=== PATIENT | male | born 1970 | race Caucasian/White ===

== ENCOUNTER 2020-02-24 12:18 | Outpatient (REF) | payer OTHER, SELFPAY ==
[2020-02-24 13:12] LABS: MANUAL DIFF FLAG NO
[2020-02-24 13:20] LABS: Basophils Absolute Auto 0.1 X10*3/uL (0.0-0.2); Basophils Percent Auto 0.5 % (0-2); Eosinophils Absolute Auto 0.2 X10*3/uL (0.0-0.4); Hematocrit 42.6 % (42-52); Hemoglobin 14.4 g/dl (14.0-18.0); Imm Gran Abs Auto 0.07 X10*3/uL (0.00-0.03); Imm Gran Pct Auto 0.7 % (0.0-0.4); Lymphocytes Absolute Auto 2.6 X10*3/uL (1.2-4.9); Lymphocytes Percent Auto 26.5 % (20-40); Mean Corpuscular HGB Conc 33.8 g/dl (31.0-36.0); Mean Corpuscular Hemoglobin 29.1 pg (27.0-33.0); Mean Corpuscular Volume 86.1 fL (80-98); Mean Platelet Volume 10.8 fL (9.4-12.4); Monocytes Absolute Auto 0.7 X10*3/uL (0.1-1.2); Monocytes Percent Auto 7.6 % (2-11); Neutrophils Absolute Auto 6.1 X10*3/uL (2.0-8.3); Neutrophils Percent Auto 62.7 % (45-73); Platelet Count 167 X10*3/uL (160-400); Red Blood Count 4.95 X10*6/uL (4.60-5.80); Red Cell Distribution Width 13.1 % (11.0-16.0); White Blood Count 9.7 X10*3/uL (4.8-10.8)
[2020-02-24 13:34] LABS: Estimated Average Glucose 154 mg/dL
[2020-02-24 13:56] LABS: Alanine Aminotransferase 23 U/L (0-40); Alkaline Phosphatase 83 U/L (39-117); Anion Gap 12 (12-20); Aspartate Amino Transferase 21 U/L (5-37); Bilirubin Total 0.5 mg/dL (0.0-1.0); Blood Urea Nitrogen 15 mg/dL (9-16); Calcium 9.2 mg/dL (8.4-10.2); Carbon Dioxide 28 mmol/L (22-29); Chloride 106 mmol/L (96-108); Cholesterol 106 mg/dL; Estimated Glomerular Filt Rate > 60; Glucose Fasting 104 mg/dL (60-99); HDL Cholesterol 26 mg/dL; LDL Cholesterol Calculated 58 mg/dl; Sodium 141 mmol/L (135-145); Triglycerides 112 mg/dL
[2020-02-24 15:41] LABS: Creatinine Urine 161.83 mg/dL; Microalbum/Creatinine Ratio Ur 533.2 ug/mg cr
== END 2020-02-24 12:19 | disposition home or self-care (01) ==
LOC: HO.LAB 12:18
PROVIDERS: PCP Internal Medicine; Visit Provider Internal Medicine
DX: E11.9 Type 2 diabetes mellitus without complications (principal)
CPT/HCPCS: 36415; 80053; 80061; 82043; 83036; 85025

== ENCOUNTER → 2020-04-05 13:04 | Outpatient (BNVA) | payer OTHER, SELFPAY | PROVIDERS: PCP Internal Medicine; Visit Provider Internal Medicine | DX: E11.9 Type 2 diabetes mellitus without complications (principal); I10 Essential (primary) hypertension; E78.5 Hyperlipidemia, unspecified; E55.9 Vitamin D deficiency, unspecified | CPT/HCPCS: 82947; 99202 ==

== ENCOUNTER → 2020-07-14 13:19 | Outpatient (BNVA) | payer OTHER, SELFPAY | PROVIDERS: PCP Internal Medicine; Visit Provider Physician Assistant ==

== ENCOUNTER → 2020-07-21 08:17 | Outpatient (BNVA) | payer OTHER, SELFPAY | PROVIDERS: PCP Internal Medicine; Visit Provider Surgery | DX: E66.01 Morbid (severe) obesity due to excess calories (principal); Z68.43 Body mass index [BMI] 50.0-59.9, adult | CPT/HCPCS: Q3014 ==

== ENCOUNTER 2020-07-27 | Outpatient (REF) | payer OTHER, SELFPAY ==
[2020-07-29 13:46] LABS: H Pylori Breath Test NOT DETECTED (NOT DETECTED)
== END 2020-07-27 00:01 | disposition home or self-care (01) ==
LOC: HO.US
PROVIDERS: Visit Provider Surgery
DX: Z01.818 Encounter for other preprocedural examination (principal); E66.01 Morbid (severe) obesity due to excess calories; K21.9 Gastro-esophageal reflux disease without esophagitis; E11.9 Type 2 diabetes mellitus without complications; E78.5 Hyperlipidemia, unspecified; I10 Essential (primary) hypertension
CPT/HCPCS: 83013

== ENCOUNTER 2020-07-27 12:59 | Outpatient (REF) | payer OTHER, SELFPAY ==
--- NOTE | ~2020-07-27 | XR_ITS ---
EXAMINATION: XR CHEST CLINICAL INFORMATION: Type 2 diabetes. COMPARISON: None TECHNIQUE: 2 views of the chest were obtained. FINDINGS: No significant abnormality is noted involving the heart, lungs, mediastinum, bony thorax or soft tissues. XR/XR chest 2V IMPRESSION: Unremarkable chest examination.
--- NOTE | 2020-07-27 13:15 | ECG_ITS ---
Test Reason : E11.2 Blood Pressure : / mmHG Vent. Rate : 071 BPM Atrial Rate : 071 BPM P-R Int : 174 ms QRS Dur : 090 ms QT Int : 386 ms P-R-T Axes : 015 -16 022 degrees QTc Int : 419 ms Sinus rhythm with Premature atrial complexes Minimal voltage criteria for LVH, may be normal variant Borderline ECG No previous ECGs available Referred By: Douglas Burden Electronically Signed By:Tommy Pina
[2020-07-27 14:22] LABS: MANUAL DIFF FLAG NO
[2020-07-27 14:27] LABS: Basophils Absolute Auto 0.1 X10*3/uL (0.0-0.2); Basophils Percent Auto 0.7 % (0-2); Eosinophils Absolute Auto 0.3 X10*3/uL (0.0-0.4); Eosinophils Percent Auto 3.1 % (0-4); Hematocrit 45.4 % (42-52); Hemoglobin 15.4 g/dl (14.0-18.0); Imm Gran Abs Auto 0.06 X10*3/uL (0.00-0.03); Imm Gran Pct Auto 0.7 % (0.0-0.4); Lymphocytes Absolute Auto 2.4 X10*3/uL (1.2-4.9); Lymphocytes Percent Auto 26.7 % (20-40); Mean Corpuscular HGB Conc 33.9 g/dl (31.0-36.0); Mean Corpuscular Hemoglobin 29.1 pg (27.0-33.0); Mean Corpuscular Volume 85.7 fL (80-98); Mean Platelet Volume 10.8 fL (9.4-12.4); Monocytes Absolute Auto 0.8 X10*3/uL (0.1-1.2); Monocytes Percent Auto 8.8 % (2-11); Neutrophils Absolute Auto 5.4 X10*3/uL (2.0-8.3); Platelet Count 160 X10*3/uL (160-400); Red Cell Distribution Width 13.6 % (11.0-16.0)
[2020-07-27 14:43] LABS: Estimated Average Glucose 157 mg/dL; Hemoglobin A1c % 7.1 %
[2020-07-27 14:52] LABS: Alanine Aminotransferase 47 U/L (0-40); Albumin Level 4.2 g/dL (3.5-5.0); Alkaline Phosphatase 95 U/L (39-117); Anion Gap 13 (12-20); Aspartate Amino Transferase 42 U/L (5-37); Bilirubin Total 0.6 mg/dL (0.0-1.0); Blood Urea Nitrogen 23 mg/dL (9-16); C Reactive Protein 0.41 mg/dL (< or = 0.50); Calcium 9.3 mg/dL (8.4-10.2); Carbon Dioxide 25 mmol/L (22-29); Chloride 104 mmol/L (96-108); Cholesterol 126 mg/dL; Estimated Glomerular Filt Rate 53; Glucose Random 149 mg/dL (60-115); HDL Cholesterol 33 mg/dL; Iron 64 mcg/dL (45-160); LDL Cholesterol Calculated 56 mg/dl; Percent Iron Saturation 19 % (15-50); Sodium 137 mmol/L (135-145); Total Iron Binding Capacity 330 mcg/dL (228-428); Total Protein 6.9 g/dL (6.5-8.0); Triglycerides 189 mg/dL; Unsaturated Iron Binding 266 ug/dL
[2020-07-27 15:07] LABS: Vitamin D 25-OH Total 22.2 ng/mL (>30)
[2020-07-27 15:25] LABS: Folate 15.4 ng/mL (> or = 4.0); Vitamin B12 346 pg/mL (200-900)
[2020-07-27 15:43] LABS: Ferritin 47 ng/mL (20-250)
[2020-07-28 09:37] LABS: Insulin Level Total 49.3 uIU/mL
[2020-07-29 09:21] LABS: Calcium (PTHI) 9.2 mg/dL (8.6-10.3); PTHI 29 pg/mL (14-64)
[2020-07-30 01:33] LABS: Zinc 84 mcg/dL (60-130)
[2020-07-31 21:06] LABS: Vitamin A 70 mcg/dL (38-98)
[2020-08-01 11:51] LABS: Vitamin B1 <6 nmol/L (8-30)
== END 2020-07-27 13:00 | disposition home or self-care (01) ==
LOC: HO.XRAY 12:59
PROVIDERS: PCP Internal Medicine; Visit Provider Surgery
DX: E11.9 Type 2 diabetes mellitus without complications (principal); E66.01 Morbid (severe) obesity due to excess calories; E78.5 Hyperlipidemia, unspecified; I10 Essential (primary) hypertension
CPT/HCPCS: 36415; 71046; 80053; 80061; 82306; 82607; 82728; 82746; 83036; 83525; 83540; 83970; 84425; 84443; 84590; 84630; 85025; 86140; 93005; 99211

== ENCOUNTER → 2020-08-02 14:55 | Outpatient (BNVA) | payer OTHER, SELFPAY | PROVIDERS: PCP Internal Medicine; Visit Provider Internal Medicine | DX: E55.9 Vitamin D deficiency, unspecified (principal); E78.5 Hyperlipidemia, unspecified; E11.9 Type 2 diabetes mellitus without complications; I10 Essential (primary) hypertension | CPT/HCPCS: 82947; 99212 ==

== ENCOUNTER → 2020-08-06 08:16 | Outpatient (BNVA) | payer OTHER, SELFPAY | PROVIDERS: PCP Internal Medicine; Visit Provider Surgery | DX: E66.01 Morbid (severe) obesity due to excess calories (principal); Z68.43 Body mass index [BMI] 50.0-59.9, adult; Z71.3 Dietary counseling and surveillance | CPT/HCPCS: Q3014 ==

== ENCOUNTER → 2020-08-13 08:11 | Outpatient (BNVA) | payer OTHER, SELFPAY | PROVIDERS: PCP Internal Medicine; Visit Provider Dietitian, Registered | DX: E66.01 Morbid (severe) obesity due to excess calories (principal); Z68.43 Body mass index [BMI] 50.0-59.9, adult | CPT/HCPCS: 97802 ==

== ENCOUNTER 2020-09-02 09:04 | Outpatient (REF) | payer OTHER, SELFPAY ==
--- NOTE | ~2020-09-02 | US_ITS ---
EXAMINATION: US COMPLETE ABDOMEN WITH LIVER ELASTOGRAPHY CLINICAL INFORMATION: Obesity COMPARISON: None. TECHNIQUE: Real-time imaging of the abdominal viscera. Noninvasive ultrasound liver fibrosis assessment is performed using Senia ElastPQ point quantification shear wave elastography (pSWE) with a C5-2 MHz transducer. Multiple elastography samples are obtained. FINDINGS: PANCREAS: Not well visualized due to bowel gas ABDOMINAL AORTA: The proximal abdominal aorta is not well visualized due to bowel gas. The middle, and distal aortic segments are normal in caliber. INFERIOR VENA CAVA: Not well visualized due to bowel. LIVER: Liver echotexture is increased. The liver is normal in size and contour.. No focal lesion or intrahepatic biliary duct dilatation. The right lobe measures 16 cm in length. The left lobe measures 10 cm in length. Portal flow is normal/hepatopedal Shear wave liver elastography median stiffness is 1.5 m/s (reference: normal median stiffness is 1.3 m/s or less). IQR/median stiffness to assess sampling precision is 0.12 (reference: good quality data set is IQR/median stiffness of 0.15 or less). GALLBLADDER: Normal. The gallbladder is physiologically distended without evidence of stones, sludge, polyps, wall thickening or pericholecystic fluid. COMMON BILE DUCT: Normal in caliber measuring 0.5 cm in diameter. RIGHT KIDNEY: Normal. No hydronephrosis. No renal calculi or focal parenchymal lesions. The kidney measures 12 cm in maximum dimension. LEFT KIDNEY: Normal. No hydronephrosis. No renal calculi or focal parenchymal lesions. The kidney measures 12 cm in maximum dimension. SPLEEN: Slightly enlarged The spleen measures 14 cm in maximum dimension. FREE FLUID: None. US/US abdomen comp w elastography IMPRESSION: 1. Impression: Echogenic liver probably representing fatty infiltration. Limited visualization of the pancreas, proximal abdominal aorta and IVC. 2. Liver elastography: Adequate liver sampling. In the absence of other known clinical signs, rules out compensated advanced chronic liver disease. REFERENCE: Society of Radiologists in Ultrasound Liver Stiffness Thresholds (2020): LIVER STIFFNESS THRESHOLDS: *Liver Stiffness equal or less than 1.3 m/s: High probability of being normal. *Liver Stiffness less than 1.7 m/s: In the absence of other known clinical signs, rules out compensated advanced chronic liver disease. *Liver Stiffness 1.7-2.1 m/s: Suggestive of compensated advanced chronic liver disease but need further test for confirmation. *Liver Stiffness over 2.1 m/s: Rules in compensated advanced chronic liver disease. *Liver Stiffness over 2.4 m/s: Suggestive of clinically significant portal hypertension. QUALITY OF DATA SET: *IQR/Median value equal or less than 0.15 implies a quality data set. *IQR/Median value over 0.15 implies a poor quality data set. SIGNIFICANT CHANGE FROM PRIOR EXAM: Significant change if liver stiffness measurement is 10% or greater from prior exam. OTHER CONSIDERATIONS: The stage of liver fibrosis may be overestimated in the setting of acute hepatitis, liver inflammation, elevated liver function tests, hepatic vascular congestion, obstructive cholestasis, non-fasting state, and infiltrative diseases such as amyloidosis and lymphoma. In some patients with NAFLD, the liver stiffness thresholds for compensated advanced chronic liver disease may be lower. In causes other than viral hepatitis and NAFLD, liver stiffness thresholds are not well established.
--- NOTE | ~2020-09-02 | FL_ITS ---
EXAMINATION: XR GI SERIES CLINICAL INFORMATION: Obesity COMPARISON: None TECHNIQUE: Upper GI was performed using thin and thick barium and effervescent granules. FINDINGS: Esophageal motility is normal. No hiatal hernia or reflux is seen. The stomach and duodenum are normal-appearing. No fold thickening, mass, ulcer or stricture is seen. FLUOROSCOPY TIME: 0.7 minutes DOSE AREA PRODUCT: 11.5 michael per centimeter squared. 26 saved fluoroscopic images. FL/FL upper GI series IMPRESSION: Unremarkable examination.
== END 2020-09-02 09:05 | disposition home or self-care (01) ==
LOC: HO.US 09:04
PROVIDERS: Visit Provider Surgery
DX: Z01.818 Encounter for other preprocedural examination (principal); E66.01 Morbid (severe) obesity due to excess calories; I10 Essential (primary) hypertension; E11.9 Type 2 diabetes mellitus without complications; E78.5 Hyperlipidemia, unspecified; K21.9 Gastro-esophageal reflux disease without esophagitis
CPT/HCPCS: 74240; 76705; 76981

== ENCOUNTER → 2020-09-07 07:25 | Outpatient (REF) | payer OTHER, SELFPAY ==
--- NOTE | ~2020-09-07 | NM_ITS ---
Lexiscan Myocardial perfusion study Indication: Preoperative cardiovascular evaluation, assess for coronary disease and ischemia Technique: The patient was brought in for a Lexiscan perfusion study on 09/07/2020 and was injected 0.4 mg of Lexiscan intravenously. Within a minute of this injection 45 mCi of sestamibi was given intravenously. Images were obtained using the SPECT gamma camera interlaced with the gating device. Images were obtained in supine position. Resting perfusion study was performed on 09/08/2020. Patient was administered 45 mCi of sestamibi intravenously at rest. Images were then obtained in supine position. Total DLP 199mGy-cm. Images were processed with the software and compared side to side in short axis, horizontal long axis and vertical long axis views. Findings: Raw acquisition was reviewed. The stress perfusion study showed mildly diminished tracer uptake along the mid anterior wall. This still persists with CT attenuation correction. The gated study shows normal LV systolic function with calculated LVEF of 64%. LV cavity is normal in size. The gated study shows normal wall thickening and contraction of segments. Resting study shows no significant perfusion abnormality. With CT attenuation correction, there is worse uptake somewhat diffusely, possibly artifactual. Gating at rest reveals normal wall motion with ejection fraction at 47%. The findings are consistent with mild reversible mid anterior defect. NM/NM daina perf SPECT rest & str Impression: 1. Myocardial perfusion imaging study shows mild reversible mid anterior defect possibly from soft tissue attenuation based on normal regional wall thickening. However, cannot exclude ischemia completely. 2. Gated LVEF is 64% during stress and 47% during rest. Correlate with echocardiogram. 3. Transient ischemic dilatation not present. EKG component of the test reported separately.
--- NOTE | 2020-09-07 07:28 | CA_ITS ---
Acquisition Time: 2020-09-07 08:31:40 Total Exercise Time: 00:02:00 Test Indications: Abnormal ECG Medications: Protocol: LEXISCAN Max HR: 084 BPM 49% of Pred: 170 BPM Max BP: 122/074 mmHG Max Work Load: 1.0 METS Pharmacological stress test using Lexiscan while sitting and moving his L arm. Pt tolerated well, denies any anginal sx. EKG without arrhythmias, non-diagnostic for ischemia. Nuclear images to follow. Normotensive response to test. Test reviewed with Dr. Bañuelos. Referred By: Douglas Burden Overread By: Iveth Quiñones NP
--- NOTE | 2020-09-07 07:28 | CA_ITS ---
Transthoracic Echocardiogram Patient (Last, First, Middle): Luther Knox, Gender: Male Date of : 1970 Age: 49 Procedure Date: 09/07/2020 Procedure Type: Transthoracic Echocardiogram Location: OP Height: 182.88 cm Weight: 124.28 kg BSA: 2.44 m2 Heart Rate: bpm BP: 120 / 80 mmHg Asset Analyst: Referring MD: Douglas Burden MD Symptoms: R94.31 - Abnormal electrocardiogram [ECG] [EKG] Study Quality: Fair ECG Rhythm: Sinus Conclusions: - The left ventricular systolic function is normal. The visually estimated ejection fraction is between 55-60%. - No obvious valvular pathology seen on this study. - Small plaque is seen in the ascending aorta. Findings Procedure Information Contrast agent, definity, is being given per protocol without apparent complications. Left Ventricle Normal left ventricular cavity size. There is normal left ventricular wall thickness. The left ventricular systolic function is normal. The visually estimated ejection fraction is between 55-60%. There is no evidence of regional wall motion abnormalities. Diastolic function is normal for age. Right Ventricle Normal right ventricular cavity size and systolic function. Atria Both atria are normal in size. Aortic Valve There is a normal trileaflet aortic valve. There is no aortic valve stenosis. There is no aortic valve regurgitation. Mitral Valve The mitral valve appears normal. There is no mitral valve regurgitation. There is no mitral valve stenosis. Pulmonic Valve The pulmonic valve was not well visualized. Tricuspid Valve There is trace tricuspid valve regurgitation. The pulmonary artery systolic pressure is normal. Great Vessels The aortic annulus, sinuses of valsalva, and asc aorta are normal in size. Small plaque is seen in the ascending aorta. Venous The inferior vena cava is normal in size and collapses greater than 50% with inspiration. Pericardium/Pleural There is no evidence of pericardial effusion. Prior Study Comparison No prior study available for comparison. Recommendations, Care & Conclusions No obvious valvular pathology seen on this study. Measurements 2D Linear Measurements RVIDd: 3.47 RVIDd Index: 1.43 IVSd: 0.99 0.6-0.9/0.6-1.0 cm LVIDd: 5.11 3.9-5.3/4.2-5.9 cm LVIDd Index: 2.11 2.4-3.2/2.2-3.1 cm/m2 LVIDs: 3.34 2.0-3.6 cm LVPWd: 1.27 0.7-1.1 cm Ao Root: 3.20 2.1-3.5 cm LA Diam: 4.50 2.7-3.8/3.0-4.0 cm LAIDs Index: 1.86 1.5-2.3 cm/m2 LV Mass: 277.22 67-162/88-224 g LV Mass Index: 114.55 43-95/49-115 g/m2 LVOT Diam: 2.30 3.0+(-)1.3 cm 2D Systolic Function EF 4C: 48.20 >55% EF 2C: 69.20 >55% EF BiP: 60.00 >55% Mitral Valve MV Pk E: 0.65 MV PK A: 0.54 MV Decel Time: 280.00 E/A: 1.20 E'Lateral: 12.60 E'Medial: 7.62 E/E' Med: 8.50 E/E' Lat: 5.10 Aortic Valve AoV Pk Emmanuel: 1.03 AoV Mn Emmanuel: 0.82 AoV VTI: 0.22 AoV Pk Grad: 4.00 Aov Mn Grad: 3.00 ANDRÉS Cont.VTI: 4.35 LVOT LVOT Pk Emmanuel: 0.99 LVOT Mn Emmanuel: 0.76 LVOT VTI: 0.23 LVOT Pk Grad: 4.00 LVOT Mn Grad: 2.00 LVOT Diam: 2.30 LVOT Area: 4.15 Diastolic Function MV Pk E: 0.65 MV Pk A: 0.54 E/A: 1.20 E'Medial: 7.62 E/E' Med: 8.50 E' Laterial: 12.60 E/E' Lat: 5.10 Tricuspid Valve TR Pk Emmanuel: 2.27 TR Pk Grad: 21.00 RA Press: 3.00 RVSP: 24.00 Great Vessels Aorta Ao Root-2D: 3.20 2.0-3.7 cm Ao Asc: 3.40 2.1-3.4 cm Ao Arch: 2.50 Updated in Other Vendor System with Status of Final Mathew Nye MD electronically signed on 09/07/2020 1:06:04 PM with status of Final
== END ==
LOC: HO.CARD 07:25
PROVIDERS: Visit Provider Surgery
DX: Z01.818 Encounter for other preprocedural examination (principal); R06.02 Shortness of breath; R94.31 Abnormal electrocardiogram [ECG] [EKG]; I11.9 Hypertensive heart disease without heart failure
CPT/HCPCS: 78452; 93017; 93306; A9500; J0280; J2785; Q9957

== ENCOUNTER → 2020-09-13 12:22 | Outpatient (BNVA) | payer OTHER, SELFPAY | PROVIDERS: PCP Internal Medicine; Referring Provider Internal Medicine; Visit Provider Surgery | DX: E66.01 Morbid (severe) obesity due to excess calories (principal); Z68.43 Body mass index [BMI] 50.0-59.9, adult | CPT/HCPCS: Q3014 ==

== ENCOUNTER → 2020-09-21 08:13 | Outpatient (BNVA) | payer OTHER, SELFPAY | PROVIDERS: PCP Internal Medicine; Visit Provider Dietitian, Registered | DX: E66.01 Morbid (severe) obesity due to excess calories (principal); Z68.43 Body mass index [BMI] 50.0-59.9, adult | CPT/HCPCS: 97803 ==

== ENCOUNTER 2020-09-30 12:20 | Outpatient (REF) | payer OTHER, SELFPAY ==
[2020-09-30 13:33] LABS: Estimated Average Glucose 120 mg/dL; Hemoglobin A1c % 5.8 %
== END 2020-09-30 12:21 | disposition home or self-care (01) ==
LOC: HO.LAB 12:20
PROVIDERS: PCP Internal Medicine; Visit Provider Surgery
DX: E11.9 Type 2 diabetes mellitus without complications (principal)
CPT/HCPCS: 36415; 83036

== ENCOUNTER → 2020-10-20 08:00 | Outpatient (BNVA) | payer OTHER, SELFPAY | PROVIDERS: PCP Internal Medicine; Visit Provider Surgery ==

== ENCOUNTER 2020-10-21 13:50 | Outpatient (REF) | payer OTHER, SELFPAY ==
[2020-10-21 16:01] LABS: Hematocrit 45.5 % (42-52); Hemoglobin 15.3 g/dl (14.0-18.0); Mean Corpuscular HGB Conc 33.6 g/dl (31.0-36.0); Mean Corpuscular Volume 86.2 fL (80-98); Mean Platelet Volume 11.2 fL (9.4-12.4); Platelet Count 141 X10*3/uL (160-400); Red Blood Count 5.28 X10*6/uL (4.60-5.80); Red Cell Distribution Width 13.2 % (11.0-16.0); White Blood Count 10.8 X10*3/uL (4.8-10.8)
[2020-10-21 16:08] LABS: INTERNATIONAL NORM RATIO 1.1 (0.9-1.1); Prothrombin Time 12.5 SEC (9.9-13.0)
[2020-10-21 16:11] LABS: COVID-19 Test Negative (Negative)
[2020-10-21 16:21] LABS: Anion Gap 13 (12-20); Blood Urea Nitrogen 32 mg/dL (9-16); Calcium 9.3 mg/dL (8.4-10.2); Carbon Dioxide 27 mmol/L (22-29); Chloride 103 mmol/L (96-108); Estimated Glomerular Filt Rate 50; Glucose Random 140 mg/dL (60-115); Sodium 138 mmol/L (135-145)
== END 2020-10-21 13:51 | disposition home or self-care (01) ==
LOC: HO.LAB 13:50
PROVIDERS: PCP Internal Medicine; Referring Provider Internal Medicine; Visit Provider Internal Medicine
DX: Z01.810 Encounter for preprocedural cardiovascular examination (principal); R94.39 Abnormal result of other cardiovascular function study; Z20.822 Contact with and (suspected) exposure to COVID-19; E66.01 Morbid (severe) obesity due to excess calories; Z68.43 Body mass index [BMI] 50.0-59.9, adult; E78.5 Hyperlipidemia, unspecified; E11.8 Type 2 diabetes mellitus with unspecified complications
CPT/HCPCS: 36415; 80048; 85027; 85610; 87635; 99202

== ENCOUNTER → 2020-10-22 13:50 | Outpatient (BNVA) | payer OTHER, SELFPAY | PROVIDERS: PCP Internal Medicine; Visit Provider Surgery | DX: E66.01 Morbid (severe) obesity due to excess calories (principal); E78.5 Hyperlipidemia, unspecified; I10 Essential (primary) hypertension; E11.9 Type 2 diabetes mellitus without complications | CPT/HCPCS: Q3014 ==

== ENCOUNTER 2020-10-28 06:10 | Inpatient (IN) | payer OTHER, SELFPAY ==
[2020-10-19 10:53] VITALS: BMI 50.8
[2020-10-25 09:08] LABS: MANUAL DIFF FLAG NO
[2020-10-25 09:18] LABS: Basophils Percent Auto 0.4 % (0-2); Eosinophils Absolute Auto 0.2 X10*3/uL (0.0-0.4); Eosinophils Percent Auto 2.1 % (0-4); Hematocrit 43.2 % (42-52); Hemoglobin 14.6 g/dl (14.0-18.0); Imm Gran Abs Auto 0.03 X10*3/uL (0.00-0.03); Imm Gran Pct Auto 0.4 % (0.0-0.4); Lymphocytes Absolute Auto 1.7 X10*3/uL (1.2-4.9); Lymphocytes Percent Auto 23.1 % (20-40); Mean Corpuscular HGB Conc 33.8 g/dl (31.0-36.0); Mean Corpuscular Hemoglobin 28.9 pg (27.0-33.0); Mean Corpuscular Volume 85.5 fL (80-98); Mean Platelet Volume 11.1 fL (9.4-12.4); Monocytes Absolute Auto 0.7 X10*3/uL (0.1-1.2); Monocytes Percent Auto 9.3 % (2-11); Neutrophils Absolute Auto 4.7 X10*3/uL (2.0-8.3); Neutrophils Percent Auto 64.7 % (45-73); Platelet Count 142 X10*3/uL (160-400); Red Blood Count 5.05 X10*6/uL (4.60-5.80); Red Cell Distribution Width 13.2 % (11.0-16.0); White Blood Count 7.2 X10*3/uL (4.8-10.8)
[2020-10-25 09:23] LABS: INTERNATIONAL NORM RATIO 1.1 (0.9-1.1); Prothrombin Time 12.7 SEC (9.9-13.0)
[2020-10-25 09:26] LABS: Partial Thromboplastin Time 38.7 SEC (24.1-38.0)
[2020-10-25 09:38] LABS: Estimated Average Glucose 114 mg/dL; Hemoglobin A1c % 5.6 %
[2020-10-25 09:47] LABS: Alanine Aminotransferase 30 U/L (0-40); Alkaline Phosphatase 76 U/L (39-117); Anion Gap 14 (12-20); Aspartate Amino Transferase 25 U/L (5-37); Bilirubin Total 0.4 mg/dL (0.0-1.0); Blood Urea Nitrogen 26 mg/dL (9-16); C Reactive Protein 0.93 mg/dL (< or = 0.50); Calcium 9.8 mg/dL (8.4-10.2); Carbon Dioxide 27 mmol/L (22-29); Chloride 103 mmol/L (96-108); Cholesterol 96 mg/dL; Creatinine Clr Calc Pharmacy 71.7; Estimated Glomerular Filt Rate 57; Glucose Random 168 mg/dL (60-115); HDL Cholesterol 28 mg/dL; LDL Cholesterol Calculated 30 mg/dl; Potassium 4.8 mmol/L (3.3-5.1); Sodium 139 mmol/L (135-145); Total Protein 6.9 g/dL (6.5-8.0); Triglycerides 192 mg/dL
[2020-10-25 10:05] LABS: TSH reflex Free T4 1.55 uIU/mL (0.32-4.0)
[2020-10-26 10:40] LABS: Insulin Level Total 36.7 uIU/mL
--- NOTE | 2020-10-27 08:49 | P.CONAN_ITS ---
Documented by User: Antonella Leong NP 10/27/20 08:53 HPI - Anesthesia Eval Consult details Narrative: 50yo M for Gastrectomy Sleeve, EGD, Poss Diaphragmatic Hernia, Poss Ventral Hernia, Poss open s/p bilat BKA Abnormal MIBI, sent for cath. Per cardiology: Prelim cath results- no significant CAD. May proceed as planned. Low cardiac risk. *Multiple med allergies - Anaphylaxis to NSAIDs and oxycontin* PMFSH Active Problems Active Problems: All Active Problems (Updated 10/21/20 @ 15:22 by Mathew Nye MD) Abnormal myocardial perfusion study (Acute) Other and unspecified hyperlipidemia (Acute) Type 2 diabetes mellitus with unspecified complications (Acute) Preoperative cardiovascular examination (Acute) Infection of amputation stump of left lower extremity (Acute) T2DM (type 2 diabetes mellitus) (Acute) Bipolar disorder with moderate depression (Acute) Anxiety (Acute) Abnormal EKG (Acute) LVH (left ventricular hypertrophy) (Acute) Vitamin B1 deficiency (Acute) Vitamin B12 deficiency (Acute) Abnormal stress test (Acute) Morbid obesity (Acute) Vitamin D deficiency (Acute) HLD (hyperlipidemia) (Acute) HTN (hypertension) (Acute) S/P BKA (below knee amputation) bilateral (Acute) Diabetes mellitus (Acute) Past Medical History Medical History (Updated 10/21/20 @ 15:22 by Mathew Nye MD) Anxiety Bilateral cataracts Cognitive and neurobehavioral dysfunction COVID-19 vaccine series completed Depression Diabetes mellitus History of traumatic brain injury HLD (hyperlipidemia) HTN (hypertension) Hx of leg amputation Hx of staphylococcal infection Morbid obesity PTSD (post-traumatic stress disorder) Sleep apnea Vitamin D deficiency Family History Family History (Updated 10/21/20 @ 14:27 by Marilu Vidal RN) Mother No problems noted. Father Alcohol abuse Surgical History Surgical History History of surgery on arm Hx of carpal tunnel repair Hx of cataract extraction Hx of hernia repair S/P BKA (below knee amputation) bilateral Social History Social History (Updated 10/21/20 @ 14:27 by Marilu Vidal, LISA) Are you a primary manager managed care to a significant other at home: No Do you presently have visiting nurse or other home services: No Alcohol intake: former Patient Tobacco Use Status: Former Tobacco user Tobacco use type: Smokeless Tobacco Years Smoked: 20-30 years Use of substances other than those prescribed or required for medical reasons: No Have you been hit, kicked, punched, or otherwise hurt by someone within the past year? If so, by whom?: No Are you DNR?: No Advance Directives: No ( is -no official HCP form-form mailed to p atient w/pre-op info.) Advance Directives Information Provided: Yes ( is his ) Advance Directives on File: No Recently lost weight without trying: No Eating poorly because of decreased appetite: No Nutrition Risks: No Nutritional Risk Poor oral hygiene: No (upper & lower full denture) Meds Allergies Allergy/AdvReac Type Severity Reaction Status Date / Time NSAIDS (Non-Steroidal Allergy Severe Anaphylaxis Verified 10/28/20 06:18 Anti-Inflamma oxycodone [From OxyContin] Allergy Severe Anaphylaxis Verified 10/28/20 06:18 Penicillins Allergy Severe Hives Verified 10/28/20 06:18 Sulfa (Sulfonamide Allergy Severe Anaphylaxis Verified 10/28/20 06:18 Antibiotics) levofloxacin [From Levaquin] Allergy Intermediate Rash Verified 10/28/20 06:18 metronidazole [From Flagyl] Allergy Intermediate Rash Verified 10/28/20 06:18 Home Medications Medication Instructions Recorded Confirmed Last Taken Type atorvastatin 80 mg tablet 80 mg PO DAILY 02/10/20 10/22/20 Unknown History prazosin 2 mg capsule 2 mg PO BEDTIME 02/10/20 10/22/20 Unknown History risperidone 0.5 mg tablet 0.5 mg PO BID 02/10/20 10/22/20 Unknown History zolpidem 12.5 mg tablet,extended 12.5 mg PO BEDTIME PRN 02/10/20 10/22/20 Unknown History release,multiphase buspirone 15 mg tablet 15 mg PO TID tab 04/05/20 10/22/20 Unknown History fluoxetine 40 mg capsule 40 mg PO DAILY cap 08/02/20 10/22/20 Unknown History insulin glargine 100 unit/mL (3 70 unit SUBCUT QPM ml 08/02/20 10/28/20 10/27/20 20:00 History mL) subcutaneous pen 35 units Exam Exam Date and Time: October 27, 2020 0849 Height,Weight and Vital Signs: Height 5 ft Weight 117.934 kg Pertinent Lab Results Pertinent Lab Results: Laboratory Tests 10/25/20 10/25/20 10/25/20 08:49 08:49 08:49 WBC 7.2 RBC 5.05 Hgb 14.6 Hct 43.2 MCV 85.5 MCH 28.9 MCHC 33.8 RDW 13.2 Plt Count 142 L MPV 11.1 Immature Gran % (Auto) 0.4 Neut % (Auto) 64.7 Lymph % (Auto) 23.1 Emmet % (Auto) 9.3 Eos % (Auto) 2.1 Baso % (Auto) 0.4 Lymph # (Auto) 1.7 Emmet # (Auto) 0.7 Eos # (Auto) 0.2 Baso # (Auto) 0.0 Abs Immat Gran (auto) 0.03 Absolute Neuts (auto) 4.7 Absolute Nucleated RBC 0.000 Nucleated RBC % (auto) 0.0 PT 12.7 INR 1.1 APTT 38.7 H Sodium 139 Potassium 4.8 Chloride 103 Carbon Dioxide 27 Anion Gap 14 BUN 26 H Creatinine 1.33 Estim Creat Clear Calc 71.7 Estimated GFR 57 Random Glucose 168 H Estimat Average Glucose Hemoglobin A1c % Total Insulin Calcium 9.8 Total Bilirubin 0.4 AST 25 D ALT 30 Alkaline Phosphatase 76 C-Reactive Protein 0.93 H Total Protein 6.9 Albumin 4.0 Triglycerides 192 Cholesterol 96 D LDL Cholesterol, Calc 30 HDL Cholesterol 28 TSH 1.55 Blood Type Antibody Screen 10/25/20 10/25/20 10/25/20 08:49 08:49 08:49 WBC RBC Hgb Hct MCV MCH MCHC RDW Plt Count MPV Immature Gran % (Auto) Neut % (Auto) Lymph % (Auto) Emmet % (Auto) Eos % (Auto) Baso % (Auto) Lymph # (Auto) Emmet # (Auto) Eos # (Auto) Baso # (Auto) Abs Immat Gran (auto) Absolute Neuts (auto) Absolute Nucleated RBC Nucleated RBC % (auto) PT INR APTT Sodium Potassium Chloride Carbon Dioxide Anion Gap BUN Creatinine Estim Creat Clear Calc Estimated GFR Random Glucose Estimat Average Glucose 114 Hemoglobin A1c % 5.6 Total Insulin 36.7 H Calcium Total Bilirubin AST ALT Alkaline Phosphatase C-Reactive Protein Total Protein Albumin Triglycerides Cholesterol LDL Cholesterol, Calc HDL Cholesterol TSH Blood Type A Positive Antibody Screen NEGATIVE Narrative Narrative: EKG 07/2020 Vent. Rate : 071 BPM ? ? Atrial Rate : 071 BPM ?? P-R Int : 174 ms? QRS Dur : 090 ms ? ? QT Int : 386 ms ? ? ? P-R-T Axes : 015 -16 022 degrees ?? QTc Int : 419 ms ? Sinus rhythm with Premature atrial complexes Minimal voltage criteria for LVH, may be normal variant Borderline ECG No previous ECGs available ECHO 08/2020 Conclusions: - The left ventricular systolic function is normal.? The visually estimated ejection fraction is between 55-60%. ? - No obvious valvular pathology seen on this study.? - Small plaque is seen in the ascending aorta. ? ?NM daina perf SPECT rest & str 08/2020 Impression: ? 1.? Myocardial perfusion imaging study shows mild reversible mid anterior defect possibly from soft tissue attenuation based on normal regional wall thickening. However, cannot exclude ischemia completely. 2.? Gated LVEF is 64% during stress and 47% during rest. Correlate with echocardiogram. 3. Transient ischemic dilatation not present. ? EKG component of the test ?without arrhythmias, ?non-diagnostic for ischemia. Assessment and Plan Assessment Anesthesia Assessment: Chart Reviewed Documented by User: Grayson Browning MD 10/28/20 07:04 [facility] Past Medical History Medical History (Updated 10/21/20 @ 15:22 by Mathew Nye MD) Anxiety Bilateral cataracts Cognitive and neurobehavioral dysfunction COVID-19 vaccine series completed Depression Diabetes mellitus History of traumatic brain injury HLD (hyperlipidemia) HTN (hypertension) Hx of leg amputation Hx of staphylococcal infection Morbid obesity PTSD (post-traumatic stress disorder) Sleep apnea Vitamin D deficiency Family History Family History (Updated 10/21/20 @ 14:27 by Marilu Vidal RN) Mother No problems noted. Father Alcohol abuse Surgical History Surgical History History of surgery on arm Hx of carpal tunnel repair Hx of cataract extraction Hx of hernia repair S/P BKA (below knee amputation) bilateral Social History Social History (Updated 10/21/20 @ 14:27 by Marilu Vidal RN) Are you a primary manager managed care to a significant other at home: No Do you presently have visiting nurse or other home services: No Alcohol intake: former Patient Tobacco Use Status: Former Tobacco user Tobacco use type: Smokeless Tobacco Years Smoked: 20-30 years Use of substances other than those prescribed or required for medical reasons: No Have you been hit, kicked, punched, or otherwise hurt by someone within the past year? If so, by whom?: No Are you DNR?: No Advance Directives: No (states is -no official HCP form-form mailed to patient w/pre-op info.) Advance Directives Information Provided: Yes (states is his ) Advance Directives on File: No Recently lost weight without trying: No Eating poorly because of decreased appetite: No Nutrition Risks: No Nutritional Risk Poor oral hygiene: No (upper & lower full denture) Meds Allergies Allergy/AdvReac Type Severity Reaction Status Date / Time NSAIDS (Non-Steroidal Allergy Severe Anaphylaxis Verified 10/28/20 06:18 Anti-Inflamma oxycodone [From OxyContin] Allergy Severe Anaphylaxis Verified 10/28/20 06:18 Penicillins Allergy Severe Hives Verified 10/28/20 06:18 Sulfa (Sulfonamide Allergy Severe Anaphylaxis Verified 10/28/20 06:18 Antibiotics) levofloxacin [From Levaquin] Allergy Intermediate Rash Verified 10/28/20 06:18 metronidazole [From Flagyl] Allergy Intermediate Rash Verified 10/28/20 06:18 Home Medications Medication Instructions Recorded Confirmed Last Taken Type atorvastatin 80 mg tablet 80 mg PO DAILY 02/10/20 10/22/20 Unknown History prazosin 2 mg capsule 2 mg PO BEDTIME 02/10/20 10/22/20 Unknown History risperidone 0.5 mg tablet 0.5 mg PO BID 02/10/20 10/22/20 Unknown History zolpidem 12.5 mg tablet,extended 12.5 mg PO BEDTIME PRN 02/10/20 10/22/20 Unknown History release,multiphase buspirone 15 mg tablet 15 mg PO TID tab 04/05/20 10/22/20 Unknown History fluoxetine 40 mg capsule 40 mg PO DAILY cap 08/02/20 10/22/20 Unknown History insulin glargine 100 unit/mL (3 70 unit SUBCUT QPM ml 08/02/20 10/28/20 10/27/20 20:00 History mL) subcutaneous pen 35 units Exam Airway Mallampati Class: II TM Dist: >3cm Neck ROM: Full Denture: Upper and Lower
--- NOTE | 2020-10-27 19:58 | MHC.SHP ---
Pre-Procedural Eval Section A Date of Service: 10/27/20 The patient is an INPATIENT: Yes The History & Physical has been completed within 30 days and I have reviewed it.: Yes Section B Chief Complaint: Morbid Severe Obesity Relevant Family History (Specify if Yes): No Relevant Social History: None Present Medications: see Short Stay Collaborative assessment Medical History: No relevant PMH History of Previous Operations: No relevant previous surgery Allergies: Allergies Allergy/AdvReac Type Severity Reaction Status Date / Time NSAIDS (Non-Steroidal Allergy Severe Anaphylaxis Verified 10/22/20 14:07 Anti-Inflamma oxycodone [From OxyContin] Allergy Severe Anaphylaxis Verified 10/22/20 14:07 Penicillins Allergy Severe Hives Verified 10/22/20 14:07 Sulfa (Sulfonamide Allergy Severe Anaphylaxis Verified 10/22/20 14:07 Antibiotics) levofloxacin [From Levaquin] Allergy Intermediate Rash Verified 10/22/20 14:07 metronidazole [From Flagyl] Allergy Intermediate Rash Verified 10/22/20 14:07 Review of Systems Sugical H&P ROS: Negative: Constitution, Cardiovascular, Respiratory, Neurological, Psychiatric, Hem-Onc, Allergic/Immunologic, Gastrointestinal, Genitourinary, Musculoskeletal, Integumentary, Endocrine and Eyes/Ears/Nose/Throat Exam Surgical H&P Exam: Normal: HEENT, Normal: Heart, Normal: Lungs, Normal: Extremities, Normal: Abdomen, Normal: Skin and Normal: Neurological Plan Diagnosis/Plan: Unchanged I have reviewed the history and physical and performed a pertinent physical examination on my patient. No changes have occurred unless specified.
[2020-10-28] VITALS (15 sets, daily range): BP systolic 101–176; BP diastolic 59–89; PULSE 74–95; RESP 11–19; TEMP 36.3–37.3; O2SAT 92–99
[2020-10-28 06:35] LABS: Glucose, Whole Blood 133 mg/dL (60-115)
[2020-10-28 06:47] LABS: COVID-19 Test Negative (Negative); IDNOW Serial# 55D5AD1C
[2020-10-28] MEDS: Lactated Ringers 1,000 ML 100 ML IVCONT (07:21)
[2020-10-28] MEDS: Lactated Ringers 1,000 ML 999 ML IV (07:21)
--- NOTE | 2020-10-28 08:00 | PC.NURSE ---
Verified with over phone that device in patients abdomen is a blood glucose monitor and not an insulin pump.
--- NOTE | 2020-10-28 10:27 | P.BOP_ITS ---
Brief Operative Note Date of Service: 10/28/20 Pre-op diagnosis: Morbid obesity and comorbidities (see below) Post-op diagnosis: same (& abdominal adhesions) Procedure: INITIAL PATIENT BMI ON PRESENTATION AT OUR OFFICE: 58.1 kg/m2 LAST BMI BEFORE SURGERY: 50.1 kg/m2 COMORBIDITIES:sleep apnea, insulin dependent diabetes, hypertension, depression, insomnia, neuropathy The patient participated in an intensive weekly lifestyle ?intervention and exercise program during which the patient ?has lost between the initial office visit and the last preoperative visit 41.2 lbs, or 13.86% of initial actual body weight. The patient met the BMI-criteria for bariatric surgery based on the BMI on initial presentation. The patient should not be penalized for achieving such weight loss because ?it is not sustainable long-term without surgical inter vention and it was achieved in preparation for bariatric surgery ?under my direction and based on my published research ([email or web address] and? [email or web address] ) ?that a 10% preoperative weight loss improves long-term weight loss after surgery and reduces perioperative complications.? Insurance carriers such as [facility] have endorsed my recommendations ?and have included in their policies criteria to include a 10% preoperative weight loss requirement. PROCEDURE: Esophago-gastroscopy, extensive laparoscopic lysis of adhesions, laparoscopic sleeve gastrectomy and laparoscopic gastropexy INDICATIONS: This is a 50 year-old female who was electively scheduled for laparoscopic, possibly open sleeve gastrectomy. The risks and complications of the procedure were discussed with the patient in advance, particularly the possibility of ; pulmonary embolism; staple line leak; bleeding; GERD; cardiac, pulmonary, or renal complications; as well as long-term problems such as insufficient weight loss, vitamin deficiency, strictures, or ulcers. The patient understood all the risks, and was in agreement to proceed with surgery. DESCRIPTION OF PROCEDURE: After informed consent was obtained from the patient, the patient was given preoperative antibiotics, and was transferred to the operating room. After successful induction of general anesthesia, pneumatic compressive devices were placed on both lower extremities. An upper endoscopy was performed next. The oropharynx and esophagus appeared to be within normal limits. There was a diaphragmatic hernia present of moderate size consistent with the findings of the preoperative upper GI. The stomach was entered. Then after all fluid and air were suctioned and the stomach was fully decompressed, the scope was withdrawn and secured in the mid esophagus. The patient was then prepped and draped in the usual sterile manner, and abdominal access was established at the right upper quadrant with the Bea technique. A 12 mm blunt port was inserted, and the abdomen was insufflated with CO2 to a pressure of 15 mmHg. Under direct visualization, additional ports were placed, specifically two 5 mm Versi-step ports to the left upper quadrant, and a 5 mm Versi-Step port to the right upper quadrant. 1% lidocaine plain was used to infiltrate all port sites as well as all fascia defects. There were adhesions in the abdomen from previous ventral hernia repair involving the omentum and the anterior abdominal wall. Those were lysed comple tely with the ultrasonic device. Following that, the patient was placed in a steep reverse Trendelenburg position. An additional 5 mm port was placed to the right flank for the Mediflex retractor that was used to retract the left lobe of the liver. The gastro-esophageal fat pad was opened with the ultrasonic device (Thunderbeat, Olympus) and the anterior esophagus and hiatus were exposed. The angle of His was opened with the ultrasonic device the fundus of the stomach from any diaphragmatic and splenic attachments. I then opened the gastrocolic ligament between the transverse colon and the greater curvature of the stomach with the ultrasonic device to enter the lesser sac and facilitate the ligation of the short gastric vessels. I started at a mid-point along the greater curvature and using the Thunderbeat, all short gastric vessels were divided all the way to the angle of His until the left estrellita was completely dissected at its entirety. I then divided the gastro-colic li gament distally to a distance of about 3-4 cm proximal to the esophagus. There were extensive congenital adhesions between the pancreas and posterior gastric wall. Those were lysed completely with the ultrasonic device. Adhesiolysis took approximately 45 min to complete. The stomach was then divided transversely with one Endo SABI-45 purple, one SABI- 45 orange, and five SABI-60 articulating orange loads using the AEON stapler and loads. Every effort was made that the gastric sleeve had a tubular shape and an even caliber throughout. Once the sleeve resection was completed, the staple line of the gastric sleeve was reinforced with Hemoclips. The resected stomach was retrieved without difficulty from the Bea port. A gastropexy was then performed in order to prevent postoperative GERD and partial gastric volvulus. Several interrupted 2.0 Surgidac sutures were placed between the sleeve's staple line and the previously divided greater omentum and gastro-colic ligament using the Endo-Stitch device. ?An upper endoscopy was performed. There was no narrowing at the GE junction. The scope was easily advanced all the way to the pylorus which was clearly visualized. There was no narrowing anywhere and the sleeve's caliber was even throughout. The sleeve's staple line was inspected and there was no evidence of ischemia, bleeding or dehiscence. At that point the gastroscope was withdrawn from the patient?s mouth while we were decompressing the bowel and the stomach from any remaining air. I looked into the lesser sac to see how the sleeve was situating and it was situating well. There was no bleeding from the staple line, spleen, or short gastric vessels. The Mediflex retractor was removed, and the undersurface of the liver was inspected and there was no bleeding. The patient was placed in supine position. I closed the fascial defect of the 12 mm port site with a figure of eight #1 Polysorb suture. Then 100 cc 0.25 % Marcaine plain with 10 mg of Dexamethasone were used to infiltrate the fascial closure as well as all skin incisions. At this point, the abdomen was deflated, all ports were removed under direct vision, and no bleeding was noted from any of the port sites. The skin incisions were irrigated with saline and were closed with 4-0 absorbable monofilament sutures. Steri-Strips and OpSites were used to cover all incisions. The patient was extubated and was transferred in stable condition to the recovery room for further care. I was present and performed all denis parts of the procedure. Ms. Bowmanson was the medication assistant. There were no residents to assist with this case. Isidro Burden MD, PhD, FACS Surgeon: Douglas Burden MD Anesthesia: GETA, local and other (TAP block) Was an School Fundraising Director used for this Procedure?: Yes School Fundraising Director: Sarahy Ervin Estimated blood loss (mL): 10 IV fluids (mL): 3,000 Urine output (mL): 0 (No Powers to record) Pathology: other (Stomach) Condition: stable Disposition: PACU
[2020-10-28 10:29] LABS: Glucose, Whole Blood 162 mg/dL (60-115)
--- NOTE | 2020-10-28 10:32 | P.PNGS_ITS ---
Subjective Subjective Date of Service: 10/29/20 Interval history: Patient has mild incisional pain, but was able to ambulate and use the incentive spirometer. He is tolerating phase 1 bariatric diet Physical Exam Vital Signs: Vital Signs: Last Vital Signs Temp 97.5 F 10/28/20 06:35 Pulse 74 10/28/20 06:35 Resp 16 10/28/20 06:35 BP 101/59 L 10/28/20 06:35 Pulse Ox 99 10/28/20 06:35 Body Mass Index 50.8 GI: Inspection: Yes normal to inspection and Yes incision (clean, dry and intact) Extrem: Right lower extremity: normal to inspection (no calf tenderness) Left lower extremity: normal to inspection (no calf tenderness) Procedures Date of Service Date of Service: 10/29/20 Progress Note: A&P Assessment and plan (1) Morbid obesity: Status: Acute Assessment and Plan: s/p laparoscopic sleeve gastrectomy, lysis of adhesions and gastropexy Doing well Check am labs. If OK, will discharge home (2) S/P laparoscopic sleeve gastrectomy: Status: Acute (3) Intra-abdominal adhesions: Status: Acute (4) Congenital intra-abdominal adhesions: Status: Acute (5) HTN (hypertension): Status: Acute (6) S/P BKA (below knee amputation) bilateral: (7) HLD (hyperlipidemia): Status: Acute (8) Sleep apnea: Status: Acute (9) Insulin dependent diabetes mellitus: Status: Acute (10) Neuropathy: Status: Acute Fall Risk Details Current Medications: Current Medications Generic Name Dose Route Start Last Admin Trade Name Freq PRN Reason Stop Dose Admin Hydromorphone HCl 0.5 mg 10/28/20 07:04 Hydromorphone Hcl 0.5 Mg/0.5 Ml Syringe IVPUSH Q5M PRN Pain, Severe (Pain Scale 7-10) Protocol Lactated Ringer's 1,000 mls @ 100 mls/hr 10/28/20 06:15 10/28/20 07:21 Lr IVCONT 100 mls/hr .Q10H WHITNEY Administration Ondansetron HCl 4 mg 10/28/20 07:04 Ondansetron Hcl 4 Mg/2 Ml Vial IVPUSH ONCE PRN Nausea and Vomiting Time Spent With Patient Time: Total time spent is greater than 50% in coordination of care (as doc umented) at patient's floor/unit and/or counseling patient: Time with patient: less than 15 minutes Quality Stroke Does the patient have a stroke diagnosis?: No VTE Prior VTE?: No VTE Risk Level:: Surgical - moderate VTE Device Contraindication: N/A - Device Ordered VTE Drug Contraindication: Treatment Not Indicated
--- NOTE | 2020-10-28 10:50 | P.DS_ITS ---
DS: Providers Provider Date of Service: 10/29/20 Date of admission: 10/28/20 06:10 Primary care physician: Chapincito Sprague MD DS: Diagnosis Discharge Diagnosis (1) Morbid obesity: Status: Acute (2) S/P laparoscopic sleeve gastrectomy: Status: Acute (3) Intra-abdominal adhesions: Status: Acute (4) Congenital intra-abdominal adhesions: Status: Acute (5) HTN (hypertension): Status: Acute (6) S/P BKA (below knee amputation) bilateral: (7) HLD (hyperlipidemia): Status: Acute (8) Sleep apnea: Status: Acute (9) Insulin dependent diabetes mellitus: Status: Acute (10) Neuropathy: Status: Acute DS: Summary Hospital Course Hospital Course: ADMITTING DIAGNOSIS: morbid obesity, DM, hyperlipidemia, TIA, PTSD, TBI, hx ETOH abuse DISCHARGE DIAGNOSIS: same, s/p laparoscopic sleeve gastrectomy PAST SURGICAL HISTORY: s/p B BKA, ventral hernia, carpal tunne PROCEDURE: upper endoscopy, laparoscopic sleeve gastrectomy DISCHARGE SUMMARY: History of Present Illness: The patient is a 50 year-old man with a BMI of 58 kg/m2 and associated co- morbidities as described above. The patient had extensive work-up,lost 41.2 lbs preoperatively and was electively scheduled for laparoscopic, possible open sleeve gastrectomy and gastropexy. Risks and complications of the surgery were discussed with the patient in advance, particularly the possibility of , pulmonary embolism, anastomotic leak, bleeding, bowel injury, GERD, cardiac, renal or pulmonary complications. The patient understood all the risks and was in agreement with the surgical plan. Hospital Course: The patient underwent an uneventful laparoscopic sleeve gastrectomy with gastropexy on the day of admission. Postoperatively, the patient was transferred to the surgical floor. The patient received IV Acetaminophen and IV dilaudid for pain control. Patient was started on bariatric phase 1 diet POD #0. On postoperative day one, the patient was feeling well without nausea, vomiting, fevers, or tachycardia. The patient had some mild incisional pain and the abdomen was soft. On the morning of postoperative day one, the patient was continued on 1 ounce of water or ice every half hour. During the day, the patient did fairly well, having some incisional pain, but able to ambulate adequately and to tolerate liquids well. Since the patient is doing well, we decided that the patient was ready to be discharged. The patient was given instructions to follow-up with me next week and to call my office for any fever over 101, persistent abdominal pain, nausea, vomiting, GERD, symptoms of DVT such as calf tenderness, or leg swelling, or pulmonary embolism such as chest pain or shortness of breath. The patient was also instructed to drink 40-60 ounces of liquids per day using the 1-ounce cups. The patient had been given prescriptions for Tylenol for pain, Zofran prn for nausea, and pantoprazole and carafate previously. The patient was encouraged to ambulate and use the incentive spirometer. The patient was allowed to shower, but no baths, and encouraged to stay active at home. All of these instructions were given to the patient personally. All questions were answered and the patient understood all instructions, the instructions were also given to the patient in print. Time Spent with Patient Time attestation: Total time spent providing and/or coordinating discharge services: Discharge coordination time: Greater than 30 minutes Quality: Stroke Does the patient have a stroke diagnosis?: No Physical Exam Vital Signs: Vital Signs: Last Vital Signs Temp 98.4 F 10/28/20 10:23 Pulse 85 10/28/20 10:28 Resp 14 10/28/20 10:28 BP 121/69 10/28/20 10:28 Pulse Ox 99 10/28/20 10:28 Body Mass Index 50.8 DS: Data Data Completed and Pending Pending studies at discharge: Pending at discharge 10/28/20 09:23 Surgical [PTH] Routine Labs on day of discharge: Laboratory Results - last 24 hr 10/28/20 10/28/20 10/28/20 06:20 06:31 10:25 POC Glucose 133 H 162 H COVID-19 (RICH) Negative COVID-19 Clin Com See Note Discharge Plan Discharge Anticipated Discharge Date/Time: 10/29/20 10:00 Patient Disposition: Home, Self-Care Discharge Diagnosis: s/p laparoscopic sleeve gastrectomy Referrals: Chapincito Sprague MD [Primary Care Provider] - 1 Week Discharge Medications: Continued pregabalin 150 mg capsule 200 mg PO TID Qty: 90 RF: 0 miscellaneous medical supply Misc 2 ea miscellaneous DAILY Qty: 2 RF: 0 lisinopril 10 mg tablet 10 mg PO DAILY Qty: 90 RF: 8 acamprosate 333 mg tablet,delayed release (DR/EC) 666 mg PO TID Qty: 540 RF: 1 prazosin 2 mg capsule 2 mg PO BEDTIME RF: 0 atorvastatin 80 mg tablet 80 mg PO DAILY RF: 0 risperidone 0.5 mg tablet 0.5 mg PO BID RF: 0 buspirone 15 mg tablet 15 mg PO TID RF: 0 fluoxetine 40 mg capsule 40 mg PO DAILY RF: 0 pantoprazole 40 mg tablet,delayed release (DR/EC) 40 mg PO DAILY Qty: 30 RF: 2 sucralfate 100 mg/mL suspension 10 ml PO BID Qty: 400 RF: 2 ondansetron HCl [Zofran] 4 mg tablet 4 mg PO Q12H Qty: 20 RF: 0 Changed insulin glargine 100 unit/mL (3 mL) insulin pen 65 unit subcut QPM Qty: 0 RF: 0 Discontinued zolpidem 12.5 mg tablet,ext release multiphase 12.5 mg PO BEDTIME PRN (Reason: Insomnia) RF: 0 cholecalciferol (vitamin D3) 50 mcg (2,000 unit) capsule 50 mcg PO DAILY 30 Days Qty: 30 RF: 11 polyethylene glycol 3350 [Miralax] 17 gram powder in packet 17 g PO DAILY Qty: 14 RF: 0 thiamine HCl (vitamin B1) 100 mg tablet 100 mg PO DAILY Qty: 30 RF: 2 mecobalamin (vitamin B12) 1,000 mcg tablet,disintegrating 1,000 mcg sublingual DAILY Qty: 30 RF: 2 Discharge Orders: Discharge Order (Routine); Ordered 10/29/20 Ordered By: Douglas Burden Diet: other Activity on Discharge: No heavy lifting Stand Alone Forms: Patient Portal Discharge page Care Plan Goals: weight loss Health Concerns: obesity Plan of Treatment: No tub baths, sex or returning to work until discussed at first post op appointment. No exercise, alcohol, tobacco or illegal drug use. Continue to use incentive spirometer hourly while awake. Walk in home for 5- 10 minutes every 2 hours during the first week. Continue phase 3 diet until first post op appointment. Follow all instructions in the bariatric handbook and call with any questions.Discharge Instructions 1. Please call your doctor or come back to the emergency room should any new symptoms arise. 2. You will receive a courtesy call from [facility] 24-48 hours after discharge. 3. Activity: abstain from alcohol, practice limited stair climbing, no bending, no driving, no exercise, no illicit substances, no lifting, no sex, no tub bath, no work. 4. Diet: continue as discussed with Dr. Burden. 5. Dressing Change/Wound Care: Your incision is covered by surgical glue. If the area is tender, you may apply an ice pack for short intervals (no more than 20 minutes on, followed by at least 20 minutes off). Do not apply heat. Do not use creams, lotions, or topical antibiotics unless instructed to do so by your surgeon. These can cause infection or allergic reaction. 6. Call your doctor if: - Your temperature exceeds 101.5 F - You experience excessive pain or swelling - You have an unexpected reaction to medication - You have excessive bleeding - You experience continued vomiting/nausea - Your incision begins to separate - Your incision shows signs of infection such as increased redness, swelling, excessive pain, heat, or drainage (light blood or clear fluid is normal) 7. General instructions: No lifting greater than 5 lbs for the next 4 weeks[address] driving within 24 hours of taking narcotic pain medications. If you do not move your bowels in the next 2 days, please take milk of magnesia over the counter. Please follow the post op diet and do not advance your diet until you are seen in the office in about 2 weeks. Please walk around your home every hour or two to prevent blood clots from forming in your legs. You do not need to wake from sleeping to walk. Please sleep in a bed or couch to prevent kinking at the hips and knees. Please take your incentive spirometer (your lung director security risk management) home with you and use it for the next few days to prevent pneumonias. You may shower, no hot tubs, baths or swimming pools. Please call the office with any questions or concerns such as increasing abdominal pain, fever, chills, shortness of breath, chest pain, leg pain or swelling, or redness or drainage from your incisions. Please stay on stage 3 diet which includes sugar free clear liquids such as ice pops and jello and broth and crystal light. Avoid all carbonation. Please drink 3 protein shakes with at least 25-30 grams of protein daily or 3 of the Celebrate 4:1 shakes which can be purchased in our office. The Celebrate shakes have all of the bariatric vitamins you need if you consume these shakes. If you are drinking other protein shakes, you will need to purchase the Celebrate multivitamins and calcium that we provide in the office (they will provide all the vitamins you need). Please make sure you are consuming at least 40-60 ounces of water in addition to your 3 protein shakes daily. Do not hesitate to contact the office with any questions at . The patient's medical history has been reviewed and they are considered low risk for post op DVT and therefore DVT prophylaxis is not considered necessary. Travel after surgery was reviewed. The patient has not disclosed any travel plans during the first 30 days after surgery and they have been advised that within the first 30 days after surgery any bus, plane, train or car travel over 2 hours in duration is contraindicated due to the possibility of developing blood clots from immobility. Any travel, needs to include periods of ambulation of 10 minutes in duration every 2 hours.? The patient was instructed to discuss any plans for travel during this period with their bariatric surgeon. Assessment: Stable post op laparoscopic sleeve gastreectomy
[2020-10-28] MEDS: Famotidine/PF 20 MG/2 ML VIAL IVPUSH ×2 (10:57→20:50)
[2020-10-28 10:58] LABS: Hematocrit 40.1 % (42-52); Hemoglobin 13.5 g/dl (14.0-18.0)
[2020-10-28] MEDS: HYDROmorphone HCl 0.5 MG/0.5 ML SYRINGE IVPUSH (11:06)
[2020-10-28 11:23] LABS: Anion Gap 12 (12-20); Blood Urea Nitrogen 25 mg/dL (9-16); Calcium 8.9 mg/dL (8.4-10.2); Carbon Dioxide 26 mmol/L (22-29); Chloride 101 mmol/L (96-108); Creatinine Clr Calc Pharmacy 78.8; Estimated Glomerular Filt Rate > 60; Glucose Random 180 mg/dL (60-115); Potassium 4.4 mmol/L (3.3-5.1); Sodium 135 mmol/L (135-145)
[2020-10-28] MEDS: Lactated Ringers 1,000 ML 125 ML IVCONT ×2 (12:09→19:42)
[2020-10-28 12:16] LABS: Glucose, Whole Blood 179 mg/dL (60-115)
[2020-10-28] MEDS: ondansetron HCL 4 MG/2 ML VIAL IVPUSH ×2 (12:26→19:41)
[2020-10-28] MEDS: lisinopriL 10 MG TABLET PO (12:27)
[2020-10-28] MEDS: Insulin Lispro 100 UNIT/ML 3 ML VIAL SUBCUT ×4 (12:27→23:45)
--- NOTE | 2020-10-28 14:02 | P.DS_ITS ---
DS: Providers Provider Date of Service: 10/29/20 Date of admission: 10/28/20 06:10 Primary care physician: Chapincito Sprague MD DS: Diagnosis Discharge Diagnosis (1) Morbid obesity: Status: Acute (2) S/P laparoscopic sleeve gastrectomy: Status: Acute (3) Intra-abdominal adhesions: Status: Acute (4) Congenital intra-abdominal adhesions: Status: Acute (5) HTN (hypertension): Status: Acute (6) S/P BKA (below knee amputation) bilateral: (7) HLD (hyperlipidemia): Status: Acute (8) Sleep apnea: Status: Acute (9) Insulin dependent diabetes mellitus: Status: Acute (10) Neuropathy: Status: Acute DS: Summary Hospital Course Hospital Course: ADMITTING DIAGNOSIS: morbid obesity, DM, hyperlipidemia, TIA, PTSD, TBI, hx ETOH abuse DISCHARGE DIAGNOSIS: same, s/p laparoscopic sleeve gastrectomy PAST SURGICAL HISTORY: s/p B BKA, ventral hernia, carpal tunne PROCEDURE: upper endoscopy, laparoscopic sleeve gastrectomy DISCHARGE SUMMARY: History of Present Illness: The patient is a 50 year-old man with a BMI of 58 kg/m2 and associated co- morbidities as described above. The patient had extensive work-up,lost 41.2 lbs preoperatively and was electively scheduled for laparoscopic, possible open sleeve gastrectomy and gastropexy. Risks and complications of the surgery were discussed with the patient in advance, particularly the possibility of , pulmonary embolism, anastomotic leak, bleeding, bowel injury, GERD, cardiac, renal or pulmonary complications. The patient understood all the risks and was in agreement with the surgical plan. Hospital Course: The patient underwent an uneventful laparoscopic sleeve gastrectomy with gastropexy on the day of admission. Postoperatively, the patient was transferred to the surgical floor. The patient received IV Acetaminophen and IV dilaudid for pain control. Patient was started on bariatric phase 1 diet POD #0. On postoperative day one, the patient was feeling well without nausea, vomiting, fevers, or tachycardia. The patient had some mild incisional pain and the abdomen was soft. On the morning of postoperative day one, the patient was continued on 1 ounce of water or ice every half hour. During the day, the patient did fairly well, having some incisional pain, but able to ambulate adequately and to tolerate liquids well. Since the patient is doing well, we decided that the patient was ready to be discharged. The patient was given instructions to follow-up with me next week and to call my office for any fever over 101, persistent abdominal pain, nausea, vomiting, GERD, symptoms of DVT such as calf tenderness, or leg swelling, or pulmonary embolism such as chest pain or shortness of breath. The patient was also instructed to drink 40-60 ounces of liquids per day using the 1-ounce cups. The patient had been given prescriptions for Tylenol for pain, Zofran prn for nausea, and pantoprazole and carafate previously. The patient was encouraged to ambulate and use the incentive spirometer. The patient was allowed to shower, but no baths, and encouraged to stay active at home. All of these instructions were given to the patient personally. All questions were answered and the patient understood all instructions, the instructions were also given to the patient in print. Time Spent with Patient Time attestation: Total time spent providing and/or coordinating discharge services: Discharge coordination time: Less than 30 minutes Quality: Stroke Does the patient have a stroke diagnosis?: No Physical Exam Vital Signs: Vital Signs: Last Vital Signs Temp 97.7 F 10/28/20 12:06 Pulse 83 10/28/20 12:06 Resp 19 10/28/20 12:06 BP 155/74 H 10/28/20 12:06 Pulse Ox 95 10/28/20 12:06 Body Mass Index 50.8 DS: Data Data Completed and Pending Pending studies at discharge: Pending at discharge 10/28/20 09:22 Surgical [PTH] Routine Labs on day of discharge: Laboratory Results - last 24 hr 10/28/20 10/28/20 10/28/20 06:20 06:31 10:25 Hgb Hct Sodium Potassium Chloride Carbon Dioxide Anion Gap BUN Creatinine Estim Creat Clear Calc Estimated GFR POC Glucose 133 H 162 H Random Glucose Calcium COVID-19 ([facility]) Negative COVID-19 Clin Com See Note 10/28/20 10/28/20 10/28/20 10:44 10:45 12:12 Hgb 13.5 L Hct 40.1 L Sodium 135 Potassium 4.4 Chloride 101 Carbon Dioxide 26 Anion Gap 12 BUN 25 H Creatinine 1.21 Estim Creat Clear Calc 78.8 Estimated GFR > 60 POC Glucose 179 H Random Glucose 180 H Calcium 8.9 D COVID-19 ([facility]) COVID-19 [facility] Discharge Plan Discharge Anticipated Discharge Date/Time: 10/29/20 10:00 Patient Disposition: Home, Self-Care Discharge Diagnosis: s/p laparoscopic sleeve gastrectomy Referrals: Chapincito Sprague MD [Primary Care Provider] - 1 Week Discharge Medications: Continued pregabalin 150 mg capsule 200 mg PO TID Qty: 90 RF: 0 miscellaneous medical supply Misc 2 ea miscellaneous DAILY Qty: 2 RF: 0 lisinopril 10 mg tablet 10 mg PO DAILY Qty: 90 RF: 8 acamprosate 333 mg tablet,delayed release (DR/EC) 666 mg PO TID Qty: 540 RF: 1 prazosin 2 mg capsule 2 mg PO BEDTIME RF: 0 atorvastatin 80 mg tablet 80 mg PO DAILY RF: 0 risperidone 0.5 mg tablet 0.5 mg PO BID RF: 0 buspirone 15 mg tablet 15 mg PO TID RF: 0 fluoxetine 40 mg capsule 40 mg PO DAILY RF: 0 pantoprazole 40 mg tablet,delayed release (DR/EC) 40 mg PO DAILY Qty: 30 RF: 2 sucralfate 100 mg/mL suspension 10 ml PO BID Qty: 400 RF: 2 ondansetron HCl [Zofran] 4 mg tablet 4 mg PO Q12H Qty: 20 RF: 0 Changed insulin glargine 100 unit/mL (3 mL) insulin pen 65 unit subcut QPM Qty: 0 RF: 0 Discontinued zolpidem 12.5 mg tablet,ext release multiphase 12.5 mg PO BEDTIME PRN (Reason: Insomnia) RF: 0 cholecalciferol (vitamin D3) 50 mcg (2,000 unit) capsule 50 mcg PO DAILY 30 Days Qty: 30 RF: 11 polyethylene glycol 3350 [Miralax] 17 gram powder in packet 17 g PO DAILY Qty: 14 RF: 0 thiamine HCl (vitamin B1) 100 mg tablet 100 mg PO DAILY Qty: 30 RF: 2 mecobalamin (vitamin B12) 1,000 mcg tablet,disintegrating 1,000 mcg sublingual DAILY Qty: 30 RF: 2 Discharge Orders: Discharge Order (Routine); Ordered 10/29/20 Ordered By: Douglas Burden Diet: other Activity on Discharge: No heavy lifting Stand Alone Forms: Patient Portal Discharge page Care Plan Goals: weight loss Health Concerns: obesity Plan of Treatment: No tub baths, sex or returning to work until discussed at first post op appointment. No exercise, alcohol, tobacco or illegal drug use. Continue to use incentive spirometer hourly while awake. Walk in home for 5- 10 minutes every 2 hours during the first week. Continue phase 3 diet until first post op appointment. Follow all instructions in the bariatric handbook and call with any questions.Discharge Instructions 1. Please call your doctor or come back to the emergency room should any new symptoms arise. 2. You will receive a courtesy call from [facility] 24-48 hours after discharge. 3. Activity: abstain from alcohol, practice limited stair climbing, no bending, no driving, no exercise, no illicit substances, no lifting, no sex, no tub bath, no work. 4. Diet: continue as discussed with Dr. Burden. 5. Dressing Change/Wound Care: Your incision is covered by surgical glue. If the area is tender, you may apply an ice pack for short intervals (no more than 20 minutes on, followed by at least 20 minutes off). Do not apply heat. Do not use creams, lotions, or topical antibiotics unless instructed to do so by your surgeon. These can cause infection or allergic reaction. 6. Call your doctor if: - Your temperature exceeds 101.5 F - You experience excessive pain or swelling - You have an unexpected reaction to medication - You have excessive bleeding - You experience continued vomiting/nausea - Your incision begins to separate - Your incision shows signs of infection such as increased redness, swelling, excessive pain, heat, or drainage (light blood or clear fluid is normal) 7. General instructions: No lifting greater than 5 lbs for the next 4 weeks[address] within 24 hours of taking narcotic pain medications. If you do not move your bowels in the next 2 days, please take milk of magnesia over the counter. Please follow the post op diet and do not advance your diet until you are seen in the office in about 2 weeks. Please walk around your home every hour or two to prevent blood clots from forming in your legs. You do not need to wake from sleeping to walk. Please sleep in a bed or couch to prevent kinking at the hips and knees. Please take your incentive spirometer (your lung dinkey skinner) home with you and use it for the next few days to prevent pneumonias. You may shower, no hot tubs, baths or swimming pools. Please call the office with any questions or concerns such as increasing abdominal pain, fever, chills, shortness of breath, chest pain, leg pain or swelling, or redness or drainage from your incisions. Please stay on stage 3 diet which includes sugar free clear liquids such as ice pops and jello and broth and crystal light. Avoid all carbonation. Please drink 3 protein shakes with at least 25-30 grams of protein daily or 3 of the Celebrate 4:1 shakes which can be purchased in our office. The Celebrate shakes have all of the bariatric vitamins you need if you consume these shakes. If you are drinking other protein shakes, you will need to purchase the Celebrate multivitamins and calcium that we provide in the office (they will provide all the vitamins you need). Please make sure you are consuming at least 40-60 ounces of water in addition to your 3 protein shakes daily. Do not hesitate to contact the office with any questions at . The patient's medical history has been reviewed and they are considered low risk for post op DVT and therefore DVT prophylaxis is not considered necessary. Travel after surgery was reviewed. The patient has not disclosed any travel plans during the first 30 days after surgery and they have been advised that within the first 30 days after surgery any bus, plane, train or car travel over 2 hours in duration is contraindicated due to the possibility of developing blood clots from immobility. Any travel, needs to include periods of ambulation of 10 minutes in duration every 2 hours.? The patient was instructed to discuss any plans for travel during this period with their bariatric surgeon. Assessment: Stable post op laparoscopic sleeve gastreectomy Discharge Date/Time: 10/29/20 11:50
[2020-10-28] MEDS: Pregabalin 200 MG CAPSULE PO ×2 (14:46→20:51)
[2020-10-28] MEDS: busPIRone HCl 5 MG TABLET 15 MG PO ×2 (14:46→20:51)
[2020-10-28] MEDS: Clindamycin Phosphate/D5W 900 MG/50 ML PIGGYBACK 50 MG IV (16:01)
[2020-10-28 16:30] LABS: Glucose, Whole Blood 215 mg/dL (60-115)
[2020-10-28 20:12] LABS: Glucose, Whole Blood 201 mg/dL (60-115)
[2020-10-28] MEDS: Prazosin HCL 1 MG CAPSULE 2 MG PO (20:50)
[2020-10-28] MEDS: FLUoxetine HCl 20 MG CAPSULE 40 MG PO (20:51)
[2020-10-28] MEDS: risperiDONE 0.5 MG TABLET PO (20:51)
[2020-10-28] MEDS: 0.9 % Sodium Chloride Flush 3 ML SYRINGE IVFLUSH (20:52)
[2020-10-28 23:41] LABS: Glucose, Whole Blood 154 mg/dL (60-115)
[2020-10-28] MEDS: Zolpidem Tartrate 5 MG TABLET 12.5 MG PO (23:45)
[2020-10-29] MEDS: Lactated Ringers 1,000 ML 125 ML IVCONT (03:38)
[2020-10-29] MEDS: ondansetron HCL 4 MG/2 ML VIAL IVPUSH (03:38)
[2020-10-29 04:00] VITALS: BP 165/89; PULSE 70; RESP 16; TEMP 36.4; O2SAT 92
[2020-10-29 04:28] LABS: Glucose, Whole Blood 125 mg/dL (60-115)
[2020-10-29 07:04] VITALS: O2SAT 93
[2020-10-29 07:09] LABS: Basophils Percent Auto 0.2 % (0-2); Eosinophils Percent Auto 0.1 % (0-4); Hemoglobin 13.4 g/dl (14.0-18.0); MANUAL DIFF FLAG SCAN; Mean Platelet Volume 11.1 fL (9.4-12.4); PLT CLUMP 1; SCAN SMEAR FLAG 1
[2020-10-29 07:10] VITALS: BP 159/85; PULSE 73; RESP 17; TEMP 36.4; O2SAT 92
[2020-10-29 07:11] LABS: Hematocrit 39.8 % (42-52); Imm Gran Abs Auto 0.05 X10*3/uL (0.00-0.03); Imm Gran Pct Auto 0.5 % (0.0-0.4); Lymphocytes Absolute Auto 1.3 X10*3/uL (1.2-4.9); Lymphocytes Percent Auto 13.4 % (20-40); Mean Corpuscular HGB Conc 33.7 g/dl (31.0-36.0); Mean Corpuscular Hemoglobin 29.1 pg (27.0-33.0); Mean Corpuscular Volume 86.3 fL (80-98); Monocytes Absolute Auto 0.9 X10*3/uL (0.1-1.2); Monocytes Percent Auto 9.3 % (2-11); Neutrophils Absolute Auto 7.3 X10*3/uL (2.0-8.3); Neutrophils Percent Auto 76.5 % (45-73); Platelet Count 115 X10*3/uL (160-400); Red Blood Count 4.61 X10*6/uL (4.60-5.80); Red Cell Distribution Width 13.4 % (11.0-16.0); White Blood Count 9.5 X10*3/uL (4.8-10.8)
[2020-10-29 07:22] LABS: Glucose, Whole Blood 119 mg/dL (60-115)
[2020-10-29 08:09] LABS: SLIDE REVIEW VERIFIED
[2020-10-29 08:17] LABS: Anion Gap 14 (12-20); Blood Urea Nitrogen 15 mg/dL (9-16); Calcium 9.2 mg/dL (8.4-10.2); Carbon Dioxide 25 mmol/L (22-29); Chloride 104 mmol/L (96-108); Creatinine Clr Calc Pharmacy 85.1; Estimated Glomerular Filt Rate > 60; Glucose Random 128 mg/dL (60-115); Potassium 4.4 mmol/L (3.3-5.1); Sodium 139 mmol/L (135-145)
[2020-10-29] MEDS: Famotidine/PF 20 MG/2 ML VIAL IVPUSH (09:28)
[2020-10-29] MEDS: busPIRone HCl 5 MG TABLET 15 MG PO (09:29)
[2020-10-29] MEDS: Pregabalin 200 MG CAPSULE PO (09:29)
[2020-10-29] MEDS: FLUoxetine HCl 20 MG CAPSULE 40 MG PO (09:29)
[2020-10-29] MEDS: lisinopriL 10 MG TABLET PO (09:30)
--- NOTE | 2020-10-29 09:58 | MHC.CM.PN ---
met gilliland pt who is being dcd today pt is idepedendent cm interventio is notindicated pt dcd no skilled servceis ordered by
--- NOTE | 2020-10-29 13:17 | HO.POSTANES ---
Post Anesthesia Evaluation Post Anesthesia Evaluation Vital Signs: Vital Signs Temp Pulse Resp BP Pulse Ox 10/29/20 07:10 97.5 F 73 17 159/85 H 92 10/29/20 07:04 93 10/29/20 04:00 97.6 F 70 16 165/89 H 92 Anesthesia: General Endotracheal-GETA Mental Status: Awake Pain Control: Satisfactory Nausea/Vomiting: None Hydration: Adequate Anesthesia-Related Issues: No Anes. Related Issues
== END 2020-10-29 11:50 | disposition home or self-care (01) | DRG 621 ==
LOC: HO.SSSA 10:50 → HO.S3 11:24
PROVIDERS: Physician Assistant Surgical; Admitting Provider Surgery; PCP Internal Medicine; Visit Provider Surgery
PROC: 0DB64Z3 Excision of Stomach, Percutaneous Endoscopic Approach, Vertical (ICD-10-PCS; CPT 43845; principal; 2020-10-28 07:30)
DX: E66.01 Morbid (severe) obesity due to excess calories (principal); Z20.822 Contact with and (suspected) exposure to COVID-19; I10 Essential (primary) hypertension; F32.9 Major depressive disorder, single episode, unspecified; K66.0 Peritoneal adhesions (postprocedural) (postinfection); E11.42 Type 2 diabetes mellitus with diabetic polyneuropathy; Z88.0 Allergy status to penicillin; Z88.2 Allergy status to sulfonamides; Z88.6 Allergy status to analgesic agent; Z68.43 Body mass index [BMI] 50.0-59.9, adult; Z79.4 Long term (current) use of insulin; Z79.899 Other long term (current) drug therapy
CPT/HCPCS: 36415; 80048; 80053; 80061; 82947; 83036; 83525; 84443; 85014; 85018; 85025; 85610; 85730; 86140; 86850; 86900; 86901; 87635; 88307; 88342; 99024; A4649; J0131; J1100; J1170; J2250; J2405; J3010

== ENCOUNTER → 2020-11-03 07:44 | Outpatient (BNVA) | payer OTHER, SELFPAY | PROVIDERS: PCP Internal Medicine; Visit Provider Surgery | DX: E66.01 Morbid (severe) obesity due to excess calories (principal); Z68.36 Body mass index [BMI] 36.0-36.9, adult | CPT/HCPCS: 99212 ==

== ENCOUNTER 2020-11-16 12:31 | Outpatient (REF) | payer OTHER, SELFPAY ==
[2020-11-16 13:23] LABS: Appearance Urine CLEAR; Color Urine STRAW; Glucose Urine UA NEG (NEG); Leukocyte Esterase Urine TRACE (NEG); Nitrite Urine NEG (NEG); Specific Gravity - Urine <= 1.005 (1.005-1.025); UACC Culture Trigger YES; Urine Blood NEG (NEG); Urine Ketones NEG (NEG); Urine Protein NEG (NEG-TRACE)
[2020-11-16 13:35] LABS: RBC Urine 0 /HPF (0); Squamous Epithelial Cell Urine TRACE /LPF; WBC Urine 0-2 /HPF (0-4)
== END 2020-11-16 12:32 | disposition home or self-care (01) ==
LOC: HO.LAB 12:31
PROVIDERS: Visit Provider Internal Medicine
DX: R30.0 Dysuria (principal)
CPT/HCPCS: 81001; 87086

== ENCOUNTER → 2020-12-01 08:07 | Outpatient (BNVA) | payer OTHER, SELFPAY | PROVIDERS: PCP Internal Medicine; Visit Provider Surgery | DX: E66.9 Obesity, unspecified (principal); Z68.31 Body mass index [BMI] 31.0-31.9, adult | CPT/HCPCS: 99212 ==

== ENCOUNTER → 2020-12-21 14:08 | Outpatient (BNVA) | payer OTHER, SELFPAY | PROVIDERS: PCP Internal Medicine; Referring Provider Internal Medicine; Visit Provider Internal Medicine | DX: E66.01 Morbid (severe) obesity due to excess calories (principal); R94.39 Abnormal result of other cardiovascular function study; Z98.890 Other specified postprocedural states | CPT/HCPCS: 99212 ==

== ENCOUNTER 2021-01-06 14:15 | Outpatient (REF) | payer OTHER, SELFPAY ==
[2021-01-06 15:17] LABS: MANUAL DIFF FLAG NO
[2021-01-06 15:28] LABS: Basophils Percent Auto 0.5 % (0-2); Eosinophils Absolute Auto 0.2 X10*3/uL (0.0-0.4); Eosinophils Percent Auto 2.4 % (0-4); Hematocrit 42.7 % (42.0-52.0); Hemoglobin 14.8 g/dl (14.0-18.0); Imm Gran Abs Auto 0.01 X10*3/uL (0.00-0.03); Imm Gran Pct Auto 0.2 % (0.0-0.4); Lymphocytes Absolute Auto 2.6 X10*3/uL (1.2-4.9); Lymphocytes Percent Auto 38.6 % (20-40); Mean Corpuscular HGB Conc 34.7 g/dl (31.0-36.0); Mean Corpuscular Volume 83.7 fL (80.0-98.0); Mean Platelet Volume 10.8 fL (9.4-12.4); Monocytes Absolute Auto 0.6 X10*3/uL (0.1-1.2); Monocytes Percent Auto 8.3 % (2-11); Neutrophils Absolute Auto 3.3 x10*3/uL (2.0-8.3); Platelet Count 141 X10*3/uL (160-400); Red Cell Distribution Width 13.9 % (11.0-16.0); White Blood Count 6.6 X10*3/uL (4.8-10.8)
[2021-01-06 15:37] LABS: Estimated Average Glucose 134 mg/dL; Hemoglobin A1c % 6.3 %
[2021-01-06 15:49] LABS: Anion Gap 17 (12-20); Blood Urea Nitrogen 28 mg/dL (9-16); C Reactive Protein 0.89 mg/dL (< or = 0.50); Calcium 9.6 mg/dL (8.4-10.2); Carbon Dioxide 26 mmol/L (22-29); Chloride 98 mmol/L (96-108); Estimated Glomerular Filt Rate 49; Glucose Random 192 mg/dL (60-115); Iron 102 mcg/dL (45-160); Percent Iron Saturation 31 % (15-50); Potassium 4.7 mmol/L (3.3-5.1); Sodium 136 mmol/L (135-145); Total Iron Binding Capacity 331 mcg/dL (228-428); Unsaturated Iron Binding 229 ug/dL
[2021-01-06 16:12] LABS: Ferritin 40 ng/mL (20-250); TSH reflex Free T4 0.98 uIU/mL (0.32-4.0); Vitamin D 25-OH Total 26.7 ng/mL (>30)
[2021-01-06 16:22] LABS: Folate 13.7 ng/mL (> or = 4.0); Vitamin B12 487 pg/mL (200-900)
[2021-01-08 03:46] LABS: Calcium (PTHI) 9.7 mg/dL (8.6-10.3); PTHI 33 pg/mL (14-64)
[2021-01-10 18:32] LABS: Vitamin A 66 mcg/dL (38-98)
[2021-01-11 01:56] LABS: Zinc 65 mcg/dL (60-130)
[2021-01-11 11:37] LABS: Vitamin B1 20 nmol/L (8-30)
== END 2021-01-06 14:16 | disposition home or self-care (01) ==
LOC: HO.LAB 14:15
PROVIDERS: PCP Internal Medicine; Referring Provider Internal Medicine; Visit Provider Physician Assistant Surgical
DX: E66.9 Obesity, unspecified (principal); Z71.3 Dietary counseling and surveillance; Z87.891 Personal history of nicotine dependence; Z68.31 Body mass index [BMI] 31.0-31.9, adult; Z79.899 Other long term (current) drug therapy
CPT/HCPCS: 36415; 80048; 82306; 82607; 82728; 82746; 83036; 83540; 83970; 84425; 84443; 84590; 84630; 85025; 86140; 99212

== ENCOUNTER 2021-01-10 10:43 | Outpatient (REF) | payer OTHER, SELFPAY ==
[2021-01-10 12:05] LABS: Alanine Aminotransferase 29 U/L (0-40); Albumin Level 4.1 g/dL (3.5-5.0); Alkaline Phosphatase 82 U/L (39-117); Anion Gap 12 (12-20); Aspartate Amino Transferase 31 U/L (5-37); Bilirubin Total 0.5 mg/dL (0.0-1.0); Blood Urea Nitrogen 34 mg/dL (9-16); Calcium 9.4 mg/dL (8.4-10.2); Carbon Dioxide 28 mmol/L (22-29); Chloride 102 mmol/L (96-108); Cholesterol 193 mg/dL; Estimated Glomerular Filt Rate 51; Glucose Random 159 mg/dL (60-115); HDL Cholesterol 30 mg/dL; LDL Cholesterol Calculated 112 mg/dl; Potassium 4.9 mmol/L (3.3-5.1); Sodium 137 mmol/L (135-145); Total Protein 6.9 g/dL (6.5-8.0); Triglycerides 255 mg/dL
[2021-01-10 12:28] LABS: Vitamin D 25-OH Total 26.5 ng/mL (>30)
== END 2021-01-10 10:44 | disposition home or self-care (01) ==
LOC: HO.LAB 10:43
PROVIDERS: Absent Provider Internal Medicine; PCP Internal Medicine; Visit Provider Physician Assistant Surgical
DX: E66.9 Obesity, unspecified (principal); E55.9 Vitamin D deficiency, unspecified; E11.9 Type 2 diabetes mellitus without complications
CPT/HCPCS: 36415; 80053; 80061; 82306

== ENCOUNTER 2021-02-02 11:19 | Outpatient (REF) | payer OTHER, SELFPAY ==
[2021-02-02 13:10] LABS: Anion Gap 12 (12-20); Blood Urea Nitrogen 19 mg/dL (9-16); Calcium 9.7 mg/dL (8.4-10.2); Carbon Dioxide 26 mmol/L (22-29); Chloride 106 mmol/L (96-108); Estimated Glomerular Filt Rate > 60; Glucose Random 149 mg/dL (60-115); Potassium 4.3 mmol/L (3.3-5.1); Sodium 140 mmol/L (135-145)
== END 2021-02-02 11:20 | disposition home or self-care (01) ==
LOC: HO.LAB 11:19
PROVIDERS: PCP Internal Medicine; Visit Provider Physician Assistant Surgical
DX: E66.9 Obesity, unspecified (principal); I10 Essential (primary) hypertension; N17.9 Acute kidney failure, unspecified; R30.0 Dysuria; Z98.84 Bariatric surgery status; Z71.3 Dietary counseling and surveillance
CPT/HCPCS: 36415; 80048; 99212

== ENCOUNTER → 2021-02-10 11:03 | Outpatient (BNVA) | payer OTHER, SELFPAY | PROVIDERS: PCP Internal Medicine; Referring Provider Internal Medicine; Visit Provider Dietitian, Registered | DX: E66.9 Obesity, unspecified (principal); Z68.29 Body mass index [BMI] 29.0-29.9, adult | CPT/HCPCS: 97803 ==

== ENCOUNTER → 2021-04-04 11:04 | Outpatient (BNVA) | payer OTHER, SELFPAY | PROVIDERS: PCP Internal Medicine; Referring Provider Internal Medicine; Visit Provider Physician Assistant Surgical | DX: E66.9 Obesity, unspecified (principal); Z68.30 Body mass index [BMI] 30.0-30.9, adult | CPT/HCPCS: 99212 ==

== ENCOUNTER → 2021-04-11 14:51 | Outpatient (BNVA) | payer OTHER, SELFPAY | PROVIDERS: PCP Internal Medicine; Visit Provider Nurse Practitioner Family | DX: G62.9 Polyneuropathy, unspecified (principal); G47.30 Sleep apnea, unspecified; R25.1 Tremor, unspecified | CPT/HCPCS: 99212 ==

== ENCOUNTER 2021-05-09 10:00 | Outpatient (REF) | payer OTHER, SELFPAY ==
[2021-05-09 12:34] LABS: Ferritin 41 ng/mL (20-250); Vitamin D 25-OH Total 45.3 ng/mL (>30)
[2021-05-09 12:39] LABS: Anion Gap 15 (12-20); Blood Urea Nitrogen 22 mg/dL (9-16); Calcium 9.2 mg/dL (8.4-10.2); Carbon Dioxide 22 mmol/L (22-29); Chloride 105 mmol/L (96-108); Estimated Glomerular Filt Rate 58; Glucose Random 195 mg/dL (60-115); Iron 105 mcg/dL (45-160); Percent Iron Saturation 34 % (15-50); Potassium 4.9 mmol/L (3.3-5.1); Sodium 137 mmol/L (135-145); Total Iron Binding Capacity 310 mcg/dL (228-428); Unsaturated Iron Binding 205 ug/dL
[2021-05-09 13:03] LABS: Folate 12.4 ng/mL (> or = 4.0); Vitamin B12 553 pg/mL (200-900)
[2021-05-12 01:42] LABS: Zinc 72 mcg/dL (60-130)
[2021-05-13 06:56] LABS: Vitamin B1 20 nmol/L (8-30)
[2021-05-15 16:22] LABS: Vitamin A 72 mcg/dL (38-98)
== END 2021-05-09 10:01 | disposition home or self-care (01) ==
LOC: HO.LAB 10:00
PROVIDERS: PCP Internal Medicine; Visit Provider Physician Assistant Surgical
DX: E66.9 Obesity, unspecified (principal); E55.9 Vitamin D deficiency, unspecified; Z79.899 Other long term (current) drug therapy; Z79.4 Long term (current) use of insulin; Z71.3 Dietary counseling and surveillance; Z87.891 Personal history of nicotine dependence; Z68.29 Body mass index [BMI] 29.0-29.9, adult
CPT/HCPCS: 36415; 80048; 82306; 82607; 82728; 82746; 83540; 84425; 84590; 84630; 99212

== ENCOUNTER → 2021-08-15 11:18 | Outpatient (BNVA) | payer OTHER, SELFPAY | PROVIDERS: PCP Internal Medicine; Visit Provider Physician Assistant Surgical | DX: E66.9 Obesity, unspecified (principal); Z98.84 Bariatric surgery status | CPT/HCPCS: 99212 ==

== ENCOUNTER → 2021-10-03 15:00 | Outpatient (BNVA) | payer OTHER, SELFPAY | PROVIDERS: Visit Provider Nurse Practitioner Family | DX: Z13.9 Encounter for screening, unspecified (principal) | CPT/HCPCS: 99211 ==

== ENCOUNTER → 2021-12-14 10:52 | Outpatient (BNVA) | payer OTHER, SELFPAY | PROVIDERS: PCP Internal Medicine; Visit Provider Physician Assistant Surgical | DX: E66.9 Obesity, unspecified (principal); L98.7 Excessive and redundant skin and subcutaneous tissue; Z98.84 Bariatric surgery status | CPT/HCPCS: 99212 ==

== ENCOUNTER 2022-01-12 10:56 | Outpatient (REF) | payer OTHER, SELFPAY ==
[2022-01-12 11:21] LABS: MANUAL DIFF FLAG NO
[2022-01-12 11:57] LABS: Basophils Absolute Auto 0.1 X10*3/uL (0.0-0.2); Basophils Percent Auto 0.9 % (0-2); Eosinophils Absolute Auto 0.2 X10*3/uL (0.0-0.4); Eosinophils Percent Auto 2.6 % (0-4); Hematocrit 45.4 % (42.0-52.0); Hemoglobin 15.8 g/dl (14.0-18.0); Imm Gran Abs Auto 0.04 X10*3/uL (0.00-0.03); Imm Gran Pct Auto 0.6 % (0.0-0.4); Lymphocytes Absolute Auto 1.9 X10*3/uL (1.2-4.9); Lymphocytes Percent Auto 27.6 % (20-40); Mean Corpuscular HGB Conc 34.8 g/dl (31.0-36.0); Mean Corpuscular Hemoglobin 31.3 pg (27.0-33.0); Mean Corpuscular Volume 89.9 fL (80.0-98.0); Mean Platelet Volume 9.8 fL (9.4-12.4); Monocytes Absolute Auto 0.6 X10*3/uL (0.1-1.2); Monocytes Percent Auto 8.5 % (2-11); Neutrophils Absolute Auto 4.2 x10*3/uL (2.0-8.3); Neutrophils Percent Auto 59.8 % (45-73); Platelet Count 191 X10*3/uL (160-400); Red Blood Count 5.05 X10*6/uL (4.60-5.80); Red Cell Distribution Width 12.5 % (11.0-16.0); White Blood Count 6.9 X10*3/uL (4.8-10.8)
[2022-01-12 12:38] LABS: Thyroid Stimulating Hormone 0.83 uIU/mL (0.32-4.0)
[2022-01-12 12:55] LABS: Estimated Average Glucose 140 mg/dL; Hemoglobin A1c % 6.5 %
[2022-01-12 14:15] LABS: Alanine Aminotransferase 60 U/L (0-40); Albumin Level 4.4 g/dL (3.5-5.0); Alkaline Phosphatase 73 U/L (39-117); Anion Gap 15 (12-20); Aspartate Amino Transferase 54 U/L (5-37); Bilirubin Total 0.5 mg/dL (0.0-1.0); Blood Urea Nitrogen 12 mg/dL (9-16); C Reactive Protein 0.61 mg/dL (< or = 0.50); Calcium 9.8 mg/dL (8.4-10.2); Carbon Dioxide 26 mmol/L (22-29); Chloride 102 mmol/L (96-108); Cholesterol 259 mg/dL; Estimated Glomerular Filt Rate 60; Ferritin 116 ng/mL (20-250); Glucose Random 160 mg/dL (60-115); HDL Cholesterol 39 mg/dL; Insulin 34 uU/mL (2-29); Iron 122 mcg/dL (45-160); Percent Iron Saturation 37 % (15-50); Potassium 4.9 mmol/L (3.3-5.1); Sodium 138 mmol/L (135-145); TSH reflex Free T4 0.81 uIU/mL (0.32-4.0); Total Iron Binding Capacity 334 mcg/dL (228-428); Total Protein 7.6 g/dL (6.5-8.0); Triglycerides 665 mg/dL; Unsaturated Iron Binding 212 ug/dL; Vitamin D 25-OH Total 35.5 ng/mL (>30)
[2022-01-12 16:38] LABS: Folate 11.8 ng/mL (> or = 4.0); Vitamin B12 580 pg/mL (200-900)
[2022-01-13 12:22] LABS: Calcium (PTHI) 9.4 mg/dL (8.6-10.3); PTHI 37 pg/mL (16-77)
[2022-01-17 12:03] LABS: Vitamin B1 14 nmol/L (8-30)
[2022-01-18 19:47] LABS: Zinc 78 mcg/dL (60-130)
[2022-01-20 19:41] LABS: Vitamin A 140 mcg/dL (38-98)
== END 2022-01-12 10:57 | disposition home or self-care (01) ==
LOC: HO.LAB 10:56
PROVIDERS: PCP Internal Medicine; Visit Provider Physician Assistant Surgical
DX: E03.9 Hypothyroidism, unspecified (principal); K91.2 Postsurgical malabsorption, not elsewhere classified; Z98.84 Bariatric surgery status
CPT/HCPCS: 36415; 80053; 80061; 82306; 82607; 82728; 82746; 83036; 83525; 83540; 83970; 84425; 84443; 84590; 84630; 85025; 86140

== ENCOUNTER → 2022-01-24 14:35 | Outpatient (BNVA) | payer OTHER, SELFPAY | PROVIDERS: PCP Internal Medicine; Referring Provider Internal Medicine; Visit Provider Physician Assistant Surgical | DX: E66.9 Obesity, unspecified (principal); L98.7 Excessive and redundant skin and subcutaneous tissue; Z68.31 Body mass index [BMI] 31.0-31.9, adult; Z98.84 Bariatric surgery status | CPT/HCPCS: 99212 ==

== ENCOUNTER → 2022-03-06 11:01 | Outpatient (BNVA) | payer OTHER, SELFPAY | PROVIDERS: PCP Internal Medicine; Visit Provider Physician Assistant Surgical | DX: E66.9 Obesity, unspecified (principal); L98.7 Excessive and redundant skin and subcutaneous tissue; Z68.31 Body mass index [BMI] 31.0-31.9, adult; Z98.84 Bariatric surgery status | CPT/HCPCS: 99212 ==

== ENCOUNTER 2022-05-08 10:25 | Emergency (ER) | payer OTHER, SELFPAY ==
--- NOTE | ~2022-05-08 | XR_ITS ---
EXAMINATION: XR WRIST, RIGHT CLINICAL INFORMATION: Fall with pain and swelling COMPARISON: None TECHNIQUE: Four views of the right wrist. FINDINGS: There is a possible fracture of the distal aspect of the scaphoid peripherally. Carpal rows remain aligned. Diffuse vascular calcifications. XR/XR wrist RT 2V IMPRESSION: Possible fracture of the distal aspect of the scaphoid peripherally. Correlate with location of pain.
[2022-05-08 11:00] VITALS: BP 156/93; PULSE 75; RESP 18; TEMP 36.7; O2SAT 94; BMI 30.7
--- NOTE | 2022-05-08 11:16 | ED.EXTPRO ---
HPI - Extremity Problem General Chief complaint: Extremity Injury, Upper Stated complaint: swollen R wrist Time Seen by Provider: 05/08/22 11:09 Source: patient Mode of arrival: ambulatory Limitations: no limitations History of Present Illness HPI Narrative: Patient is a 51 year old assigned male at with a history of DM presenting to the emergency department today with continued right wrist pain. Patient states that 2 weeks ago he fell and hurt his right wrist. Patient states that he was seen at a different ER and diagnosed with a fx and told to follow up with [facility]. Patient states that he went to [facility] but wasn't impressed with their care and was placed in a splint with no pain management. Patient states that it is still hurting and he would like something for the pain. Patient denies any dizziness, lightheadedness, abdominal pain, nausea, vomiting, fever, chills, blurry vision, double vision, loss of vision, chest pain, difficulty breathing, shortness of breath, back pain, night sweats, pain with urination, increased urinary frequency, increased urinary urgency, blood in his urine or stool, syncope or a near syncopal episode, bowel incontinence, bladder incontinence, bowel retention, bladder retention, or any other complaints at this time. MD Complaint: extremity pain Onset (ago): week(s) (2) Location: right and upper extremity Severity scale (1-10): 4 Quality: aching Radiation: none Relieving factors: nothing Exacerbating factors: nothing Associated symptoms: denies other symptoms Related Data Home Medications Medication Instructions Recorded Confirmed zolpidem 12.5 mg tablet,extended 12.5 mg PO BEDTIME PRN 12/21/20 04/14/22 release,multiphase prazosin 2 mg capsule 5 mg PO BEDTIME 04/04/21 04/14/22 propanolol 10 mg PO BID 04/04/21 04/14/22 fluoxetine 40 mg capsule 80 mg PO DAILY 04/11/21 04/14/22 omega 5-qsg-cmx-fish oil 1,200 mg cap PO 05/09/21 04/14/22 (144 mg-216 mg) capsule (Fish Oil) Previous Rx's Medication Instructions Recorded miscellaneous medical supply 1 ea miscellaneous DAILY #2 ea 03/02/21 miscellaneous medical supply 2 ea miscellaneous DAILY DX: 03/02/21 Z89.511, Z89.512 #2 ea blood-glucose sensor (Dexcom G6 #3 ea 08/02/21 Sensor device) blood-glucose transmitter (Dexcom #1 ea 11/09/21 G6 Transmitter device) insulin aspart U-100 100 unit/mL 1 sliding scale dose subcut 11/16/21 (3 mL) subcutaneous pen (Novolog .COMPLEX #15 mL FlexPen U-100 Insulin aspart) pregabalin 200 mg capsule 200 mg PO TID 30 days #90 caps 02/21/22 Bilateral below the knee socket #1 ea 02/24/22 replacement clotrimazole 1 % topical cream See Rx Instructions .Route 04/13/22 .COMPLEX #45 grams amitriptyline 50 mg tablet 50 mg PO BEDTIME #90 tabs 04/14/22 varenicline 1 mg tablet (Chantix) 1 mg PO BID #56 tabs 04/18/22 oxycodone 5 mg tablet 5 mg PO Q6H PRN pain #10 tabs 05/08/22 Allergies Allergy/AdvReac Type Severity Reaction Status Date / Time Penicillins Allergy Severe Hives Verified 04/14/22 10:00 Sulfa (Sulfonamide Allergy Severe Anaphylaxis Verified 04/14/22 10:00 Antibiotics) levofloxacin [From Levaquin] Allergy Intermediate Rash Verified 04/14/22 10:00 metronidazole [From Flagyl] Allergy Intermediate Rash Verified 04/14/22 10:00 NSAIDS (Non-Steroidal AdvReac Severe Unknown Verified 04/14/22 10:00 Anti-Inflamma Review of Systems Constitutional: Constitutional: Reports no additional constitutional complaints, Denies chills, Denies fever(s) and Denies night sweats Eyes: Eyes: Reports no additional eye complaints, Denies blurry vision, Denies change in vision, Denies diplopia, Denies eye discharge, Denies loss of vision and Denies eye pain ENT: Denies dizziness Cardiovascular: Cardiovascular: Reports no additional cardiovascular complaints, Denies chest pain, Denies lightheadedness, Denies Loss of Consciousness and Denies dyspnea Respiratory: Respiratory: Reports no additional respiratory complaints and Denies dyspnea Gastrointestinal: Gastrointestinal: Reports no additional gastrointestinal complaints, Denies abdominal pain, Denies melena, Denies hematochezia, Denies change in bowel habits and Denies change in stool character Genitourinary: Genitourinary: Reports no additional male genitourinary complaints, Denies hematuria, Denies oliguria, Denies difficulty urinating, Denies dysuria, Denies urinary frequency, Denies urinary hesitancy, Denies urinary incontinence and Denies urinary urgency Musculoskeletal: Musculoskeletal: Reports no additional musculoskeletal complaints, Denies numbness and Denies tingling Comments: right wrist pain, bilateral BTK amputee Neurologic: Denies dizziness, Denies loss of vision, Denies numbness and Denies tingling Psychiatric: Psychiatric: Reports no additional psychiatric complaints Endocrine: Endocrine: Reports no additional endocrine complaints Hematologic/Lymphatic: Hematologic/Lymphatic: Reports no additional hematologic/lymphatic complaints Allergic/Immunologic: Allergic/Immunologic: Reports no additional allergic/immunologic complaints [facility] Past Medical History Attestation statement: The following information was validated with the patient. Source: old records reviewed and nursing notes reviewed Medical History Anxiety Bilateral cataracts Cognitive and neurobehavioral dysfunction COVID-19 vaccine series completed Depression Diabetes mellitus History of traumatic brain injury History of trigger finger HLD (hyperlipidemia) HTN (hypertension) Hx of leg amputation Hx of staphylococcal infection Insulin dependent diabetes mellitus Morbid obesity Neuropathy Obesity PTSD (post-traumatic stress disorder) Sleep apnea Vitamin D deficiency Surgical History History of gastrectomy History of surgery on arm Hx of carpal tunnel repair Hx of cataract extraction Hx of hernia repair S/P BKA (below knee amputation) bilateral Family History Family History Mother No problems noted. Father Alcohol abuse Social History Social History Housing: Apartment Are you a primary customer care coordinator to a significant other at home: No Do you presently have visiting nurse or other home services: No Alcohol intake: former Patient Tobacco Use Status: Former Tobacco user Quit Date: September 2020 Tobacco use type: Cigarette Years Smoked: 20-30 years e-Cigarette/Vaping Use: Never Used Second Hand Smoke Exposure: No Advance Directives: Yes Advance Directives Information Provided: No Advance Directives on File: No service: No Current occupational status: disabled Cognitive needs: No Hearing needs: No Vision needs: Yes Physical Exam Vital Signs: Vital Signs: Last Vital Signs Temp 97.8 F 05/08/22 12:00 Pulse 68 05/08/22 12:00 Resp 14 05/08/22 12:00 BP 125/96 H 05/08/22 12:00 Pulse Ox 95 05/08/22 12:00 O2 Del Method 05/08/22 12:00 BMI result Body Mass Index 30.7 Const: General: cooperative, no acute distress, alert and awake Nutritional Appearance: well nourished Orientation/consciousness: patient oriented x3 Limitations: no limitations HEENT: Head: Yes normal to inspection and Yes atraumatic Ears: hearing grossly normal bilaterally and external ears normal General nose exam: Normal external nose present, no nasal discharge noted and no epistaxis Face and sinus: Yes normal facial exam, No abrasion and No laceration Mouth: Normal oral and palatal mucosa present, no drooling and no muffled voice Eyes: General: appearance normal, both eyes and all related structures Periorbital: periorbital findings normal Eyelids: Yes eyelids normal Conjunctivae: conjunctivae normal Pupils: Equal, round and reactive pupils present EOM: EOMs intact bilaterally Neck: Neck: Yes normal visual inspection, Yes full ROM and Yes no lymphadenopathy Chest: Chest palpation & inspection: normal inspection of the chest Resp: Effort & Inspection: normal respiratory effort and able to speak in complete sentences Auscultation: clear to auscultation bilaterally Cardio: Rate: regular rate Rhythm: regular rhythm GI: Inspection: Yes normal to inspection Palpation (GI): Soft to palpation, not firm, nontender, no guarding and not rigid Neuro: General: patient oriented x3 and moves all extremities Cranial nerves: Yes Equal, round and reactive pupils present Cognition (Neuro): normal cognition Motor exam (neuro): 5/5 motor strength present throughout Sensory Exam: Normal double simultaneous stimulation for sensation Coordination: [id number]-yo-[id number] test normal Extrem: Other: swelling to the right wrist, chronic bilateral BTK amputee General: Yes capillary refill normal Psych: Appearance: grossly normal Mental Status: mental status grossly normal Affect: normal affect Attitude: cooperative Thought process: Normal thought process present Thought content: Normal thought content present Insight: Good insight present (Psych) Medications Administered Discontinued Medications Generic Name Dose Route Start Last Admin Trade Name Freq PRN Reason Stop Dose Admin Oxycodone HCl 10 mg 05/08/22 11:45 05/08/22 12:21 Oxycodone Hcl Immed Release 5 Mg Tablet PO 05/08/22 11:46 10 mg ONCE ONE Administration Medical Decision Making Medical Decision Making MDM Narrative: Patient is a 51 year old assigned male at with a history of DM presenting to the emergency department today with a right wrist injury. Patient's physical exam showed mild swelling to the right wrist and bilateral below the knee amputations. Patient's right wrist x-ray showed a scaphoid fracture. I explained my physical exam findings as well as all test results to the patient. I answered all questions asked by the patient. Patient received PO Oxycodone which he stated helped his pain significantly. Patient already had his right wrist in a thumb spica splint which is the appropriate splint for this injury. Patient's right upper extremity PMS was intact. I stressed the importance of the patient taking his medication as prescribed. I stressed the importance of the patient following up with his primary care provider and an orthopedic provider. I stressed the importance of the patient returning to the emergency department immediately if [his/her/their] symptoms were to worsen or if he were to develop any dizziness, shortness of breath, difficulty breathing, chest pain, blurry vision, loss of vision, nausea, vomiting, abdominal pain, fever, chills, back pain, or any other complaints. Patient verbalized agreement and understanding with this treatment plan and discharge. Differential Diagnosis Differential Diagnoses: The differential diagnosis associated with the presentation includes scaphoid fracture, right wrist fracture, right wrist injury Independent Interpretation I performed an independent interpretation of an: Plain X-Ray Interpretation: My interpretation is in agreement with the radiologist's impression of this imaging study. EXAMINATION: XR WRIST, RIGHT CLINICAL INFORMATION: Fall with pain and swelling? COMPARISON: None? TECHNIQUE: Four views of the right wrist. FINDINGS: There is a possible fracture of the distal aspect of the scaphoid peripherally. Carpal rows remain aligned. Diffuse vascular calcifications.? XR/XR wrist RT 2V IMPRESSION: Possible fracture of the distal aspect of the scaphoid peripherally. Correlate with location of pain. Dictated By: Alonso Caldera MD Signed By: Electronically signed by Alonso Caldera MD 05/08/22 2284 Discharge Plan Discharge Clinical Impression: Injury of wrist Patient Disposition: Home, Self-Care Instructions: Wrist Injury (ED), Narcotic Safety (ED), Safe Disposal of Narcotics (ED) Additional Instructions: Follow up with your primary care provider and your orthopedic provider. Return to the emergency department immediately if your symptoms worsen or if you develop any dizziness, shortness of breath, difficulty breathing, chest pain, blurry vision, loss of vision, nausea, vomiting, abdominal pain, fever, chills, back pain, or any other complaints. Prescriptions: New oxycodone 5 mg tablet 5 mg PO Q6H PRN (Reason: pain) Qty: 10 0RF Rx Instructions: Partial Fill upon patient request. No Action miscellaneous medical supply Misc 2 ea miscellaneous DAILY Qty: 2 0RF Rx Instructions: BILATERAL BK PROSTHETIC LINERS miscellaneous medical supply Misc 1 ea miscellaneous DAILY Qty: 2 0RF Rx Instructions: New sockets for his two prosthetic legs (DME) Dexcom G6 Sensor Device See Rx Instructions topical Q10D Qty: 3 8RF Rx Instructions: As directed (DME) Dexcom G6 Transmitter Device See Rx Instructions .Route Qty: 1 0RF Rx Instructions: As directed insulin aspart U-100 [Novolog FlexPen U-100 Insulin] 100 unit/mL (3 mL) insulin pen 1 sliding scale dose subcut .COMPLEX Qty: 15 8RF Rx Instructions: 1 sliding scale dose subcutaneously 3-4 times daily before meals pregabalin 200 mg capsule 200 mg PO TID 30 Days Qty: 90 2RF (DME) Bilateral below the knee socket replacement See Rx Instructions .Route .MEDSUPPLY Qty: 1 6RF Rx Instructions: As directed clotrimazole 1 % cream See Rx Instructions .ROUTE .COMPLEX Qty: 45 3RF Dose Instruction: APPLY TO AFFECTED AREA TWICE A DAY Rx Instructions: APPLY TO AFFECTED AREA TWICE A DAY varenicline [Chantix] 1 mg tablet 1 mg PO BID Qty: 56 3RF prazosin 2 mg capsule 5 mg PO BEDTIME amitriptyline 50 mg tablet 50 mg PO BEDTIME Qty: 90 3RF zolpidem 12.5 mg tablet,ext release multiphase 12.5 mg PO BEDTIME PRN fluoxetine 40 mg capsule 80 mg PO DAILY propanolol 10 mg PO BID omega 3-kxt-slp-fish oil [Fish Oil] 1,200 (144-216) mg capsule PO Referrals: [facility] [Provider Group] (Call to establish and follow up with an orthopedic provider. ) Chapincito Sprague MD [Primary Care Provider] - Stand Alone Forms: Work/School Release Interventions: ED Discharge Assessment Last Done: 05/08/22 13:12 Discharge Date/Time: 05/08/22 13:16 Print Language: [place]
[2022-05-08 12:00] VITALS: BP 125/96; PULSE 68; RESP 14; TEMP 36.6; O2SAT 95
[2022-05-08] MEDS: oxyCODONE HCl Immed Release 5 MG TABLET 10 MG PO (12:21)
== END 2022-05-08 13:16 | disposition home or self-care (01) ==
PROVIDERS: Emergency Provider Student in an Organized Health Care Education/Training Program; PCP Internal Medicine
DX: S69.91XA Unspecified injury of right wrist, hand and finger(s), initial encounter (principal); M25.431 Effusion, right wrist; X58.XXXA Exposure to other specified factors, initial encounter; Y93.9 Activity, unspecified; Y92.9 Unspecified place or not applicable; Y99.9 Unspecified external cause status; Z79.899 Other long term (current) drug therapy; Z87.891 Personal history of nicotine dependence
CPT/HCPCS: 73100; 99283; 99284

== ENCOUNTER → 2022-05-10 10:57 | Outpatient (BNVA) | payer OTHER, SELFPAY | PROVIDERS: PCP Internal Medicine; Visit Provider Physician Assistant | DX: S62.001A Unspecified fracture of navicular [scaphoid] bone of right wrist, initial encounter for closed fracture (principal); W18.30XA Fall on same level, unspecified, initial encounter; Y93.9 Activity, unspecified; Y92.9 Unspecified place or not applicable; Y99.8 Other external cause status; E11.65 Type 2 diabetes mellitus with hyperglycemia; E11.42 Type 2 diabetes mellitus with diabetic polyneuropathy; Z90.3 Acquired absence of stomach [part of]; Z89.512 Acquired absence of left leg below knee; Z89.511 Acquired absence of right leg below knee; Z79.4 Long term (current) use of insulin | CPT/HCPCS: 25622; 29085; 99202 ==

== ENCOUNTER 2022-05-15 18:41 | Inpatient (IN) | payer OTHER, SELFPAY ==
--- NOTE | ~2022-05-15 | CT_ITS ---
EXAMINATION: CT FEMUR WITH CONTRAST, RIGHT CLINICAL INFORMATION: Osteomyelitis of the right BKA stump. COMPARISON: None available. TECHNIQUE: Multidetector volumetric imaging of the right lower extremity performed after administration of 85 mL of Omnipaque 350 IV contrast. Coronal and sagittal reformatted images are obtained and reviewed. This CT examination was performed using dose optimization techniques as appropriate, variously including the following: *Automated exposure control *Adjustment of mA and/or kV according to patient size (this includes techniques or standardized protocols for targeted exams where dose is matched to indication/reason for exam; i.e. extremities or head) *Use of iterative reconstruction technique DLP: 460 mGy-cm FINDINGS: There is a [id number] amputation. Some periosteal reaction is seen along the distal femur amputation site. No fracture. Mild irregularity of the bone at the amputation site could be subtle erosion. There is edema in the soft tissues in this area with no fluid collection. Edema throughout the stump. Normal alignment at the knee. No joint effusion. Normal alignment at the hip. The visualized pelvis is intact. Diffuse vascular calcifications. Normal appearance of the musculature. The visualized intrapelvic structures show no acute abnormality.. CT/CT femur RT w IV con IMPRESSION: There is periosteal reaction at the distal femur amputation site with mild irregularity of the bone at the amputation site. This could be associated with osteomyelitis. There is edema in the soft tissues in this area with no fluid collection.
--- NOTE | 2022-05-15 20:02 | ED.GENADULT ---
HPI - General Adult General Chief complaint: Skin/Abscess/Foreign Body <JENY Bourgeois - Last Filed: 05/15/22 20:06> Stated complaint: High blood sugar/Red inflamed skin/Fever <JENY Bourgeois - Last Filed: 05/15/22 20:06> Time Seen by Provider: 05/15/22 21:25 <JENY Bourgeois - Last Filed: 05/15/22 20:06> Source: patient <Michael Dunbar MD - Last Filed: 05/16/22 01:05> Mode of arrival: wheelchair <Michael Dunbar MD - Last Filed: 05/16/22 01:05> Limitations: no limitations <Michael Dunbar MD - Last Filed: 05/16/22 01:05> History of Present Illness HPI narrative: Patient diabetic hypertension status post bilateral BKA comes here for redness and pain in the right stump for last 4 5 days with increased erythema and fever on arrival was 101 redness spread pretty fast within 3 days started a 3rd distal end of the stump now all the way to mid thigh patient does not feel good feels weak sleepy with chills. History of similar infection in the past <Michael Dunbar MD - Last Filed: 05/16/22 01:05> Related Data Home medications: Home Medications Medication Instructions Recorded Confirmed zolpidem 12.5 mg tablet,extended 12.5 mg PO BEDTIME PRN Insomnia 12/21/20 05/15/22 release,multiphase prazosin 2 mg capsule 5 mg PO BEDTIME 04/04/21 05/15/22 fluoxetine 40 mg capsule 80 mg PO DAILY 04/11/21 05/15/22 omega 8-irq-pgt-fish oil 1,200 mg 1 cap PO DAILY 05/09/21 05/15/22 (144 mg-216 mg) capsule (Fish Oil) latanoprost 0.005 % eye drops 1 drp ophthalmic (eye) BEDTIME 05/15/22 05/15/22 propranolol 40 mg tablet 1 tab PO BID 05/15/22 05/15/22 Previous Rx's Medication Instructions Recorded blood-glucose sensor (Dexcom G6 #3 ea 08/02/21 Sensor device) blood-glucose transmitter (Dexcom #1 ea 11/09/21 G6 Transmitter device) insulin aspart U-100 100 unit/mL 1 sliding scale dose subcut 11/16/21 (3 mL) subcutaneous pen (Novolog .COMPLEX #15 mL FlexPen U-100 Insulin aspart) pregabalin 200 mg capsule 200 mg PO TID 30 days #90 caps 02/21/22 Bilateral below the knee socket #1 ea 02/24/22 replacement clotrimazole 1 % topical cream See Rx Instructions .Route 04/13/22 .COMPLEX #45 grams amitriptyline 50 mg tablet 50 mg PO BEDTIME #90 tabs 04/14/22 varenicline 1 mg tablet (Chantix) 1 mg PO BID #56 tabs 04/18/22 <JENY Bourgeois - Last Filed: 05/15/22 20:06> Allergies/adverse reactions: Allergies Allergy/AdvReac Type Severity Reaction Status Date / Time Penicillins Allergy Severe Hives Verified 04/14/22 10:00 Sulfa (Sulfonamide Allergy Severe Anaphylaxis Verified 04/14/22 10:00 Antibiotics) levofloxacin [From Levaquin] Allergy Intermediate Rash Verified 04/14/22 10:00 metronidazole [From Flagyl] Allergy Intermediate Rash Verified 04/14/22 10:00 NSAIDS (Non-Steroidal AdvReac Severe Unknown Verified 04/14/22 10:00 Anti-Inflamma <JENY Bourgeois - Last Filed: 05/15/22 20:06> Review of Systems Review of Systems: Yes all other systems are reviewed and are negative <Michael Dunbar MD - Last Filed: 05/16/22 01:05> [facility]LY [facility] Past Medical History Medical History: Medical History Anxiety Bilateral cataracts Cognitive and neurobehavioral dysfunction COVID-19 vaccine series completed Depression Diabetes mellitus History of traumatic brain injury History of trigger finger HLD (hyperlipidemia) HTN (hypertension) Hx of leg amputation Hx of staphylococcal infection Insulin dependent diabetes mellitus Morbid obesity Neuropathy Obesity PTSD (post-traumatic stress disorder) Sleep apnea Vitamin D deficiency <JENY Bourgeois - Last Filed: 05/15/22 20:06> Surgical History: Surgical History History of gastrectomy History of surgery on arm Hx of carpal tunnel repair Hx of cataract extraction Hx of hernia repair S/P BKA (below knee amputation) bilateral <JENY Bourgeois - Last Filed: 05/15/22 20:06> Family History Family History: Family History Mother No problems noted. Father Alcohol abuse <JENY Bourgeois - Last Filed: 05/15/22 20:06> Social History Social History: Social History Housing: Apartment Are you a primary cardiac care nurse to a significant other at home: No Do you presently have visiting nurse or other home services: No Alcohol intake: never Patient Tobacco Use Status: Former Tobacco user Quit Date: September 2020 Tobacco use type: Cigarette Years Smoked: 20-30 years Smoked in Last 30 Days: No e-Cigarette/Vaping Use: Never Used Second Hand Smoke Exposure: No Use of substances other than those prescribed or required for medical reasons: No Advance Directives: No Advance Directives Information Provided: No service: No Current occupational status: disabled Cognitive needs: No Hearing needs: No Vision needs: Yes <JENY Bourgeois - Last Filed: 05/15/22 20:06> Physical Exam ED Vital Signs: Vital Signs - 24 hr 05/15/22 20:03 05/15/22 20:52 05/15/22 23:23 Temperature 98.8 F 99.8 F Pulse Rate 82 84 77 Respiratory Rate 16 20 18 Blood Pressure 148/91 H 186/95 H Pulse Oximetry 93 98 97 Oxygen Delivery Method Room Air Room Air Room Air BMI result Body Mass Index 36.6 <JENY Bourgeois - Last Filed: 05/15/22 20:06> Vital Signs - 24 hr 05/15/22 20:03 05/15/22 20:52 05/15/22 23:23 Temperature 98.8 F 99.8 F Pulse Rate 82 84 77 Respiratory Rate 16 20 18 Blood Pressure 148/91 H 186/95 H Pulse Oximetry 93 98 97 Oxygen Delivery Method Room Air Room Air Room Air BMI result Body Mass Index 36.6 <Michael Dunbar MD - Last Filed: 05/16/22 01:05> Appearance: Alert. Oriented X3. No acute distress. Eyes: PERRLA, No Nystagmus ENT: Pharynx normal. Oral Mucosa moist Neck: Normal inspection. Neck supple. CVS: Normal heart rate and rhythm. Pulses normal. Respiratory: No respiratory distress. Equal air entry bilateral, no wheezing/rales/rhonchi Abdomen: Soft and nontender. Bowel sounds are present, no mass palpable, no CVA tenderness Skin: Skin warm and dry. Erythema of the right stump Extremities: Bilateral BKA swelling and redness of the right stump Neuro: Oriented X 3. No motor deficit. No sensory deficit.No cerebellar signs , cranial nerves II-XII intact <Michael Dunbar MD - Last Filed: 05/16/22 01:05> Course Course Course Narrative: 2000 51-year-old male history of bilateral BKA, diabetes, tremor, skin apnea, LVH presenting to the emergency with complaints fevers, chills, cellulitis to right lower extremity stump/amputation site. Patient reports red, swelling, warmth at the site with streaking up his right mid thigh. Patient tells me he has not been feeling well over the past few days. Patient 1st noticed this 2 days ago. Denies numbness, tingling chest pain, shortness of breath, nausea, vomiting, abdominal pain. Physical exam significant for cellulitis to right lower extremity stump with erythema, warmth and streaking up R mid thigh Plan blood cultures, lactic acid , basic labs, ceftriaxone ordered Concerns for cellulitis and likely necrotizing infection. <JENY Bourgeois - Last Filed: 05/15/22 20:06> Medications Administered Generic Name Dose Route Start Last Admin Trade Name Freq PRN Reason Stop Dose Admin Sodium Chloride 3 ml 05/16/22 00:00 05/16/22 00:42 0.9 % Sodium Chloride Flush 3 Ml Syringe IVFLUSH Not Given QSHIFT WHITNEY Discontinued Medications Generic Name Dose Route Start Last Admin Trade Name Freq PRN Reason Stop Dose Admin Acetaminophen 650 mg 05/15/22 23:27 05/15/22 23:45 Acetaminophen 325 Mg Tablet PO 05/15/22 23:28 650 mg ONCE ONE Administration Ceftriaxone Sodium 1 gm/ 50 mls @ 100 mls/hr 05/15/22 20:05 05/15/22 22:31 Sodium Chloride IV 05/15/22 20:34 Infused ONCE ONE Infusion Sodium Chloride 1,000 mls @ 999 mls/hr 05/15/22 21:39 05/16/22 00:42 Ns IV 05/15/22 22:39 Infused .Q1H1M ONE Infusion Vancomycin HCl 2,000 mg in 520 mls @ 260 mls/hr 05/15/22 22:00 05/15/22 22:32 Vancomycin/Ns IV 05/15/22 23:59 260 mls/hr ONCE ONE Administration Iohexol 100 ml 05/15/22 22:21 05/15/22 22:21 Iohexol 350 Mg/Ml 100 Ml Infus..Btl IV 05/15/22 22:22 85 ml ONCE ONE Administration <JENY Bourgeois - Last Filed: 05/15/22 20:06> Medications Administered Generic Name Dose Route Start Last Admin Trade Name Freq PRN Reason Stop Dose Admin Sodium Chloride 3 ml 05/16/22 00:00 05/16/22 00:42 0.9 % Sodium Chloride Flush 3 Ml Syringe IVFLUSH Not Given QSHIFT WHITNEY Discontinued Medications Generic Name Dose Route Start Last Admin Trade Name Freq PRN Reason Stop Dose Admin Acetaminophen 650 mg 05/15/22 23:27 05/15/22 23:45 Acetaminophen 325 Mg Tablet PO 05/15/22 23:28 650 mg ONCE ONE Administration Ceftriaxone Sodium 1 gm/ 50 mls @ 100 mls/hr 05/15/22 20:05 05/15/22 22:31 Sodium Chloride IV 05/15/22 20:34 Infused ONCE ONE Infusion Sodium Chloride 1,000 mls @ 999 mls/hr 05/15/22 21:39 05/16/22 00:42 Ns IV 05/15/22 22:39 Infused .Q1H1M ONE Infusion Vancomycin HCl 2,000 mg in 520 mls @ 260 mls/hr 05/15/22 22:00 05/15/22 22:32 Vancomycin/Ns IV 05/15/22 23:59 260 mls/hr ONCE ONE Administration Iohexol 100 ml 05/15/22 22:21 05/15/22 22:21 Iohexol 350 Mg/Ml 100 Ml Infus..Btl IV 05/15/22 22:22 85 ml ONCE ONE Administration <Michael Dunbar MD - Last Filed: 05/16/22 01:05> Medical Decision Making Medical Decision Making [facility] Narrative: Patient has cellulitis of the right stump CT scan showed bone erosion possible osteomyelitis no fluid collection was seen patient started on vancomycin and ceftriaxone will admit patient plan for MRI to rule out osteomyelitis <Michael Dunbar MD - Last Filed: 05/16/22 01:05> Consult Healthcare Provider Management of the patient was discussed with: Hospitalist <Michael Dunbar MD - Last Filed: 05/16/22 01:05> Lab Data [facility] Lab Attestation statement: I reviewed the patient's lab results. <Michael Dunbar MD - Last Filed: 05/16/22 01:05> Result Diagrams: 05/15/22 20:23 05/15/22 20:23 <JENY Bourgeois - Last Filed: 05/15/22 20:06> Labs: Lab Results 05/15/22 05/15/22 05/15/22 Range/Units 20:23 20:23 20:23 WBC 9.6 (4.8-10.8) X10*3/uL RBC 4.97 (4.60-5.80) X10*6/uL Hgb 15.0 (14.0-18.0) g/dl Hct 42.9 (42.0-52.0) % MCV 86.3 (80.0-98.0) fL MCH 30.2 (27.0-33.0) pg MCHC 35.0 (31.0-36.0) g/dl RDW 13.1 (11.0-16.0) % Plt Count 129 L D (160-400) X10*3/uL MPV 10.1 (9.4-12.4) fL Immature Gran % (Auto) 0.5 H (0.0-0.4) % Neut % (Auto) 63.2 (45-73) % Lymph % (Auto) 23.1 (20-40) % [place] % (Auto) 12.1 H (2-11) % Eos % (Auto) 0.7 (0-4) % Baso % (Auto) 0.4 (0-2) % Lymph # (Auto) 2.2 (1.2-4.9) X10*3/uL [place] # (Auto) 1.2 (0.1-1.2) X10*3/uL Eos # (Auto) 0.1 (0.0-0.4) X10*3/uL Baso # (Auto) 0.0 (0.0-0.2) X10*3/uL Abs Immat Gran (auto) 0.05 H (0.00-0.03) X10*3/uL Absolute Neuts (auto) 6.1 (2.0-8.3) x10*3/uL Absolute Nucleated RBC 0.000 (0.0-0.012) X10*3/uL Nucleated RBC % (auto) 0.0 (0.0-0.2) /100WBC Sodium 134 L (135-145) mmol/L Potassium 4.1 (3.3-5.1) mmol/L Chloride 97 (96-108) mmol/L Carbon Dioxide 24 (22-29) mmol/L Anion Gap 17 (12-20) BUN 16 (9-16) mg/dL Creatinine 1.27 (0.5-1.4) mg/dL Estim Creat Clear Calc 73.9 Estimated GFR 60 Random Glucose 244 H (60-115) mg/dL Lactic Acid 1.2 (0.5-2.0) mmol/L Calcium 8.8 D (8.4-10.2) mg/dL Total Bilirubin 0.5 (0.0-1.0) mg/dL AST 31 (5-37) U/L ALT 34 (0-40) U/L Alkaline Phosphatase 83 (39-117) U/L C-Reactive Protein 24.16 H (< or = 0.50) mg/dL Total Protein 7.4 (6.5-8.0) g/dL Albumin 3.8 (3.5-5.0) g/dL <JENY Bourgeois - Last Filed: 05/15/22 20:06> Lab Results 05/15/22 05/15/22 05/15/22 Range/Units 20:23 20:23 20:23 WBC 9.6 (4.8-10.8) X10*3/uL RBC 4.97 (4.60-5.80) X10*6/uL Hgb 15.0 (14.0-18.0) g/dl Hct 42.9 (42.0-52.0) % MCV 86.3 (80.0-98.0) fL MCH 30.2 (27.0-33.0) pg MCHC 35.0 (31.0-36.0) g/dl RDW 13.1 (11.0-16.0) % Plt Count 129 L D (160-400) X10*3/uL MPV 10.1 (9.4-12.4) fL Immature Gran % (Auto) 0.5 H (0.0-0.4) % Neut % (Auto) 63.2 (45-73) % Lymph % (Auto) 23.1 (20-40) % [place] % (Auto) 12.1 H (2-11) % Eos % (Auto) 0.7 (0-4) % Baso % (Auto) 0.4 (0-2) % Lymph # (Auto) 2.2 (1.2-4.9) X10*3/uL [place] # (Auto) 1.2 (0.1-1.2) X10*3/uL Eos # (Auto) 0.1 (0.0-0.4) X10*3/uL Baso # (Auto) 0.0 (0.0-0.2) X10*3/uL Abs Immat Gran (auto) 0.05 H (0.00-0.03) X10*3/uL Absolute Neuts (auto) 6.1 (2.0-8.3) x10*3/uL Absolute Nucleated RBC 0.000 (0.0-0.012) X10*3/uL Nucleated RBC % (auto) 0.0 (0.0-0.2) /100WBC Sodium 134 L (135-145) mmol/L Potassium 4.1 (3.3-5.1) mmol/L Chloride 97 (96-108) mmol/L Carbon Dioxide 24 (22-29) mmol/L Anion Gap 17 (12-20) BUN 16 (9-16) mg/dL Creatinine 1.27 (0.5-1.4) mg/dL Estim Creat Clear Calc 73.9 Estimated GFR 60 Random Glucose 244 H (60-115) mg/dL Lactic Acid 1.2 (0.5-2.0) mmol/L Calcium 8.8 D (8.4-10.2) mg/dL Total Bilirubin 0.5 (0.0-1.0) mg/dL AST 31 (5-37) U/L ALT 34 (0-40) U/L Alkaline Phosphatase 83 (39-117) U/L C-Reactive Protein 24.16 H (< or = 0.50) mg/dL Total Protein 7.4 (6.5-8.0) g/dL Albumin 3.8 (3.5-5.0) g/dL <Michael Dunbar MD - Last Filed: 05/16/22 01:05> Radiology Impression Discussion of test interpretation with radiology: I have reviewed the radiologist's reading. <Michael Dunbar MD - Last Filed: 05/16/22 01:05> Radiologist Impression: CT/CT femur RT w IV con IMPRESSION: There is periosteal reaction at the distal femur amputation site with mild irregularity of the bone at the amputation site. This could be associated with osteomyelitis. There is edema in the soft tissues in this area with no fluid collection. <Michael Dunbar MD - Last Filed: 05/16/22 01:05> Discharge Plan Discharge Clinical Impression: Cellulitis of leg, right <JENY Bourgeois - Last Filed: 05/15/22 20:06> Patient Disposition: Admitted As Inpatient <JENY Bourgeois - Last Filed: 05/15/22 20:06>
[2022-05-15 20:03] VITALS: PULSE 82; RESP 16; TEMP 37.1; O2SAT 93; BMI 36.6
[2022-05-15 20:31] LABS: MANUAL DIFF FLAG NO
[2022-05-15 20:34] LABS: Basophils Percent Auto 0.4 % (0-2); Imm Gran Abs Auto 0.05 X10*3/uL (0.00-0.03); Imm Gran Pct Auto 0.5 % (0.0-0.4); PLT CLUMP 1; SCAN SMEAR FLAG 1
[2022-05-15 20:36] LABS: Eosinophils Absolute Auto 0.1 X10*3/uL (0.0-0.4); Eosinophils Percent Auto 0.7 % (0-4); Hematocrit 42.9 % (42.0-52.0); Lymphocytes Absolute Auto 2.2 X10*3/uL (1.2-4.9); Lymphocytes Percent Auto 23.1 % (20-40); Mean Corpuscular Hemoglobin 30.2 pg (27.0-33.0); Mean Corpuscular Volume 86.3 fL (80.0-98.0); Mean Platelet Volume 10.1 fL (9.4-12.4); Monocytes Absolute Auto 1.2 X10*3/uL (0.1-1.2); Monocytes Percent Auto 12.1 % (2-11); Neutrophils Absolute Auto 6.1 x10*3/uL (2.0-8.3); Neutrophils Percent Auto 63.2 % (45-73); Red Blood Count 4.97 X10*6/uL (4.60-5.80); Red Cell Distribution Width 13.1 % (11.0-16.0)
[2022-05-15 20:39] LABS: Platelet Count 129 X10*3/uL (160-400); White Blood Count 9.6 X10*3/uL (4.8-10.8)
[2022-05-15 20:43] LABS: Lactic Acid 1.2 mmol/L (0.5-2.0)
[2022-05-15 20:48] LABS: Alanine Aminotransferase 34 U/L (0-40); Albumin Level 3.8 g/dL (3.5-5.0); Alkaline Phosphatase 83 U/L (39-117); Anion Gap 17 (12-20); Aspartate Amino Transferase 31 U/L (5-37); Bilirubin Total 0.5 mg/dL (0.0-1.0); Blood Urea Nitrogen 16 mg/dL (9-16); Calcium 8.8 mg/dL (8.4-10.2); Carbon Dioxide 24 mmol/L (22-29); Chloride 97 mmol/L (96-108); Creatinine Clr Calc Pharmacy 73.9; Estimated Glomerular Filt Rate 60; Glucose Random 244 mg/dL (60-115); Potassium 4.1 mmol/L (3.3-5.1); Sodium 134 mmol/L (135-145); Total Protein 7.4 g/dL (6.5-8.0)
[2022-05-15 20:52] VITALS: BP 148/91; PULSE 84; RESP 20; TEMP 37.7; O2SAT 98
[2022-05-15] MEDS: cefTRIAXone sodium 1 GM in 0.9 % Sodium Chloride 50 ML IV (21:41)
[2022-05-15] MEDS: 0.9 % Sodium Chloride 1,000 ML 999 ML IV (21:53)
[2022-05-15] MEDS: iohexoL 350 MG/ML 100 ML INFUS..BTL IV (22:21)
--- NOTE | 2022-05-15 22:47 | PHA.MEDREC ---
Pharmacy Consult ? Medication Reconciliation Pharmacy has completed the medication reconciliation.
[2022-05-15 23:23] VITALS: BP 186/95; PULSE 77; RESP 18; O2SAT 97
[2022-05-15] MEDS: Acetaminophen 325 MG TABLET 650 MG PO (23:45)
[2022-05-16] VITALS (7 sets, daily range): BP systolic 128–180; BP diastolic 76–87; PULSE 67–71; RESP 14–20; TEMP 36–37.1; O2SAT 93–98; BMI 40.8
--- NOTE | 2022-05-16 00:01 | P.HPHOSP_ITS ---
History of Present Illness Date of Service: 05/15/22 Chief Complaint: right stump swelling, pain, redness this is a 51-year-old male with past medical history of type 2 diabetes, bilateral below-knee amputation, hypertension, HLD, history of morbid obesity status post sleeve gastrectomy,, bipolar disorder, anxiety, who presents to the hospital with complaints of right stump swelling, redness, and pain. Patient describes the pain as 9/10, nonradiating, constant, started 3 days prior. He reports that the stump is also 2 times its normal size, he has also noticed increased redness and warmth. Patient reports fevers up to 101 at home, chills, no nausea or vomiting, no chest pain, shortness of breath, no abdominal pain diarrhea constipation, no urinary symptoms. On arrival to the ED patient hemodynamically stable with no significant abnormal vitals labs are significant for WBC count of 9.6, ESR 50 and CRP of 24.1, Femur CT shows periosteal reaction at the distal femur amputation site with mild irregularity of the bone concerning for osteomyelitis. Review of Systems Review of Systems: Yes all other systems are reviewed and are negative [facility] Medical History Anxiety Bilateral cataracts Cognitive and neurobehavioral dysfunction COVID-19 vaccine series completed Depression Diabetes mellitus History of traumatic brain injury History of trigger finger HLD (hyperlipidemia) HTN (hypertension) Hx of leg amputation Hx of staphylococcal infection Insulin dependent diabetes mellitus Morbid obesity Neuropathy Obesity PTSD (post-traumatic stress disorder) Sleep apnea Vitamin D deficiency Family History Mother No problems noted. Father Alcohol abuse Surgical History History of gastrectomy History of surgery on arm Hx of carpal tunnel repair Hx of cataract extraction Hx of hernia repair S/P BKA (below knee amputation) bilateral Social History Household Members: Spouse Housing: House Are you a primary nanny caregiver to a significant other at home: No Do you presently have visiting nurse or other home services: No Alcohol intake: never Patient Tobacco Use Status: Former Tobacco user Quit Date: September 2020 Tobacco use type: Cigarette Years Smoked: 20-30 years Smoked in Last 30 Days: No e-Cigarette/Vaping Use: Never Used Second Hand Smoke Exposure: No Use of substances other than those prescribed or required for medical reasons: No Currently Displaying Signs/Symptoms of Drug Intoxication Withdrawal: No Any prior treatment program specific to substance use: No Have you been hit, kicked, punched, or otherwise hurt by someone within the past year? If so, by whom?: No Do you feel safe in your current relationship?: Yes Is there a partner from a previous relationship who is making you feel unsafe now?: No Are you made to feel afraid or neglected: No Advance Directives: No Advance Directives Information Provided: No Do you have thoughts of harming others: None Do you have a plan to hurt others: No Plan Recently lost weight without trying: No Eating poorly because of decreased appetite: No Nutrition Risks: No Nutritional Risk Poor oral hygiene: No service: No Current occupational status: disabled Cognitive needs: No Hearing needs: No Vision needs: Yes Meds Allergies Allergy/AdvReac Type Severity Reaction Status Date / Time Penicillins Allergy Severe Hives Verified 04/14/22 10:00 Sulfa (Sulfonamide Allergy Severe Anaphylaxis Verified 04/14/22 10:00 Antibiotics) levofloxacin [From Levaquin] Allergy Intermediate Rash Verified 04/14/22 10:00 metronidazole [From Flagyl] Allergy Intermediate Rash Verified 04/14/22 10:00 NSAIDS (Non-Steroidal AdvReac Severe Unknown Verified 04/14/22 10:00 Anti-Inflamma Home Medications Medication Instructions Recorded Confirmed Last Taken Type zolpidem 12.5 mg tablet,extended 12.5 mg PO BEDTIME PRN Insomnia 12/21/20 05/15/22 Unknown History release,multiphase prazosin 2 mg capsule 5 mg PO BEDTIME 04/04/21 05/15/22 Unknown History fluoxetine 40 mg capsule 80 mg PO DAILY 04/11/21 05/15/22 Unknown History omega 1-llk-usr-fish oil 1,200 mg 1 cap PO DAILY 05/09/21 05/15/22 Unknown History (144 mg-216 mg) capsule (Fish Oil) latanoprost 0.005 % eye drops 1 drp ophthalmic (eye) BEDTIME 05/15/22 05/15/22 Unknown History propranolol 40 mg tablet 1 tab PO BID 05/15/22 05/15/22 Unknown History Physical Exam Vital Signs and Narrative: Vital Signs: Last Vital Signs Temp 99.8 F 05/15/22 20:52 Pulse 77 05/15/22 23:23 Resp 18 05/15/22 23:23 BP 186/95 H 05/15/22 23:23 Pulse Ox 97 05/15/22 23:23 O2 Del Method 05/15/22 23:23 BMI result Body Mass Index 36.6 Const: General: cooperative and no acute distress Orientation/consciousness: patient oriented x3 Eyes: General: appearance normal, both eyes and all related structures Pupils: Equal, round and reactive pupils present Resp: Effort & Inspection: normal respiratory effort Auscultation: clear to auscultation bilaterally Cardio: Rate: regular rate Rhythm: regular rhythm GI: Palpation (GI): Soft to palpation Auscultation: normal bowel sounds Skin: General skin exam: no rashes or lesions noted Neuro: General: patient oriented x3 Cranial nerves: Yes Equal, round and reactive pupils present Cognition (Neuro): normal cognition Extrem: Other: Bilateral below-knee amputation, right stump with warmth, erythema, tenderness, as well as edema erythema extending above the knee Results Labs 05/15/22 20:23 05/15/22 20:23 Labs: Laboratory Results - last 24 hr 05/15/22 05/15/22 05/15/22 20:23 20:23 20:23 MCV 86.3 MCH 30.2 MCHC 35.0 RDW 13.1 Plt Count 129 L D MPV 10.1 Immature Gran % (Auto) 0.5 H Neut % (Auto) 63.2 Lymph % (Auto) 23.1 [place] % (Auto) 12.1 H Eos % (Auto) 0.7 Baso % (Auto) 0.4 Lymph # (Auto) 2.2 [place] # (Auto) 1.2 Eos # (Auto) 0.1 Baso # (Auto) 0.0 Abs Immat Gran (auto) 0.05 H Absolute Neuts (auto) 6.1 Absolute Nucleated RBC 0.000 Nucleated RBC % (auto) 0.0 Anion Gap 17 Estim Creat Clear Calc 73.9 Estimated GFR 60 Random Glucose 244 H Lactic Acid 1.2 Calcium 8.8 D Total Bilirubin 0.5 AST 31 ALT 34 Alkaline Phosphatase 83 Total Protein 7.4 Albumin 3.8 Imaging Radiologist's Impressions: Impressions Femur CT 05/15/22 22:34 IMPRESSION: There is periosteal reaction at the distal femur amputation site with mild irregularity of the bone at the amputation site. This could be associated with osteomyelitis. There is edema in the soft tissues in this area with no fluid collection. Assessment and Plan (1) Cellulitis of leg, right: Status: Acute (2) Osteomyelitis: Status: Acute Plan male with past medical history of diabetes, among others, status post bilateral below-knee amputation presents the hospital with complaints of redness, tenderness, of the right stump found to have likely osteomyelitis # ACUTE right lower extremity cellulitis/osteomyelitis - warmth, tenderness, edema, erythema - elevated ESR and CRP - imaging suggestive of osteomyelitis - will treat with broad-spectrum IV antibiotics - cultures obtained - general surgery as well as Infectious Disease consulted # diabetes - insulin dependent - continue home insulin - will add low-dose sliding scale insulin - diabetic diet DVT prophylaxis: Eliquis given patient's need for IV antibiotics in the setting of osteomyelitis patient will require minimal to night patient hospitals defer further management and monitoring Time Spent With Patient Time: Total time managing care of this patient today ____ minutes. Quality Stroke Does the patient have a stroke diagnosis?: No VTE Prior VTE?: No VTE Risk Level:: Medical - moderate - high VTE Device Contraindication: Treatment Not Indicated VTE Drug Contraindication: N/A - Med Ordered
[2022-05-16 00:36] LABS: C Reactive Protein 24.16 mg/dL (< or = 0.50)
[2022-05-16 01:41] LABS: COVID-19 Test Negative (Negative); IDNOW Serial# BCCEAD1C
[2022-05-16] MEDS: Enoxaparin Sodium 40 MG/0.4 ML SYRINGE SUBCUT ×2 (01:52→23:52)
[2022-05-16] MEDS: Morphine Sulfate 4 MG/ML CARTRIDGE IVPUSH ×4 (01:56→21:47)
[2022-05-16 02:57] LABS: Erythrocyte Sedimentation Rate 50 MM/HR (0-15)
--- NOTE | 2022-05-16 04:06 | PC.NURSE ---
Pt. lying in bed with no apparent distress. Pt. was medicated at 156 for pain which brought pain down from 9 to 4/10. Pt's BP trending up a bit which pt. states is normal for him with the infection and pain. After medicated for pain, BP down to normal range. Pt. has a room on [facility]. Report given to Aline and pt. transported upstairs.
--- NOTE | 2022-05-16 06:39 | PC.NURSE ---
Addendum entered by Perla Spicer RN 05/17/22 02:20: ADD TO PATIENTS ADMISSION ASSESSMENT THAT ARRIVED TO [facility] ED WITH CAST PRESENT TO RIGHT WRIST, PT STATED ITS BEEN ON A WEEK FOR A FRACTURE, VAGUE TO INCIDENT AND PT TIRED UPON ADMISSION QUESTIONS HE WAS MEDICATED IN ED AND ARRIVED AT 0400. ABLE TO WIGGLE FINGERS FREELY, TEMP WNL TO SKIN, NO NOTED FINGER EDEMA. INFORMATION REPORTED DURING AM REPORT 05/16. Original Note: 51 YEAR OLD MALE ADMITTED FROM ED VIA STRETCHER TO [place] [id number] WITH DX:? OSTEO INFECTION AT RIGHT STUMP. PT WITH HX BILAT BKA'S AND RT STUMP IS REDDENED UP AND OVER KNEE AREA. PT A/O X3, NO COMPLAINTS OF PAIN, SETTLED INTO BED, VSS, LUNG THOMPSON CLEAR, CALL GIRARD AND BED CONTROLS EXPLAINED, ADMISSION COMPLETED, AND PT ABLE TO SETTLE AND NAP AFTER 0400 ADMISSION TIME.
[2022-05-16 07:12] LABS: MANUAL DIFF FLAG NO
[2022-05-16 07:18] LABS: Basophils Percent Auto 0.5 % (0-2); Eosinophils Absolute Auto 0.1 X10*3/uL (0.0-0.4); Eosinophils Percent Auto 1.1 % (0-4); Hematocrit 40.7 % (42.0-52.0); Hemoglobin 14.1 g/dl (14.0-18.0); Imm Gran Abs Auto 0.04 X10*3/uL (0.00-0.03); Imm Gran Pct Auto 0.5 % (0.0-0.4); Lymphocytes Absolute Auto 1.5 X10*3/uL (1.2-4.9); Lymphocytes Percent Auto 18.9 % (20-40); Mean Corpuscular HGB Conc 34.6 g/dl (31.0-36.0); Mean Corpuscular Hemoglobin 30.3 pg (27.0-33.0); Mean Corpuscular Volume 87.3 fL (80.0-98.0); Mean Platelet Volume 10.3 fL (9.4-12.4); Monocytes Absolute Auto 1.4 X10*3/uL (0.1-1.2); Monocytes Percent Auto 17.2 % (2-11); Neutrophils Percent Auto 61.8 % (45-73); Platelet Count 118 X10*3/uL (160-400); Red Blood Count 4.66 X10*6/uL (4.60-5.80); Red Cell Distribution Width 13.2 % (11.0-16.0); White Blood Count 8.1 X10*3/uL (4.8-10.8)
[2022-05-16 07:30] LABS: Anion Gap 15 (12-20); Blood Urea Nitrogen 15 mg/dL (9-16); Calcium 8.6 mg/dL (8.4-10.2); Carbon Dioxide 25 mmol/L (22-29); Chloride 101 mmol/L (96-108); Creatinine Clr Calc Pharmacy 82.9; Estimated Glomerular Filt Rate > 60; Glucose Random 230 mg/dL (60-115); Potassium 4.2 mmol/L (3.3-5.1); Sodium 137 mmol/L (135-145)
--- NOTE | 2022-05-16 07:54 | PHA.PROG ---
Addendum entered by Yas Plascencia RPh 05/16/22 08:04: CHANGED TO 1500 Q24H, SUSPECTED AUC 480, TROUGH 11.1. CONSERVATIVE SINCE BSA IS LOWER (PATIENT IS S/P BKA) CARMEL Original Note: Admission Date/Time: May 15, 2022 23:59 Indication: BONE AND JOINT Weight in k.4 kg Adjusted body weight in K.46 [place] body weight in Kg: Obesity Dosing Indication % IBW: Serum Creatinine - Last 168 Hours 05/15/22 05/16/22 20: 06:43 Creatinine 1.27 1.20 Estimated CrCl and GFR - Last 168 Hours 05/15/22 05/16/22 20: 06:43 Estim Creat Clear Calc 73.9 82.9 Estimated GFR 60 > 60 Vancomycin Loading Dose: 2000MG Current Vancomycin Dosing Regimen: 750MG Q12H Vancomycin Monitoring using AUC goal of 400 - 600 range with trough as surrogate marker: AUC 478, TROUGH 14.9 Date and Time for next Vancomycin Level to be drawn: DRAW 05/17 @ 0800 Pharmacist Comments on Vancomycin Plan: OBESE MODEL USED Vancomycin dosing will take advantage of [employer] as a clinical decision support tool that uses Bayesian modeling to calculate individual patient's pharmacokinetic parameters and forecast the patient's drug concentration time course with the target goal AUC 24 range of 400 - 600 mg/L/hr.
[2022-05-16 07:57] LABS: Glucose, Whole Blood 249 mg/dL (60-115)
[2022-05-16] MEDS: FLUoxetine HCl 20 MG CAPSULE 80 MG PO (09:01)
--- NOTE | 2022-05-16 09:01 | PM.CNGS ---
History of Present Illness Consult details Consult date: 05/16/22 <ASIYA Montemayor Last Filed: 05/16/22 09:20> Reason for consult: other (cellulitis ) <ASIYA Montemayor Last Filed: 05/16/22 09:20> Requesting physician: Keshawn Barragan <ASIYA Montemayor Last Filed: 05/16/22 09:20> Narrative: 51-year-old male with PMH including type 2 diabetes, hypertension, HLD, history of morbid obesity s/p sleeve gastrectomy, bipolar disorder and anxiety who presents to the hospital with complaints of right stump swelling, redness, and pain. He reports that the stump redness and warmth began Sunday. His pain gradually increased in severity. His reports his stump was two times its normal size. This was associated with fevers up to 101 at home, and chills. He denies nausea or vomiting. His R BKA was performed at [facility] 5 years ago. He subsequently fell out of his wheelchair two weeks later and required a graft at the stump site. He also reports occasional admissions for IV abx for a few days for cellulitis of the stump. He denies revisions of the stump site, trauma. He wears a prothesis daily. Femur CT was performed which demonstrated periosteal reaction at the distal femur amputation site with mild irregularity of the bone concerning for osteomyelitis. He was admitted to the hospitlist service for further treatment of the R BKA site cellulitis and started on IV cefepime and vanco. This morning, he thinks the swelling has overall improved as well as the pain. <ASIYA Montemayor Last Filed: 05/16/22 09:20> Review of Systems Constitutional: Constitutional: Reports chills and Reports fever(s) <ASIYA Montemayor Last Filed: 05/16/22 09:20> ENT: Denies dizziness <ASIYA Montemayor Last Filed: 05/16/22 09:20> Cardiovascular: Cardiovascular: Denies dyspnea <ASIYA Montemayor Last Filed: 05/16/22 09:20> Respiratory: Respiratory: Denies cough and Denies dyspnea <Deena Santana PA-C - Last Filed: 05/16/22 09:20> Gastrointestinal: Gastrointestinal: Denies nausea and Denies vomiting <Deena Santana PA-C - Last Filed: 05/16/22 09:20> Integumentary/Breasts: Skin/Breast: Reports as per HPI, Reports swelling, Reports erythema and Denies wounds <Deena Santana PA-C - Last Filed: 05/16/22 09:20> Neurologic: Denies dizziness <Deena Santana PA-C - Last Filed: 05/16/22 09:20> PMFSH Past Medical History Medical History: Medical History (Updated 05/16/22 @ 05:53 by Keshawn Barragan MD) Anxiety Bilateral cataracts Cognitive and neurobehavioral dysfunction COVID-19 vaccine series completed Depression Diabetes mellitus History of traumatic brain injury History of trigger finger HLD (hyperlipidemia) HTN (hypertension) Hx of leg amputation Hx of staphylococcal infection Insulin dependent diabetes mellitus Morbid obesity Neuropathy Obesity PTSD (post-traumatic stress disorder) Sleep apnea Vitamin D deficiency <Deena Santana PA-C - Last Filed: 05/16/22 09:20> Family History Family History: Family History Mother No problems noted. Father Alcohol abuse <Deena Santana PA-C - Last Filed: 05/16/22 09:20> Surgical History Surgical History: Surgical History (Updated 05/16/22 @ 09:15 by Deena Santana PA-C) History of gastrectomy History of surgery on arm Hx of carpal tunnel repair Hx of cataract extraction Hx of hernia repair S/P BKA (below knee amputation) bilateral Status post below knee amputation of right lower extremity Status post below-knee amputation of left lower extremity <Deena Santana PA-C - Last Filed: 05/16/22 09:20> Social History Social History: Social History Household Members: Spouse Housing: House Are you a primary career technical counselor to a significant other at home: No Do you presently have visiting nurse or other home services: No Alcohol intake: never Patient Tobacco Use Status: Former Tobacco user Quit Date: September 2020 Tobacco use type: Cigarette Years Smoked: 20-30 years Smoked in Last 30 Days: No e-Cigarette/Vaping Use: Never Used Second Hand Smoke Exposure: No Use of substances other than those prescribed or required for medical reasons: No Currently Displaying Signs/Symptoms of Drug Intoxication Withdrawal: No Any prior treatment program specific to substance use: No Have you been hit, kicked, punched, or otherwise hurt by someone within the past year? If so, by whom?: No Do you feel safe in your current relationship?: Yes Is there a partner from a previous relationship who is making you feel unsafe now?: No Are you made to feel afraid or neglected: No Advance Directives: No Advance Directives Information Provided: No Do you have thoughts of harming others: None Do you have a plan to hurt others: No Plan Recently lost weight without trying: No Eating poorly because of decreased appetite: No Nutrition Risks: No Nutritional Risk Poor oral hygiene: No service: No Current occupational status: disabled Cognitive needs: No Hearing needs: No Vision needs: Yes <Deena Santana PA-C - Last Filed: 05/16/22 09:20> Meds Allergies/Adverse reactions: Allergies Allergy/AdvReac Type Severity Reaction Status Date / Time Penicillins Allergy Severe Hives Verified 04/14/22 10:00 Sulfa (Sulfonamide Allergy Severe Anaphylaxis Verified 04/14/22 10:00 Antibiotics) levofloxacin [From Levaquin] Allergy Intermediate Rash Verified 04/14/22 10:00 metronidazole [From Flagyl] Allergy Intermediate Rash Verified 04/14/22 10:00 NSAIDS (Non-Steroidal AdvReac Severe Unknown Verified 04/14/22 10:00 Anti-Inflamma <Deena Santana PA-C - Last Filed: 05/16/22 09:20> Active Medications: Current Medications Acetaminophen (Acetaminophen 325 Mg Tablet) 650 mg PO Q6H PRN PRN Reason: Pain, Mild (Pain Scale 1-3) Amitriptyline HCl (Amitriptyline Hcl 50 Mg Tablet) 50 mg PO BEDTIME [facility] Enoxaparin Sodium (Enoxaparin Sodium 40 Mg/0.4 Ml Syringe) 40 mg SUBCUT Q24H [facility] Last Admin: 05/16/22 01:52 Dose: 40 mg Fluoxetine HCl (Fluoxetine Hcl 20 Mg Capsule) 80 mg PO DAILY [facility] Glucose (Glucose Gel 15 Gm Gel..Gram.) 15 gm PO Q15M PRN; Protocol PRN Reason: per Hypoglycemia Standing Ord. Dextrose (D10) 250 mls @ 750 mls/hr IV Q15M PRN; Protocol PRN Reason: per Hypoglycemia Standing Ord. Cefepime HCl 1 gm/ Sodium (Chloride) 50 mls @ 100 mls/hr IV Q8H [facility] Vancomycin HCl 1,500 mg/ (Sodium Chloride) 500 mls @ 333.333 mls/hr IV Q24H [facility] Insulin Human Lispro (Insulin Lispro 100 Unit/Ml 3 Ml Vial) 0 unit SUBCUT QIDACHS [facility]; Protocol Latanoprost (Latanoprost 0.005 % Ophth Ingrid 2.5 Ml Drops) 1 drop EYE-BOTH BEDTIME [facility] Morphine Sulfate (Morphine Sulfate 4 Mg/Ml Cartridge) 4 mg IVPUSH Q4H PRN; Protocol PRN Reason: Pain, Severe (Pain Scale 7-10) Last Admin: 05/16/22 01:56 Dose: 4 mg Non-Formulary Medication (Varenicline [Chantix]) 1 mg PO BID [facility] Ondansetron HCl (Ondansetron Hcl 4 Mg/2 Ml Vial) 4 mg IVPUSH Q8H PRN PRN Reason: Nausea and Vomiting Pharmacy Consult (Consult Rx Vancomycin Dosing) 1 each MISCELLANE DAILY PRN PRN Reason: Consult order Prazosin HCl (Prazosin Hcl 5 Mg Capsule) 5 mg PO BEDTIME [facility]; Protocol Pregabalin (Pregabalin 200 Mg Capsule) 200 mg PO TID [facility] Propranolol HCl (Propranolol Hcl 40 Mg Tablet) 40 mg PO BID [facility]; Protocol Sodium Chloride (0.9 % Sodium Chloride Flush 3 Ml Syringe) 3 ml IVFLUSH QSHIFT [facility] Last Admin: 05/16/22 07:18 Dose: Not Given Zolpidem Tartrate (Zolpidem Tartrate 5 Mg Tablet) 5 mg PO BEDTIME PRN PRN Reason: Insomnia <Deena Santana PA-C - Last Filed: 05/16/22 09:20> Home medications: Home Medications Medication Instructions Recorded Confirmed Last Taken Type zolpidem 12.5 mg tablet,extended 12.5 mg PO BEDTIME PRN Insomnia 12/21/20 05/15/22 Unknown History release,multiphase prazosin 2 mg capsule 5 mg PO BEDTIME 04/04/21 05/15/22 Unknown History fluoxetine 40 mg capsule 80 mg PO DAILY 04/11/21 05/15/22 Unknown History omega 7-baa-hik-fish oil 1,200 mg 1 cap PO DAILY 05/09/21 05/15/22 Unknown History (144 mg-216 mg) capsule (Fish Oil) latanoprost 0.005 % eye drops 1 drp ophthalmic (eye) BEDTIME 05/15/22 05/15/22 Unknown History propranolol 40 mg tablet 1 tab PO BID 05/15/22 05/15/22 Unknown History <Deena Santana PA-C - Last Filed: 05/16/22 09:20> Physical Exam Vital Signs: Vital Signs: Last Vital Signs Temp 97.7 F 05/16/22 07:59 Pulse 69 05/16/22 07:59 Resp 20 05/16/22 07:59 BP 149/85 H 05/16/22 07:59 Pulse Ox 94 05/16/22 07:59 O2 Del Method 05/16/22 07:59 BMI result Body Mass Index 40.8 <Deena Santana PA-C - Last Filed: 05/16/22 09:20> Const: General: comfortable, no acute distress, well developed and alert <Deena Santana PA-C - Last Filed: 05/16/22 09:20> Orientation/consciousness: patient oriented x3 <ASIYA Montemayor Last Filed: 05/16/22 09:20> Resp: Effort & Inspection: normal respiratory effort <ASIYA Montemayor Last Filed: 05/16/22 09:20> Cardio: Rate: regular rate <ASIYA Montemayor Last Filed: 05/16/22 09:20> Skin: Other: warm and dry <ASIYA Montemayor Last Filed: 05/16/22 09:20> General skin exam: no rashes or lesions noted <ASIYA Montemayor Last Filed: 05/16/22 09:20> Neuro: General: patient oriented x3 and moves all extremities <ASIYA Montemayor Last Filed: 05/16/22 09:20> Extrem: Other: R BKA stump with significant edema of posterior aspect, pale erythema, small 1cm circular abrasion to central portion of anterior flap, no fluctuance appreciate or drainage noted, no open wounds <ASIYA Montemayor Last Filed: 05/16/22 09:20> Results Labs Result diagrams: 05/16/22 06:43 05/16/22 06:43 <ASIYA Montemayor Last Filed: 05/16/22 09:20> Labs: Abnormal lab results 05/15/22 05/15/22 05/15/22 Range/Units 20:23 20:23 20:23 Hct (42.0-52.0) % Plt Count 129 L D (160-400) X10*3/uL Immature Gran % (Auto) 0.5 H (0.0-0.4) % Lymph % (Auto) (20-40) % [place] % (Auto) 12.1 H (2-11) % [place] # (Auto) (0.1-1.2) X10*3/uL Abs Immat Gran (auto) 0.05 H (0.00-0.03) X10*3/uL ESR 50 H (0-15) MM/HR Sodium 134 L (135-145) mmol/L POC Glucose (60-115) mg/dL Random Glucose 244 H (60-115) mg/dL C-Reactive Protein 24.16 H (< or = 0.50) mg/dL 05/16/22 05/16/22 05/16/22 Range/Units 06:43 06:43 07:54 Hct 40.7 L (42.0-52.0) % Plt Count 118 L (160-400) X10*3/uL Immature Gran % (Auto) 0.5 H (0.0-0.4) % Lymph % (Auto) 18.9 L (20-40) % [place] % (Auto) 17.2 H (2-11) % [place] # (Auto) 1.4 H (0.1-1.2) X10*3/uL Abs Immat Gran (auto) 0.04 H (0.00-0.03) X10*3/uL ESR (0-15) MM/HR Sodium (135-145) mmol/L POC Glucose 249 H (60-115) mg/dL Random Glucose 230 H (60-115) mg/dL C-Reactive Protein (< or = 0.50) mg/dL Short CBC 05/15/22 05/16/22 Range/Units 20:23 06:43 WBC 9.6 8.1 (4.8-10.8) X10*3/uL Hgb 15.0 14.1 (14.0-18.0) g/dl Hct 42.9 40.7 L (42.0-52.0) % Plt Count 129 L D 118 L (160-400) X10*3/uL BMP 05/15/22 05/16/22 20:23 06:43 Sodium 134 L 137 Potassium 4.1 4.2 Chloride 97 101 Carbon Dioxide 24 25 BUN 16 15 Creatinine 1.27 1.20 Calcium 8.8 D 8.6 Liver Function 05/15/22 Range/Units 20:23 Total Bilirubin 0.5 (0.0-1.0) mg/dL AST 31 (5-37) U/L ALT 34 (0-40) U/L Alkaline Phosphatase 83 (39-117) U/L Albumin 3.8 (3.5-5.0) g/dL All other labs normal. <Deena Santana PA-C - Last Filed: 05/16/22 09:20> Assessment and Plan (1) Cellulitis of leg, right: Status: Acute <Deena Santana PA-C - Last Filed: 05/16/22 09:20> (2) Insulin dependent diabetes mellitus: Status: Acute <Deena Santana PA-C - Last Filed: 05/16/22 09:20> redness on BKA stump on right x 4 days no discharge pt says he has been using BKA prosthesis without problems ?osteomyelitis of stump would defer to ID currently does not seem to require any surgical intervention seen and examined independently - agree w/ JENY Santana <Josemanuel Conklin MD - Last Filed: 05/16/22 10:01> 51 year old male admitted with cellulitis of right BKA site. The stump is edematous with pale erythema but there is no appreciable fluctuance, open wound. Would continue current management of IV abx for cellulitis. No current need for surgical intervention, debridement. Rec ID consult for input regarding possible MRI to eval for osteomyelitis. Recommended elevation of R BKA stump. <Deena Santana PA-C - Last Filed: 05/16/22 09:20> Time Spent With Patient Time: Total time managing care of this patient today ____ minutes. <Deena Santana PA-C - Last Filed: 05/16/22 09:20> Procedures Date of Service Date of Service: 05/16/22 <Deena Santana PA-C - Last Filed: 05/16/22 09:20>
[2022-05-16] MEDS: Pregabalin 200 MG CAPSULE PO ×3 (09:02→21:49)
[2022-05-16] MEDS: Propranolol HCL 40 MG TABLET PO ×2 (09:02→21:49)
[2022-05-16] MEDS: Insulin Lispro 100 UNIT/ML 3 ML VIAL SUBCUT ×4 (09:13→21:48)
[2022-05-16] MEDS: cefEPime HCl 1 GM in 0.9 % Sodium Chloride 50 ML IV ×3 (09:51→23:53)
--- NOTE | 2022-05-16 10:54 | HO.PM.IMPN ---
Subjective Subjective Date of Service: 05/16/22 Interval History: right stump erythema Physical Exam Vital Signs: Vital Signs: Last Vital Signs Temp 97.7 F 05/16/22 07:59 Pulse 69 05/16/22 07:59 Resp 20 05/16/22 07:59 BP 149/85 H 05/16/22 07:59 Pulse Ox 94 05/16/22 07:59 O2 Del Method 05/16/22 07:59 BMI result Body Mass Index 40.8 right stump erythema, swelling, tenderness Objective Data Active Medications Acetaminophen (Acetaminophen 325 Mg Tablet) 650 mg PO Q6H PRN PRN Reason: Pain, Mild (Pain Scale 1-3) Amitriptyline HCl (Amitriptyline Hcl 50 Mg Tablet) 50 mg PO BEDTIME [facility] Enoxaparin Sodium (Enoxaparin Sodium 40 Mg/0.4 Ml Syringe) 40 mg SUBCUT Q24H [facility] Last Admin: 05/16/22 01:52 Dose: 40 mg Documented By: SARIKA Fluoxetine HCl (Fluoxetine Hcl 20 Mg Capsule) 80 mg PO DAILY [facility] Last Admin: 05/16/22 09:01 Dose: 80 mg Documented By: RUCHI Glucose (Glucose Gel 15 Gm Gel..Gram.) 15 gm PO Q15M PRN; Protocol PRN Reason: per Hypoglycemia Standing Ord. Dextrose (D10) 250 mls @ 750 mls/hr IV Q15M PRN; Protocol PRN Reason: per Hypoglycemia Standing Ord. Cefepime HCl 1 gm/ Sodium (Chloride) 50 mls @ 100 mls/hr IV Q8H [facility] Last Infusion: 05/16/22 10:41 Dose: 0 mls/hr Documented By: RUCHI Vancomycin HCl 1,500 mg/ (Sodium Chloride) 500 mls @ 333.333 mls/hr IV Q24H [facility] Insulin Human Lispro (Insulin Lispro 100 Unit/Ml 3 Ml Vial) 0 unit SUBCUT QIDACHS [facility]; Protocol Last Admin: 05/16/22 09:13 Dose: 4 unit Documented By: RUCHI Latanoprost (Latanoprost 0.005 % Ophth Ingrid 2.5 Ml Drops) 1 drop EYE-BOTH BEDTIME [facility] Morphine Sulfate (Morphine Sulfate 4 Mg/Ml Cartridge) 4 mg IVPUSH Q4H PRN; Protocol PRN Reason: Pain, Severe (Pain Scale 7-10) Last Admin: 05/16/22 09:13 Dose: 4 mg Documented By: RUCHI Non-Formulary Medication (Varenicline [Chantix]) 1 mg PO BID [facility] Ondansetron HCl (Ondansetron Hcl 4 Mg/2 Ml Vial) 4 mg IVPUSH Q8H PRN PRN Reason: Nausea and Vomiting Pharmacy Consult (Consult Rx Vancomycin Dosing) 1 each MISCELLANE DAILY PRN PRN Reason: Consult order Prazosin HCl (Prazosin Hcl 5 Mg Capsule) 5 mg PO BEDTIME [facility]; Protocol Pregabalin (Pregabalin 200 Mg Capsule) 200 mg PO TID [facility] Last Admin: 05/16/22 09:02 Dose: 200 mg Documented By: RUCHI Propranolol HCl (Propranolol Hcl 40 Mg Tablet) 40 mg PO BID [facility]; Protocol Last Admin: 05/16/22 09:02 Dose: 40 mg Documented By: RUCHI Sodium Chloride (0.9 % Sodium Chloride Flush 3 Ml Syringe) 3 ml IVFLUSH QSHIFT [facility] Last Admin: 05/16/22 07:18 Dose: Not Given Documented By: RAJAN Non-Admin Reason: See Note Zolpidem Tartrate (Zolpidem Tartrate 5 Mg Tablet) 5 mg PO BEDTIME PRN PRN Reason: Insomnia Labs 05/16/22 06:43 05/16/22 06:43 Labs: Laboratory Results - last 24 hr 05/15/22 05/15/22 05/15/22 20:23 20:23 20:23 MCV 86.3 MCH 30.2 MCHC 35.0 RDW 13.1 Plt Count 129 L D MPV 10.1 Immature Gran % (Auto) 0.5 H Neut % (Auto) 63.2 Lymph % (Auto) 23.1 [place] % (Auto) 12.1 H Eos % (Auto) 0.7 Baso % (Auto) 0.4 Lymph # (Auto) 2.2 [place] # (Auto) 1.2 Eos # (Auto) 0.1 Baso # (Auto) 0.0 Abs Immat Gran (auto) 0.05 H Absolute Neuts (auto) 6.1 Absolute Nucleated RBC 0.000 Nucleated RBC % (auto) 0.0 ESR Anion Gap 17 Estim Creat Clear Calc 73.9 Estimated GFR 60 POC Glucose Random Glucose 244 H Lactic Acid 1.2 Calcium 8.8 D Total Bilirubin 0.5 AST 31 ALT 34 Alkaline Phosphatase 83 C-Reactive Protein 24.16 H Total Protein 7.4 Albumin 3.8 COVID-19 (RICH) COVID-19 Clin Com 05/15/22 05/16/22 05/16/22 20:23 01:17 06:43 MCV 87.3 MCH 30.3 MCHC 34.6 RDW 13.2 Plt Count 118 L MPV 10.3 Immature Gran % (Auto) 0.5 H Neut % (Auto) 61.8 Lymph % (Auto) 18.9 L [place] % (Auto) 17.2 H Eos % (Auto) 1.1 Baso % (Auto) 0.5 Lymph # (Auto) 1.5 [place] # (Auto) 1.4 H Eos # (Auto) 0.1 Baso # (Auto) 0.0 Abs Immat Gran (auto) 0.04 H Absolute Neuts (auto) 5.0 Absolute Nucleated RBC 0.000 Nucleated RBC % (auto) 0.0 ESR 50 H Anion Gap Estim Creat Clear Calc Estimated GFR POC Glucose Random Glucose Lactic Acid Calcium Total Bilirubin AST ALT Alkaline Phosphatase C-Reactive Protein Total Protein Albumin COVID-19 (RICH) Negative COVID-19 Clin Com See Note 05/16/22 05/16/22 06:43 07:54 MCV MCH MCHC RDW Plt Count MPV Immature Gran % (Auto) Neut % (Auto) Lymph % (Auto) [place] % (Auto) Eos % (Auto) Baso % (Auto) Lymph # (Auto) [place] # (Auto) Eos # (Auto) Baso # (Auto) Abs Immat Gran (auto) Absolute Neuts (auto) Absolute Nucleated RBC Nucleated RBC % (auto) ESR Anion Gap 15 Estim Creat Clear Calc 82.9 Estimated GFR > 60 POC Glucose 249 H Random Glucose 230 H Lactic Acid Calcium 8.6 Total Bilirubin AST ALT Alkaline Phosphatase C-Reactive Protein Total Protein Albumin COVID-19 (RICH) COVID-19 Clin Com Assessment and Plan (1) Osteomyelitis: Status: Acute Plan 51M PMH of diabetes, morbid obesity s/p gastric sleeve, bipolar, bilateral BKA presented with redness, tenderness, of the right stump ACUTE right? lower extremity cellulitis/osteomyelitis [facility]/p gastric sleeve weight loss ?DVT prophylaxis:? lovenox full code reason for continued hospitalization: iv abx Time Spent With Patient Time: Total time managing care of this patient today ____ minutes. Quality Stroke Does the patient have a stroke diagnosis?: No VTE Prior VTE?: No VTE Risk Level:: Medical - moderate - high VTE Device Contraindication: Treatment Not Indicated VTE Drug Contraindication: N/A - Med Ordered
[2022-05-16 11:20] LABS: Glucose, Whole Blood 237 mg/dL (60-115)
--- NOTE | 2022-05-16 11:38 | MHC.CM.PN ---
[facility] DELIVERED LIVES WITH SPOUSE IN A FIRST FLOOR APT. USES W/C (MANUAL AND POWER) FOR MAJOR MOBILITY. HAS PROSTHETIC LEGS AT HOME. ABLE TO SELF TRANSFER. +HCP BUT WOULD LIKE TO DO A NEW ONE. +COVID [id number] PCP . DP: HOME WITH POSSIBLE [facility] IF IV ABT ORDERED AT DC. REFERRAL TO BOTH [facility] AND [facility]. BOTH PT AND SPOUSE PROFICIENT WITH HOME IV'S. SP[facility]SE WILL TRANSPORT HOME
[2022-05-16] MEDS: Acetaminophen 325 MG TABLET 650 MG PO ×2 (12:26→18:29)
[2022-05-16] MEDS: 0.9 % Sodium Chloride Flush 3 ML SYRINGE IVFLUSH (15:20)
--- NOTE | 2022-05-16 15:36 | W.PM.IDCN ---
History of Present Illness Data of Consult Service Date: 05/16/22 Requesting physician: Keshawn Leonardo Primary Care Provider: Chapincito Sprague MD HPI Reason for consult: OM leg He presents with right leg redness and swelling at stump area. He reports nonhealing scab at site. He has fever and ascending rednes MRI shows some possible OM Review of Systems Review of Systems: Yes all other systems are reviewed and are negative PMFSH Past Medical History Medical History Anxiety Bilateral cataracts Cognitive and neurobehavioral dysfunction COVID-19 vaccine series completed Depression Diabetes mellitus History of traumatic brain injury History of trigger finger HLD (hyperlipidemia) HTN (hypertension) Hx of leg amputation Hx of staphylococcal infection Insulin dependent diabetes mellitus Morbid obesity Neuropathy Obesity PTSD (post-traumatic stress disorder) Sleep apnea Vitamin D deficiency Family History Family History Mother No problems noted. Father Alcohol abuse Surgical History Surgical History History of gastrectomy History of surgery on arm Hx of carpal tunnel repair Hx of cataract extraction Hx of hernia repair S/P BKA (below knee amputation) bilateral Status post below knee amputation of right lower extremity Status post below-knee amputation of left lower extremity Social History Social History Household Members: Spouse Housing: House Are you a primary child care supervisor to a significant other at home: No Do you presently have visiting nurse or other home services: No Alcohol intake: never Patient Tobacco Use Status: Former Tobacco user Quit Date: September 2020 Tobacco use type: Cigarette Years Smoked: 20-30 years Smoked in Last 30 Days: No e-Cigarette/Vaping Use: Never Used Second Hand Smoke Exposure: No Use of substances other than those prescribed or required for medical reasons: No Currently Displaying Signs/Symptoms of Drug Intoxication Withdrawal: No Any prior treatment program specific to substance use: No Have you been hit, kicked, punched, or otherwise hurt by someone within the past year? If so, by whom?: No Do you feel safe in your current relationship?: Yes Is there a partner from a previous relationship who is making you feel unsafe now?: No Are you made to feel afraid or neglected: No Advance Directives: No Advance Directives Information Provided: No Do you have thoughts of harming others: None Do you have a plan to hurt others: No Plan Recently lost weight without trying: No Eating poorly because of decreased appetite: No Nutrition Risks: No Nutritional Risk Poor oral hygiene: No service: No Current occupational status: disabled Cognitive needs: No Hearing needs: No Vision needs: Yes Meds Allergies Allergy/AdvReac Type Severity Reaction Status Date / Time Penicillins Allergy Severe Hives Verified 04/14/22 10:00 Sulfa (Sulfonamide Allergy Severe Anaphylaxis Verified 04/14/22 10:00 Antibiotics) levofloxacin [From Levaquin] Allergy Intermediate Rash Verified 04/14/22 10:00 metronidazole [From Flagyl] Allergy Intermediate Rash Verified 04/14/22 10:00 NSAIDS (Non-Steroidal AdvReac Severe Unknown Verified 04/14/22 10:00 Anti-Inflamma Active Medications: Current Medications Acetaminophen (Acetaminophen 325 Mg Tablet) 650 mg PO Q6H PRN PRN Reason: Pain, Mild (Pain Scale 1-3) Last Admin: 05/16/22 12:26 Dose: 650 mg Amitriptyline HCl (Amitriptyline Hcl 50 Mg Tablet) 50 mg PO BEDTIME [facility] Enoxaparin Sodium (Enoxaparin Sodium 40 Mg/0.4 Ml Syringe) 40 mg SUBCUT Q24H [facility] Last Admin: 05/16/22 01:52 Dose: 40 mg Fluoxetine HCl (Fluoxetine Hcl 20 Mg Capsule) 80 mg PO DAILY [facility] Last Admin: 05/16/22 09:01 Dose: 80 mg Glucose (Glucose Gel 15 Gm Gel..Gram.) 15 gm PO Q15M PRN; Protocol PRN Reason: per Hypoglycemia Standing Ord. Dextrose (D10) 250 mls @ 750 mls/hr IV Q15M PRN; Protocol PRN Reason: per Hypoglycemia Standing Ord. Cefepime HCl 1 gm/ Sodium (Chloride) 50 mls @ 100 mls/hr IV Q8H [facility] Last Admin: 05/16/22 15:19 Dose: 100 mls/hr Vancomycin HCl 1,500 mg/ (Sodium Chloride) 500 mls @ 333.333 mls/hr IV Q24H [facility] Insulin Human Lispro (Insulin Lispro 100 Unit/Ml 3 Ml Vial) 0 unit SUBCUT QIDACHS [facility]; Protocol Last Admin: 05/16/22 12:25 Dose: 4 unit Latanoprost (Latanoprost 0.005 % Ophth Ingrid 2.5 Ml Drops) 1 drop EYE-BOTH BEDTIME [facility] Morphine Sulfate (Morphine Sulfate 4 Mg/Ml Cartridge) 4 mg IVPUSH Q4H PRN; Protocol PRN Reason: Pain, Severe (Pain Scale 7-10) Last Admin: 05/16/22 15:28 Dose: 4 mg Non-Formulary Medication (Varenicline [Chantix]) 1 mg PO BID [facility] Ondansetron HCl (Ondansetron Hcl 4 Mg/2 Ml Vial) 4 mg IVPUSH Q8H PRN PRN Reason: Nausea and Vomiting Pharmacy Consult (Consult Rx Vancomycin Dosing) 1 each MISCELLANE DAILY PRN PRN Reason: Consult order Prazosin HCl (Prazosin Hcl 5 Mg Capsule) 5 mg PO BEDTIME [facility]; Protocol Pregabalin (Pregabalin 200 Mg Capsule) 200 mg PO TID [facility] Last Admin: 05/16/22 15:19 Dose: 200 mg Propranolol HCl (Propranolol Hcl 40 Mg Tablet) 40 mg PO BID [facility]; Protocol Last Admin: 05/16/22 09:02 Dose: 40 mg Sodium Chloride (0.9 % Sodium Chloride Flush 3 Ml Syringe) [facility] Last Admin: 05/16/22 15:20 Dose: 3 ml Zolpidem Tartrate (Zolpidem Tartrate 5 Mg Tablet) 5 mg PO BEDTIME PRN PRN Reason: Insomnia Home Medications Medication Instructions Recorded Confirmed Last Taken Type zolpidem 12.5 mg tablet,extended 12.5 mg PO BEDTIME PRN Insomnia 12/21/20 05/15/22 Unknown History release,multiphase prazosin 2 mg capsule 5 mg PO BEDTIME 04/04/21 05/15/22 Unknown History fluoxetine 40 mg capsule 80 mg PO DAILY 04/11/21 05/15/22 Unknown History omega 3-hfp-mtn-fish oil 1,200 mg 1 cap PO DAILY 05/09/21 05/15/22 Unknown History (144 mg-216 mg) capsule (Fish Oil) latanoprost 0.005 % eye drops 1 drp ophthalmic (eye) BEDTIME 05/15/22 05/15/22 Unknown History propranolol 40 mg tablet 1 tab PO BID 05/15/22 05/15/22 Unknown History Physical Exam Vital Signs: Vital Signs: Last Vital Signs Temp 97.7 F 05/16/22 07:59 Pulse 69 05/16/22 07:59 Resp 20 05/16/22 07:59 BP 149/85 H 05/16/22 07:59 Pulse Ox 94 05/16/22 07:59 O2 Del Method 05/16/22 07:59 BMI result Body Mass Index 40.8 Const: General: cooperative HEENT: Head: Yes normal to inspection Face and sinus: Yes normal facial exam Mouth: Normal oral and palatal mucosa present Teeth and gingiva: dentition normal Eyes: General: appearance normal, both eyes and all related structures Pupils: Equal, round and reactive pupils present Resp: Effort & Inspection: normal respiratory effort Cardio: Rate: regular rate Rhythm: regular rhythm GI: Palpation (GI): Soft to palpation and nontender : General: Yes no CVA tenderness Back/Spine/Pelvis: Back: no CVA tenderness Skin: General skin exam: no rashes or lesions noted Neuro: General: moves all extremities Cranial nerves: Yes Equal, round and reactive pupils present Extrem: Other: right stump redness Psych: Appearance: grossly normal Results Labs 05/16/22 06:43 05/16/22 06:43 Labs: Short CBC 05/15/22 05/16/22 Range/Units 20:23 06:43 WBC 9.6 8.1 (4.8-10.8) X10*3/uL Hgb 15.0 14.1 (14.0-18.0) g/dl Hct 42.9 40.7 L (42.0-52.0) % Plt Count 129 L D 118 L (160-400) X10*3/uL BMP 05/15/22 05/16/22 20:23 06:43 Sodium 134 L 137 Potassium 4.1 4.2 Chloride 97 101 Carbon Dioxide 24 25 BUN 16 15 Creatinine 1.27 1.20 Calcium 8.8 D 8.6 Liver Function 05/15/22 Range/Units 20:23 Total Bilirubin 0.5 (0.0-1.0) mg/dL AST 31 (5-37) U/L ALT 34 (0-40) U/L Alkaline Phosphatase 83 (39-117) U/L Albumin 3.8 (3.5-5.0) g/dL Assessment and Plan (1) Osteomyelitis: Status: Acute It is difficult to tell if osteomyelitis acute or chronic He has cellulitis (2) Cellulitis of leg, right: Status: Acute Plan Vancomycin probable six weeks Await cultures. Time Spent With Patient Time: Total time managing care of this patient today ____ minutes.
[2022-05-16 16:30] LABS: Glucose, Whole Blood 216 mg/dL (60-115)
[2022-05-16 21:00] LABS: Glucose, Whole Blood 189 mg/dL (60-115)
[2022-05-16] MEDS: Prazosin HCL 5 MG CAPSULE PO (21:48)
[2022-05-16] MEDS: Amitriptyline HCl 50 MG TABLET PO (21:49)
[2022-05-16] MEDS: vancomycin HCL 1,500 MG in 0.9 % Sodium Chloride 500 ML 333.33 MG IV (21:49)
[2022-05-16] MEDS: Latanoprost 0.005 % Ophth Sol 2.5 ML DROPS 1 DROP EYE-BOTH (22:00)
[2022-05-17] MEDS: 0.9 % Sodium Chloride Flush 3 ML SYRINGE IVFLUSH ×4 (00:38→20:47)
[2022-05-17 03:45] VITALS: BP 127/77; PULSE 70; RESP 18; TEMP 36.3; O2SAT 97
[2022-05-17] MEDS: Morphine Sulfate 4 MG/ML CARTRIDGE IVPUSH ×4 (03:58→23:33)
[2022-05-17 06:59] LABS: Hematocrit 39.6 % (42.0-52.0); Hemoglobin 13.1 g/dl (14.0-18.0); Mean Corpuscular HGB Conc 33.1 g/dl (31.0-36.0); Mean Corpuscular Hemoglobin 29.4 pg (27.0-33.0); Mean Corpuscular Volume 88.8 fL (80.0-98.0); Mean Platelet Volume 10.1 fL (9.4-12.4); Platelet Count 133 X10*3/uL (160-400); Red Blood Count 4.46 X10*6/uL (4.60-5.80); Red Cell Distribution Width 13.4 % (11.0-16.0); White Blood Count 5.9 X10*3/uL (4.8-10.8)
[2022-05-17 07:03] VITALS: BP 123/63; PULSE 66; RESP 16; TEMP 36.2; O2SAT 96
[2022-05-17 07:14] LABS: Glucose, Whole Blood 236 mg/dL (60-115)
[2022-05-17 07:14] LABS: Anion Gap 16 (12-20); Blood Urea Nitrogen 17 mg/dL (9-16); Calcium 8.7 mg/dL (8.4-10.2); Carbon Dioxide 25 mmol/L (22-29); Chloride 101 mmol/L (96-108); Estimated Glomerular Filt Rate > 60; Glucose Fasting 218 mg/dL (60-99); Potassium 4.8 mmol/L (3.3-5.1); Sodium 137 mmol/L (135-145)
[2022-05-17] MEDS: FLUoxetine HCl 20 MG CAPSULE 80 MG PO (07:32)
[2022-05-17] MEDS: Pregabalin 200 MG CAPSULE PO ×3 (07:32→20:47)
[2022-05-17] MEDS: Propranolol HCL 40 MG TABLET PO ×2 (07:32→20:47)
[2022-05-17] MEDS: cefEPime HCl 1 GM in 0.9 % Sodium Chloride 50 ML IV ×3 (07:33→23:34)
[2022-05-17] MEDS: Insulin Lispro 100 UNIT/ML 3 ML VIAL SUBCUT ×4 (07:33→20:47)
[2022-05-17] MEDS: Acetaminophen 325 MG TABLET 650 MG PO (07:34)
[2022-05-17 11:12] LABS: Glucose, Whole Blood 261 mg/dL (60-115)
--- NOTE | 2022-05-17 11:13 | MHC.CM.PN ---
PLAN IS FOR PICC TOMORROW [facility] AND [facility] MADE AWARE DC PLAN IS CURRENTLY HOME WITH 6 WEEKS IV VANCO. CURRENT DOSING IS Q24H
--- NOTE | 2022-05-17 14:20 | P.PNIM_ITS ---
Subjective Subjective Date of Service: 05/17/22 Interval History: Feels better overall with decreased swelling and pain in his stump Blood cultures remain negative Review of Systems Review of Systems: Yes all other systems are reviewed and are negative Physical Exam Vital Signs: Vital Signs: Last Vital Signs Temp 97.2 F 05/17/22 07:03 Pulse 66 05/17/22 07:03 Resp 16 05/17/22 07:03 BP 123/63 05/17/22 07:03 Pulse Ox 96 05/17/22 07:03 O2 Del Method 05/17/22 07:03 BMI result Body Mass Index 40.8 Const: Other: Constitutional : Awake, interactive, obese, not in distress Neck : Normal inspection, Supple Cardiovascular : RRR, no JVP, no lower extremity edema Respiratory : good bilateral air entry, no crackles, wheezes or rhonchi Gastrointestinal: soft, lax, Normal bowel sounds, Non tender Skin : Warm, Dry skeletal: Rt BKA with erythema, no tenderness or drainage from stump area Neurological : Alert & oriented x3, No focal deficit Objective Data Active Medications Acetaminophen (Acetaminophen 325 Mg Tablet) 650 mg PO Q6H PRN PRN Reason: Pain, Mild (Pain Scale 1-3) Last Admin: 05/17/22 07:34 Dose: 650 mg Documented By: JUNIOR Amitriptyline HCl (Amitriptyline Hcl 50 Mg Tablet) 50 mg PO BEDTIME [facility] Last Admin: 05/16/22 21:49 Dose: 50 mg Documented By: MUNIRA Enoxaparin Sodium (Enoxaparin Sodium 40 Mg/0.4 Ml Syringe) 40 mg SUBCUT Q24H [facility] Last Admin: 05/16/22 23:52 Dose: 40 mg Documented By: ESTEVAN Fluoxetine HCl (Fluoxetine Hcl 20 Mg Capsule) 80 mg PO DAILY [facility] Last Admin: 05/17/22 07:32 Dose: 80 mg Documented By: JUNIOR Glucose (Glucose Gel 15 Gm Gel..Gram.) 15 gm PO Q15M PRN; Protocol PRN Reason: per Hypoglycemia Standing Ord. Dextrose (D10) 250 mls @ 750 mls/hr IV Q15M PRN; Protocol PRN Reason: per Hypoglycemia Standing Ord. Cefepime HCl 1 gm/ Sodium (Chloride) 50 mls @ 100 mls/hr IV Q8H [facility] Last Infusion: 05/17/22 09:15 Dose: 0 mls/hr Documented By: JUNIOR Vancomycin HCl 1,500 mg/ (Sodium Chloride) 500 mls @ 333.333 mls/hr IV Q24H [facility] Last Infusion: 05/16/22 23:52 Dose: 0 mls/hr Documented By: ESTEVAN Insulin Human Lispro (Insulin Lispro 100 Unit/Ml 3 Ml Vial) 0 unit SUBCUT QIDACHS [facility]; Protocol Last Admin: 05/17/22 11:21 Dose: 6 unit Documented By: JUNIOR Latanoprost (Latanoprost 0.005 % Ophth Ingrid 2.5 Ml Drops) 1 drop EYE-BOTH BEDTIME [facility] Last Admin: 05/16/22 22:00 Dose: 1 drop Documented By: MUNIRA Morphine Sulfate (Morphine Sulfate 4 Mg/Ml Cartridge) 4 mg IVPUSH Q4H PRN; Protocol PRN Reason: Pain, Severe (Pain Scale 7-10) Last Admin: 05/17/22 08:08 Dose: 4 mg Documented By: JUNIOR Non-Formulary Medication (Varenicline [Chantix]) 1 mg PO BID [facility] Ondansetron HCl (Ondansetron Hcl 4 Mg/2 Ml Vial) 4 mg IVPUSH Q8H PRN PRN Reason: Nausea and Vomiting Pharmacy Consult (Consult Rx Vancomycin Dosing) 1 each MISCELLANE DAILY PRN PRN Reason: Consult order Prazosin HCl (Prazosin Hcl 5 Mg Capsule) 5 mg PO BEDTIME [facility]; Protocol Last Admin: 05/16/22 21:48 Dose: 5 mg Documented By: MUNIRA Pregabalin (Pregabalin 200 Mg Capsule) 200 mg PO TID [facility] Last Admin: 05/17/22 07:32 Dose: 200 mg Documented By: JUNIOR Propranolol HCl (Propranolol Hcl 40 Mg Tablet) 40 mg PO BID [facility]; Protocol Last Admin: 05/17/22 07:32 Dose: 40 mg Documented By: JUNIOR Sodium Chloride (0.9 % Sodium Chloride Flush 3 Ml Syringe) 3 ml IVFLUSH QSHIFT [facility] Last Admin: 05/17/22 07:34 Dose: 3 ml Documented By: JUNIOR Zolpidem Tartrate (Zolpidem Tartrate 5 Mg Tablet) 5 mg PO BEDTIME PRN PRN Reason: Insomnia Labs 05/17/22 05:51 05/17/22 05:51 Labs: Laboratory Results - last 24 hr 05/16/22 05/16/22 05/17/22 16:27 20:57 05:51 MCV MCH MCHC RDW Plt Count MPV Absolute Nucleated RBC Nucleated RBC % (auto) Anion Gap 16 Estim Creat Clear Calc 85.0 Estimated GFR > 60 POC Glucose 216 H 189 H Fasting Glucose 218 H Calcium 8.7 05/17/22 05/17/22 05/17/22 05:51 07:07 11:09 MCV 88.8 MCH 29.4 MCHC 33.1 RDW 13.4 Plt Count 133 L MPV 10.1 Absolute Nucleated RBC 0.000 Nucleated RBC % (auto) 0.0 Anion Gap Estim Creat Clear Calc Estimated GFR POC Glucose 236 H 261 H Fasting Glucose Calcium Microbiology Microbiology Results: Microbiology 05/15/22 20:23 Blood Culture - Preliminary Blood - Venous No growth after 24 hours. 05/15/22 20:23 Blood Culture - Preliminary Blood - Venous No growth after 24 hours. Assessment and Plan (1) Osteomyelitis: Status: Acute (2) Cellulitis of leg, right: Status: Acute Plan 51M PMH of diabetes, morbid obesity s/p gastric sleeve, bipolar, bilateral BKA presented with redness, tenderness, of the right stump ACUTE right? lower extremity cellulitis/osteomyelitis improving Continue vanc, zosyn ID input appreciated, 6 weeks of Vancomycin follow Vanco trough DM in[place] morbid obesity s/p gastric sleeve weight loss ?DVT prophylaxis:? lovenox full code reason for continued hospitalization: continue iv abx pending safe discharge plan Time Spent With Patient Time: Total time managing care of this patient today ____ minutes. Quality Stroke Does the patient have a stroke diagnosis?: No VTE Prior VTE?: No VTE Risk Level:: Medical - moderate - high VTE Device Contraindication: Treatment Not Indicated VTE Drug Contraindication: N/A - Med Ordered
[2022-05-17] MEDS: Insulin Glargine,Hum.rec.anlog 100 UNIT/ML 10 ML VIAL SUBCUT (15:07)
[2022-05-17 15:54] VITALS: BP 141/77; PULSE 68; RESP 18; TEMP 36.9; O2SAT 93
[2022-05-17 16:21] LABS: Glucose, Whole Blood 203 mg/dL (60-115)
[2022-05-17 20:00] VITALS: BP 153/78; PULSE 70; RESP 18; TEMP 36.8; O2SAT 94
[2022-05-17 20:28] LABS: Glucose, Whole Blood 294 mg/dL (60-115)
[2022-05-17 20:44] LABS: Vancomycin Trough 4.4 mcg/mL (10.0-20.0)
[2022-05-17] MEDS: Prazosin HCL 5 MG CAPSULE PO (20:47)
[2022-05-17] MEDS: Amitriptyline HCl 50 MG TABLET PO (20:47)
[2022-05-17] MEDS: Latanoprost 0.005 % Ophth Sol 2.5 ML DROPS 1 DROP EYE-BOTH (20:50)
[2022-05-17] MEDS: vancomycin HCL 1,500 MG in 0.9 % Sodium Chloride 500 ML 333.33 MG IV (21:50)
[2022-05-17] MEDS: oxyCODONE HCl Immed Release 5 MG TABLET PO (21:57)
[2022-05-18] MEDS: Enoxaparin Sodium 40 MG/0.4 ML SYRINGE SUBCUT (00:08)
[2022-05-18 03:03] VITALS: BP 118/72; PULSE 63; RESP 17; TEMP 36.2; O2SAT 92
[2022-05-18] MEDS: Morphine Sulfate 4 MG/ML CARTRIDGE IVPUSH ×4 (03:25→19:37)
[2022-05-18 07:05] VITALS: BP 119/68; PULSE 68; RESP 18; TEMP 36.3; O2SAT 92
[2022-05-18 07:16] LABS: Glucose, Whole Blood 209 mg/dL (60-115)
[2022-05-18 07:17] LABS: Creatinine Clr Calc Pharmacy 88.8; Estimated Glomerular Filt Rate > 60
[2022-05-18 07:18] LABS: Anion Gap 17 (12-20); Blood Urea Nitrogen 17 mg/dL (9-16); Calcium 8.7 mg/dL (8.4-10.2); Carbon Dioxide 22 mmol/L (22-29); Chloride 101 mmol/L (96-108); Creatinine Clr Calc Pharmacy 87.3; Estimated Glomerular Filt Rate > 60; Glucose Random 219 mg/dL (60-115); Potassium 4.3 mmol/L (3.3-5.1); Sodium 136 mmol/L (135-145)
[2022-05-18 07:57] LABS: Estimated Average Glucose 177 mg/dL; Hemoglobin A1c % 7.8 %
[2022-05-18] MEDS: Insulin Glargine,Hum.rec.anlog 100 UNIT/ML 10 ML VIAL SUBCUT (08:55)
[2022-05-18] MEDS: Insulin Lispro 100 UNIT/ML 3 ML VIAL SUBCUT ×4 (08:55→20:57)
[2022-05-18] MEDS: Propranolol HCL 40 MG TABLET PO ×2 (08:55→20:57)
[2022-05-18] MEDS: Pregabalin 200 MG CAPSULE PO ×3 (08:55→20:57)
[2022-05-18] MEDS: FLUoxetine HCl 20 MG CAPSULE 80 MG PO (08:55)
[2022-05-18] MEDS: cefEPime HCl 1 GM in 0.9 % Sodium Chloride 50 ML IV (08:57)
[2022-05-18] MEDS: vancomycin HCL 1,500 MG in 0.9 % Sodium Chloride 500 ML 333 MG IV (09:03)
[2022-05-18] MEDS: 0.9 % Sodium Chloride Flush 3 ML SYRINGE IVFLUSH ×2 (09:08→17:07)
--- NOTE | 2022-05-18 12:01 | P.PNIM_ITS ---
Subjective Subjective Date of Service: 05/18/22 Interval History: Feels better overall decreased swelling and pain in his stump Blood cultures remain negative Vanco trough 5.5 Review of Systems Review of Systems: Yes all other systems are reviewed and are negative Physical Exam Vital Signs: Vital Signs: Last Vital Signs Temp 97.4 F 05/18/22 07:05 Pulse 68 05/18/22 07:05 Resp 18 05/18/22 07:05 BP 119/68 05/18/22 07:05 Pulse Ox 92 05/18/22 07:05 O2 Del Method Room Air 05/18/22 07:05 BMI result Body Mass Index 40.8 Const: Other: Constitutional : Awake, interactive, obese, not in distress Neck : Normal inspection, Supple Cardiovascular : RRR, no JVP, no lower extremity edema Respiratory : good bilateral air entry, no crackles, wheezes or rhonchi Gastrointestinal: soft, lax, Normal bowel sounds, Non tender Skin : Warm, Dry skeletal: Rt BKA with erythema, no tenderness or drainage from stump area Neurological : Alert & oriented x3, No focal deficit Objective Data Active Medications Acetaminophen (Acetaminophen 325 Mg Tablet) 650 mg PO Q6H PRN PRN Reason: Pain, Mild (Pain Scale 1-3) Last Admin: 05/17/22 07:34 Dose: 650 mg Documented By: JUNIOR Amitriptyline HCl (Amitriptyline Hcl 50 Mg Tablet) 50 mg PO BEDTIME [facility] Last Admin: 05/17/22 20:47 Dose: 50 mg Documented By: PAULINE Enoxaparin Sodium (Enoxaparin Sodium 40 Mg/0.4 Ml Syringe) 40 mg SUBCUT Q24H [facility] Last Admin: 05/18/22 00:08 Dose: 40 mg Documented By: PAULINE Fluoxetine HCl (Fluoxetine Hcl 20 Mg Capsule) 80 mg PO DAILY [facility] Last Admin: 05/18/22 08:55 Dose: 80 mg Documented By: JUNIOR Glucose (Glucose Gel 15 Gm Gel..Gram.) 15 gm PO Q15M PRN; Protocol PRN Reason: per Hypoglycemia Standing Ord. Dextrose (D10) 250 mls @ 750 mls/hr IV Q15M PRN; Protocol PRN Reason: per Hypoglycemia Standing Ord. Cefepime HCl 1 gm/ Sodium (Chloride) 50 mls @ 100 mls/hr IV Q8H [facility] Last Infusion: 05/18/22 10:09 Dose: 0 mls/hr Documented By: JUNIOR Vancomycin HCl 1,500 mg/ (Sodium Chloride) 500 mls @ 333.333 mls/hr IV Q12H [facility] Last Infusion: 05/18/22 11:25 Dose: 0 mls/hr Documented By: JUNIOR Insulin Glargine (Insulin Glargine,Hum.Rec.Anlog 100 Unit/Ml 10 Ml Vial) 5 unit SUBCUT DAILY [facility] Last Admin: 05/18/22 08:55 Dose: 5 unit Documented By: JUNIOR Insulin Human Lispro (Insulin Lispro 100 Unit/Ml 3 Ml Vial) 0 unit SUBCUT QIDACHS [facility]; Protocol Last Admin: 05/18/22 08:55 Dose: 4 unit Documented By: JUNIOR Latanoprost (Latanoprost 0.005 % Ophth Ingrid 2.5 Ml Drops) 1 drop EYE-BOTH BEDTIME [facility] Last Admin: 05/17/22 20:50 Dose: 1 drop Documented By: PAULINE Morphine Sulfate (Morphine Sulfate 4 Mg/Ml Cartridge) 4 mg IVPUSH Q4H PRN; Protocol PRN Reason: Pain, Severe (Pain Scale 7-10) Last Admin: 05/18/22 09:01 Dose: 4 mg Documented By: JUNIOR Non-Formulary Medication (Varenicline [Chantix]) 1 mg PO BID [facility] Ondansetron HCl (Ondansetron Hcl 4 Mg/2 Ml Vial) 4 mg IVPUSH Q8H PRN PRN Reason: Nausea and Vomiting Oxycodone HCl (Oxycodone Hcl Immed Release 5 Mg Tablet) 5 mg PO Q6H PRN PRN Reason: Pain, Severe (Pain Scale 7-10) Last Admin: 05/17/22 21:57 Dose: 5 mg Documented By: PAULINE Pharmacy Consult (Consult Rx Vancomycin Dosing) 1 each MISCELLANE DAILY PRN PRN Reason: Consult order Prazosin HCl (Prazosin Hcl 5 Mg Capsule) 5 mg PO BEDTIME [facility]; Protocol Last Admin: 05/17/22 20:47 Dose: 5 mg Documented By: HO.ODRISM Pregabalin (Pregabalin 200 Mg Capsule) 200 mg PO TID [facility] Last Admin: 05/18/22 08:55 Dose: 200 mg Documented By: JUNIOR Propranolol HCl (Propranolol Hcl 40 Mg Tablet) 40 mg PO BID [facility]; Protocol Last Admin: 05/18/22 08:55 Dose: 40 mg Documented By: JUNIOR Sodium Chloride (0.9 % Sodium Chloride Flush 3 Ml Syringe) 3 ml IVFLUSH QSHIFT [facility] Last Admin: 05/18/22 09:08 Dose: 3 ml Documented By: JUNIOR Zolpidem Tartrate (Zolpidem Tartrate 5 Mg Tablet) 5 mg PO BEDTIME PRN PRN Reason: Insomnia Labs 05/17/22 05:51 05/18/22 05:40 Labs: Laboratory Results - last 24 hr 05/17/22 05/17/22 05/17/22 16:16 20:12 20:24 Anion Gap Estim Creat Clear Calc Estimated GFR POC Glucose 203 H 294 H Random Glucose Estimat Average Glucose Hemoglobin A1c % Calcium Vancomycin Trough 4.4 L 05/18/22 05/18/22 05/18/22 05:40 05:40 05:40 Anion Gap 17 Estim Creat Clear Calc 88.8 87.3 Estimated GFR > 60 > 60 POC Glucose Random Glucose 219 H Estimat Average Glucose 177 Hemoglobin A1c % 7.8 Calcium 8.7 Vancomycin Trough 05/18/22 07:09 Anion Gap Estim Creat Clear Calc Estimated GFR POC Glucose 209 H Random Glucose Estimat Average Glucose Hemoglobin A1c % Calcium Vancomycin Trough Microbiology Microbiology Results: Microbiology 05/15/22 20:23 Blood Culture - Preliminary Blood - Venous No growth after 48 hours. 05/15/22 20:23 Blood Culture - Preliminary Blood - Venous No growth after 48 hours. Assessment and Plan (1) Osteomyelitis: Status: Acute Plan 51M PMH of diabetes, morbid obesity s/p gastric sleeve, bipolar, bilateral BKA presented with redness, tenderness, of the right stump ACUTE right? lower extremity cellulitis/osteomyelitis improving ID input appreciated, 6 weeks of Vancomycin follow Vanco trough 5.5 Vanco dose increased to 1.5 gm q12 to repeat trough before discharge DM in[place] morbid obesity s/p gastric sleeve weight loss ?DVT prophylaxis:? lovenox full code reason for continued hospitalization: continue iv abx pending safe discharge plan Time Spent With Patient Time: Total time managing care of this patient today ____ minutes. Quality Stroke Does the patient have a stroke diagnosis?: No VTE Prior VTE?: No VTE Risk Level:: Medical - moderate - high VTE Device Contraindication: Treatment Not Indicated VTE Drug Contraindication: N/A - Med Ordered
--- NOTE | 2022-05-18 12:56 | HO.PICC ---
PICC Line Insertion NPICC INSERTION Diagnosis: [OSTEOMYELITIS] Indication: [HALFWAY ANTIBX] Pertinent Labs: [REVIEWED] Technique: Following informed consent including risks, benefits and alternatives and using sterile technique including cap and mask, sterile gown, glove and drape, the [LEFT] arm was prepped and draped in the usual sterile fashion of full barrier technique with CHG. Following completion of [place] Protocol the skin and soft tissues were anesthetized with 1% Lidocaine plain. Using ultrasound guidance, [LEFT BASILIC] vein access was obtained. Over an 0.018 wire through peel-away sheath, a [4FR SINGLE LUMEN PASV] PICC line was positioned. Catheter length is [46CM] internal length, [0CM] external length, for a total trimmed length of [46CM]. The procedure was performed in [RM 272]. Tip verification was performed by Meagan Grayson with [employer] 3CG. Tip located in SVC. Ultrasound was used to document vein patency and for needle entry. A formal ultrasound picture and cardiac rhythm strip was recorded. [employer] has released the line for use and it is currently dressed with a StatLock, Tegaderm, and CHG disc. Verification has been performed for blood return and line patency. Arm Circumference: [35CM] Equipment: [[employer] POWER PICC SOLO] Catheter Type: [4 FR SINGLE LUMEN PICC ] Lot #: [[id number]]
[2022-05-18 13:07] LABS: Glucose, Whole Blood 203 mg/dL (60-115)
--- NOTE | 2022-05-18 13:51 | MHC.CM.PN ---
VANCO TROUGH IS 4.4 PLAN IS REMAIN ONE MORE NIGHT AND DC TOMORROW. [facility] AND [facility] AWARE
--- NOTE | 2022-05-18 13:59 | MHC.CM.PN ---
LINDA ANTONIO IS PLANNING START OF CARE FOR SUNDAY MORNING, AND CANNOT START SUNDAY EVENING MD TO BE MADE AWARE VIA TIGER TEXT
[2022-05-18] MEDS: 0.9 % Sodium Chloride Flush 10 ML SYRINGE 5 ML IVFLUSH ×2 (14:18→22:03)
[2022-05-18 15:33] VITALS: BP 112/56; PULSE 65; RESP 17; TEMP 36.3; O2SAT 96
[2022-05-18 16:25] LABS: Glucose, Whole Blood 176 mg/dL (60-115)
[2022-05-18 19:04] VITALS: BP 134/80; PULSE 64; RESP 19; TEMP 36.7; O2SAT 94
[2022-05-18 20:39] LABS: Glucose, Whole Blood 193 mg/dL (60-115)
[2022-05-18 20:46] LABS: Vancomycin Random 16.5 mcg/mL (15-20)
[2022-05-18] MEDS: Amitriptyline HCl 50 MG TABLET PO (20:57)
[2022-05-18] MEDS: Prazosin HCL 5 MG CAPSULE PO (20:57)
[2022-05-18] MEDS: Latanoprost 0.005 % Ophth Sol 2.5 ML DROPS 1 DROP EYE-BOTH (20:58)
[2022-05-18] MEDS: vancomycin HCL 1,000 MG in 0.9 % Sodium Chloride 250 ML 333.33 MG IV (22:03)
[2022-05-19] MEDS: Enoxaparin Sodium 40 MG/0.4 ML SYRINGE SUBCUT (00:59)
[2022-05-19 03:50] VITALS: BP 114/59; PULSE 61; RESP 17; TEMP 36.1; O2SAT 94
[2022-05-19 07:08] LABS: Creatinine Clr Calc Pharmacy 102.6; Estimated Glomerular Filt Rate > 60
[2022-05-19 07:09] LABS: Anion Gap 14 (12-20); Blood Urea Nitrogen 14 mg/dL (9-16); Calcium 8.6 mg/dL (8.4-10.2); Carbon Dioxide 24 mmol/L (22-29); Chloride 104 mmol/L (96-108); Creatinine Clr Calc Pharmacy 103.7; Estimated Glomerular Filt Rate > 60; Glucose Random 192 mg/dL (60-115); Potassium 4.4 mmol/L (3.3-5.1); Sodium 138 mmol/L (135-145)
[2022-05-19 07:18] VITALS: BP 156/89; PULSE 70; RESP 18; TEMP 36.2; O2SAT 95
[2022-05-19 07:31] LABS: Glucose, Whole Blood 208 mg/dL (60-115)
[2022-05-19] MEDS: FLUoxetine HCl 20 MG CAPSULE 80 MG PO (07:44)
[2022-05-19] MEDS: Propranolol HCL 40 MG TABLET PO (07:44)
[2022-05-19] MEDS: Pregabalin 200 MG CAPSULE PO (07:44)
[2022-05-19] MEDS: Insulin Glargine,Hum.rec.anlog 100 UNIT/ML 10 ML VIAL SUBCUT (07:44)
[2022-05-19] MEDS: Insulin Lispro 100 UNIT/ML 3 ML VIAL SUBCUT ×2 (07:45→13:16)
[2022-05-19] MEDS: 0.9 % Sodium Chloride Flush 10 ML SYRINGE 5 ML IVFLUSH (07:45)
[2022-05-19] MEDS: 0.9 % Sodium Chloride Flush 3 ML SYRINGE IVFLUSH (07:45)
[2022-05-19] MEDS: Morphine Sulfate 4 MG/ML CARTRIDGE IVPUSH (07:46)
[2022-05-19] MEDS: vancomycin HCL 1,000 MG in 0.9 % Sodium Chloride 250 ML 333.33 MG IV (09:19)
--- NOTE | 2022-05-19 10:37 | P.F2F_ITS ---
Service Date Service Date: 05/19/22 Encounter Date of encounter: 05/19/22 Reasons for Services Signs and symptoms assessed: osteomyelitis Reason for prison: administration of IV, SQ, or IM injection and teach disease management Homebound: Leaving the home is medically contraindicated at this time without the asist of a device and/or another person due th the listed conditions above and below. Reason homebound: bedbound/chairbound Certification: Based on the above findings, I certify that this patient is confined to the home and needs intermittent prison care, physical therapy and/or speech therapy, or continues to need occupational therapy. The patient is under my care, and I have initiated the establishment of the plan of care. The patient will be followed by a physician who will periodically review the plan of care. Time Spent With Patient Time: Total time managing care of this patient today ____ minutes.
--- NOTE | 2022-05-19 10:38 | P.DS_ITS ---
DS: Providers Provider Date of Service: 05/19/22 Date of admission: 05/15/22 23:59 Primary care physician: Chapincito Sprague MD Consults: 05/15/22 23:59 Consult to General Surgery Routine Consulting Provider: [facility] General Surgeons Reason for consultation: OSteo 05/16/22 05:52 Consult to Infectious Diseases Routine Consulting Provider: [facility] Infectious Disease Reason for consultation: osteomyelitis DS: Diagnosis Discharge Diagnosis (1) Osteomyelitis: Status: Acute (2) Cellulitis of leg, right: Status: Acute DS: Summary Hospital Course Hospital Course: Admission note HPI ?this is a 51-year-old male with past medical history of type 2 diabetes, bilateral below-knee? amputation, hypertension, HLD, history of morbid obesity status post? sleeve gastrectomy,, bipolar disorder, anxiety, who presents to the hospital with complaints of right stump swelling, redness, and pain.? Patient describes the pain as 9/10, nonradiating, constant, started 3 days prior.? He reports that the stump is also 2 times its normal size, he has also noticed increased redness and warmth.? Patient reports fevers up to 101 at home, chills, no nausea or vomiting, no chest pain, shortness of breath, no abdominal pain diarrhea constipation, no urinary symptoms.? On arrival to the ED patient hemodynamically stable with no significant abnormal vitals.?labs are significant for WBC count of 9.6, ESR 50 and CRP of 24.1, Femur CT shows periosteal reaction at the distal femur amputation site with mild irregularity of the bone concerning for osteomyelitis. Hospital course admitted for ACUTE right? lower extremity cellulitis/osteomyelitis based on CT scan of LE. evaluated by ID who recommended 6 weeks of Vancomycin. Dose adjusted as trough around 16.5. To finish by 06/28/2022. follow outpatient work up with Trough, BMP weekly. To follow with PCP as outpatient Time Spent with Patient Time attestation: Total time managing care of this patient today ____ minutes. Discharge coordination time: Greater than 30 minutes Quality: Safe Use of Opioids Does Pt have an Active Cancer Diagnosis on the Problem List?: No Quality: Stroke Does the patient have a stroke diagnosis?: No Physical Exam Vital Signs: Vital Signs: Last Vital Signs Temp 97.2 F 05/19/22 07:18 Pulse 70 05/19/22 07:18 Resp 18 05/19/22 07:18 BP 156/89 H 05/19/22 07:18 Pulse Ox 95 05/19/22 07:18 O2 Del Method Room Air 05/19/22 07:18 BMI result Body Mass Index 40.8 Const: Other: Constitutional : Awake, interactive, obese, not in distress Neck : Normal inspection, Supple Cardiovascular : RRR, no JVP, no lower extremity edema Respiratory : good bilateral air entry, no crackles, wheezes or rhonchi Gastrointestinal: soft, lax, Normal bowel sounds, Non tender Skin : Warm, Dry skeletal: Lt BKA no abnormalities, Rt BKA with no erythema, no tenderness or drainage from stump area Neurological : Alert & oriented x3, No focal deficit DS: Data Data Completed and Pending Completed studies during hospitalization [Text1]: Procedures Excision of Stomach, Percutaneous Endoscopic Approach, Vertical (10/28/20) Release Peritoneum, Percutaneous Endoscopic Approach (10/28/20) Labs on day of discharge: Laboratory Results - last 24 hr 05/18/22 05/18/22 05/18/22 13:03 16:19 20:16 Sodium Potassium Chloride Carbon Dioxide Anion Gap BUN Creatinine Estim Creat Clear Calc Estimated GFR POC Glucose 203 H 176 H Random Glucose Calcium Random Vancomycin 16.5 05/18/22 05/19/22 05/19/22 20:34 05:49 05:49 Sodium 138 Potassium 4.4 Chloride 104 Carbon Dioxide 24 Anion Gap 14 BUN 14 Creatinine 0.97 0.96 Estim Creat Clear Calc 102.6 103.7 Estimated GFR > 60 > 60 POC Glucose 193 H Random Glucose 192 H Calcium 8.6 Random Vancomycin 05/19/22 07:26 Sodium Potassium Chloride Carbon Dioxide Anion Gap BUN Creatinine Estim Creat Clear Calc Estimated GFR POC Glucose 208 H Random Glucose Calcium Random Vancomycin Preliminary micro results at discharge 05/15/22 20:23 Blood Culture - Preliminary Blood - Venous No growth after 48 hours. 05/15/22 20:23 Blood Culture - Preliminary Blood - Venous No growth after [address] Femur : Radiologist's impression: ITS Impressions Femur CT 05/15/22 22:34 IMPRESSION: There is periosteal reaction at the distal femur amputation site with mild irregularity of the bone at the amputation site. This could be associated with osteomyelitis. There is edema in the soft tissues in this area with no fluid collection. Discharge Plan Discharge Anticipated Discharge Date/Time: 05/18/22 11:52 Patient Disposition: Home Health Service Discharge Diagnosis: Osteomyelitis right stump Referrals: [facility] [Outside] - 1 Week ([facility] WILL START CARE Sunday05/20/22. IF YOU HAVE ANY QUESITON ABOUT YOUR INSERTED LINE BEFORE THIS, PLEASE CALL YOUR [facility] CONTACT) Chapincito Sprague MD [Primary Care Provider] - 1 Week Discharge Medications: New vancomycin 1,000 mg recon soln 1 g IV Q12H Qty: 80 0RF Continued (DME) Dexcom G6 Transmitter Device See Rx Instructions .Route Qty: 1 0RF Rx Instructions: As directed insulin aspart U-100 [Novolog FlexPen U-100 Insulin] 100 unit/mL (3 mL) insulin pen 1 sliding scale dose subcut .COMPLEX Qty: 15 8RF Rx Instructions: 1 sliding scale dose subcutaneously 3-4 times daily before meals pregabalin 200 mg capsule 200 mg PO TID 30 Days Qty: 90 2RF (DME) Bilateral below the knee socket replacement See Rx Instructions .Route .MEDSUPPLY Qty: 1 6RF Rx Instructions: As directed clotrimazole 1 % cream See Rx Instructions .ROUTE .COMPLEX Qty: 45 3RF Dose Instruction: APPLY TO AFFECTED AREA TWICE A DAY Rx Instructions: APPLY TO AFFECTED AREA TWICE A DAY varenicline [Chantix] 1 mg tablet 1 mg PO BID Qty: 56 3RF propranolol 40 mg tablet 1 tab PO BID latanoprost 0.005 % drops 1 drp ophthalmic (eye) BEDTIME prazosin 2 mg capsule 5 mg PO BEDTIME amitriptyline 50 mg tablet 50 mg PO BEDTIME Qty: 90 3RF zolpidem 12.5 mg tablet,ext release multiphase 12.5 mg PO BEDTIME PRN (Reason: Insomnia) fluoxetine 40 mg capsule 80 mg PO DAILY omega 4-zkr-eif-fish oil [Fish Oil] 1,200 (144-216) mg capsule 1 cap PO DAILY No Action (DME) Dexcom G6 Sensor Device See Rx Instructions topical Q10D Qty: 3 8RF Rx Instructions: As directed Discharge Orders: Discharge Order (Routine); Ordered 05/19/22 Ordered By: Reggie Pal Diet: Advance to usual diet Activity on Discharge: As tolerated Stand Alone Forms: Patient Portal Discharge page Care Plan Goals: Read below Health Concerns: Read below Plan of Treatment: Read below Assessment: You were admitted to the hospital for evaluation of right lower extremities pain and swelling at stump area. evaluated by infectious disease specialist who recommended treatment with 6 weeks of IV Discharge Date/Time: 05/19/22 14:15
[2022-05-19 11:23] LABS: Glucose, Whole Blood 226 mg/dL (60-115)
--- NOTE | 2022-05-19 11:41 | MHC.CM.PN ---
HOME TODAY WITH [facility]. PATIENT AND WILL PERFORM INFUSION TONIGHT, AND [facility] WILL ARRIVE TOMORROW (PER AGREEMENT BETWEEN T/W, [facility], AND PATIENT). MD AWARE OF PLAN. IMM 05/18 IN CHART
[2022-05-19] MEDS: oxyCODONE HCl Immed Release 5 MG TABLET PO (13:15)
== END 2022-05-19 14:15 | disposition home health service (06) | DRG 565 ==
LOC: HO.ED 23:26 → HO.EDOVER 05-16 00:11 → HO.S3 05-16 00:14 → HO.EDOVER 05-16 00:34 → HO.S3 05-16 02:01
PROVIDERS: Internal Medicine; Physician Assistant; Admitting Provider Internal Medicine; Emergency Provider Internal Medicine; PCP Internal Medicine; Visit Provider Student in an Organized Health Care Education/Training Program
PROC: 02HV33Z Insertion of Infusion Device into Superior Vena Cava, Percutaneous Approach (ICD-10-PCS; principal; 2022-05-18 11:30)
DX: T87.43 Infection of amputation stump, right lower extremity (principal); L03.115 Cellulitis of right lower limb; Z68.41 Body mass index [BMI] 40.0-44.9, adult; M86.151 Other acute osteomyelitis, right femur; Y83.5 Amputation of limb(s) as the cause of abnormal reaction of the patient, or of later complication, without mention of misadventure at the time of the procedure; E11.69 Type 2 diabetes mellitus with other specified complication; F41.9 Anxiety disorder, unspecified; E78.5 Hyperlipidemia, unspecified; E66.01 Morbid (severe) obesity due to excess calories; E11.40 Type 2 diabetes mellitus with diabetic neuropathy, unspecified; E11.628 Type 2 diabetes mellitus with other skin complications; Z20.822 Contact with and (suspected) exposure to COVID-19; Z98.84 Bariatric surgery status; Z89.512 Acquired absence of left leg below knee; Z87.891 Personal history of nicotine dependence; Z88.0 Allergy status to penicillin; Z88.2 Allergy status to sulfonamides; Z88.6 Allergy status to analgesic agent; Z88.8 Allergy status to other drugs, medicaments and biological substances; Z79.4 Long term (current) use of insulin; Z79.899 Other long term (current) drug therapy
CPT/HCPCS: 36415; 36573; 73701; 80048; 80053; 80202; 82565; 82947; 83036; 83605; 85025; 85027; 85652; 86140; 87040; 87635; 99285; C1751; J0692; J0696; J1650; J2270; J3370; J3371; Q9967

== ENCOUNTER 2022-05-23 13:08 | Outpatient (REF) | payer OTHER, SELFPAY ==
[2022-05-23 14:14] LABS: MANUAL DIFF FLAG NO
[2022-05-23 14:24] LABS: Basophils Absolute Auto 0.1 X10*3/uL (0.0-0.2); Eosinophils Absolute Auto 0.2 X10*3/uL (0.0-0.4); Eosinophils Percent Auto 3.4 % (0-4); Hemoglobin 14.9 g/dl (14.0-18.0); Imm Gran Abs Auto 0.25 X10*3/uL (0.00-0.03); Imm Gran Pct Auto 3.7 % (0.0-0.4); Lymphocytes Absolute Auto 2.1 X10*3/uL (1.2-4.9); Lymphocytes Percent Auto 31.8 % (20-40); Mean Corpuscular HGB Conc 33.9 g/dl (31.0-36.0); Mean Corpuscular Hemoglobin 29.7 pg (27.0-33.0); Mean Corpuscular Volume 87.6 fL (80.0-98.0); Mean Platelet Volume 10.1 fL (9.4-12.4); Monocytes Absolute Auto 0.6 X10*3/uL (0.1-1.2); Monocytes Percent Auto 8.8 % (2-11); Neutrophils Absolute Auto 3.4 x10*3/uL (2.0-8.3); Neutrophils Percent Auto 51.3 % (45-73); Platelet Count 179 X10*3/uL (160-400); Red Blood Count 5.02 X10*6/uL (4.60-5.80); Red Cell Distribution Width 12.9 % (11.0-16.0); White Blood Count 6.7 X10*3/uL (4.8-10.8)
[2022-05-23 15:13] LABS: Vancomycin Trough 28.5 mcg/mL (10.0-20.0)
[2022-05-23 15:36] LABS: Blood Urea Nitrogen 15 mg/dL (9-16); Estimated Glomerular Filt Rate > 60
== END 2022-05-23 13:09 | disposition home or self-care (01) ==
LOC: HO.HVNA 13:08
PROVIDERS: Visit Provider Internal Medicine
DX: M86.9 Osteomyelitis, unspecified (principal); Z79.899 Other long term (current) drug therapy
CPT/HCPCS: 80202; 82565; 84520; 85025

== ENCOUNTER 2022-05-25 21:30 | Inpatient (IN) | payer OTHER, SELFPAY ==
[2022-05-25 21:32] VITALS: BP 156/81; PULSE 77; RESP 18; TEMP 37.2; O2SAT 93; BMI 36.2
[2022-05-25 21:51] LABS: MANUAL DIFF FLAG NO
[2022-05-25 21:52] LABS: Basophils Absolute Auto 0.1 X10*3/uL (0.0-0.2); Basophils Percent Auto 0.9 % (0-2); Eosinophils Absolute Auto 0.2 X10*3/uL (0.0-0.4); Eosinophils Percent Auto 2.8 % (0-4); Hematocrit 42.1 % (42.0-52.0); Hemoglobin 14.5 g/dl (14.0-18.0); Imm Gran Abs Auto 0.32 X10*3/uL (0.00-0.03); Imm Gran Pct Auto 3.7 % (0.0-0.4); Lymphocytes Absolute Auto 2.6 X10*3/uL (1.2-4.9); Lymphocytes Percent Auto 29.6 % (20-40); Mean Corpuscular HGB Conc 34.4 g/dl (31.0-36.0); Mean Corpuscular Hemoglobin 29.8 pg (27.0-33.0); Mean Corpuscular Volume 86.4 fL (80.0-98.0); Monocytes Absolute Auto 0.9 X10*3/uL (0.1-1.2); Monocytes Percent Auto 10.3 % (2-11); Neutrophils Absolute Auto 4.6 x10*3/uL (2.0-8.3); Neutrophils Percent Auto 52.7 % (45-73); Platelet Count 175 X10*3/uL (160-400); Red Blood Count 4.87 X10*6/uL (4.60-5.80); Red Cell Distribution Width 13.2 % (11.0-16.0); White Blood Count 8.7 X10*3/uL (4.8-10.8)
[2022-05-25 22:07] VITALS: BP 134/89; PULSE 78; RESP 19; TEMP 36.8; O2SAT 96
[2022-05-25 22:08] LABS: Alanine Aminotransferase 76 U/L (0-40); Albumin Level 3.8 g/dL (3.5-5.0); Alkaline Phosphatase 89 U/L (39-117); Anion Gap 13 (12-20); Aspartate Amino Transferase 52 U/L (5-37); Bilirubin Total 0.4 mg/dL (0.0-1.0); Blood Urea Nitrogen 13 mg/dL (9-16); Calcium 9.1 mg/dL (8.4-10.2); Carbon Dioxide 27 mmol/L (22-29); Chloride 100 mmol/L (96-108); Creatinine Clr Calc Pharmacy 71.8; Estimated Glomerular Filt Rate 58; Glucose Random 154 mg/dL (60-115); Potassium 4.6 mmol/L (3.3-5.1); Sodium 135 mmol/L (135-145); Total Protein 6.9 g/dL (6.5-8.0)
--- NOTE | 2022-05-25 22:32 | ED_ITS ---
HPI - General Adult General Chief complaint: General Medical Stated complaint: [facility] Time Seen by Provider: 05/25/22 22:31 Source: patient Mode of arrival: wheelchair Limitations: no limitations History of Present Illness HPI narrative: Patient diabetic with bilateral BKA was admitted on 05/15 for early osteomyelitis of right stump discharge patient home on 05/18 on IV vancomycin comes here today as switching does notice increased redness and discharge from this time patient noticed more redness and discharge since yesterday no fever no chills increased pain blood sugar well controlled Related Data Home Medications Medication Instructions Recorded Confirmed zolpidem 12.5 mg tablet,extended 12.5 mg PO BEDTIME PRN Insomnia 12/21/20 05/15/22 release,multiphase prazosin 2 mg capsule 5 mg PO BEDTIME 04/04/21 05/15/22 fluoxetine 40 mg capsule 80 mg PO DAILY 04/11/21 05/15/22 omega 5-igy-ybf-fish oil 1,200 mg 1 cap PO DAILY 05/09/21 05/15/22 (144 mg-216 mg) capsule (Fish Oil) latanoprost 0.005 % eye drops 1 drp ophthalmic (eye) BEDTIME 05/15/22 05/15/22 propranolol 40 mg tablet 1 tab PO BID 05/15/22 05/15/22 Previous Rx's Medication Instructions Recorded insulin aspart U-100 100 unit/mL 1 sliding scale dose subcut 11/16/21 (3 mL) subcutaneous pen (Novolog .COMPLEX #15 mL FlexPen U-100 Insulin aspart) pregabalin 200 mg capsule 200 mg PO TID 30 days #90 caps 02/21/22 Bilateral below the knee socket #1 ea 02/24/22 replacement clotrimazole 1 % topical cream See Rx Instructions .Route 04/13/22 .COMPLEX #45 grams amitriptyline 50 mg tablet 50 mg PO BEDTIME #90 tabs 04/14/22 varenicline 1 mg tablet (Chantix) 1 mg PO BID #56 tabs 04/18/22 blood-glucose sensor (Dexcom G6 #3 ea 05/18/22 Sensor device) vancomycin 1,000 mg intravenous 1 g IV Q12H #80 ea 05/19/22 injection blood-glucose transmitter (Dexcom #1 ea 05/20/22 G6 Transmitter device) Allergies Allergy/AdvReac Type Severity Reaction Status Date / Time Penicillins Allergy Severe Hives Verified 05/25/22 21:41 Sulfa (Sulfonamide Allergy Severe Anaphylaxis Verified 05/25/22 21:41 Antibiotics) levofloxacin [From Levaquin] Allergy Intermediate Rash Verified 05/25/22 21:41 metronidazole [From Flagyl] Allergy Intermediate Rash Verified 05/25/22 21:41 NSAIDS (Non-Steroidal AdvReac Severe Unknown Verified 05/25/22 21:41 Anti-Inflamma Review of Systems Review of Systems: Yes all other systems are reviewed and are negative [facility] Past Medical History Medical History Anxiety Bilateral cataracts Cognitive and neurobehavioral dysfunction COVID-19 vaccine series completed Depression Diabetes mellitus History of traumatic brain injury History of trigger finger HLD (hyperlipidemia) HTN (hypertension) Hx of leg amputation Hx of staphylococcal infection Insulin dependent diabetes mellitus Morbid obesity Neuropathy Obesity PTSD (post-traumatic stress disorder) Sleep apnea Vitamin D deficiency Surgical History History of gastrectomy History of surgery on arm Hx of carpal tunnel repair Hx of cataract extraction Hx of hernia repair S/P BKA (below knee amputation) bilateral Status post below knee amputation of right lower extremity Status post below-knee amputation of left lower extremity Family History Family History Mother No problems noted. Father Alcohol abuse Social History Social History Household Members: Significant Other Housing: Apartment Are you a primary animal care worker to a significant other at home: No Do you presently have visiting nurse or other home services: Yes Alcohol intake: never Patient Tobacco Use Status: Former Tobacco user Quit Date: September 2020 Tobacco use type: Cigarette Years Smoked: 20-30 years e-Cigarette/Vaping Use: Never Used Second Hand Smoke Exposure: No service: No Current occupational status: disabled Cognitive needs: No Hearing needs: No Vision needs: Yes Physical Exam ED Vital Signs: Vital Signs - 24 hr 05/25/22 21:32 05/25/22 22:07 05/26/22 00:36 Temperature 99 F 98.3 F Pulse Rate 77 78 72 Respiratory Rate 18 19 19 Blood Pressure 156/81 H 134/89 147/74 H Pulse Oximetry 93 96 94 Oxygen Delivery Method Room Air Room Air Room Air BMI result Body Mass Index 36.2 Appearance: Alert. Oriented X3. No acute distress. Eyes: PERRLA, No Nystagmus ENT: Pharynx normal. Oral Mucosa moist Neck: Normal inspection. Neck supple. CVS: Normal heart rate and rhythm. Pulses normal. Respiratory: No respiratory distress. Equal air entry bilateral, no wheezing/rales/rhonchi Abdomen: Soft and nontender. Bowel sounds are present, no mass palpable, no CVA tenderness Skin: Skin warm and dry. Normal skin color. Normal skin turgor. Extremities: No lower extremity edema. No calf tenderness bilateral BKA (1)(2) Neuro: Oriented X 3. No motor deficit. No sensory deficit.No cerebellar signs , cranial nerves II-XII intact Medications Administered Generic Name Dose Route Start Last Admin Trade Name Freq PRN Reason Stop Dose Admin Vancomycin HCl 2,000 mg in 520 mls @ 260 mls/hr 05/26/22 02:00 05/26/22 02:17 Vancomycin/Ns IV 05/26/22 03:59 260 mls/hr ONCE ONE Administration Discontinued Medications Generic Name Dose Route Start Last Admin Trade Name Freq PRN Reason Stop Dose Admin Piperacillin Sod/Tazobactam 50 mls @ 100 mls/hr 05/25/22 23:10 05/26/22 00:13 Sod 3.375 gm/ Sodium Chloride IV 05/25/22 23:39 Infused ONCE ONE Infusion Medical Decision Making Medical Decision Making [facility] Narrative: Patient worsening of right BKA stump infection patient does wear the prosthesis likely from local frequent injury he keeps the wound open likely making infection worse clinically localized to the skin area normal WBC count slightly elevate CRP and sed rate likely worsening of osteomyelitis for now will give dose of Zosyn patient had elevated vancomycin trough level that is why he did not get the vancomycin for last 2 days. Will admit patient for re-evaluation by wound clinic and ID Consult Healthcare Provider Management of the patient was discussed with: Hospitalist Lab Data [facility] Lab Attestation statement: I reviewed the patient's lab results. 05/25/22 21:45 05/25/22 21:45 Labs: Lab Results 03/30/23 03/30/23 03/30/23 Range/Units 21:45 21:45 21:45 WBC 8.7 (4.8-10.8) X10*3/uL RBC 4.87 (4.60-5.80) X10*6/uL Hgb 14.5 (14.0-18.0) g/dl Hct 42.1 (42.0-52.0) % MCV 86.4 (80.0-98.0) fL MCH 29.8 (27.0-33.0) pg MCHC 34.4 (31.0-36.0) g/dl RDW 13.2 (11.0-16.0) % Plt Count 175 (160-400) X10*3/uL MPV 10.0 (9.4-12.4) fL Immature Gran % (Auto) 3.7 H (0.0-0.4) % Neut % (Auto) 52.7 (45-73) % Lymph % (Auto) 29.6 (20-40) % [place] % (Auto) 10.3 (2-11) % Eos % (Auto) 2.8 (0-4) % Baso % (Auto) 0.9 (0-2) % Lymph # (Auto) 2.6 (1.2-4.9) X10*3/uL [place] # (Auto) 0.9 (0.1-1.2) X10*3/uL Eos # (Auto) 0.2 (0.0-0.4) X10*3/uL Baso # (Auto) 0.1 (0.0-0.2) X10*3/uL Abs Immat Gran (auto) 0.32 H (0.00-0.03) X10*3/uL Absolute Neuts (auto) 4.6 (2.0-8.3) x10*3/uL Absolute Nucleated RBC 0.000 (0.0-0.012) X10*3/uL Nucleated RBC % (auto) 0.0 (0.0-0.2) /100WBC ESR 25 H (0-15) MM/HR Sodium 135 (135-145) mmol/L Potassium 4.6 (3.3-5.1) mmol/L Chloride 100 (96-108) mmol/L Carbon Dioxide 27 (22-29) mmol/L Anion Gap 13 (12-20) BUN 13 (9-16) mg/dL Creatinine 1.30 (0.5-1.4) mg/dL Estim Creat Clear Calc 71.8 Estimated GFR 58 Random Glucose 154 H (60-115) mg/dL Calcium 9.1 (8.4-10.2) mg/dL Total Bilirubin 0.4 (0.0-1.0) mg/dL AST 52 H (5-37) U/L ALT 76 H (0-40) U/L Alkaline Phosphatase 89 (39-117) U/L C-Reactive Protein 1.32 H (< or = 0.50) mg/dL Total Protein 6.9 (6.5-8.0) g/dL Albumin 3.8 (3.5-5.0) g/dL Discharge Plan Discharge Clinical Impression: Osteomyelitis of right femur, Cellulitis Patient Disposition: Admitted As Inpatient Interventions: Admission Worksheet (ED) Last Done: 05/26/22 03:13 Discharge Date/Time: 05/26/22 03:13 1: picture on 05/15/22 2: picture taken on 05/26/22
[2022-05-25] MEDS: Piperacillin Sodium/Tazobactam 3.375 GM in 0.9 % Sodium Chloride 50 ML IV (23:28)
[2022-05-25 23:29] LABS: C Reactive Protein 1.32 mg/dL (< or = 0.50)
[2022-05-25 23:50] LABS: Erythrocyte Sedimentation Rate 25 MM/HR (0-15)
[2022-05-26 00:36] VITALS: BP 147/74; PULSE 72; RESP 19; O2SAT 94
--- NOTE | 2022-05-26 01:31 | P.HPHOSP_ITS ---
History of Present Illness Date of Service: 05/26/22 Chief Complaint: Extremity redness This is a 51-year-old male with pertinent history of type 2 diabetes mellitus, BKA, essential hypertension, mood disorder, mixed hyperlipidemia, obesity status post sleeve gastrectomy presents to the emergency department with complaints of right stump redness, warmth and drainage. Patient was recently admitted and discharged on 05/19 with right lower extremity cellulitis with possible underlying osteomyelitis. Was evaluated by ID and patient was discharged on 6 weeks of IV vancomycin. Patient states that 2 days ago he was told to stop stop his vancomycin as his levels were too high. He was supposed to resume his van comycin today. He observed that his stump was red, warm and with purulent drainage. Patient denies fever, chills, chest discomfort, palpitations, shortness of breath, changes in urinary or bowel habits. Review of Systems Constitutional: Constitutional: Reports no additional constitutional comp laints Cardiovascular: Cardiovascular: Reports no additional cardiovascular complaints Respiratory: Respiratory: Reports no additional respiratory complaints Gastrointestinal: Gastrointestinal: Reports no additional gastrointestinal complaints Genitourinary: Genitourinary: Reports no additional male genitourinary complaints Musculoskeletal: Musculoskeletal: Reports arthralgias and Reports joint swelling [facility] Medical History Anxiety Bilateral cataracts Cognitive and neurobehavioral dysfunction COVID-19 vaccine series completed Depression Diabetes mellitus History of traumatic brain injury History of trigger finger HLD (hyperlipidemia) HTN (hypertension) Hx of leg amputation Hx of staphylococcal infection Insulin dependent diabetes mellitus Morbid obesity Neuropathy Obesity PTSD (post-traumatic stress disorder) Sleep apnea Vitamin D deficiency Family History Mother No problems noted. Father Alcohol abuse Surgical History History of gastrectomy History of surgery on arm Hx of carpal tunnel repair Hx of cataract extraction Hx of hernia repair S/P BKA (below knee amputation) bilateral Status post below knee amputation of right lower extremity Status post below-knee amputation of left lower extremity Social History Household Members: Spouse Housing: House Are you a primary patient care technician instructor to a significant other at home: No Do you presently have visiting nurse or other home services: No Alcohol intake: never Patient Tobacco Use Status: Former Tobacco user Quit Date: September 2020 Tobacco use type: Cigarette Years Smoked: 20-30 years e-Cigarette/Vaping Use: Never Used Second Hand Smoke Exposure: No Advance Directives: No Advance Directives Information Provided: No service: No Current occupational status: disabled Cognitive needs: No Hearing needs: No Vision needs: Yes Meds Allergies Allergy/AdvReac Type Severity Reaction Status Date / Time Penicillins Allergy Severe Hives Verified 05/25/22 21:41 Sulfa (Sulfonamide Allergy Severe Anaphylaxis Verified 05/25/22 21:41 Antibiotics) levofloxacin [From Levaquin] Allergy Intermediate Rash Verified 05/25/22 21:41 metronidazole [From Flagyl] Allergy Intermediate Rash Verified 05/25/22 21:41 NSAIDS (Non-Steroidal AdvReac Severe Unknown Verified 05/25/22 21:41 Anti-Inflamma Home Medications Medication Instructions Recorded Confirmed Last Taken Type zolpidem 12.5 mg tablet,extended 12.5 mg PO BEDTIME PRN Insomnia 12/21/20 05/15/22 Unknown History release,multiphase prazosin 2 mg capsule 5 mg PO BEDTIME 04/04/21 05/15/22 Unknown History fluoxetine 40 mg capsule 80 mg PO DAILY 04/11/21 05/15/22 Unknown History omega 6-pyo-caa-fish oil 1,200 mg 1 cap PO DAILY 05/09/21 05/15/22 Unknown History (144 mg-216 mg) capsule (Fish Oil) latanoprost 0.005 % eye drops 1 drp ophthalmic (eye) BEDTIME 05/15/22 05/15/22 Unknown History propranolol 40 mg tablet 1 tab PO BID 05/15/22 05/15/22 Unknown History Physical Exam Vital Signs and Narrative: Vital Signs: Last Vital Signs Temp 98.3 F 05/25/22 22:07 Pulse 72 05/26/22 00:36 Resp 19 05/26/22 00:36 BP 147/74 H 05/26/22 00:36 Pulse Ox 94 05/26/22 00:36 O2 Del Method Room Air 05/26/22 00:36 BMI result Body Mass Index 36.2 Middle-aged male lying in bed in no distress Neck supple, no JVD Regular rate and rhythm, S1-S2 heard Regular breath sounds bilaterally, no wheezing or crackles appreciated Abdomen soft nontender, no guarding, no rigidity Patient is awake, alert and oriented to self, place, time and person ; no focal motor deficit Musculoskeletal: Right BKA stump with redness, warmth, purulent drainage Psych: Normal mood No pedal edema Results Labs 05/25/22 21:45 05/25/22 21:45 Labs: Laboratory Results - last 24 hr 05/25/22 05/25/22 05/25/22 21:45 21:45 21:45 MCV 86.4 MCH 29.8 MCHC 34.4 RDW 13.2 Plt Count 175 MPV 10.0 Immature Gran % (Auto) 3.7 H Neut % (Auto) 52.7 Lymph % (Auto) 29.6 [place] % (Auto) 10.3 Eos % (Auto) 2.8 Baso % (Auto) 0.9 Lymph # (Auto) 2.6 [place] # (Auto) 0.9 Eos # (Auto) 0.2 Baso # (Auto) 0.1 Abs Immat Gran (auto) 0.32 H Absolute Neuts (auto) 4.6 Absolute Nucleated RBC 0.000 Nucleated RBC % (auto) 0.0 ESR 25 H Anion Gap 13 Estim Creat Clear Calc 71.8 Estimated GFR 58 Random Glucose 154 H Calcium 9.1 Total Bilirubin 0.4 AST 52 H ALT 76 H Alkaline Phosphatase 89 C-Reactive Protein 1.32 H Total Protein 6.9 Albumin 3.8 Assessment and Plan (1) Cellulitis: Status: Acute Plan This is a 51-year-old male with pertinent history of type 2 diabetes mellitus, BKA, essential hypertension, mood disorder, mixed hyperlipidemia, obesity status post sleeve gastrectomy presents to the emergency department with complaints of right stump redness, warmth and drainage. #. Purulent cellulitis in a patient with suspected underlying osteomyelitis: Will admit patient and continue empiric IV antibiotics. Consulting ID, appreciate assistance. Defer imaging to Infectious Disease #. Type 2 diabetes mellitus: Initiating Accu-Cheks with sliding scale insulin #. Mood disorder: Continue home mood stabilizers #. Morbid obesity: Status post gastric sleeve. Counseled regarding weight loss Med rec pending DVT prophylaxis: Lovenox 40 mg daily Full code Diabetic diet Admit as inpatient and will require two night minimum hospital stay for IV antibiotics Time Spent With Patient Time: Total time managing care of this patient today ____ minutes. Quality Stroke Does the patient have a stroke diagnosis?: No VTE Prior VTE?: No VTE Risk Level:: Medical - moderate - high VTE Device Contraindication: Treatment Not Indicated VTE Drug Contraindication: N/A - Med Ordered
[2022-05-26 01:59] LABS: COVID-19 Test Negative (Negative); IDNOW Serial# 6674DD1D
[2022-05-26 02:38] LABS: Glucose, Whole Blood 175 mg/dL (60-115)
[2022-05-26 03:14] VITALS: BP 140/62; PULSE 78; RESP 18; TEMP 36.9; O2SAT 94
[2022-05-26] MEDS: traMADoL HCL 50 MG TABLET PO (04:12)
[2022-05-26] MEDS: Enoxaparin Sodium 40 MG/0.4 ML SYRINGE SUBCUT (05:48)
[2022-05-26 06:11] LABS: MANUAL DIFF FLAG NO
[2022-05-26 06:18] LABS: Basophils Absolute Auto 0.1 X10*3/uL (0.0-0.2); Eosinophils Absolute Auto 0.2 X10*3/uL (0.0-0.4); Eosinophils Percent Auto 3.2 % (0-4); Hematocrit 39.5 % (42.0-52.0); Hemoglobin 13.6 g/dl (14.0-18.0); Imm Gran Abs Auto 0.27 X10*3/uL (0.00-0.03); Imm Gran Pct Auto 3.7 % (0.0-0.4); Lymphocytes Absolute Auto 1.8 X10*3/uL (1.2-4.9); Lymphocytes Percent Auto 24.4 % (20-40); Mean Corpuscular HGB Conc 34.4 g/dl (31.0-36.0); Mean Corpuscular Hemoglobin 29.7 pg (27.0-33.0); Mean Corpuscular Volume 86.2 fL (80.0-98.0); Mean Platelet Volume 9.8 fL (9.4-12.4); Monocytes Absolute Auto 0.8 X10*3/uL (0.1-1.2); Monocytes Percent Auto 11.5 % (2-11); Neutrophils Absolute Auto 4.1 x10*3/uL (2.0-8.3); Neutrophils Percent Auto 56.2 % (45-73); Platelet Count 156 X10*3/uL (160-400); Red Blood Count 4.58 X10*6/uL (4.60-5.80); Red Cell Distribution Width 13.3 % (11.0-16.0); White Blood Count 7.2 X10*3/uL (4.8-10.8)
[2022-05-26 06:32] LABS: Anion Gap 15 (12-20); Blood Urea Nitrogen 15 mg/dL (9-16); Calcium 8.7 mg/dL (8.4-10.2); Carbon Dioxide 23 mmol/L (22-29); Chloride 102 mmol/L (96-108); Creatinine Clr Calc Pharmacy 80.5; Estimated Glomerular Filt Rate > 60; Glucose Random 203 mg/dL (60-115); Potassium 4.5 mmol/L (3.3-5.1); Sodium 135 mmol/L (135-145)
[2022-05-26 06:51] VITALS: BP 158/90; PULSE 75; RESP 18; TEMP 36.6; O2SAT 94
[2022-05-26 07:10] LABS: Glucose, Whole Blood 231 mg/dL (60-115)
[2022-05-26] MEDS: Insulin Lispro 100 UNIT/ML 3 ML VIAL SUBCUT ×4 (08:11→21:34)
[2022-05-26] MEDS: Pregabalin 200 MG CAPSULE PO ×3 (08:12→21:36)
[2022-05-26] MEDS: Propranolol HCL 40 MG TABLET PO ×2 (08:12→21:36)
[2022-05-26] MEDS: 0.9 % Sodium Chloride Flush 3 ML SYRINGE IVFLUSH (08:13)
[2022-05-26] MEDS: FLUoxetine HCl 20 MG CAPSULE 80 MG PO (08:13)
--- NOTE | 2022-05-26 09:12 | MHC.CLN ---
NUTRITION INCREASED DIETARY CALORIES TO DIABETIC 1800 KCALS TO BETTER MEET ESTIMATED ENERGY NEEDS.
--- NOTE | 2022-05-26 09:14 | PM.EVENT ---
Event Note Date of Service: 05/26/22 Event Note: Seen, admitted this morning, A/P per H and P from this morning. Time Spent With Patient Time: Total time managing care of this patient today ____ minutes.
[2022-05-26] MEDS: Clotrimazole 1 % Cream 15 GM TUBE 1 APPL TOPICAL ×2 (10:51→22:44)
[2022-05-26 11:22] LABS: Glucose, Whole Blood 221 mg/dL (60-115)
--- NOTE | 2022-05-26 11:25 | MHC.CM.PN ---
PT REPORTS HE LIVES WITH HIS AND IS ACTIVE WITH [facility] AND [facility] HI SINCE HIS RECENT DISCHARGE PT REPORTS HE USES A WHEEL CHAIR AND HAS PROSTHETIC LEGS PT SAYS HE HAS A HCP ALREADY HE IS COVID VAX X 4 PCP: SHEN WU IMM DELIVERED CURRENT DC PLAN IS HOME WITH RESUMPTION OF [facility] AND [facility] TO TRANSPORT
--- NOTE | 2022-05-26 12:05 | P.CDIM_ITS ---
PROVIDER RESPONSE TEXT: To clarify, the appropriate diagnosis supported by the clinical indicators: Cellulitis due to and/or associated with Diabetes Mellitus Type 2: . QUERY TEXT: PHYSICIAN'S DOCUMENTATION REQUEST Date of Query: 05/26/2022 11:36 AM EDT Patient Name: Luther Knox Admit Date: 05/26/2022 Dear Luis M Skinner, A review of the medical record indicates additional documentation may be needed. Please review below and update the documentation accordingly. Clinical Indicators: H&P 05/26 - Cellulitis in a patient with suspected underlying osteomyelitis - starting IV Antibiotics Diabetes mellitus Type 2, initiating Accu-checks w sliding scale insulin S/P BKA Please clarify the following regarding the Cellulitis and Diabetes Mellitus (DM): Cellulitis due to and/or associated with Diabetes Mellitus Type 2 Cellulitis is not due to and/or related to the Diabetes Mellitus Type 2 Other or unable to determine Other (explain) Clinically unable to determine (explain) Thank you, Wendie Hazel, CCS, CDIS Use of terms such as suspected, likely, concern for, or probable (associated with a specific diagnosi s that is being evaluated, monitored, or treated as if it exists) are acceptable and can be coded in the inpatient se tting, when documented at the time of discharge. Please use your independent medical judgment in providing your response. THIS QUERY IS PART OF THE PERMANENT MEDICAL RECORD
[2022-05-26 12:35] LABS: Vancomycin Random 13.5 mcg/mL (15-20)
--- NOTE | 2022-05-26 12:50 | PHA.PROG ---
Admission Date/Time: May 26, 2022 01:28 Indication: Skin + Skin structure Weight in k.883 kg Adjusted body weight in K.453 [place] body weight in K.856 Obesity Dosing Indication % IBW: OBESE Serum Creatinine - Last 168 Hours 05/25/22 05/26/22 21:45 05:49 Creatinine 1.30 1.16 Estimated CrCl and GFR - Last 168 Hours 05/25/22 05/26/22 21:45 05:49 Estim Creat Clear Calc 71.8 80.5 Estimated GFR 58 > 60 Vancomycin Loading Dose: 2000 mg Current Vancomycin Dosing Regimen: 1000 mg Q12H Vancomycin Monitoring using AUC goal of 400 - 600 range with trough as surrogate marker: 499 mg/L/hr Date and Time for next Vancomycin Level to be drawn: 05/27 @1300 Pharmacist Comments on Vancomycin Plan: Patient was just here on vancomycin, and then was discharged on vancomycin. Took a random level before initiating maintenance doses. His level was 13.5. Will continue with his dose that he was doing outpatient, 1000 mg Q12H. Will get a level after 2 doses to see where patients level lies. Vancomycin dosing will take advantage of [employer] as a clinical decision support tool that uses Bayesian modeling to calculate individual patient's pharmacokinetic parameters and forecast the patient's drug concentration time course with the target goal AUC 24 range of 400 - 600 mg/L/hr.
[2022-05-26 16:00] VITALS: BP 176/99; PULSE 71; RESP 20; TEMP 37.2; O2SAT 96
[2022-05-26 16:03] LABS: Glucose, Whole Blood 217 mg/dL (60-115)
[2022-05-26] MEDS: oxyCODONE HCl Immed Release 5 MG TABLET PO (16:03)
--- NOTE | 2022-05-26 16:21 | P.CNID_ITS ---
History of Present Illness Data of Consult Service Date: 05/26/22 Requesting physician: Luis M Dennison Primary Care Provider: Chapincito Sprague MD HPI Reason for consult: redness right leg He presents with redness right stump area. He has been on IV Vancomycin and I saw him 05/16 and he was supposed to take IV Vancomycin for six weeks. He had low and then high Vancomycin levels and dose was adjusted and then held. He has been using prosthetics He notices red stump but no drainage. Review of Systems Review of Systems: Yes all other systems are reviewed and are negative [facility] Past Medical History Medical History Anxiety Bilateral cataracts Cognitive and neurobehavioral dysfunction COVID-19 vaccine series completed Depression Diabetes mellitus History of traumatic brain injury History of trigger finger HLD (hyperlipidemia) HTN (hypertension) Hx of leg amputation Hx of staphylococcal infection Insulin dependent diabetes mellitus Morbid obesity Neuropathy Obesity PTSD (post-traumatic stress disorder) Sleep apnea Vitamin D deficiency Family History Family History Mother No problems noted. Father Alcohol abuse Family history: reviewed and not pertinent Surgical History Surgical History History of gastrectomy History of surgery on arm Hx of carpal tunnel repair Hx of cataract extraction Hx of hernia repair S/P BKA (below knee amputation) bilateral Status post below knee amputation of right lower extremity Status post below-knee amputation of left lower extremity Social History Social History Household Members: Significant Other Housing: Apartment Are you a primary health care coordinator to a significant other at home: No Do you presently have visiting nurse or other home services: Yes Alcohol intake: never Patient Tobacco Use Status: Former Tobacco user Quit Date: September 2020 Tobacco use type: Cigarette Years Smoked: 20-30 years e-Cigarette/Vaping Use: Never Used Second Hand Smoke Exposure: No service: No Current occupational status: disabled Cognitive needs: No Hearing needs: No Vision needs: Yes Meds Allergies Allergy/AdvReac Type Severity Reaction Status Date / Time Penicillins Allergy Severe Hives Verified 05/25/22 21:41 Sulfa (Sulfonamide Allergy Severe Anaphylaxis Verified 05/25/22 21:41 Antibiotics) levofloxacin [From Levaquin] Allergy Intermediate Rash Verified 05/25/22 21:41 metronidazole [From Flagyl] Allergy Intermediate Rash Verified 05/25/22 21:41 NSAIDS (Non-Steroidal AdvReac Severe Unknown Verified 05/25/22 21:41 Anti-Inflamma Active Medications: Current Medications Acetaminophen (Acetaminophen 325 Mg Tablet) 650 mg PO Q6H PRN PRN Reason: Pain, Mild (Pain Scale 1-3) Acetaminophen (Acetaminophen Supp 650 Mg Supp.Rect) 650 mg AR Q6H PRN PRN Reason: Pain, Mild (Pain Scale 1-3) Amitriptyline HCl (Amitriptyline Hcl 50 Mg Tablet) 50 mg PO BEDTIME [facility] Clotrimazole (Clotrimazole 1 % Cream 15 Gm Tube) 1 appl TOPICAL BID [facility]; Protocol Last Admin: 05/26/22 10:51 Dose: 1 appl Enoxaparin Sodium (Enoxaparin Sodium 40 Mg/0.4 Ml Syringe) 40 mg SUBCUT Q24H [facility] Last Admin: 05/26/22 05:48 Dose: 40 mg Fluoxetine HCl (Fluoxetine Hcl 20 Mg Capsule) 80 mg PO DAILY [facility] Last Admin: 05/26/22 08:13 Dose: 80 mg Glucose (Glucose Gel 15 Gm Gel..Gram.) 15 gm PO Q15M PRN; Protocol PRN Reason: per Hypoglycemia Standing Ord. Dextrose (D10) 250 mls @ 750 mls/hr IV Q15M PRN; Protocol PRN Reason: per Hypoglycemia Standing Ord. Vancomycin HCl 1,000 mg/ (Sodium Chloride) 270 mls @ 270 mls/hr IV Q12H [facility] Last Admin: 05/26/22 14:58 Dose: Not Given Insulin Human Lispro (Insulin Lispro 100 Unit/Ml 3 Ml Vial) 0 unit SUBCUT QIDACHS [facility]; Protocol Last Admin: 05/26/22 11:52 Dose: 4 unit Latanoprost (Latanoprost 0.005 % Ophth Ingrid 2.5 Ml Drops) 1 drop EYE-BOTH BEDTIM E [facility] Melatonin (Melatonin 3 Mg Tablet) 6 mg PO BEDTIME PRN PRN Reason: Insomnia Ondansetron HCl (Ondansetron Hcl 4 Mg/2 Ml Vial) 4 mg IVPUSH Q8H PRN PRN Reason: Nausea and Vomiting Oxycodone HCl (Oxycodone Hcl Immed Release 5 Mg Tablet) 5 mg PO Q6H PRN PRN Reason: Pain, Severe (Pain Scale 7-10) Last Admin: 05/26/22 16:03 Dose: 5 mg Pharmacy Consult (Consult Rx Vancomycin Dosing) 1 each MISCELLANE DAILY PRN PRN Reason: Consult order Pharmacy Consult (Consult Rx Perform Med Rec) 1 each MISCELLANE ONCE PRN PRN Reason: Consult order Prazosin HCl (Prazosin Hcl 5 Mg Capsule) 5 mg PO BEDTIME [facility]; Protocol Pregabalin (Pregabalin 200 Mg Capsule) 200 mg PO TID [facility] Last Admin: 05/26/22 14:46 Dose: 200 mg Propranolol HCl (Propranolol Hcl 40 Mg Tablet) 40 mg PO BID [facility]; Protocol Last Admin: 05/26/22 08:12 Dose: 40 mg Sodium Chloride (0.9 % Sodium Chloride Flush 3 Ml Syringe) [facility] Last Admin: 05/26/22 15:17 Dose: Not Given Zolpidem Tartrate (Zolpidem Tartrate 5 Mg Tablet) 5 mg PO BEDTIME PRN PRN Reason: Insomnia Home Medications Medication Instructions Recorded Confirmed Last Taken Type zolpidem 12.5 mg tablet,extended 12.5 mg PO BEDTIME PRN Insomnia 12/21/20 05/26/22 Unknown History release,multiphase prazosin 2 mg capsule 5 mg PO BEDTIME 04/04/21 05/26/22 Unknown History fluoxetine 40 mg capsule 80 mg PO DAILY 04/11/21 05/26/22 Unknown History omega 9-wyw-wos-fish oil 1,200 mg 1 cap PO DAILY 05/09/21 05/26/22 Unknown History (144 mg-216 mg) capsule (Fish Oil) latanoprost 0.005 % eye drops 1 drp ophthalmic (eye) BEDTIME 05/15/22 05/26/22 Unknown History propranolol 40 mg tablet 1 tab PO BID 05/15/22 05/26/22 Unknown History clotrimazole 1 % topical cream 1 appl topical BID 05/26/22 05/26/22 Unknown History Physical Exam Vital Signs: Vital Signs: Last Vital Signs Temp 98 F 05/26/22 06:51 Pulse 75 05/26/22 06:51 Resp 18 05/26/22 06:51 BP 158/90 H 05/26/22 06:51 Pulse Ox 94 05/26/22 06:51 O2 Del Method Room Air 05/26/22 06:51 BMI result Body Mass Index 36.2 Const: General: cooperative HEENT: Head: Yes normal to inspection Face and sinus: Yes normal facial exam Mouth: Normal oral and palatal mucosa present Teeth and gingiva: dentition normal Eyes: General: appearance normal, both eyes and all related structures Pupils: Equal, round and reactive pupils present Resp: Effort & Inspection: normal respiratory effort Cardio: Rate: regular rate Rhythm: regular rhythm GI: Palpation (GI): Soft to palpation and nontender : General: Yes no CVA tenderness Back/Spine/Pelvis: Back: no CVA tenderness Skin: General skin exam: no rashes or lesions noted Neuro: General: moves all extremities Cranial nerves: Yes Equal, round and reactive pupils present Extrem: Other: right stump redness but mostly eschar and abrasive areas Psych: Appearance: grossly normal Results Labs 05/26/22 05:49 05/26/22 05:49 Labs: Short CBC 05/25/22 05/26/22 Range/Units 21:45 05:49 WBC 8.7 7.2 (4.8-10.8) X10*3/uL Hgb 14.5 13.6 L (14.0-18.0) g/dl Hct 42.1 39.5 L (42.0-52.0) % Plt Count 175 156 L (160-400) X10*3/uL BMP 05/25/22 05/26/22 21:45 05:49 Sodium 135 135 Potassium 4.6 4.5 Chloride 100 102 Carbon Dioxide 27 23 BUN 13 15 Creatinine 1.30 1.16 Calcium 9.1 8.7 Liver Function 05/25/22 Range/Units 21:45 Total Bilirubin 0.4 (0.0-1.0) mg/dL AST 52 H (5-37) U/L ALT 76 H (0-40) U/L Alkaline Phosphatase 89 (39-117) U/L Albumin 3.8 (3.5-5.0) g/dL Assessment and Plan (1) Osteomyelitis of right femur: Status: Acute He has concern over ongoing infection but looks like abraded area mostly due to using prostheses walking around quite a bit He has had widely fluctuating Vancomycin levels and area doesnt look improved significantly. (2) Cellulitis: Status: Acute Plan Switch to IV Daptomycin complete six week course. Weekly CK and creatinine. Time Spent With Patient Time: Total time managing care of this patient today ____ minutes.
[2022-05-26 16:46] VITALS: BP 163/94; PULSE 74
[2022-05-26] MEDS: Acetaminophen 325 MG TABLET 650 MG PO (16:52)
--- NOTE | 2022-05-26 17:00 | HE.PHANOTE ---
Re vanco discontinuation: Dr. Navarro called to request discontinuation of vancomycin and change to daptomycin due to lack of effect from vanco. Dose recommended by was 6-10 mg/kg q24h. Dose calculated to be 800 mg and order entered.
[2022-05-26 20:02] VITALS: BP 143/63; PULSE 80; RESP 20; TEMP 36.6; O2SAT 94
[2022-05-26 21:06] LABS: Glucose, Whole Blood 196 mg/dL (60-115)
[2022-05-26] MEDS: DAPTOmycin 800 MG in 0.9 % Sodium Chloride 50 ML 100 MG IV (21:19)
[2022-05-26] MEDS: Amitriptyline HCl 50 MG TABLET PO (21:35)
[2022-05-26] MEDS: Prazosin HCL 5 MG CAPSULE PO (21:36)
[2022-05-26] MEDS: Latanoprost 0.005 % Ophth Sol 2.5 ML DROPS 1 DROP EYE-BOTH (22:44)
[2022-05-26] MEDS: Zolpidem Tartrate 5 MG TABLET PO (22:45)
[2022-05-27 00:53] VITALS: BP 152/95; PULSE 66; RESP 19; TEMP 36.4; O2SAT 93
[2022-05-27] MEDS: Enoxaparin Sodium 40 MG/0.4 ML SYRINGE SUBCUT (05:12)
[2022-05-27] MEDS: oxyCODONE HCl Immed Release 5 MG TABLET PO (05:12)
[2022-05-27 07:24] VITALS: BP 137/85; PULSE 66; RESP 16; TEMP 36.4; O2SAT 94
[2022-05-27 07:31] LABS: Glucose, Whole Blood 246 mg/dL (60-115)
[2022-05-27] MEDS: Insulin Lispro 100 UNIT/ML 3 ML VIAL SUBCUT ×2 (07:49→11:39)
--- NOTE | 2022-05-27 07:53 | HO.PM.IMPN ---
Subjective Subjective Date of Service: 05/27/22 Interval History: f/u on osteomylitis with fluctuating vanco level no new issues Physical Exam Vital Signs: Vital Signs: Last Vital Signs Temp 97.6 F 05/27/22 07:24 Pulse 66 05/27/22 07:24 Resp 16 05/27/22 07:24 BP 137/85 05/27/22 07:24 Pulse Ox 94 05/27/22 07:24 O2 Del Method Room Air 05/27/22 07:24 BMI result Body Mass Index 36.2 Const: Other: General: AO X 3, no acute distress Resp: CTA bilateral CVS: S1,S2,RRR GI: +BS, NT, no distention Skin: minimal erythema at right stump site, no drainage Neuro: motor grossly intact Psych: appropriate affect Objective Data Active Medications Acetaminophen (Acetaminophen 325 Mg Tablet) 650 mg PO Q6H PRN PRN Reason: Pain, Mild (Pain Scale 1-3) Last Admin: 05/26/22 16:52 Dose: 650 mg Documented By: KYLIE Acetaminophen (Acetaminophen Supp 650 Mg Supp.Rect) 650 mg NM Q6H PRN PRN Reason: Pain, Mild (Pain Scale 1-3) Amitriptyline HCl (Amitriptyline Hcl 50 Mg Tablet) 50 mg PO BEDTIME [facility] Last Admin: 05/26/22 21:35 Dose: 50 mg Documented By: MIKAELA Clotrimazole (Clotrimazole 1 % Cream 15 Gm Tube) 1 appl TOPICAL BID [facility]; Protocol Last Admin: 05/26/22 22:44 Dose: 1 appl Documented By: MIKAELA Enoxaparin Sodium (Enoxaparin Sodium 40 Mg/0.4 Ml Syringe) 40 mg SUBCUT Q24H [facility] Last Admin: 05/27/22 05:12 Dose: 40 mg Documented By: MIKAELA Fluoxetine HCl (Fluoxetine Hcl 20 Mg Capsule) 80 mg PO DAILY [facility] Last Admin: 05/26/22 08:13 Dose: 80 mg Documented By: ERNIE Glucose (Glucose Gel 15 Gm Gel..Gram.) 15 gm PO Q15M PRN; Protocol PRN Reason: per Hypoglycemia Standing Ord. Dextrose (D10) 250 mls @ 750 mls/hr IV Q15M PRN; Protocol PRN Reason: per Hypoglycemia Standing Ord. Daptomycin 800 mg/ Sodium (Chloride) 66 mls @ 100 mls/hr IV Q24H [facility] Last Infusion: 05/26/22 22:07 Dose: 0 mls/hr Documented By: MIKAELA Insulin Human Lispro (Insulin Lispro 100 Unit/Ml 3 Ml Vial) 0 unit SUBCUT QIDACHS [facility]; Protocol Last Admin: 05/27/22 07:49 Dose: 4 unit Documented By: RUI-SCOTJ Latanoprost (Latanoprost 0.005 % Ophth Ingrid 2.5 Ml Drops) 1 drop EYE-BOTH BEDTIME [facility] Last Admin: 05/26/22 22:44 Dose: 1 drop Documented By: MIKAELA Melatonin (Melatonin 3 Mg Tablet) 6 mg PO BEDTIME PRN PRN Reason: Insomnia Ondansetron HCl (Ondansetron Hcl 4 Mg/2 Ml Vial) 4 mg IVPUSH Q8H PRN PRN Reason: Nausea and Vomiting Oxycodone HCl (Oxycodone Hcl Immed Release 5 Mg Tablet) 5 mg PO Q6H PRN PRN Reason: Pain, Severe (Pain Scale 7-10) Last Admin: 05/27/22 05:12 Dose: 5 mg Documented By: MIKAELA Pharmacy Consult (Consult Rx Vancomycin Dosing) 1 each MISCELLANE DAILY PRN PRN Reason: Consult order Pharmacy Consult (Consult Rx Perform Med Rec) 1 each MISCELLANE ONCE PRN PRN Reason: Consult order Prazosin HCl (Prazosin Hcl 5 Mg Capsule) 5 mg PO BEDTIME [facility]; Protocol Last Admin: 05/26/22 21:36 Dose: 5 mg Documented By: MIKAELA Pregabalin (Pregabalin 200 Mg Capsule) 200 mg PO TID [facility] Last Admin: 05/26/22 21:36 Dose: 200 mg Documented By: MIKAELA Propranolol HCl (Propranolol Hcl 40 Mg Tablet) 40 mg PO BID [facility]; Protocol Last Admin: 05/26/22 21:36 Dose: 40 mg Documented By: MIKAELA Sodium Chloride (0.9 % Sodium Chloride Flush 3 Ml Syringe) 3 ml IVFLUSH QSHIFT [facility] Last Admin: 05/27/22 00:08 Dose: Not Given Documented By: MIKAELA Non-Admin Reason: pt has PICC line Zolpidem Tartrate (Zolpidem Tartrate 5 Mg Tablet) 5 mg PO BEDTIME PRN PRN Reason: Insomnia Last Admin: 05/26/22 22:45 Dose: 5 mg Documented By: MIKAELA Labs 05/26/22 05:49 05/26/22 05:49 Labs: Laboratory Results - last 24 hr 05/26/22 05/26/22 05/26/22 11:11 11:59 15:58 POC Glucose 221 H 217 H Random Vancomycin 13.5 L 05/26/22 05/27/22 21:02 07:26 POC Glucose 196 H 246 H Random Vancomycin Assessment and Plan (1) Osteomyelitis of right femur: Status: Acute Plan This is a 51-year-old male with pertinent history of type 2 diabetes mellitus, BKA, essential hypertension, mood disorder, mixed hyperlipidemia, obesity status post sleeve gastrectomy presents to the emergency department with complaints of right stump redness, warmth and drainage. #. Osteomylitis with ? cellulitis at right stump, admitted d/t fluctuating Vanco level. --ID advises Daptomycin for 6 weeks now #. Type 2 diabetes mellitus: Continue insulin, diabetic diet #. Mood disorder: Continue home mood stabilizers #. Morbid obesity: Status post gastric sleeve. Counseled regarding weight loss Med rec pending DVT prophylaxis: Lovenox 40 mg daily Full code Diabetic diet need for inpatient: osteomylitis requiring IV Case management to arrange for home infusion for Daptomycin Time Spent With Patient Time: Total time managing care of this patient today ____ minutes. Quality Stroke Does the patient have a stroke diagnosis?: No VTE Prior VTE?: No VTE Risk Level:: Medical - moderate - high VTE Device Contraindication: Treatment Not Indicated VTE Drug Contraindication: N/A - Med Ordered
[2022-05-27 08:53] VITALS: BP 133/74; PULSE 74
[2022-05-27] MEDS: FLUoxetine HCl 20 MG CAPSULE 80 MG PO (08:56)
[2022-05-27] MEDS: Pregabalin 200 MG CAPSULE PO ×2 (08:56→15:54)
[2022-05-27] MEDS: Propranolol HCL 40 MG TABLET PO (08:56)
[2022-05-27] MEDS: Clotrimazole 1 % Cream 15 GM TUBE 1 APPL TOPICAL (08:57)
[2022-05-27] MEDS: 0.9 % Sodium Chloride Flush 3 ML SYRINGE IVFLUSH ×2 (09:08→15:54)
[2022-05-27 11:18] LABS: Glucose, Whole Blood 239 mg/dL (60-115)
--- NOTE | 2022-05-27 11:51 | P.DS_ITS ---
DS: Providers Provider Date of Service: 05/27/22 Date of admission: 05/26/22 01:28 Primary care physician: Chapincito Sprague MD Consults: 05/26/22 01:30 Consult to Infectious Diseases Routine Consulting Provider: [facility] Infectious Disease Reason for consultation: osteomyelitis DS: Diagnosis Discharge Diagnosis (1) Osteomyelitis of right femur: Status: Acute DS: Summary Hospital Course Hospital Course: Chief Complaint: Extremity redness This is a 51-year-old male with pertinent history of type 2 diabetes mellitus, BKA, essential hypertension, mood disorder, mixed hyperlipidemia, obesity status post sleeve gastrectomy presents to the emergency department with complaints of right stump redness, warmth and drainage.? Patient was recently admitted and discharged on 05/19 with right lower extremity cellulitis with possible underlying osteomyelitis.? Was evaluated by ID and patient was discharged on 6 weeks of IV vancomycin.? Patient states that 2 days ago he was told to stop stop his vancomycin as his levels were too high.? He was supposed to resume his vancomycin today.? He observed that his stump was red, warm and with purulent drainage.? Patient denies fever, chills, chest discomfort, palpitations, shortness of breath, changes in urinary or bowel habits. hospital course: He was admitted due to fluctuating vanco level and concern of of cellulitis of right stump site. There was no cellulitis, the area appear abraded from prosthesis. He was evaluated by ID and is recommending Daptomycin for 6 weeks. A home infusion service has been arranged for this. Time Spent with Patient Time attestation: Total time managing care of this patient today ____ minutes. Discharge coordination time: Greater than 30 minutes Quality: Safe Use of Opioids Does Pt have an Active Cancer Diagnosis on the Problem List?: No Quality: Stroke Does the patient have a stroke diagnosis?: No Physical Exam Vital Signs: Vital Signs: Last Vital Signs Temp 97.6 F 05/27/22 07:24 Pulse 74 05/27/22 08:53 Resp 16 05/27/22 07:24 BP 133/74 05/27/22 08:53 Pulse Ox 94 05/27/22 07:24 O2 Del Method Room Air 05/27/22 07:24 BMI result Body Mass Index 36.2 DS: Data Data Completed and Pending Labs on day of discharge: Laboratory Results - last 24 hr 03/05/26/22 05/26/22 11:59 15:58 21:02 POC Glucose 217 H 196 H Random Vancomycin 13.5 L 05/27/22 05/27/22 07:26 11:16 POC Glucose 246 H 239 H Random Vancomycin Discharge Plan Discharge Anticipated Discharge Date/Time: 05/27/22 11:36 Patient Disposition: Home Health Service Discharge Diagnosis: osteomyelitis Referrals: Chapincito Sprague MD [Primary Care Provider] - 1 Week Discharge Medications: New daptomycin 500 mg recon soln 800 mg IV Q24H Qty: 40 0RF Rx Instructions: administer over 30 mins Continued insulin aspart U-100 [Novolog FlexPen U-100 Insulin] 100 unit/mL (3 mL) insulin pen 1 sliding scale dose subcut .COMPLEX Qty: 15 8RF Rx Instructions: 1 sliding scale dose subcutaneously 3-4 times daily before meals pregabalin 200 mg capsule 200 mg PO TID 30 Days Qty: 90 2RF (DME) Bilateral below the knee socket replacement See Rx Instructions .Route .MEDSUPPLY Qty: 1 6RF Rx Instructions: As directed varenicline [Chantix] 1 mg tablet 1 mg PO BID Qty: 56 3RF (DME) Dexcom G6 Sensor Device See Rx Instructions topical Q10D Qty: 3 8RF Rx Instructions: As directed (DME) Dexcom G6 Transmitter Device See Rx Instructions .Route Qty: 1 0RF Rx Instructions: As directed propranolol 40 mg tablet 1 tab PO BID latanoprost 0.005 % drops 1 drp ophthalmic (eye) BEDTIME clotrimazole 1 % cream 1 appl TOPICAL BID prazosin 2 mg capsule 5 mg PO BEDTIME amitriptyline 50 mg tablet 50 mg PO BEDTIME Qty: 90 3RF zolpidem 12.5 mg tablet,ext release multiphase 12.5 mg PO BEDTIME PRN (Reason: Insomnia) fluoxetine 40 mg capsule 80 mg PO DAILY omega 0-jak-ued-fish oil [Fish Oil] 1,200 (144-216) mg capsule 1 cap PO DAILY Discontinued vancomycin 1,000 mg recon soln 1 g IV Q12H Qty: 80 0RF Discharge Orders: Discharge Order (Routine); Ordered 05/27/22 Ordered By: Luis M nallely Diet: Advance to usual diet Activity on Discharge: As tolerated Stand Alone Forms: Patient Portal Discharge page Care Plan Goals: resolution of osteomylitis Health Concerns: resolution of osteomylitis Plan of Treatment: Take IV Daptomycin 800 mg daily for 40 doses ending July 06 Assessment: as above
--- NOTE | 2022-05-27 12:24 | MHC.CM.PN ---
Addendum entered by Minerva Snider 05/27/22 14:22: PT WILL RECEIVE HIS DOSE OF [place]AP[place] TODAY AT 1600 [place] [facility] [place] AFTER [facility] HAS CONFIRMED THEY WILL DELIVER AROUND 1700 HOURS [facility] HAS CONFIRMED THEY WILL SEE PT TOMORROW FOR [facility] DOSE Original Note: PT CLEARED TO DC TODAY MED CHANGED FROM VANCO TO DAPTO DICK SPOKE TO ERIN AT [facility] SHE INDICATED IF THEY HAD ALL ORDERS BY 1400 HOURS THEY WOULD BE ABLE TO DELIVER NEW MEDS/SUPPLIES TODAY ORDERS SENT, ERIN CALLED T/W BACK TO CONFIRM THEY WILL DELIVER TODAY [facility] NOTIFIED VIA [employer] AT 1209 HOURS PT WILL DC HOME TODAY WITH [facility]UMPTION OF [facility] AND [facility] SERVICES TO TRANSPORT
[2022-05-27 13:22] LABS: Vancomycin Trough 3.4 mcg/mL (10.0-20.0)
[2022-05-27] MEDS: DAPTOmycin 800 MG in 0.9 % Sodium Chloride 50 ML 132 MG IV (15:48)
== END 2022-05-27 17:09 | disposition home health service (06) | DRG 565 ==
LOC: HO.ED 05-26 01:26 → HO.EDOVER 05-26 01:36 → HO.S3 05-26 02:12
PROVIDERS: Admitting Provider Student in an Organized Health Care Education/Training Program; Emergency Provider Internal Medicine; PCP Internal Medicine; Visit Provider Internal Medicine
DX: T87.43 Infection of amputation stump, right lower extremity (principal); L03.115 Cellulitis of right lower limb; M86.9 Osteomyelitis, unspecified; Y79.2 Prosthetic and other implants, materials and accessory orthopedic devices associated with adverse incidents; Y83.5 Amputation of limb(s) as the cause of abnormal reaction of the patient, or of later complication, without mention of misadventure at the time of the procedure; E78.5 Hyperlipidemia, unspecified; I10 Essential (primary) hypertension; E11.628 Type 2 diabetes mellitus with other skin complications; E11.69 Type 2 diabetes mellitus with other specified complication; F43.10 Post-traumatic stress disorder, unspecified; E66.01 Morbid (severe) obesity due to excess calories; E11.40 Type 2 diabetes mellitus with diabetic neuropathy, unspecified; Z68.36 Body mass index [BMI] 36.0-36.9, adult; Z20.822 Contact with and (suspected) exposure to COVID-19; Z89.512 Acquired absence of left leg below knee; Z89.511 Acquired absence of right leg below knee; Z98.84 Bariatric surgery status; Z87.891 Personal history of nicotine dependence; Z79.4 Long term (current) use of insulin; Z79.899 Other long term (current) drug therapy
CPT/HCPCS: 36415; 80048; 80053; 80202; 82550; 82947; 85025; 85652; 86140; 87635; 99285; J0878; J1650; J2543; J3370

== ENCOUNTER 2022-05-29 13:17 | Outpatient (REF) | payer OTHER, SELFPAY ==
[2022-05-29 14:22] LABS: Basophils Absolute Auto 0.1 X10*3/uL (0.0-0.2); Basophils Percent Auto 0.7 % (0-2); Eosinophils Absolute Auto 0.2 X10*3/uL (0.0-0.4); Eosinophils Percent Auto 2.2 % (0-4); Hematocrit 43.2 % (42.0-52.0); Hemoglobin 14.8 g/dl (14.0-18.0); Imm Gran Abs Auto 0.09 X10*3/uL (0.00-0.03); Imm Gran Pct Auto 0.9 % (0.0-0.4); Lymphocytes Absolute Auto 2.5 X10*3/uL (1.2-4.9); Lymphocytes Percent Auto 26.4 % (20-40); MANUAL DIFF FLAG NO; Mean Corpuscular HGB Conc 34.3 g/dl (31.0-36.0); Mean Corpuscular Hemoglobin 30.4 pg (27.0-33.0); Mean Corpuscular Volume 88.7 fL (80.0-98.0); Monocytes Absolute Auto 0.5 X10*3/uL (0.1-1.2); Monocytes Percent Auto 5.5 % (2-11); Neutrophils Absolute Auto 6.2 x10*3/uL (2.0-8.3); Neutrophils Percent Auto 64.3 % (45-73); Platelet Count 192 X10*3/uL (160-400); Red Blood Count 4.87 X10*6/uL (4.60-5.80); Red Cell Distribution Width 13.4 % (11.0-16.0); White Blood Count 9.6 X10*3/uL (4.8-10.8)
[2022-05-29 14:27] LABS: Anion Gap 12 (12-20); Blood Urea Nitrogen 17 mg/dL (9-16); Calcium 9.1 mg/dL (8.4-10.2); Carbon Dioxide 25 mmol/L (22-29); Chloride 101 mmol/L (96-108); Estimated Glomerular Filt Rate > 60; Glucose Random 259 mg/dL (60-115); Potassium 4.7 mmol/L (3.3-5.1); Sodium 133 mmol/L (135-145)
== END 2022-05-29 13:18 | disposition home or self-care (01) ==
LOC: HO.HMGCLNP 13:17
PROVIDERS: PCP Internal Medicine; Visit Provider Internal Medicine
DX: M86.9 Osteomyelitis, unspecified (principal)
CPT/HCPCS: 80048; 82550; 85025

== ENCOUNTER 2022-06-05 12:57 | Outpatient (REF) | payer OTHER, SELFPAY ==
--- NOTE | ~2022-06-05 | XR_ITS ---
EXAMINATION: XR wrist RT w scaphoid CLINICAL INFORMATION: Reason for Exam M79.641 - Pain in right hand COMPARISON: 05/08/2022 TECHNIQUE: Four views of the right wrist XR/XR wrist RT w scaphoid FINDINGS/IMPRESSION: * There is an acute fracture of the distal scaphoid with 3 mm of displacement. Scapholunate interval is preserved. Radiocarpal joint space narrowing is noted.
== END 2022-06-05 12:58 | disposition home or self-care (01) ==
LOC: HO.HOSX 12:57
PROVIDERS: PCP Internal Medicine; Visit Provider Internal Medicine
DX: S62.001D Unspecified fracture of navicular [scaphoid] bone of right wrist, subsequent encounter for fracture with routine healing (principal); M86.9 Osteomyelitis, unspecified
CPT/HCPCS: 29085; 73110; 99212

== ENCOUNTER 2022-06-05 14:12 | Outpatient (REF) | payer OTHER, SELFPAY ==
[2022-06-05 16:28] LABS: MANUAL DIFF FLAG NO
[2022-06-05 16:40] LABS: Basophils Absolute Auto 0.1 X10*3/uL (0.0-0.2); Basophils Percent Auto 0.9 % (0-2); Eosinophils Absolute Auto 0.2 X10*3/uL (0.0-0.4); Eosinophils Percent Auto 3.4 % (0-4); Hematocrit 42.2 % (42.0-52.0); Hemoglobin 14.3 g/dl (14.0-18.0); Imm Gran Abs Auto 0.05 X10*3/uL (0.00-0.03); Imm Gran Pct Auto 0.7 % (0.0-0.4); Lymphocytes Absolute Auto 1.8 X10*3/uL (1.2-4.9); Lymphocytes Percent Auto 26.6 % (20-40); Mean Corpuscular HGB Conc 33.9 g/dl (31.0-36.0); Mean Corpuscular Hemoglobin 29.7 pg (27.0-33.0); Mean Corpuscular Volume 87.6 fL (80.0-98.0); Mean Platelet Volume 11.1 fL (9.4-12.4); Monocytes Absolute Auto 0.8 X10*3/uL (0.1-1.2); Monocytes Percent Auto 11.4 % (2-11); Neutrophils Absolute Auto 3.9 x10*3/uL (2.0-8.3); Platelet Count 167 X10*3/uL (160-400); Red Blood Count 4.82 X10*6/uL (4.60-5.80); Red Cell Distribution Width 13.2 % (11.0-16.0); White Blood Count 6.8 X10*3/uL (4.8-10.8)
[2022-06-05 17:40] LABS: Anion Gap 17 (12-20); Blood Urea Nitrogen 14 mg/dL (9-16); Calcium 8.7 mg/dL (8.4-10.2); Carbon Dioxide 24 mmol/L (22-29); Chloride 98 mmol/L (96-108); Estimated Glomerular Filt Rate > 60; Glucose Random 234 mg/dL (60-115); Potassium 4.7 mmol/L (3.3-5.1); Sodium 134 mmol/L (135-145)
== END 2022-06-05 14:13 | disposition home or self-care (01) ==
LOC: HO.HVNA 14:12
PROVIDERS: Visit Provider Internal Medicine
DX: M86.9 Osteomyelitis, unspecified (principal); Z79.899 Other long term (current) drug therapy
CPT/HCPCS: 80048; 82550; 85025

== ENCOUNTER 2022-06-12 09:01 | Outpatient (RCR) | payer OTHER, SELFPAY | END 2022-08-08 16:00 | disposition home or self-care (01) | LOC: HO.WCC 09:01 | PROVIDERS: PCP Internal Medicine; Visit Provider Physician Assistant | DX: S81.801A Unspecified open wound, right lower leg, initial encounter (principal); E11.69 Type 2 diabetes mellitus with other specified complication; M86.261 Subacute osteomyelitis, right tibia and fibula; T81.31XA Disruption of external operation (surgical) wound, not elsewhere classified, initial encounter; Z79.4 Long term (current) use of insulin; Z79.2 Long term (current) use of antibiotics; Z89.512 Acquired absence of left leg below knee; Z89.511 Acquired absence of right leg below knee; Z79.899 Other long term (current) drug therapy; Z91.81 History of falling | CPT/HCPCS: 11042; 99212 ==

== ENCOUNTER → 2022-06-14 13:55 | Outpatient (BNVA) | payer OTHER, SELFPAY | PROVIDERS: PCP Internal Medicine; Visit Provider Internal Medicine | DX: M86.9 Osteomyelitis, unspecified (principal); Z87.820 Personal history of traumatic brain injury; Z89.512 Acquired absence of left leg below knee; Z89.511 Acquired absence of right leg below knee | CPT/HCPCS: 99212 ==

== ENCOUNTER → 2022-06-28 10:25 | Outpatient (BNVA) | payer OTHER, SELFPAY | PROVIDERS: PCP Internal Medicine; Referring Provider Physician Assistant; Visit Provider Surgery | DX: M86.9 Osteomyelitis, unspecified (principal); E11.9 Type 2 diabetes mellitus without complications; Z79.4 Long term (current) use of insulin; Z89.512 Acquired absence of left leg below knee; Z89.511 Acquired absence of right leg below knee | CPT/HCPCS: 99212 ==

== ENCOUNTER 2022-07-05 12:49 | Outpatient (REF) | payer OTHER, SELFPAY ==
--- NOTE | ~2022-07-05 | XR_ITS ---
EXAMINATION: XR WRIST, RIGHT CLINICAL INFORMATION: Pain. COMPARISON: None available. TECHNIQUE: PA, lateral, and oblique views of the right wrist. FINDINGS: Bony alignment and mineralization are normal. There is stable alignment of a mildly displaced fracture fragment of the lateral distal margin of the scaphoid. No new callus formation is noted. The proximal and distal carpal rows are otherwise intact. No dislocation is seen. There is no abnormal bone erosion. No focal soft tissue swelling, gas or foreign body is seen. There are atherosclerotic calcifications. XR/XR wrist RT w scaphoid IMPRESSION: There is stable alignment of a distal scaphoid fracture fragment. No significant new callus formation is noted.
== END 2022-07-05 12:50 | disposition home or self-care (01) ==
LOC: HO.HOSX 12:49
PROVIDERS: Visit Provider Physician Assistant
DX: S62.001D Unspecified fracture of navicular [scaphoid] bone of right wrist, subsequent encounter for fracture with routine healing (principal); X58.XXXD Exposure to other specified factors, subsequent encounter
CPT/HCPCS: 73110; 99212

== ENCOUNTER 2022-07-10 14:20 | Inpatient (IN) | payer OTHER, SELFPAY ==
--- NOTE | ~2022-07-10 | MR_ITS ---
EXAMINATION: MRI EXTREMITY WITH AND WITHOUT CONTRAST, RIGHT LOWER INDICATION: Question osteomyelitis. COMPARISON: CT dated 07/10/2022 TECHNIQUE: Multidetector volumetric imaging was obtained through the right tibia and fibula on a 1.5 Radha magnet before and after intravenous administration of 10 mL Gadavist. FINDINGS: There is mild cortical thickening along the distal margin of the tibial diaphysis at the site of amputation, likely reactive in nature. Minimal, wispy edema signal and enhancement is noted at the distal margin of the trabecular bone in this region, also favored to be reactive in nature as opposed to an indicator of superimposed osteomyelitis. The adjacent soft tissues are low in signal intensity on T1 and T2-weighted images with a thin adventitious bursa noted anteriorly. There is minimal edema signal and enhancement in the region of this bursa. No fluid collections are identified indicating an abscess. No discrete wound is identified at the stump on these images. No susceptibility artifact. [id number] fatty atrophy is evident within the calf musculature with mild associated ill-defined increased T2 signal, likely related to the muscle atrophy. No findings of acute myositis. Mild edema signal is evident within the adjacent fascial planes without abnormal fascial enhancement to indicate fasciitis. No fascial fluid collections. No acute abnormalities are identified at the imaged portion of the knee joint. No appreciable effusion or synovitis on these images. MR/MR lower leg RT wo/w con IMPRESSION: Minimal edema signal and enhancement at the distal margin of the tibial diaphysis at the site of amputation is favored to be reactive to normal remodeling as opposed to an indicator of superimposed osteomyelitis. No abscess.
--- NOTE | ~2022-07-10 | CT_ITS ---
EXAMINATION: CT FEMUR WITHOUT CONTRAST, RIGHT CLINICAL INFORMATION: Low suspicion osteomyelitis of the stump. COMPARISON: None available. TECHNIQUE: CT 05/15/[address] examination was performed using dose optimization techniques as appropriate, variously including the following: *Automated exposure control *Adjustment of mA and/or kV according to patient size (this includes techniques or standardized protocols for targeted exams where dose is matched to indication/reason for exam; i.e. extremities or head) *Use of iterative reconstruction technique DLP: 629 mGy-cm FINDINGS: Status post [id number] amputation. Redemonstrated is periosteal reaction along the amputation margin. Mild irregularity of the bone of the amputation site. Question subtle progression of the bony irregularity in portion of the amputation margin, raising concern for erosive changes. Edema in the soft tissues in the distal stump, overlying the amputation. No loculated collections identified. There is edema otherwise in the residual tibial stump, slightly improved from previous. Anatomic alignment of the knee joint. No acute fractures seen about the knee joint. No significant knee joint effusion. The femur is intact. No acute osseous abnormality seen. Anatomic right hip alignment. No significant hip joint effusion seen. The visualized musculature appears unremarkable. Extensive vascular calcification. No groin lymphadenopathy. CT/CT femur RT wo IV con IMPRESSION: Status post below knee amputation. There is periosteal reaction at the amputation site. Bony irregularity of the amputation margin, appears slightly more prominent as compared to previous, raises concern for erosive changes. Findings raise concern for possible osteomyelitis. Further evaluation with MRI as clinically warranted. There is soft tissue edema in the stump. No loculated fluid collections. Additional findings and details as above.
[2022-07-10 15:13] VITALS: BP 145/86; PULSE 68; RESP 16; TEMP 36.8; O2SAT 95; BMI 42.6
--- NOTE | 2022-07-10 15:18 | ED.SKABFB ---
HPI - Skin/Abscess/Foreign Bdy General Chief complaint: Extremity Problem <Orin Matthews NP - Last Filed: 07/10/22 15:19> Stated complaint: Infected wound <Orin Matthews NP - Last Filed: 07/10/22 15:19> Time Seen by Provider: 07/10/22 16:03 <Orin Matthews NP - Last Filed: 07/10/22 15:19> Source: patient <Joana Chen MD - Last Filed: 07/10/22 18:10> Mode of arrival: ambulatory <Joana Chen MD - Last Filed: 07/10/22 18:10> Limitations: no limitations <Joana Chen MD - Last Filed: 07/10/22 18:10> History of Present Illness HPI narrative: Patient comes to the emergency room complaining of an infection in the right stump. Patient states that he had a BKA done in 2018. Patient has been going to the wound clinic complaining of a possibly infected stump. Patient states that he is on 2 antibiotics; since June 30 he has been taking clindamycin for a dental infection and since July 05 he has been on cephalexin which was prescribed by Dr. Fuentes [facility]. Patient states that he thinks the redness is spreading up to his thigh. Patient denies fever or chills. Patient denies any pain, states he has significant neuropathy and has no sensation at the stump. <Joana Chen MD - Last Filed: 07/10/22 18:10> Related Data Home medications: Home Medications Medication Instructions Recorded Confirmed zolpidem 12.5 mg tablet,extended 12.5 mg PO BEDTIME PRN Insomnia 12/21/20 06/28/22 release,multiphase prazosin 2 mg capsule 5 mg PO BEDTIME 04/04/21 06/28/22 fluoxetine 40 mg capsule 80 mg PO DAILY 04/11/21 06/28/22 omega 2-iqi-qsd-fish oil 1,200 mg 1 cap PO DAILY 05/09/21 06/28/22 (144 mg-216 mg) capsule (Fish Oil) latanoprost 0.005 % eye drops 1 drp ophthalmic (eye) BEDTIME 05/15/22 06/28/22 propranolol 40 mg tablet 1 tab PO BID 05/15/22 06/28/22 clotrimazole 1 % topical cream 1 appl topical BID 05/26/22 06/28/22 omega 1-wjf-adh-fish oil 300 1 cap PO DAILY 06/05/22 06/28/22 mg-1,000 mg capsule (Fish Oil) pregabalin 200 mg capsule (Lyrica) 200 mg PO DAILY 06/05/22 06/28/22 Previous Rx's Medication Instructions Recorded insulin aspart U-100 100 unit/mL 1 sliding scale dose subcut 11/16/21 (3 mL) subcutaneous pen (Novolog .COMPLEX #15 mL FlexPen U-100 Insulin aspart) Bilateral below the knee socket #1 ea 02/24/22 replacement amitriptyline 50 mg tablet 50 mg PO BEDTIME #90 tabs 04/14/22 blood-glucose sensor (Dexcom G6 #3 ea 05/18/22 Sensor device) blood-glucose transmitter (Dexcom #1 ea 05/20/22 G6 Transmitter device) daptomycin 500 mg intravenous 800 mg IV Q24H #40 ea 05/27/22 solution pregabalin 200 mg capsule 200 mg PO TID 30 days #90 caps 05/29/22 varenicline 1 mg tablet (Chantix) 1 mg PO BID #56 tabs 07/05/22 <Orin Matthews NP - Last Filed: 07/10/22 15:19> Allergies/Adverse reactions: Allergies Allergy/AdvReac Type Severity Reaction Status Date / Time Penicillins Allergy Severe Hives Verified 07/10/22 15:21 Sulfa (Sulfonamide Allergy Severe Anaphylaxis Verified 07/10/22 15:21 Antibiotics) levofloxacin [From Levaquin] Allergy Intermediate Rash Verified 07/10/22 15:21 metronidazole [From Flagyl] Allergy Intermediate Rash Verified 07/10/22 15:21 NSAIDS (Non-Steroidal AdvReac Severe Unknown Verified 07/10/22 15:21 Anti-Inflamma <Orin Matthews NP - Last Filed: 07/10/22 15:19> Review of Systems Review of Systems: Constitutional : No Weight loss, No Fever, No Chills, No Night Sweats, No Fatigue, No Malaise ENT/Mouth : No Hearing loss, No Ear Pain, No Nasal Congestion, No Sinus Pain, No Hoarseness, No sore throat, No Rhinorrhea, No Swallowing Difficulty Eyes: No Eye Pain, No Swelling, No Redness, No Foreign Body, No Discharge, No Vision Changes Cardiovascular : No Chest Pain, No SOB, No Dyspnea on Exertion, No Orthopnea, No Edema, No Palpitations Respiratory : No Cough, No Sputum, No Wheezing, No Smoke Exposure, No Dyspnea Gastrointestinal : No Nausea, No Vomiting, No Diarrhea, No Constipation, No abdominal Pain, No Hematochezia, No Melena Genitourinary : no irregular bleeding, No Dysuria, No Urinary Frequency, No Hematuria, No Urinary Incontinence, No Urgency, No Flank Pain, No Urinary Flow Changes, No Hesitancy Musculoskeletal : No joint pain, No Myalgias, No Joint Swelling Skin : Complaining of an infected stump and the right leg Neuro : No Weakness, No Numbness, No Paresthesias, No Loss of Consciousness, No Dizziness, No Headache Psych : No Anxiety/Panic, No Depression, No SI/HI/AH/VH, No Social Issues, Heme/Lymph: No Bruising, No Bleeding,No Lymphadenopathy Endocrine : No Polyuria, No Polydipsia, No Temperature Intolerance <Joana Chen MD - Last Filed: 07/10/22 18:10> PMFSH Past Medical History Medical History: Medical History Anxiety Bilateral cataracts Cognitive and neurobehavioral dysfunction COVID-19 vaccine series completed Depression Diabetes mellitus History of traumatic brain injury History of trigger finger HLD (hyperlipidemia) HTN (hypertension) Hx of leg amputation Hx of staphylococcal infection Insulin dependent diabetes mellitus Morbid obesity Neuropathy Obesity PTSD (post-traumatic stress disorder) Sleep apnea Vitamin D deficiency <Orin Matthews NP - Last Filed: 07/10/22 15:19> Surgical History: Surgical History History of gastrectomy History of surgery on arm Hx of carpal tunnel repair Hx of cataract extraction Hx of hernia repair S/P BKA (below knee amputation) bilateral Status post below knee amputation of right lower extremity Status post below-knee amputation of left lower extremity <Orin Matthews NP - Last Filed: 07/10/22 15:19> Family History Family History: Family History Mother No problems noted. Father Alcohol abuse <Orin Matthews NP - Last Filed: 07/10/22 15:19> Social History Social History: Social History Household Members: Significant Other Housing: Apartment Are you a primary residential care officer to a significant other at home: No Do you presently have visiting nurse or other home services: Yes Alcohol intake: current Alcohol intake frequency: holidays/special occasions only Patient Tobacco Use Status: Former Tobacco user Quit Date: September 2020 Tobacco use type: Cigarette Years Smoked: 20-30 years Smoked in Last 30 Days: No e-Cigarette/Vaping Use: Never Used Second Hand Smoke Exposure: No Use of substances other than those prescribed or required for medical reasons: No Advance Directives: No Advance Directives Information Provided: No service: No Current occupational status: disabled Cognitive needs: No Hearing needs: No Vision needs: Yes <Orin Matthews NP - Last Filed: 07/10/22 15:19> Physical Exam Vital Signs: Vital Signs: Last Vital Signs Temp 99.1 F 07/10/22 16:45 Pulse 66 07/10/22 16:45 Resp 18 07/10/22 16:45 BP 151/89 H 07/10/22 16:45 Pulse Ox 94 07/10/22 16:45 O2 Del Method Room Air 07/10/22 16:45 BMI result Body Mass Index 42.6 <Orin Matthews NP - Last Filed: 07/10/22 15:19> Vital Signs: Last Vital Signs Temp 99.1 F 07/10/22 16:45 Pulse 66 07/10/22 16:45 Resp 18 07/10/22 16:45 BP 151/89 H 07/10/22 16:45 Pulse Ox 94 07/10/22 16:45 O2 Del Method Room Air 07/10/22 16:45 BMI result Body Mass Index 42.6 <Joana Chen MD - Last Filed: 07/10/22 18:10> Const: Other: Appearance: Alert. Oriented X3. No acute distress. Eyes: Pupils equal, round and reactive to light. ENT: Pharynx normal. Neck: Normal inspection. Neck supple. No lymph nodes noted. No crepitus CVS: Normal heart rate and rhythm. Pulses normal. Normal S1 and S2 Respiratory: No respiratory distress. Breath sounds normal. No Wheezing. No rales Abdomen: Soft and nontender. No rigidity. No distention. Skin: Skin warm and dry. Normal skin color. Normal skin turgor. Extremities: Bilateral BKA, left BKA within normal limits, right BKA there is serosanguineous drainage present, there is very mild erythema. Patient states that his leg skin color is usually white Neuro: Oriented X 3. No motor deficit. No sensory deficit. Moving all extremities. No slurred speech. CN 2 through 12 grossly intact Psych: calm, cooperative, normal affect <Joana Chen MD - Last Filed: 07/10/22 18:10> Course Course Course Narrative: This is a rapid medical exam. Defer additional HPI, ROS, PE from prior provider. This is a 51-year-old male with a right BKA with a history of osteomyelitis on the same side presents to the ER with increasing redness, swelling to the right stump. Patient reports that when putting on a prosthetic he slipped causing an abrasion to the distal aspect of the stump. Denies any fevers but has had some chills. Patient is on oral clindamycin. Will check labs including blood cultures and lactic acid. Vitals are stable <Orin Matthews NP - Last Filed: 07/10/22 15:19> Medical Decision Making Medical Decision Making MDM Narrative: -white blood cell count and lactic acid within normal limits -ESR 25 -CRP 1.78 -CT scan of the right BKA is concerning for possible recurring osteomyelitis, MRI needed. -patient was started on antibiotics, vancomycin and Zosyn. Patient will likely need an Infectious Disease consult. Last time that he was here, patient was on daptomycin -I discussed the patient with Dr. Skinner, patient being admitted <Joana Chen MD - Last Filed: 07/10/22 18:10> Differential Diagnosis Differential Diagnoses: The differential diagnosis associated with the presentation includes (Cellulitis, osteomyelitis) <Joana Chen MD - Last Filed: 07/10/22 18:10> Admission/Observation Consideration of admission/observation: Escalation of care including admission/observation considered <Joana Chen MD - Last Filed: 07/10/22 18:10> Consult Healthcare Provider Management of the patient was discussed with: Hospitalist <Joana Chen MD - Last Filed: 07/10/22 18:10> Lab Data MDM Lab Attestation statement: I reviewed the patient's lab results. <Joana Chen MD - Last Filed: 07/10/22 18:10> Result Diagrams: 07/10/22 15:41 07/10/22 15:41 <Orin Matthews NP - Last Filed: 07/10/22 15:19> Labs: Lab Results 07/10/22 07/10/22 07/10/22 Range/Units 15:41 15:41 15:41 WBC 8.7 (4.8-10.8) X10*3/uL RBC 4.94 (4.60-5.80) X10*6/uL Hgb 14.7 (14.0-18.0) g/dl Hct 41.9 L (42.0-52.0) % MCV 84.8 (80.0-98.0) fL MCH 29.8 (27.0-33.0) pg MCHC 35.1 (31.0-36.0) g/dl RDW 13.4 (11.0-16.0) % Plt Count 164 (160-400) X10*3/uL MPV 9.8 (9.4-12.4) fL Immature Gran % (Auto) 0.7 H (0.0-0.4) % Neut % (Auto) 55.0 (45-73) % Lymph % (Auto) 28.7 (20-40) % [place] % (Auto) 11.8 H (2-11) % Eos % (Auto) 3.1 (0-4) % Baso % (Auto) 0.7 (0-2) % Lymph # (Auto) 2.5 (1.2-4.9) X10*3/uL [place] # (Auto) 1.0 (0.1-1.2) X10*3/uL Eos # (Auto) 0.3 (0.0-0.4) X10*3/uL Baso # (Auto) 0.1 (0.0-0.2) X10*3/uL Abs Immat Gran (auto) 0.06 H (0.00-0.03) X10*3/uL Absolute Neuts (auto) 4.8 (2.0-8.3) x10*3/uL Absolute Nucleated RBC 0.000 (0.0-0.012) X10*3/uL Nucleated RBC % (auto) 0.0 (0.0-0.2) /100WBC ESR 25 H (0-15) MM/HR Sodium 134 L (135-145) mmol/L Potassium 4.4 (3.3-5.1) mmol/L Chloride 99 (96-108) mmol/L Carbon Dioxide 26 (22-29) mmol/L Anion Gap 13 (12-20) BUN 15 (9-16) mg/dL Creatinine 1.06 (0.5-1.4) mg/dL Estim Creat Clear Calc 80.1 Estimated GFR > 60 Random Glucose 104 (60-115) mg/dL Lactic Acid (0.5-2.0) mmol/L Calcium 9.4 D (8.4-10.2) mg/dL Total Bilirubin 0.5 (0.0-1.0) mg/dL Direct Bilirubin 0.1 (0.0-0.5) mg/dL AST 93 H (5-37) U/L ALT 81 H (0-40) U/L Alkaline Phosphatase 104 (39-117) U/L C-Reactive Protein 1.78 H (< or = 0.50) mg/dL Total Protein 7.4 (6.5-8.0) g/dL Albumin 3.9 (3.5-5.0) g/dL 07/10/22 Range/Units 15:41 WBC (4.8-10.8) X10*3/uL RBC (4.60-5.80) X10*6/uL Hgb (14.0-18.0) g/dl Hct (42.0-52.0) % MCV (80.0-98.0) fL MCH (27.0-33.0) pg MCHC (31.0-36.0) g/dl RDW (11.0-16.0) % Plt Count (160-400) X10*3/uL MPV (9.4-12.4) fL Immature Gran % (Auto) (0.0-0.4) % Neut % (Auto) (45-73) % Lymph % (Auto) (20-40) % [place] % (Auto) (2-11) % Eos % (Auto) (0-4) % Baso % (Auto) (0-2) % Lymph # (Auto) (1.2-4.9) X10*3/uL [place] # (Auto) (0.1-1.2) X10*3/uL Eos # (Auto) (0.0-0.4) X10*3/uL Baso # (Auto) (0.0-0.2) X10*3/uL Abs Immat Gran (auto) (0.00-0.03) X10*3/uL Absolute Neuts (auto) (2.0-8.3) x10*3/uL Absolute Nucleated RBC (0.0-0.012) X10*3/uL Nucleated RBC % (auto) (0.0-0.2) /100WBC ESR (0-15) MM/HR Sodium (135-145) mmol/L Potassium (3.3-5.1) mmol/L Chloride (96-108) mmol/L Carbon Dioxide (22-29) mmol/L Anion Gap (12-20) BUN (9-16) mg/dL Creatinine (0.5-1.4) mg/dL Estim Creat Clear Calc Estimated GFR Random Glucose (60-115) mg/dL Lactic Acid 1.6 (0.5-2.0) mmol/L Calcium (8.4-10.2) mg/dL Total Bilirubin (0.0-1.0) mg/dL Direct Bilirubin (0.0-0.5) mg/dL AST (5-37) U/L ALT (0-40) U/L Alkaline Phosphatase (39-117) U/L C-Reactive Protein (< or = 0.50) mg/dL Total Protein (6.5-8.0) g/dL Albumin (3.5-5.0) g/dL <Orin Matthews, CUSTOMER ASSISTANCE REPRESENTATIVE - Last Filed: 07/10/22 15:19> Lab Results 07/10/22 07/10/22 07/10/22 Range/Units 15:41 15:41 15:41 WBC 8.7 (4.8-10.8) X10*3/uL RBC 4.94 (4.60-5.80) X10*6/uL Hgb 14.7 (14.0-18.0) g/dl Hct 41.9 L (42.0-52.0) % MCV 84.8 (80.0-98.0) fL MCH 29.8 (27.0-33.0) pg MCHC 35.1 (31.0-36.0) g/dl RDW 13.4 (11.0-16.0) % Plt Count 164 (160-400) X10*3/uL MPV 9.8 (9.4-12.4) fL Immature Gran % (Auto) 0.7 H (0.0-0.4) % Neut % (Auto) 55.0 (45-73) % Lymph % (Auto) 28.7 (20-40) % [place] % (Auto) 11.8 H (2-11) % Eos % (Auto) 3.1 (0-4) % Baso % (Auto) 0.7 (0-2) % Lymph # (Auto) 2.5 (1.2-4.9) X10*3/uL [place] # (Auto) 1.0 (0.1-1.2) X10*3/uL Eos # (Auto) 0.3 (0.0-0.4) X10*3/uL Baso # (Auto) 0.1 (0.0-0.2) X10*3/uL Abs Immat Gran (auto) 0.06 H (0.00-0.03) X10*3/uL Absolute Neuts (auto) 4.8 (2.0-8.3) x10*3/uL Absolute Nucleated RBC 0.000 (0.0-0.012) X10*3/uL Nucleated RBC % (auto) 0.0 (0.0-0.2) /100WBC ESR 25 H (0-15) MM/HR Sodium 134 L (135-145) mmol/L Potassium 4.4 (3.3-5.1) mmol/L Chloride 99 (96-108) mmol/L Carbon Dioxide 26 (22-29) mmol/L Anion Gap 13 (12-20) BUN 15 (9-16) mg/dL Creatinine 1.06 (0.5-1.4) mg/dL Estim Creat Clear Calc 80.1 Estimated GFR > 60 Random Glucose 104 (60-115) mg/dL Lactic Acid (0.5-2.0) mmol/L Calcium 9.4 D (8.4-10.2) mg/dL Total Bilirubin 0.5 (0.0-1.0) mg/dL Direct Bilirubin 0.1 (0.0-0.5) mg/dL AST 93 H (5-37) U/L ALT 81 H (0-40) U/L Alkaline Phosphatase 104 (39-117) U/L C-Reactive Protein 1.78 H (< or = 0.50) mg/dL Total Protein 7.4 (6.5-8.0) g/dL Albumin 3.9 (3.5-5.0) g/dL 07/10/22 Range/Units 15:41 WBC (4.8-10.8) X10*3/uL RBC (4.60-5.80) X10*6/uL Hgb (14.0-18.0) g/dl Hct (42.0-52.0) % MCV (80.0-98.0) fL MCH (27.0-33.0) pg MCHC (31.0-36.0) g/dl RDW (11.0-16.0) % Plt Count (160-400) X10*3/uL MPV (9.4-12.4) fL Immature Gran % (Auto) (0.0-0.4) % Neut % (Auto) (45-73) % Lymph % (Auto) (20-40) % [place] % (Auto) (2-11) % Eos % (Auto) (0-4) % Baso % (Auto) (0-2) % Lymph # (Auto) (1.2-4.9) X10*3/uL [place] # (Auto) (0.1-1.2) X10*3/uL Eos # (Auto) (0.0-0.4) X10*3/uL Baso # (Auto) (0.0-0.2) X10*3/uL Abs Immat Gran (auto) (0.00-0.03) X10*3/uL Absolute Neuts (auto) (2.0-8.3) x10*3/uL Absolute Nucleated RBC (0.0-0.012) X10*3/uL Nucleated RBC % (auto) (0.0-0.2) /100WBC ESR (0-15) MM/HR Sodium (135-145) mmol/L Potassium (3.3-5.1) mmol/L Chloride (96-108) mmol/L Carbon Dioxide (22-29) mmol/L Anion Gap (12-20) BUN (9-16) mg/dL Creatinine (0.5-1.4) mg/dL Estim Creat Clear Calc Estimated GFR Random Glucose (60-115) mg/dL Lactic Acid 1.6 (0.5-2.0) mmol/L Calcium (8.4-10.2) mg/dL Total Bilirubin (0.0-1.0) mg/dL Direct Bilirubin (0.0-0.5) mg/dL AST (5-37) U/L ALT (0-40) U/L Alkaline Phosphatase (39-117) U/L C-Reactive Protein (< or = 0.50) mg/dL Total Protein (6.5-8.0) g/dL Albumin (3.5-5.0) g/dL <Joana Chen MD - Last Filed: 07/10/22 18:10> Radiology Impression Discussion of test interpretation with radiology: I have reviewed the radiologist's reading. <Joana Chen MD - Last Filed: 07/10/22 18:10> Radiologist Impression: FINDINGS: Status post [id number] amputation. Redemonstrated is periosteal reaction along the amputation margin. Mild irregularity of the bone of the amputation site. Question subtle progression of the bony irregularity in portion of the amputation margin, raising concern for erosive changes. Edema in the soft tissues in the distal stump, overlying the amputation. No loculated collections identified. There is edema otherwise in the residual tibial stump, slightly improved from previous. Anatomic alignment of the knee joint. No acute fractures seen about the knee joint. No significant knee joint effusion. The femur is intact. No acute osseous abnormality seen. Anatomic right hip alignment. No significant hip joint effusion seen. The visualized musculature appears unremarkable. Extensive vascular calcification. No groin lymphadenopathy.? CT/CT femur RT wo IV con IMPRESSION: Status post below knee amputation. There is periosteal reaction at the amputation site. Bony irregularity of the amputation margin, appears slightly more prominent as compared to previous, raises concern for erosive changes. Findings raise concern for possible osteomyelitis. Further evaluation with MRI as clinically warranted. ? There is soft tissue edema in the stump. No loculated fluid collections. ? Additional findings and details as above. <Joana Chen MD - Last Filed: 07/10/22 18:10> Critical Care Time Critical Care Time Critical Care Time: Yes <Joana Chen MD - Last Filed: 07/10/22 18:10> Total Critical Care Time: 45 <Joana Chen MD - Last Filed: 07/10/22 18:10> Attestation: I have personally provided critical care time. Time includes review of lab data, radiology results, discussion with consultants, and monitoring for potential decompensation. Intervention performed as documented. <Joana Chen MD - Last Filed: 07/10/22 18:10> Discharge Plan Discharge Clinical Impression: Osteomyelitis <Orin Matthews NP - Last Filed: 07/10/22 15:19> Patient Disposition: Admitted As Inpatient <Orin Matthews NP - Last Filed: 07/10/22 15:19> Prescriptions: No Action insulin aspart U-100 [Novolog FlexPen U-100 Insulin] 100 unit/mL (3 mL) insulin pen 1 sliding scale dose subcut .COMPLEX Qty: 15 8RF Rx Instructions: 1 sliding scale dose subcutaneously 3-4 times daily before meals (DME) Bilateral below the knee socket replacement See Rx Instructions .Route .MEDSUPPLY Qty: 1 6RF Rx Instructions: As directed (DME) Dexcom G6 Sensor Device See Rx Instructions topical Q10D Qty: 3 8RF Rx Instructions: As directed (DME) Dexcom G6 Transmitter Device See Rx Instructions .Route Qty: 1 0RF Rx Instructions: As directed pregabalin 200 mg capsule 200 mg PO TID 30 Days Qty: 90 2RF varenicline [Chantix] 1 mg tablet 1 mg PO BID Qty: 56 3RF propranolol 40 mg tablet 1 tab PO BID latanoprost 0.005 % drops 1 drp ophthalmic (eye) BEDTIME clotrimazole 1 % cream 1 appl TOPICAL BID daptomycin 500 mg recon soln 800 mg IV Q24H Qty: 40 0RF Rx Instructions: administer over 30 mins prazosin 2 mg capsule 5 mg PO BEDTIME amitriptyline 50 mg tablet 50 mg PO BEDTIME Qty: 90 3RF zolpidem 12.5 mg tablet,ext release multiphase 12.5 mg PO BEDTIME PRN (Reason: Insomnia) fluoxetine 40 mg capsule 80 mg PO DAILY omega 6-mfm-wlm-fish oil [Fish Oil] 1,200 (144-216) mg capsule 1 cap PO DAILY pregabalin [Lyrica] 200 mg capsule 200 mg PO DAILY omega 2-fzj-czh-fish oil [Fish Oil] 300-1,000 mg capsule 1 cap PO DAILY <Orin Matthews CUSTOMER ASSISTANCE REPRESENTATIVE - Last Filed: 07/10/22 15:19>
--- NOTE | 2022-07-10 15:48 | MHC.EDTECH ---
PATIENT BLOOD DRAWN ,INCLUDING BOTH SETS OF BLOOD CULTURE AND LACTIC ACID DRAWN AND SENT TO LAB .
[2022-07-10 15:49] LABS: MANUAL DIFF FLAG NO
[2022-07-10 15:53] LABS: Basophils Absolute Auto 0.1 X10*3/uL (0.0-0.2); Basophils Percent Auto 0.7 % (0-2); Eosinophils Absolute Auto 0.3 X10*3/uL (0.0-0.4); Eosinophils Percent Auto 3.1 % (0-4); Hematocrit 41.9 % (42.0-52.0); Hemoglobin 14.7 g/dl (14.0-18.0); Imm Gran Abs Auto 0.06 X10*3/uL (0.00-0.03); Imm Gran Pct Auto 0.7 % (0.0-0.4); Lymphocytes Absolute Auto 2.5 X10*3/uL (1.2-4.9); Lymphocytes Percent Auto 28.7 % (20-40); Mean Corpuscular HGB Conc 35.1 g/dl (31.0-36.0); Mean Corpuscular Hemoglobin 29.8 pg (27.0-33.0); Mean Corpuscular Volume 84.8 fL (80.0-98.0); Mean Platelet Volume 9.8 fL (9.4-12.4); Monocytes Percent Auto 11.8 % (2-11); Neutrophils Absolute Auto 4.8 x10*3/uL (2.0-8.3); Platelet Count 164 X10*3/uL (160-400); Red Blood Count 4.94 X10*6/uL (4.60-5.80); Red Cell Distribution Width 13.4 % (11.0-16.0); White Blood Count 8.7 X10*3/uL (4.8-10.8)
[2022-07-10 16:00] VITALS: BP 160/95; PULSE 70; RESP 18; TEMP 36.9; O2SAT 94
[2022-07-10 16:03] LABS: Lactic Acid 1.6 mmol/L (0.5-2.0)
[2022-07-10 16:10] LABS: Alanine Aminotransferase 81 U/L (0-40); Albumin Level 3.9 g/dL (3.5-5.0); Alkaline Phosphatase 104 U/L (39-117); Anion Gap 13 (12-20); Aspartate Amino Transferase 93 U/L (5-37); Bilirubin Direct 0.1 mg/dL (0.0-0.5); Bilirubin Total 0.5 mg/dL (0.0-1.0); Blood Urea Nitrogen 15 mg/dL (9-16); C Reactive Protein 1.78 mg/dL (< or = 0.50); Calcium 9.4 mg/dL (8.4-10.2); Carbon Dioxide 26 mmol/L (22-29); Chloride 99 mmol/L (96-108); Creatinine Clr Calc Pharmacy 80.1; Estimated Glomerular Filt Rate > 60; Glucose Random 104 mg/dL (60-115); Potassium 4.4 mmol/L (3.3-5.1); Sodium 134 mmol/L (135-145); Total Protein 7.4 g/dL (6.5-8.0)
[2022-07-10 16:38] LABS: Erythrocyte Sedimentation Rate 25 MM/HR (0-15)
[2022-07-10 16:45] VITALS: BP 151/89; PULSE 66; RESP 18; TEMP 37.3; O2SAT 94
[2022-07-10] MEDS: vancomycin/NS 2,000 MG/500 ML PLAST..BAG 250 MG IV (18:13)
[2022-07-10] MEDS: 0.9 % Sodium Chloride 1,000 ML 999 ML IVCONT (18:23)
--- NOTE | 2022-07-10 18:26 | PC.NURSE ---
verbal order by MD Chen to hold Zosyn at this time, to start Vanco first
--- NOTE | 2022-07-10 18:35 | PC.NURSE ---
20g IV placed in RAC
--- NOTE | 2022-07-10 19:04 | PM.IMHP ---
History of Present Illness Date of Service: 07/10/22 Attending physician on admission: Luis M [facility] Chief Complaint: stump redness 51-year-old male with pertinent history of type 2 diabetes mellitus, bilateral BKA, essential hypertension, mood disorder, mixed hyperlipidemia, obesity status post sleeve gastrectomy presents to the emergency department with complaints of right stump redness, warmth noted this morning. Has had sweats and chills for several days as well. Tells me he got new prosthetic sockets about 1 weeks ago and has not noticed any issues with them until this morning. No pain. He has undergone multiple revisions of bilateral BKA since amputations in 2018 (right) and 2017 (left) at [facility]. Follows with wound care as well as Dr. Conklin following recent admission from 05/26-05/27 for osteomyelitis. Was ordered for an MRI to assess need for further revision or AKA. He completed 6 week course daptomycin completed 06/28. On arrival, VSS. No leukocytosis. Renal function normal, electrolyte levels unremarkable. AST 93, ALT 81. CRP 1.78, ESR 25. CT right femur showing s/p BKA with periosteal reaction at the amputation site. There is bony irregularity of the amputation margin slightly more prominent compared to previous studies raising concern for erosive change and possibly osteomyelitis. Recommend further evaluation with MRI. There is also soft tissue edema in the stump but no loculated fluid collections. In the ED, has been treated with vancomycin IV and given 1 L IVF. Reports occasional binge drinking of 6 pack beer, last drink last night. Not an every day drinker, denies history of withdrawal. No illicit drug use or cigarette smoking. Occassionally chews tobacco and reportedly takes chantix. Review of Systems Review of Systems: General: No fevers, malaise, unintentional weight loss HEENT: No blurred vision, diplopia. No sore throat, nasal congestion, rhinorrhea, sinus pain, ear pain Cardiovascular: No chest pain, palpitations, or leg edema Respiratory: No shortness of breath, wheezing, cough GI: No abdominal pain, nausea, vomiting, diarrhea, constipation, melena, hematochezia : No dysuria, hematuria, increased urinary frequency, decreased urinary output MSK: No myalgia, back pain Neuro: No headaches, weakness, paresthesias Skin: No rashes or lesions. +redness, warmth right BKA stump PMFSH Medical History Anxiety Bilateral cataracts Cognitive and neurobehavioral dysfunction COVID-19 vaccine series completed Depression Diabetes mellitus History of traumatic brain injury History of trigger finger HLD (hyperlipidemia) HTN (hypertension) Hx of leg amputation Hx of staphylococcal infection Insulin dependent diabetes mellitus Morbid obesity Neuropathy Obesity PTSD (post-traumatic stress disorder) Sleep apnea Vitamin D deficiency Family History Mother No problems noted. Father Alcohol abuse Surgical History History of gastrectomy History of surgery on arm Hx of carpal tunnel repair Hx of cataract extraction Hx of hernia repair S/P BKA (below knee amputation) bilateral Status post below knee amputation of right lower extremity Status post below-knee amputation of left lower extremity Social History Household Members: Significant Other Housing: Apartment Are you a primary career discovery teacher to a significant other at home: No Do you presently have visiting nurse or other home services: Yes Alcohol intake: current Alcohol intake frequency: holidays/special occasions only Patient Tobacco Use Status: Former Tobacco user Quit Date: September 2020 Tobacco use type: Cigarette Years Smoked: 20-30 years Smoked in Last 30 Days: No e-Cigarette/Vaping Use: Never Used Second Hand Smoke Exposure: No Use of substances other than those prescribed or required for medical reasons: No Advance Directives: No Advance Directives Information Provided: No service: No Current occupational status: disabled Cognitive needs: No Hearing needs: No Vision needs: Yes Meds Allergies Allergy/AdvReac Type Severity Reaction Status Date / Time Penicillins Allergy Severe Hives Verified 07/10/22 15:21 Sulfa (Sulfonamide Allergy Severe Anaphylaxis Verified 07/10/22 15:21 Antibiotics) levofloxacin [From Levaquin] Allergy Intermediate Rash Verified 07/10/22 15:21 metronidazole [From Flagyl] Allergy Intermediate Rash Verified 07/10/22 15:21 NSAIDS (Non-Steroidal AdvReac Severe Unknown Verified 07/10/22 15:21 Anti-Inflamma Active Medications: Current Medications Acetaminophen (Acetaminophen 325 Mg Tablet) 650 mg PO Q6H PRN PRN Reason: Pain, Mild (Pain Scale 1-3) Docusate Sodium (Docusate Sodium 100 Mg Capsule) 100 mg PO DAILY PRN PRN Reason: Constipation Enoxaparin Sodium (Enoxaparin Sodium 40 Mg/0.4 Ml Syringe) 40 mg SUBCUT Q24H [facility] Vancomycin HCl (Vancomycin/Ns) 2,000 mg in 500 mls @ 250 mls/hr IV ONCE ONE Stop: 07/10/22 20:00 Last Admin: 07/10/22 18:13 Dose: 250 mls/hr Ondansetron HCl (Ondansetron Hcl 4 Mg/2 Ml Vial) 4 mg IVPUSH Q8H PRN PRN Reason: Nausea and Vomiting Pharmacy Consult (Consult Rx Vancomycin Dosing) 1 each MISCELLANE DAILY PRN PRN Reason: Consult order Pharmacy Consult (Consult Rx Perform Med Rec) 1 each MISCELLANE ONCE PRN PRN Reason: Consult order Sodium Chloride (0.9 % Sodium Chloride Flush 3 Ml Syringe) [facility] Medications Medication Instructions Recorded Confirmed Last Taken Type zolpidem 12.5 mg tablet,extended 12.5 mg PO BEDTIME PRN Insomnia 12/21/20 07/10/22 07/09/22 History release,multiphase fluoxetine 40 mg capsule 80 mg PO DAILY 04/11/21 07/10/22 07/10/22 History latanoprost 0.005 % eye drops 1 drp ophthalmic (eye) BEDTIME 05/15/22 07/10/22 07/10/22 History propranolol 40 mg tablet 1 tab PO BID 05/15/22 07/10/22 07/10/22 History clotrimazole 1 % topical cream 1 appl topical BID 05/26/22 07/10/22 07/10/22 History cephalexin 500 mg capsule 500 mg PO QID 07/10/22 07/10/22 07/10/22 History clindamycin HCl 150 mg capsule 150 mg PO Q8H 07/10/22 07/10/22 07/10/22 History insulin aspart U-100 100 unit/mL See Protocol subcut TID-QID 07/10/22 07/10/22 07/10/22 History (3 mL) subcutaneous pen (Novolog FlexPen U-100 Insulin aspart) prazosin 5 mg capsule 5 mg PO BEDTIME 07/10/22 07/10/22 07/09/22 History Physical Exam Vital Signs and Narrative: Vital Signs: Last Vital Signs Temp 99.1 F 07/10/22 16:45 Pulse 66 07/10/22 16:45 Resp 18 07/10/22 16:45 BP 151/89 H 07/10/22 16:45 Pulse Ox 94 07/10/22 16:45 O2 Del Method Room Air 07/10/22 16:45 BMI result Body Mass Index 42.6 Constitutional - Awake and Alert, No apparent distress Eyes - PERRLA, EOMI Cardiovascular - S1S2, RRR, No edema Respiratory - Normal lung expansion, Normal respiratory effort, No respiratory distress, CTA bilaterally Gastrointestinal - NT / ND; +BS; No rebound or guarding Extremities - no calf tenderness bilaterally, no swelling Musculoskeletal - Normal inspection, normal ROM Skin - Warm/Dry. Redness and warmth with shallow ulcerations of the right stump without purulent drainage, induration, or fluctuance Neurological - Alert & oriented x3, CN II-XII in tact, 5/5 strength BUE and BLE Psychological - Appropriate affect Results Labs 07/10/22 15:41 07/10/22 15:41 Labs: Laboratory Results - last 24 hr 07/10/22 07/10/22 07/10/22 15:41 15:41 15:41 MCV 84.8 MCH 29.8 MCHC 35.1 RDW 13.4 Plt Count 164 MPV 9.8 Immature Gran % (Auto) 0.7 H Neut % (Auto) 55.0 Lymph % (Auto) 28.7 [place] % (Auto) 11.8 H Eos % (Auto) 3.1 Baso % (Auto) 0.7 Lymph # (Auto) 2.5 [place] # (Auto) 1.0 Eos # (Auto) 0.3 Baso # (Auto) 0.1 Abs Immat Gran (auto) 0.06 H Absolute Neuts (auto) 4.8 Absolute Nucleated RBC 0.000 Nucleated RBC % (auto) 0.0 ESR 25 H Anion Gap 13 Estim Creat Clear Calc 80.1 Estimated GFR > 60 Random Glucose 104 Lactic Acid Calcium 9.4 D Total Bilirubin 0.5 Direct Bilirubin 0.1 AST 93 H ALT 81 H Alkaline Phosphatase 104 C-Reactive Protein 1.78 H Total Protein 7.4 Albumin 3.9 07/10/22 15:41 MCV MCH MCHC RDW Plt Count MPV Immature Gran % (Auto) Neut % (Auto) Lymph % (Auto) [place] % (Auto) Eos % (Auto) Baso % (Auto) Lymph # (Auto) [place] # (Auto) Eos # (Auto) Baso # (Auto) Abs Immat Gran (auto) Absolute Neuts (auto) Absolute Nucleated RBC Nucleated RBC % (auto) ESR Anion Gap Estim Creat Clear Calc Estimated GFR Random Glucose Lactic Acid 1.6 Calcium Total Bilirubin Direct Bilirubin AST ALT Alkaline Phosphatase C-Reactive Protein Total Protein Albumin Imaging Radiologist's Impressions: Impressions Femur CT 07/10/22 16:55 IMPRESSION: Status post below knee amputation. There is periosteal reaction at the amputation site. Bony irregularity of the amputation margin, appears slightly more prominent as compared to previous, raises concern for erosive changes. Findings raise concern for possible osteomyelitis. Further evaluation with MRI as clinically warranted. There is soft tissue edema in the stump. No loculated fluid collections. Additional findings and details as above. Assessment and Plan (1) Cellulitis: Status: Acute (2) Osteomyelitis of right femur: Status: Acute Plan 51-year-old male with pertinent history of type 2 diabetes mellitus, bilateral BKA, essential hypertension, mood disorder, mixed hyperlipidemia, obesity status post sleeve gastrectomy admitted for cellulitis of the right BKA stump with concern for osteomyelitis. #Acute cellulitis right BKA stump -CT right femur with out loculations indicative of abscess but showing possible bony erosions indicative of osteomyelitis, progressed since prior imaging -no leukocytosis. CRP 1.78, ESR 25 -IV vancomycin -MRI right lower extremity ordered to further evaluate for acute on chronic osteomyelitis -appreciate ID input -appreciate general surgery input to evaluate need for AKA -follow renal function # insulin-dependent type 2 diabetes -last hemoglobin A1c 7.8% on 05/18, though glucose levels appear to have improved -POC glucose -diabetic diet -Humalog on sliding scale # hypertension -continue home antihypertensives # bipolar disorder and anxiety -given 1 time dose lorazepam p.o. in the ED -continue propranolol, zolpidem, fluoxetine, amitriptyline, prazosin # tobacco abuser -continue Chantix from home # diabetic polyneuropathy -continue Lyrica # dental infection -being treated outpatient with clindamycin -hold clindamycin. Continue vancomycin IV as above DVT prophylaxis-Lovenox Full code Patient requires inpatient stay of at least 2 midnights for management of acute cellulitis of right BKA stump with possible osteomyelitis requiring IV antibiotics an expert consultation and possible AKA Time Spent With Patient Time: Total time managing care of this patient today ____ minutes. Quality Stroke Does the patient have a stroke diagnosis?: No VTE Prior VTE?: No VTE Risk Level:: Medical - moderate - high VTE Device Contraindication: Treatment Not Indicated VTE Drug Contraindication: N/A - Med Ordered
--- NOTE | 2022-07-10 19:31 | PHA.MEDREC ---
Pharmacy Consult ? Medication Reconciliation Pharmacy has completed the medication reconciliation. Pt with list on phone
[2022-07-10 19:46] VITALS: BP 156/93; PULSE 67; RESP 20; TEMP 36.6; O2SAT 95
[2022-07-10] MEDS: Enoxaparin Sodium 40 MG/0.4 ML SYRINGE SUBCUT (19:50)
[2022-07-10] MEDS: LORazepam 1 MG TABLET PO (19:50)
--- NOTE | 2022-07-10 20:04 | PHA.PROG ---
Admission Date/Time: July 10, 2022 18:47 Indication: BONE & JOINT Weight in k.883 kg Serum Creatinine - Last 168 Hours 07/10/22 15:41 Creatinine 1.06 Estimated CrCl and GFR - Last 168 Hours 07/10/22 15:41 Estim Creat Clear Calc 80.1 Estimated GFR > 60 Vancomycin Loading Dose: 1999 Current Vancomycin Dosing Regimen: 1000 Q 12H Vancomycin Monitoring using AUC goal of 400 - 600 range with trough as surrogate marker: 460 Date and Time for next Vancomycin Level to be drawn: NEXT TROUGH AT 07/11 @ 1999 Pharmacist Comments on Vancomycin Plan: Vancomycin dosing will take advantage of [employer] as a clinical decision support tool that uses Bayesian modeling to calculate individual patient's pharmacokinetic parameters and forecast the patient's drug concentration time course with the target goal AUC 24 range of 400 - 600 mg/L/hr.
--- NOTE | 2022-07-10 20:35 | PC.NURSE ---
attemped report at 2035
[2022-07-10 21:33] LABS: Glucose, Whole Blood 145 mg/dL (60-115)
[2022-07-10] MEDS: Propranolol HCL 40 MG TABLET PO (21:57)
[2022-07-10] MEDS: Pregabalin 200 MG CAPSULE PO (21:58)
[2022-07-10] MEDS: Amitriptyline HCl 50 MG TABLET PO (21:58)
[2022-07-10] MEDS: Prazosin HCL 5 MG CAPSULE PO (21:58)
[2022-07-10] MEDS: Latanoprost 0.005 % Ophth Sol 2.5 ML DROPS 1 DROP EYE-BOTH (22:10)
[2022-07-10] MEDS: 0.9 % Sodium Chloride Flush 3 ML SYRINGE IVFLUSH (22:12)
[2022-07-10 23:27] VITALS: PULSE 80; O2SAT 95
[2022-07-11 01:16] VITALS: BP 97/51; PULSE 65; RESP 17; TEMP 36.2; O2SAT 95
[2022-07-11 06:48] LABS: MANUAL DIFF FLAG NO
[2022-07-11 06:58] LABS: Basophils Absolute Auto 0.1 X10*3/uL (0.0-0.2); Basophils Percent Auto 1.1 % (0-2); Eosinophils Absolute Auto 0.2 X10*3/uL (0.0-0.4); Eosinophils Percent Auto 3.9 % (0-4); Hematocrit 39.2 % (42.0-52.0); Hemoglobin 13.6 g/dl (14.0-18.0); Imm Gran Abs Auto 0.04 X10*3/uL (0.00-0.03); Imm Gran Pct Auto 0.9 % (0.0-0.4); Lymphocytes Absolute Auto 1.3 X10*3/uL (1.2-4.9); Lymphocytes Percent Auto 29.4 % (20-40); Mean Corpuscular HGB Conc 34.7 g/dl (31.0-36.0); Mean Corpuscular Hemoglobin 30.4 pg (27.0-33.0); Mean Corpuscular Volume 87.7 fL (80.0-98.0); Mean Platelet Volume 10.1 fL (9.4-12.4); Monocytes Absolute Auto 0.6 X10*3/uL (0.1-1.2); Monocytes Percent Auto 12.6 % (2-11); Neutrophils Absolute Auto 2.3 x10*3/uL (2.0-8.3); Neutrophils Percent Auto 52.1 % (45-73); Platelet Count 134 X10*3/uL (160-400); Red Blood Count 4.47 X10*6/uL (4.60-5.80); Red Cell Distribution Width 13.8 % (11.0-16.0); White Blood Count 4.4 X10*3/uL (4.8-10.8)
[2022-07-11 07:16] LABS: Alanine Aminotransferase 75 U/L (0-40); Albumin Level 3.5 g/dL (3.5-5.0); Alkaline Phosphatase 92 U/L (39-117); Anion Gap 11 (12-20); Aspartate Amino Transferase 98 U/L (5-37); Bilirubin Total 0.3 mg/dL (0.0-1.0); Blood Urea Nitrogen 15 mg/dL (9-16); Calcium 8.8 mg/dL (8.4-10.2); Carbon Dioxide 27 mmol/L (22-29); Chloride 98 mmol/L (96-108); Creatinine Clr Calc Pharmacy 65.8; Estimated Glomerular Filt Rate 58; Glucose Random 282 mg/dL (60-115); Potassium 4.3 mmol/L (3.3-5.1); Sodium 132 mmol/L (135-145)
[2022-07-11 07:17] VITALS: BP 140/80; PULSE 100; RESP 18; TEMP 36.6; O2SAT 95
[2022-07-11 07:27] LABS: Glucose, Whole Blood 268 mg/dL (60-115)
[2022-07-11] MEDS: Insulin Lispro 100 UNIT/ML 3 ML VIAL SUBCUT ×4 (07:57→21:13)
[2022-07-11] MEDS: Propranolol HCL 40 MG TABLET PO ×2 (07:57→21:13)
[2022-07-11] MEDS: Pregabalin 200 MG CAPSULE PO ×3 (07:57→21:13)
[2022-07-11] MEDS: FLUoxetine HCl 20 MG CAPSULE 80 MG PO (07:57)
[2022-07-11] MEDS: vancomycin HCL 1,000 MG in 0.9 % Sodium Chloride 250 ML 270 MG IV (07:58)
[2022-07-11] MEDS: 0.9 % Sodium Chloride Flush 3 ML SYRINGE IVFLUSH ×3 (07:59→21:16)
[2022-07-11 11:20] LABS: Glucose, Whole Blood 274 mg/dL (60-115)
--- NOTE | 2022-07-11 11:22 | MHC.CM.PN ---
pt reports living with his wfe having hvns for his wounds he is covid vax and has transportation home dc plan is for home with hvns
--- NOTE | 2022-07-11 12:27 | HO.PM.IMPN ---
Subjective Subjective Date of Service: 07/11/22 Interval History: stump cellulitis Review of Systems Patient still has erythema similar to yesterday. No fever or chills or nausea vomiting Physical Exam Vital Signs: Vital Signs: Last Vital Signs Temp 97.8 F 07/11/22 07:17 Pulse 100 07/11/22 07:17 Resp 18 07/11/22 07:17 BP 140/80 H 07/11/22 07:17 Pulse Ox 95 07/11/22 07:17 O2 Del Method Room Air 07/11/22 07:17 BMI result Body Mass Index 42.6 Appearance: Alert.? Oriented X3.? not in distress.? cvs: rrr, [id number] . res: clear to auscultation ,no rhonchii or wheezing abd: no rebound or guarding ,nt, bs present. ext pulses present , no cyanosis . right stamp area -similar to yesterday-please see h&p. neuro: axo3 , nonfocal. Objective Data Active Medications Acetaminophen (Acetaminophen 325 Mg Tablet) 650 mg PO Q6H PRN PRN Reason: Pain, Mild (Pain Scale 1-3) Amitriptyline HCl (Amitriptyline Hcl 50 Mg Tablet) 50 mg PO BEDTIME [facility] Last Admin: 07/10/22 21:58 Dose: 50 mg Documented By: KYLE Docusate Sodium (Docusate Sodium 100 Mg Capsule) 100 mg PO DAILY PRN PRN Reason: Constipation Enoxaparin Sodium (Enoxaparin Sodium 40 Mg/0.4 Ml Syringe) 40 mg SUBCUT Q24H [facility] Last Admin: 07/10/22 19:50 Dose: 40 mg Documented By: BENNETT Fluoxetine HCl (Fluoxetine Hcl 20 Mg Capsule) 80 mg PO DAILY [facility] Last Admin: 07/11/22 07:57 Dose: 80 mg Documented By: TOMMY Glucose (Glucose Gel 15 Gm Gel..Gram.) 15 gm PO Q15M PRN; Protocol PRN Reason: per Hypoglycemia Standing Ord. Dextrose (D10) 250 mls @ 750 mls/hr IV Q15M PRN; Protocol PRN Reason: per Hypoglycemia Standing Ord. Vancomycin HCl 1,000 mg/ (Sodium Chloride) 270 mls @ 270 mls/hr IV Q12H [facility] Last Infusion: 07/11/22 09:22 Dose: 0 mls/hr Documented By: TOMMY Insulin Human Lispro (Insulin Lispro 100 Unit/Ml 3 Ml Vial) 0 unit SUBCUT QIDACHS [facility]; Protocol Last Admin: 07/11/22 11:47 Dose: 6 unit Documented By: ERNIE Latanoprost (Latanoprost 0.005 % Ophth Ingrid 2.5 Ml Drops) 1 drop EYE-BOTH BEDTIME [facility] Last Admin: 07/10/22 22:10 Dose: 1 drop Documented By: KYLE Non-Formulary Medication (Varenicline [Chantix]) 1 mg PO BID [facility] Ondansetron HCl (Ondansetron Hcl 4 Mg/2 Ml Vial) 4 mg IVPUSH Q8H PRN PRN Reason: Nausea and Vomiting Pharmacy Consult (Consult Rx Vancomycin Dosing) 1 each MISCELLANE DAILY PRN PRN Reason: Consult order Pharmacy Consult (Consult Rx Perform Med Rec) 1 each MISCELLANE ONCE PRN PRN Reason: Consult order Prazosin HCl (Prazosin Hcl 5 Mg Capsule) 5 mg PO BEDTIME [facility]; Protocol Last Admin: 07/10/22 21:58 Dose: 5 mg Documented By: KYLE Pregabalin (Pregabalin 200 Mg Capsule) 200 mg PO TID [facility] Last Admin: 07/11/22 07:57 Dose: 200 mg Documented By: TOMMY Propranolol HCl (Propranolol Hcl 40 Mg Tablet) 40 mg PO BID [facility]; Protocol Last Admin: 07/11/22 07:57 Dose: 40 mg Documented By: TOMMY Sodium Chloride (0.9 % Sodium Chloride Flush 3 Ml Syringe) 3 ml IVFLUSH QSHIFT [facility] Last Admin: 07/11/22 07:59 Dose: 3 ml Documented By: TOMMY Zolpidem Tartrate (Zolpidem Tartrate 5 Mg Tablet) 5 mg PO BEDTIME PRN PRN Reason: Insomnia Labs 07/11/22 06:39 07/11/22 06:39 Labs: Laboratory Results - last 24 hr 07/10/22 07/10/22 07/10/22 15:41 15:41 15:41 MCV 84.8 MCH 29.8 MCHC 35.1 RDW 13.4 Plt Count 164 MPV 9.8 Immature Gran % (Auto) 0.7 H Neut % (Auto) 55.0 Lymph % (Auto) 28.7 [place] % (Auto) 11.8 H Eos % (Auto) 3.1 Baso % (Auto) 0.7 Lymph # (Auto) 2.5 [place] # (Auto) 1.0 Eos # (Auto) 0.3 Baso # (Auto) 0.1 Abs Immat Gran (auto) 0.06 H Absolute Neuts (auto) 4.8 Absolute Nucleated RBC 0.000 Nucleated RBC % (auto) 0.0 ESR 25 H Anion Gap 13 Estim Creat Clear Calc 80.1 Estimated GFR > 60 POC Glucose Random Glucose 104 Lactic Acid Calcium 9.4 D Total Bilirubin 0.5 Direct Bilirubin 0.1 AST 93 H ALT 81 H Alkaline Phosphatase 104 C-Reactive Protein 1.78 H Total Protein 7.4 Albumin 3.9 07/10/22 07/10/22 07/11/22 15:41 21:29 06:39 MCV 87.7 MCH 30.4 MCHC 34.7 RDW 13.8 Plt Count 134 L MPV 10.1 Immature Gran % (Auto) 0.9 H Neut % (Auto) 52.1 Lymph % (Auto) 29.4 [place] % (Auto) 12.6 H Eos % (Auto) 3.9 Baso % (Auto) 1.1 Lymph # (Auto) 1.3 [place] # (Auto) 0.6 Eos # (Auto) 0.2 Baso # (Auto) 0.1 Abs Immat Gran (auto) 0.04 H Absolute Neuts (auto) 2.3 Absolute Nucleated RBC 0.000 Nucleated RBC % (auto) 0.0 ESR Anion Gap Estim Creat Clear Calc Estimated GFR POC Glucose 145 H Random Glucose Lactic Acid 1.6 Calcium Total Bilirubin Direct Bilirubin AST ALT Alkaline Phosphatase C-Reactive Protein Total Protein Albumin 07/11/22 07/11/22 07/11/22 06:39 07:12 11:13 MCV MCH MCHC RDW Plt Count MPV Immature Gran % (Auto) Neut % (Auto) Lymph % (Auto) [place] % (Auto) Eos % (Auto) Baso % (Auto) Lymph # (Auto) [place] # (Auto) Eos # (Auto) Baso # (Auto) Abs Immat Gran (auto) Absolute Neuts (auto) Absolute Nucleated RBC Nucleated RBC % (auto) ESR Anion Gap 11 L Estim Creat Clear Calc 65.8 Estimated GFR 58 POC Glucose 268 H 274 H Random Glucose 282 H Lactic Acid Calcium 8.8 D Total Bilirubin 0.3 Direct Bilirubin AST 98 H ALT 75 H Alkaline Phosphatase 92 C-Reactive Protein Total Protein 7.0 Albumin 3.5 Assessment and Plan (1) Cellulitis: Status: Acute Plan 51-year-old male with pertinent history of type 2 diabetes mellitus, bilateral BKA, essential hypertension, mood disorder, mixed hyperlipidemia, obesity status post sleeve gastrectomy admitted for cellulitis of the right BKA stump with concern for osteomyelitis. #Acute cellulitis right BKA stump-CT right femur with out loculations indicative of abscess but showing possible bony erosions indicative of osteomyelitis, progressed since prior imaging -no leukocytosis.? CRP 1.78, ESR 25 -IV vancomycin -MRI right lower extremity ordered to further evaluate for acute on chronic osteomyelitis -appreciate ID input -appreciate general surgery input to evaluate need for AKA -follow renal function # insulin-dependent type 2 diabetes -last hemoglobin A1c 7.8% on 05/18, though glucose levels appear to have improved -POC glucose -diabetic diet -Humalog on sliding scale # hypertension -continue home antihypertensives # bipolar disorder and anxiety -given 1 time dose lorazepam p.o. in the ED -continue propranolol, zolpidem, fluoxetine, amitriptyline, prazosin # tobacco abuser -continue Chantix from home # diabetic polyneuropathy -continue Lyrica # dental infection -being treated outpatient with clindamycin -hold clindamycin.? Continue vancomycin IV as above DVT prophylaxis-Lovenox Full code inpatient need:acute cellulitis of right BKA stump with possible osteomyelitis requiring IV antibiotics an expert consultation and possible AKA Time Spent With Patient Time: Total time managing care of this patient today ____ minutes. Quality Stroke Does the patient have a stroke diagnosis?: No VTE Prior VTE?: No VTE Risk Level:: Medical - moderate - high VTE Device Contraindication: Treatment Not Indicated VTE Drug Contraindication: N/A - Med Ordered
[2022-07-11 15:24] VITALS: BP 194/99; PULSE 78; RESP 18; TEMP 36.7; O2SAT 93
--- NOTE | 2022-07-11 15:32 | W.PM.IDCN ---
History of Present Illness Data of Consult Service Date: 07/11/22 Requesting physician: Lauren Boogie Primary Care Provider: Chapincito Sprague MD [facility] Reason for consult: right leg chronic osteomyelitis He presents with right stump redness and swelling. He has symptoms over last week when he was trying to use new prosthetic to walk. I had last seen him on 06/19. He has no fever or chills. He has had MRI more destruction bone right stump He has received Clindamycin [facility] and then Keflex 07/05 with no improvement He had BKA originally 2018. Review of Systems Review of Systems: Yes all other systems are reviewed and are negative PMFSH Past Medical History Medical History Anxiety Bilateral cataracts Cognitive and neurobehavioral dysfunction COVID-19 vaccine series completed Depression Diabetes mellitus History of traumatic brain injury History of trigger finger HLD (hyperlipidemia) HTN (hypertension) Hx of leg amputation Hx of staphylococcal infection Insulin dependent diabetes mellitus Morbid obesity Neuropathy Obesity PTSD (post-traumatic stress disorder) Sleep apnea Vitamin D deficiency Family History Family History Mother No problems noted. Father Alcohol abuse Family history: reviewed and not pertinent Surgical History Surgical History History of gastrectomy History of surgery on arm Hx of carpal tunnel repair Hx of cataract extraction Hx of hernia repair S/P BKA (below knee amputation) bilateral Status post below knee amputation of right lower extremity Status post below-knee amputation of left lower extremity Social History Social History Household Members: Spouse Housing: Apartment Are you a primary resident care coordinator to a significant other at home: No Do you presently have visiting nurse or other home services: No Alcohol intake: current Alcohol intake frequency: holidays/special occasions only Patient Tobacco Use Status: Never used Tobacco Tobacco use type: Cigarette Years Smoked: 20-30 years Smoked in Last 30 Days: No e-Cigarette/Vaping Use: Never Used Second Hand Smoke Exposure: No Use of substances other than those prescribed or required for medical reasons: No Currently Displaying Signs/Symptoms of Drug Intoxication Withdrawal: No Have you been hit, kicked, punched, or otherwise hurt by someone within the past year? If so, by whom?: No Do you feel safe in your current relationship?: Yes Is there a partner from a previous relationship who is making you feel unsafe now?: No Are you made to feel afraid or neglected: No Advance Directives: No Advance Directives Information Provided: No Do you have thoughts of harming others: None Do you have a plan to hurt others: No Plan Recently lost weight without trying: No How much weight loss: Not applicable Eating poorly because of decreased appetite: No Nutrition screen score: 0 Nutrition Risks: No Nutritional Risk Poor oral hygiene: No service: No Current occupational status: disabled Cognitive needs: No Hearing needs: No Vision needs: Yes Meds Allergies Allergy/AdvReac Type Severity Reaction Status Date / Time Penicillins Allergy Severe Hives Verified 07/10/22 15:21 Sulfa (Sulfonamide Allergy Severe Anaphylaxis Verified 07/10/22 15:21 Antibiotics) levofloxacin [From Levaquin] Allergy Intermediate Rash Verified 07/10/22 15:21 metronidazole [From Flagyl] Allergy Intermediate Rash Verified 07/10/22 15:21 NSAIDS (Non-Steroidal AdvReac Severe Unknown Verified 07/10/22 15:21 Anti-Inflamma Active Medications: Current Medications Acetaminophen (Acetaminophen 325 Mg Tablet) 650 mg PO Q6H PRN PRN Reason: Pain, Mild (Pain Scale 1-3) Amitriptyline HCl (Amitriptyline Hcl 50 Mg Tablet) 50 mg PO BEDTIME [facility] Last Admin: 07/10/22 21:58 Dose: 50 mg Docusate Sodium (Docusate Sodium 100 Mg Capsule) 100 mg PO DAILY PRN PRN Reason: Constipation Enoxaparin Sodium (Enoxaparin Sodium 40 Mg/0.4 Ml Syringe) 40 mg SUBCUT Q24H [facility] Last Admin: 07/10/22 19:50 Dose: 40 mg Fluoxetine HCl (Fluoxetine Hcl 20 Mg Capsule) 80 mg PO DAILY [facility] Last Admin: 07/11/22 07:57 Dose: 80 mg Glucose (Glucose Gel 15 Gm Gel..Gram.) 15 gm PO Q15M PRN; Protocol PRN Reason: per Hypoglycemia Standing Ord. Hydroxyzine HCl (Hydroxyzine Hcl 25 Mg Tablet) 25 mg PO Q8H PRN PRN Reason: Anxiety Dextrose (D10) 250 mls @ 750 mls/hr IV Q15M PRN; Protocol PRN Reason: per Hypoglycemia Standing Ord. Vancomycin HCl 1,000 mg/ (Sodium Chloride) 270 mls @ 270 mls/hr IV Q12H [facility] Last Infusion: 07/11/22 09:22 Dose: Infused Insulin Human Lispro (Insulin Lispro 100 Unit/Ml 3 Ml Vial) 0 unit SUBCUT QIDACHS [facility]; Protocol Last Admin: 07/11/22 11:47 Dose: 6 unit Latanoprost (Latanoprost 0.005 % Ophth Ignrid 2.5 Ml Drops) 1 drop EYE-BOTH BEDTIME [facility] Last Admin: 07/10/22 22:10 Dose: 1 drop Non-Formulary Medication (Varenicline [Chantix]) 1 mg PO BID [facility] Ondansetron HCl (Ondansetron Hcl 4 Mg/2 Ml Vial) 4 mg IVPUSH Q8H PRN PRN Reason: Nausea and Vomiting Pharmacy Consult (Consult Rx Vancomycin Dosing) 1 each MISCELLANE DAILY PRN PRN Reason: Consult order Pharmacy Consult (Consult Rx Perform Med Rec) 1 each MISCELLANE ONCE PRN PRN Reason: Consult order Prazosin HCl (Prazosin Hcl 5 Mg Capsule) 5 mg PO BEDTIME [facility]; Protocol Last Admin: 07/10/22 21:58 Dose: 5 mg Pregabalin (Pregabalin 200 Mg Capsule) 200 mg PO TID [facility] Last Admin: 07/11/22 14:39 Dose: 200 mg Propranolol HCl (Propranolol Hcl 40 Mg Tablet) 40 mg PO BID [facility]; Protocol Last Admin: 07/11/22 07:57 Dose: 40 mg Sodium Chloride (0.9 % Sodium Chloride Flush 3 Ml Syringe) 3 ml IVFLUSH QSHIFT [facility] Last Admin: 07/11/22 07:59 Dose: 3 ml Zolpidem Tartrate (Zolpidem Tartrate 5 Mg Tablet) 5 mg PO BEDTIME PRN PRN Reason: Insomnia Home Medications Medication Instructions Recorded Confirmed Last Taken Type zolpidem 12.5 mg tablet,extended 12.5 mg PO BEDTIME PRN Insomnia 12/21/20 07/10/22 07/09/22 History release,multiphase fluoxetine 40 mg capsule 80 mg PO DAILY 04/11/21 07/10/22 07/10/22 History latanoprost 0.005 % eye drops 1 drp ophthalmic (eye) BEDTIME 05/15/22 07/10/22 07/10/22 History propranolol 40 mg tablet 1 tab PO BID 05/15/22 07/10/22 07/10/22 History clotrimazole 1 % topical cream 1 appl topical BID 05/26/22 07/10/22 07/10/22 History cephalexin 500 mg capsule 500 mg PO QID 07/10/22 07/10/22 07/10/22 History clindamycin HCl 150 mg capsule 150 mg PO Q8H 07/10/22 07/10/22 07/10/22 History insulin aspart U-100 100 unit/mL See Protocol subcut TID-QID 07/10/22 07/10/22 07/10/22 History (3 mL) subcutaneous pen (Novolog FlexPen U-100 Insulin aspart) prazosin 5 mg capsule 5 mg PO BEDTIME 07/10/22 07/10/22 07/09/22 History Physical Exam Vital Signs: Vital Signs: Last Vital Signs Temp 98.0 F 07/11/22 15:24 Pulse 78 07/11/22 15:24 Resp 18 07/11/22 15:24 BP 194/99 H 07/11/22 15:24 Pulse Ox 93 07/11/22 15:24 O2 Del Method Room Air 07/11/22 15:24 BMI result Body Mass Index 42.6 Const: General: cooperative HEENT: Head: Yes normal to inspection Face and sinus: Yes normal facial exam Mouth: Normal oral and palatal mucosa present Teeth and gingiva: dentition normal Eyes: General: appearance normal, both eyes and all related structures Pupils: Equal, round and reactive pupils present Resp: Effort & Inspection: normal respiratory effort Cardio: Rate: regular rate Rhythm: regular rhythm GI: Palpation (GI): Soft to palpation and nontender : General: Yes no CVA tenderness Back/Spine/Pelvis: Back: no CVA tenderness Skin: General skin exam: no rashes or lesions noted Neuro: General: moves all extremities Cranial nerves: Yes Equal, round and reactive pupils present Extrem: Other: bilateral BKA right abraded area stump Psych: Appearance: grossly normal Results Labs 07/11/22 06:39 07/11/22 06:39 Labs: Short CBC 07/10/22 07/11/22 Range/Units 15:41 06:39 WBC 8.7 4.4 L (4.8-10.8) X10*3/uL Hgb 14.7 13.6 L (14.0-18.0) g/dl Hct 41.9 L 39.2 L (42.0-52.0) % Plt Count 164 134 L (160-400) X10*3/uL BMP 07/10/22 07/11/22 15:41 06:39 Sodium 134 L 132 L Potassium 4.4 4.3 Chloride 99 98 Carbon Dioxide 26 27 BUN 15 15 Creatinine 1.06 1.29 Calcium 9.4 D 8.8 D Liver Function 07/10/22 07/11/22 Range/Units 15:41 06:39 Total Bilirubin 0.5 0.3 (0.0-1.0) mg/dL Direct Bilirubin 0.1 (0.0-0.5) mg/dL AST 93 H 98 H (5-37) U/L ALT 81 H 75 H (0-40) U/L Alkaline Phosphatase 104 92 (39-117) U/L Albumin 3.9 3.5 (3.5-5.0) g/dL Assessment and Plan (1) Osteomyelitis: Status: Acute He has chronic bone destruction. He has no fever or chills or acute infection IV antibiotics wont improve his outcome anymore. (2) Osteomyelitis of right femur: Status: Acute Plan Stop IV antibiotics Po Doxycycline 100 mg bid in house. AKA or more revision stump most definitive therapy. Time Spent With Patient Time: Total time managing care of this patient today ____ minutes.
[2022-07-11] MEDS: hydrOXYzine HCL 25 MG TABLET PO (15:48)
[2022-07-11] MEDS: Doxycycline Monohydrate 100 MG CAPSULE PO ×2 (15:48→21:13)
[2022-07-11 16:00] VITALS: BP 179/91; PULSE 66; RESP 20; TEMP 36.7; O2SAT 94
[2022-07-11 16:12] LABS: Glucose, Whole Blood 202 mg/dL (60-115)
[2022-07-11] MEDS: Enoxaparin Sodium 40 MG/0.4 ML SYRINGE SUBCUT (18:37)
[2022-07-11 20:44] LABS: Glucose, Whole Blood 259 mg/dL (60-115)
[2022-07-11] MEDS: Amitriptyline HCl 50 MG TABLET PO (21:13)
[2022-07-11] MEDS: Latanoprost 0.005 % Ophth Sol 2.5 ML DROPS 1 DROP EYE-BOTH (21:14)
[2022-07-11] MEDS: Prazosin HCL 5 MG CAPSULE PO (21:24)
[2022-07-11 22:20] VITALS: RESP 20
[2022-07-11 23:36] VITALS: BP 145/86; PULSE 63; RESP 17; TEMP 36; O2SAT 93
[2022-07-12 07:22] VITALS: BP 142/83; PULSE 66; RESP 18; TEMP 36.4; O2SAT 94
[2022-07-12] MEDS: Propranolol HCL 40 MG TABLET PO ×2 (07:26→23:08)
[2022-07-12] MEDS: Pregabalin 200 MG CAPSULE PO ×3 (07:26→23:11)
[2022-07-12] MEDS: FLUoxetine HCl 20 MG CAPSULE 80 MG PO (07:26)
[2022-07-12] MEDS: Doxycycline Monohydrate 100 MG CAPSULE PO ×2 (07:26→23:06)
[2022-07-12] MEDS: 0.9 % Sodium Chloride Flush 3 ML SYRINGE IVFLUSH ×3 (07:27→23:16)
[2022-07-12] MEDS: Insulin Lispro 100 UNIT/ML 3 ML VIAL SUBCUT ×4 (07:31→23:11)
[2022-07-12 07:36] LABS: Glucose, Whole Blood 277 mg/dL (60-115)
--- NOTE | 2022-07-12 09:00 | P.CONGS_ITS ---
History of Present Illness Consult details Consult date: 07/12/22 Narrative: 49-year-old male admitted for redness of the right BKA stump. His familiar to me. I had seen him in the hospital 2 months ago for for cellulitis of his right BKA stump. Not require any debridement then. It appeared to be secondary to irritation from his prostheses. His CAT scan some suggestion of osteomyelitis of the tibia. He was placed on a course of antibiotics with improvement. His right BKA was done in 2018 in [facility]. His left BKA was done in 2017 and he says both of these BKA is were done for infections. ?He says he does not have any problems with the left BKA stump. I had seen him on a follow-up in the office. He seems to have slippage of the muscle off of the tibial stump on the right BKA and subsequently, does not have any of the tibial bone itself at the end. He says that this has been like this since his BKA in 2018. Review of Systems Constitutional: Constitutional: Denies chills and Denies fever(s) Cardiovascular: Cardiovascular: Denies chest pain Respiratory: Respiratory: Denies cough Gastrointestinal: Gastrointestinal: Denies abdominal pain Genitourinary: Genitourinary: Denies oliguria Musculoskeletal: Comments: Uses a wheelchair due to bilateral BKA PMFSH Past Medical History Medical History Anxiety Bilateral cataracts Cognitive and neurobehavioral dysfunction COVID-19 vaccine series completed Depression Diabetes mellitus History of traumatic brain injury History of trigger finger HLD (hyperlipidemia) HTN (hypertension) Hx of leg amputation Hx of staphylococcal infection Insulin dependent diabetes mellitus Morbid obesity Neuropathy Obesity PTSD (post-traumatic stress disorder) Sleep apnea Vitamin D deficiency Family History Family History Mother No problems noted. Father Alcohol abuse Family history: reviewed and not pertinent Surgical History Surgical History History of gastrectomy History of surgery on arm Hx of carpal tunnel repair Hx of cataract extraction Hx of hernia repair S/P BKA (below knee amputation) bilateral Status post below knee amputation of right lower extremity Status post below-knee amputation of left lower extremity Social History Social History Household Members: Spouse Housing: Apartment Are you a primary college and career counselor to a significant other at home: No Do you presently have visiting nurse or other home services: No Alcohol intake: current Alcohol intake frequency: holidays/special occasions only Patient Tobacco Use Status: Never used Tobacco Tobacco use type: Cigarette Years Smoked: 20-30 years Smoked in Last 30 Days: No e-Cigarette/Vaping Use: Never Used Second Hand Smoke Exposure: No Use of substances other than those prescribed or required for medical reasons: No Currently Displaying Signs/Symptoms of Drug Intoxication Withdrawal: No Have you been hit, kicked, punched, or otherwise hurt by someone within the past year? If so, by whom?: No Do you feel safe in your current relationship?: Yes Is there a partner from a previous relationship who is making you feel unsafe now?: No Are you made to feel afraid or neglected: No Advance Directives: No Advance Directives Information Provided: No Do you have thoughts of harming others: None Do you have a plan to hurt others: No Plan Recently lost weight without trying: No How much weight loss: Not applicable Eating poorly because of decreased appetite: No Nutrition screen score: 0 Nutrition Risks: No Nutritional Risk Poor oral hygiene: No service: No Current occupational status: disabled Cognitive needs: No Hearing needs: No Vision needs: Yes Meds Allergies Allergy/AdvReac Type Severity Reaction Status Date / Time Penicillins Allergy Severe Hives Verified 07/10/22 15:21 Sulfa (Sulfonamide Allergy Severe Anaphylaxis Verified 07/10/22 15:21 Antibiotics) levofloxacin [From Levaquin] Allergy Intermediate Rash Verified 07/10/22 15:21 metronidazole [From Flagyl] Allergy Intermediate Rash Verified 07/10/22 15:21 NSAIDS (Non-Steroidal AdvReac Severe Unknown Verified 07/10/22 15:21 Anti-Inflamma Active Medications: Current Medications Acetaminophen (Acetaminophen 325 Mg Tablet) 650 mg PO Q6H PRN PRN Reason: Pain, Mild (Pain Scale 1-3) Amitriptyline HCl (Amitriptyline Hcl 50 Mg Tablet) 50 mg PO BEDTIME [facility] Last Admin: 07/11/22 21:13 Dose: 50 mg Docusate Sodium (Docusate Sodium 100 Mg Capsule) 100 mg PO DAILY PRN PRN Reason: Constipation Doxycycline Monohydrate (Doxycycline Monohydrate 100 Mg Capsule) 100 mg PO BID [facility] Last Admin: 07/12/22 07:26 Dose: 100 mg Enoxaparin Sodium (Enoxaparin Sodium 40 Mg/0.4 Ml Syringe) 40 mg SUBCUT Q24H [facility] Last Admin: 07/11/22 18:37 Dose: 40 mg Fluoxetine HCl (Fluoxetine Hcl 20 Mg Capsule) 80 mg PO DAILY [facility] Last Admin: 07/12/22 07:26 Dose: 80 mg Glucose (Glucose Gel 15 Gm Gel..Gram.) 15 gm PO Q15M PRN; Protocol PRN Reason: per Hypoglycemia Standing Ord. Hydroxyzine HCl (Hydroxyzine Hcl 25 Mg Tablet) 25 mg PO Q8H PRN PRN Reason: Anxiety Last Admin: 07/11/22 15:48 Dose: 25 mg Dextrose (D10) 250 mls @ 750 mls/hr IV Q15M PRN; Protocol PRN Reason: per Hypoglycemia Standing Ord. Insulin Human Lispro (Insulin Lispro 100 Unit/Ml 3 Ml Vial) 0 unit SUBCUT QIDACHS [facility]; Protocol Last Admin: 07/12/22 07:31 Dose: 6 unit Latanoprost (Latanoprost 0.005 % Ophth Ingrid 2.5 Ml Drops) 1 drop EYE-BOTH BEDTIME [facility] Last Admin: 07/11/22 21:14 Dose: 1 drop Non-Formulary Medication (Varenicline [Chantix]) 1 mg PO BID [facility] Ondansetron HCl (Ondansetron Hcl 4 Mg/2 Ml Vial) 4 mg IVPUSH Q8H PRN PRN Reason: Nausea and Vomiting Pharmacy Consult (Consult Rx Perform Med Rec) 1 each MISCELLANE ONCE PRN PRN Reason: Consult order Prazosin HCl (Prazosin Hcl 5 Mg Capsule) 5 mg PO BEDTIME [facility]; Protocol Last Admin: 07/11/22 21:24 Dose: 5 mg Pregabalin (Pregabalin 200 Mg Capsule) 200 mg PO TID [facility] Last Admin: 07/12/22 07:26 Dose: 200 mg Propranolol HCl (Propranolol Hcl 40 Mg Tablet) 40 mg PO BID [facility]; Protocol Last Admin: 07/12/22 07:26 Dose: 40 mg Sodium Chloride (0.9 % Sodium Chloride Flush 3 Ml Syringe) 3 ml IVFLUSH QSHIFT [facility] Last Admin: 07/12/22 07:27 Dose: 3 ml Zolpidem Tartrate (Zolpidem Tartrate 5 Mg Tablet) 5 mg PO BEDTIME PRN PRN Reason: Insomnia Home Medications Medication Instructions Recorded Confirmed Last Taken Type zolpidem 12.5 mg tablet,extended 12.5 mg PO BEDTIME PRN Insomnia 12/21/20 07/10/22 07/09/22 History release,multiphase fluoxetine 40 mg capsule 80 mg PO DAILY 04/11/21 07/10/22 07/10/22 History latanoprost 0.005 % eye drops 1 drp ophthalmic (eye) BEDTIME 05/15/22 07/10/22 07/10/22 History propranolol 40 mg tablet 1 tab PO BID 05/15/22 07/10/22 07/10/22 History clotrimazole 1 % topical cream 1 appl topical BID 05/26/22 07/10/22 07/10/22 History cephalexin 500 mg capsule 500 mg PO QID 07/10/22 07/10/22 07/10/22 History clindamycin HCl 150 mg capsule 150 mg PO Q8H 07/10/22 07/10/22 07/10/22 History insulin aspart U-100 100 unit/mL See Protocol subcut TID-QID 07/10/22 07/10/22 07/10/22 History (3 mL) subcutaneous pen (Novolog FlexPen U-100 Insulin aspart) prazosin 5 mg capsule 5 mg PO BEDTIME 07/10/22 07/10/22 07/09/22 History Physical Exam Vital Signs: Vital Signs: Last Vital Signs Temp 97.6 F 07/12/22 07:22 Pulse 66 07/12/22 07:22 Resp 18 07/12/22 07:22 BP 142/83 H 07/12/22 07:22 Pulse Ox 94 07/12/22 07:22 O2 Del Method Room Air 07/12/22 07:22 BMI result Body Mass Index 42.6 Const: General: comfortable and no acute distress Orientation/consciousness: patient oriented x3 Neck: Neck: Yes no lymphadenopathy Resp: Auscultation: clear to auscultation bilaterally Cardio: Rhythm: regular rhythm GI: Palpation (GI): Soft to palpation, nontender and no guarding Neuro: General: patient oriented x3 Extrem: Other: Bilateral BKA, with mild redness on the skin of the BKA stump on the right. There is no questioning of the tibial stump itself as the muscle flap appears to have had significant slippage and is located posteriorly Results Labs 07/11/22 06:39 07/11/22 06:39 Labs: Abnormal lab results 07/11/22 07/11/22 07/11/22 Range/Units 11:13 16:02 17:52 POC Glucose 274 H 202 H (60-115) mg/dL Random Vancomycin 13.0 L (15-20) mcg/mL 07/11/22 07/12/22 Range/Units 20:38 07:19 POC Glucose 259 H 277 H (60-115) mg/dL Random Vancomycin (15-20) mcg/mL All other labs normal. Laboratory Results WBC 4.4 X10*3/uL (4.8-10.8) L 07/11/22 06:39 RBC 4.47 X10*6/uL (4.60-5.80) L 07/11/22 06:39 Hgb 13.6 g/dl (14.0-18.0) L 07/11/22 06:39 Hct 39.2 % (42.0-52.0) L 07/11/22 06:39 MCV 87.7 fL (80.0-98.0) 07/11/22 06:39 MCH 30.4 pg (27.0-33.0) 07/11/22 06:39 MCHC 34.7 g/dl (31.0-36.0) 07/11/22 06:39 RDW 13.8 % (11.0-16.0) 07/11/22 06:39 Plt Count 134 X10*3/uL (160-400) L 07/11/22 06:39 MPV 10.1 fL (9.4-12.4) 07/11/22 06:39 Immature Gran % (Auto) 0.9 % (0.0-0.4) H 07/11/22 06:39 Neut % (Auto) 52.1 % (45-73) 07/11/22 06:39 Lymph % (Auto) 29.4 % (20-40) 07/11/22 06:39 [place] % (Auto) 12.6 % (2-11) H 07/11/22 06:39 Eos % (Auto) 3.9 % (0-4) 07/11/22 06:39 Baso % (Auto) 1.1 % (0-2) 07/11/22 06:39 Lymph # (Auto) 1.3 X10*3/uL (1.2-4.9) 07/11/22 06:39 [place] # (Auto) 0.6 X10*3/uL (0.1-1.2) 07/11/22 06:39 Eos # (Auto) 0.2 X10*3/uL (0.0-0.4) 07/11/22 06:39 Baso # (Auto) 0.1 X10*3/uL (0.0-0.2) 07/11/22 06:39 Abs Immat Gran (auto) 0.04 X10*3/uL (0.00-0.03) H 07/11/22 06:39 Absolute Neuts (auto) 2.3 x10*3/uL (2.0-8.3) 07/11/22 06:39 Absolute Nucleated RBC 0.000 X10*3/uL (0.0-0.012) 07/11/22 06:39 Nucleated RBC % (auto) 0.0 /100WBC (0.0-0.2) 07/11/22 06:39 ESR 25 MM/HR (0-15) H 07/10/22 15:41 Sodium 132 mmol/L (135-145) L 07/11/22 06:39 Potassium 4.3 mmol/L (3.3-5.1) 07/11/22 06:39 Chloride 98 mmol/L (96-108) 07/11/22 06:39 Carbon Dioxide 27 mmol/L (22-29) 07/11/22 06:39 Anion Gap 11 (12-20) L 07/11/22 06:39 BUN 15 mg/dL (9-16) 07/11/22 06:39 Creatinine 1.29 mg/dL (0.5-1.4) 07/11/22 06:39 Estim Creat Clear Calc 65.8 07/11/22 06:39 Estimated GFR 58 07/11/22 06:39 POC Glucose 277 mg/dL (60-115) H 07/12/22 07:19 Random Glucose 282 mg/dL (60-115) H 07/11/22 06:39 Lactic Acid 1.6 mmol/L (0.5-2.0) 07/10/22 15:41 Calcium 8.8 mg/dL (8.4-10.2) D 07/11/22 06:39 Total Bilirubin 0.3 mg/dL (0.0-1.0) 07/11/22 06:39 Direct Bilirubin 0.1 mg/dL (0.0-0.5) 07/10/22 15:41 AST 98 U/L (5-37) H 07/11/22 06:39 ALT 75 U/L (0-40) H 07/11/22 06:39 Alkaline Phosphatase 92 U/L (39-117) 07/11/22 06:39 C-Reactive Protein 1.78 mg/dL (< or = 0.50) H 07/10/22 15:41 Total Protein 7.0 g/dL (6.5-8.0) 07/11/22 06:39 Albumin 3.5 g/dL (3.5-5.0) 07/11/22 06:39 Random Vancomycin 13.0 mcg/mL (15-20) L 07/11/22 17:[address] 07/10/22 16:55 IMPRESSION: Status post below knee amputation. There is periosteal reaction at the amputation site. Bony irregularity of the amputation margin, appears slightly more prominent as compared to previous, raises concern for erosive changes. Findings raise concern for possible osteomyelitis. Further evaluation with MRI as clinically warranted. There is soft tissue edema in the stump. No loculated fluid collections. Additional findings and details as above. Lower Extremity MRI 07/11/22 13:30 IMPRESSION: Minimal edema signal and enhancement at the distal margin of the tibial diaphysis at the site of amputation is favored to be reactive to normal remodeling as opposed to an indicator of superimposed osteomyelitis. No abscess. Assessment and Plan (1) Cellulitis: Status: Acute Plan He has of redness on the stump. This appears to be more of skin irritation as the tibia does not have any cushioning because of slippage of the flap. His MRI does not seem to suggest osteomyelitis. He may benefit from revision of the stump to allow positioning of the flap to cover the BKA stump itself. I will resolution of his cellulitis prior to doing this. I will see him in the office to follow-up discuss this with him. He understands and seems to be comfortable with the plan. Time Spent With Patient Time: Total time managing care of this patient today ____ minutes. Procedures Date of Service Date of Service: 07/12/22
[2022-07-12 11:29] LABS: Glucose, Whole Blood 226 mg/dL (60-115)
--- NOTE | 2022-07-12 11:48 | MHC.CM.PN ---
per rounds pt will be ready for dc thurs plan remanis home with hvns
--- NOTE | 2022-07-12 12:35 | HO.PM.IMPN ---
Subjective Subjective Date of Service: 07/13/22 Interval History: leg cellulitis possible realted to dm. Review of Systems Patient still has erythema similar to yesterday. No fever or chills or nausea vomiting Physical Exam Vital Signs: Vital Signs: Last Vital Signs Temp 97.6 F 07/12/22 07:22 Pulse 66 07/12/22 07:22 Resp 18 07/12/22 07:22 BP 142/83 H 07/12/22 07:22 Pulse Ox 94 07/12/22 07:22 O2 Del Method Room Air 07/12/22 07:22 BMI result Body Mass Index 42.6 Appearance: Alert.? Oriented X3.? not in distress.? cvs: [id number], [id number] . res: clear to auscultation ,no rhonchii or wheezing abd: no rebound or guarding ,nt, bs present. ext pulses present , no cyanosis . right stamp area -similar to yesterday-please see h&p. neuro: axo3 , nonfocal. Objective Data Active Medications Acetaminophen (Acetaminophen 325 Mg Tablet) 650 mg PO Q6H PRN PRN Reason: Pain, Mild (Pain Scale 1-3) Amitriptyline HCl (Amitriptyline Hcl 50 Mg Tablet) 50 mg PO BEDTIME [facility] Last Admin: 07/11/22 21:13 Dose: 50 mg Documented By: KYLE Docusate Sodium (Docusate Sodium 100 Mg Capsule) 100 mg PO DAILY PRN PRN Reason: Constipation Doxycycline Monohydrate (Doxycycline Monohydrate 100 Mg Capsule) 100 mg PO BID [facility] Last Admin: 07/12/22 07:26 Dose: 100 mg Documented By: ANDRESSA Enoxaparin Sodium (Enoxaparin Sodium 40 Mg/0.4 Ml Syringe) 40 mg SUBCUT Q24H [facility] Last Admin: 07/11/22 18:37 Dose: 40 mg Documented By: TOMMY Fluoxetine HCl (Fluoxetine Hcl 20 Mg Capsule) 80 mg PO DAILY [facility] Last Admin: 07/12/22 07:26 Dose: 80 mg Documented By: ANDRESSA Glucose (Glucose Gel 15 Gm Gel..Gram.) 15 gm PO Q15M PRN; Protocol PRN Reason: per Hypoglycemia Standing Ord. Hydroxyzine HCl (Hydroxyzine Hcl 25 Mg Tablet) 25 mg PO Q8H PRN PRN Reason: Anxiety Last Admin: 07/11/22 15:48 Dose: 25 mg Documented By: TOMMY Dextrose (D10) 250 mls @ 750 mls/hr IV Q15M PRN; Protocol PRN Reason: per Hypoglycemia Standing Ord. Insulin Human Lispro (Insulin Lispro 100 Unit/Ml 3 Ml Vial) 0 unit SUBCUT QIDACHS [facility]; Protocol Last Admin: 07/12/22 11:37 Dose: 4 unit Documented By: ANDRESSA Latanoprost (Latanoprost 0.005 % Ophth Ingrid 2.5 Ml Drops) 1 drop EYE-BOTH BEDTIME [facility] Last Admin: 07/11/22 21:14 Dose: 1 drop Documented By: KYLE Non-Formulary Medication (Varenicline [Chantix]) 1 mg PO BID [facility] Ondansetron HCl (Ondansetron Hcl 4 Mg/2 Ml Vial) 4 mg IVPUSH Q8H PRN PRN Reason: Nausea and Vomiting Pharmacy Consult (Consult Rx Perform Med Rec) 1 each MISCELLANE ONCE PRN PRN Reason: Consult order Prazosin HCl (Prazosin Hcl 5 Mg Capsule) 5 mg PO BEDTIME [facility]; Protocol Last Admin: 07/11/22 21:24 Dose: 5 mg Documented By: KYLE Pregabalin (Pregabalin 200 Mg Capsule) 200 mg PO TID [facility] Last Admin: 07/12/22 07:26 Dose: 200 mg Documented By: ANDRESSA Propranolol HCl (Propranolol Hcl 40 Mg Tablet) 40 mg PO BID [facility]; Protocol Last Admin: 07/12/22 07:26 Dose: 40 mg Documented By: ANDRESSA Sodium Chloride (0.9 % Sodium Chloride Flush 3 Ml Syringe) 3 ml IVFLUSH QSHIFT [facility] Last Admin: 07/12/22 07:27 Dose: 3 ml Documented By: ANDRESSA Zolpidem Tartrate (Zolpidem Tartrate 5 Mg Tablet) 5 mg PO BEDTIME PRN PRN Reason: Insomnia Labs 07/11/22 06:39 07/11/22 06:39 Labs: Laboratory Results - last 24 hr 07/11/22 07/11/22 07/11/22 16:02 17:52 20:38 POC Glucose 202 H 259 H Random Vancomycin 13.0 L 07/12/22 07/12/22 07:19 11:19 POC Glucose 277 H 226 H Random Vancomycin Microbiology Microbiology Results: Microbiology 07/10/22 15:42 Blood Culture - Preliminary Blood - Venous No growth after 24 hours. 07/10/22 15:41 Blood Culture - Preliminary Blood - Venous No growth after 24 hours. Assessment and Plan (1) Cellulitis: Status: Acute Plan 51-year-old male with pertinent history of type 2 diabetes mellitus, bilateral BKA, essential hypertension, mood disorder, mixed hyperlipidemia, obesity status post sleeve gastrectomy admitted for cellulitis of the right BKA stump with concern for osteomyelitis. Acute cellulitis right BKA stump no leukocytosis.? CRP 1.78, ESR 25 ct -? bone changes ,MRI added to further evaluate ct changes IV vancomycin general surgery eval. insulin-dependent type 2 diabetes -last hemoglobin A1c 7.8% on 05/18, though glucose levels appear to have improved -POC glucose -diabetic diet -Humalog on sliding scale hypertension -continue home antihypertensives bipolar disorder and anxiety -given 1 time dose lorazepam p.o. in the ED -continue propranolol, zolpidem, fluoxetine, amitriptyline, prazosin tobacco abuser -continue Chantix from home diabetic polyneuropathy -continue Lyrica dental infection -being treated outpatient with clindamycin -hold clindamycin.? Continue vancomycin IV as above DVT prophylaxis-Lovenox Full code inpatient need:acute cellulitis of right BKA stump with possible osteomyelitis requiring IV antibiotics an expert consultation and possible AKA Time Spent With Patient Time: Total time managing care of this patient today ____ minutes. Quality Stroke Does the patient have a stroke diagnosis?: No VTE Prior VTE?: No VTE Risk Level:: Medical - moderate - high VTE Device Contraindication: Treatment Not Indicated VTE Drug Contraindication: N/A - Med Ordered
--- NOTE | 2022-07-12 13:20 | P.CDIM_ITS ---
PROVIDER RESPONSE TEXT: To clarify, the appropriate diagnosis supported by the clinical indicators: Insulin dependent type 2 diabetes with hyperglycemia, uncontrolled, poorly controlled or other QUERY TEXT: PHYSICIAN'S DOCUMENTATION REQUEST Date of Query: 07/12/2022 09:07 AM EDT Patient Name: Luther Knox Admit Date: 07/10/2022 Dear Lauren Boogie, A review of the medical record indicates additional documentation may be needed. Please review below and update the documentation accordingly. Clinical Indicators: LABS: POC glucose 274 H Humalog on sliding scale, diabetic diet, DX: Insulin-dependent type 2 diabetes Please clarify the following regarding the Diabetes Mellitus (DM): Insulin dependent type 2 diabetes with hyperglycemia, uncontrolled, poorly controlled or other Unable to determine Other (explain) Clinically unable to determine (explain) Thank you, Wendie Hazel, CCS, CDIS Use of terms such as suspected, likely, concern for, or probable (associated with a specific diagnosi s that is being evaluated, monitored, or treated as if it exists) are acceptable and can be coded in the inpatient se tting, when documented at the time of discharge. Please use your independent medical judgment in providing your response. THIS QUERY IS PART OF THE PERMANENT MEDICAL RECORD
[2022-07-12 15:14] VITALS: BP 156/90; PULSE 70; RESP 18; TEMP 36.6; O2SAT 95
[2022-07-12 16:13] LABS: Glucose, Whole Blood 242 mg/dL (60-115)
[2022-07-12] MEDS: Enoxaparin Sodium 40 MG/0.4 ML SYRINGE SUBCUT (18:00)
[2022-07-12 20:29] LABS: Glucose, Whole Blood 212 mg/dL (60-115)
[2022-07-12] MEDS: hydrOXYzine HCL 25 MG TABLET PO (23:05)
[2022-07-12] MEDS: Zolpidem Tartrate 5 MG TABLET PO (23:06)
[2022-07-12] MEDS: Prazosin HCL 5 MG CAPSULE PO (23:08)
[2022-07-12] MEDS: Amitriptyline HCl 50 MG TABLET PO (23:09)
[2022-07-13] VITALS: BP 156/92; PULSE 66; RESP 18; TEMP 36.6; O2SAT 95
[2022-07-13 07:34] VITALS: BP 138/85; PULSE 64; RESP 18; TEMP 36.4; O2SAT 92
[2022-07-13 07:40] LABS: Glucose, Whole Blood 272 mg/dL (60-115)
[2022-07-13] MEDS: Insulin Lispro 100 UNIT/ML 3 ML VIAL SUBCUT ×2 (07:41→11:34)
[2022-07-13] MEDS: 0.9 % Sodium Chloride Flush 3 ML SYRINGE IVFLUSH (07:41)
[2022-07-13] MEDS: FLUoxetine HCl 20 MG CAPSULE 80 MG PO (07:41)
[2022-07-13] MEDS: Pregabalin 200 MG CAPSULE PO (07:42)
[2022-07-13] MEDS: Doxycycline Monohydrate 100 MG CAPSULE PO (07:42)
[2022-07-13] MEDS: Propranolol HCL 40 MG TABLET PO (07:42)
[2022-07-13 11:31] LABS: Glucose, Whole Blood 253 mg/dL (60-115)
--- NOTE | 2022-07-13 11:42 | MHC.CM.PN ---
Addendum entered by Mame Ayala 07/13/22 11:46: [facility] NOTIFIED OF TODAY'S DC Original Note: DP: PT HAS BEEN MEDICALLY CLEARED FOR DC HOME WITH RESUMPTION OF [facility] FOR [facility]. RN AWARE. PT HAS OWN RIDE HOME
--- NOTE | 2022-07-13 12:24 | P.DS_ITS ---
DS: Providers Provider Date of Service: 07/13/22 Date of admission: 07/10/22 18:47 Date of discharge: 07/13/22 Primary care physician: Chapincito Sprague MD Consults: 07/10/22 18:57 Consult to General Surgery Routine Consulting Provider: [facility] Reason for consultation: osteo RLE Consult to Infectious Diseases Routine Consulting Provider: [facility] [facility] Disease Reason for consultation: cellulitis, osteo RLE Attending physician on discharge: Lauren Boogie Discharging clinician: Lauren Boogie DS: Diagnosis Discharge Diagnosis (1) Cellulitis: Status: Acute DS: Summary Hospital Course Hospital Course: 51-year-old male with pertinent history of type 2 diabetes mellitus, bilateral BKA, essential hypertension, mood disorder, mixed hyperlipidemia, obesity status post sleeve gastrectomy presents to the emergency department with complaints of right stump redness, warmth noted this morning. Has had sweats and chills for several days as well. Tells me he got new prosthetic sockets about 1 weeks ago and has not noticed any issues with them until this morning. No pain. He has undergone multiple revisions of bilateral BKA since amputations in 2018 (right) and 2017 (left) at [facility]. Follows with wound care as well as Dr. Conklin following recent admission from 05/26-05/27 for osteomyelitis. Was ordered for an MRI to assess need for further revision or AKA. He completed 6 week course daptomycin completed 06/28. On arrival, VSS. No leukocytosis.? Renal function normal, electrolyte levels unremarkable.? AST 93, ALT 81.? CRP 1.78, ESR 25.? CT right femur showing s/p BKA with periosteal reaction at the amputation site.? There is bony irregularity of the amputation margin slightly more prominent compared to previous studies raising concern for erosive change and possibly osteomyelitis.? Recommend further evaluation with MRI.? There is also soft tissue edema in the stump but no loculated fluid collections.? In the ED, has been treated with vancomycin IV and given 1 L IVF. Reports occasional binge drinking of 6 pack beer, last drink last night. Not an every day drinker, denies history of withdrawal. No illicit drug use or cigarette smoking. Occassionally chews tobacco and reportedly takes chantix. Hospital course: Patient was admitted for stamp area cellulitis- started on IV antibiotics , for cultures sent,ct intially showed - possible bony erosions,MRI was done-showed less likely osteomyelitis : With supportive care as above with antibiotics- Patient is asymptomatic, cellulitis is seems to be improved significantly, MRI less likely osteomyelitis . Seen by infectious disease and surgery-recommended to start p.o. antibiotic for cellulitis upon discharge and patient is to follow- up with surgery for further revision of the stump to allow positioning of the flap to cover the BKA stump outpatient. Resume wound care orders which patient had prior to the hospitalization. plan: complete course of antibiotics . follow up outpatient with surgery. Above management discussed with patient detail and the understand and in agreement with the plan , time spent 50 minutes. Time Spent with Patient Time attestation: Total time managing care of this patient today ____ minutes. Discharge coordination time: Greater than 30 minutes Quality: Safe Use of Opioids Does Pt have an Active Cancer Diagnosis on the Problem List?: No Quality: Stroke Does the patient have a stroke diagnosis?: No Physical Exam Vital Signs: Vital Signs: Last Vital Signs Temp 97.6 F 07/13/22 07:34 Pulse 64 07/13/22 07:34 Resp 18 07/13/22 07:34 BP 138/85 07/13/22 07:34 Pulse Ox 92 07/13/22 07:34 O2 Del Method Room Air 07/13/22 07:34 BMI result Body Mass Index 42.6 Appearance: Alert.? Oriented X3.? not in distress.? cvs: rrr, [id number] . res: clear to auscultation ,no rhonchii or wheezing abd: no rebound or guarding ,nt, bs present. ext pulses present , no cyanosis . right stamp area -seems erythema improved . neuro: axo3 , nonfocal. DS: Data Data Completed and Pending Completed studies during hospitalization [Text1]: Procedures Excision of Stomach, Percutaneous Endoscopic Approach, Vertical (10/28/20) Insertion of Infusion Device into Superior Vena Cava, Percutaneous Approach (05/15/22) Release Peritoneum, Percutaneous Endoscopic Approach (10/28/20) Ultrasonography of Superior Vena Cava, Guidance (05/15/22) Labs on day of discharge: Laboratory Results - last 24 hr 07/12/22 07/12/22 07/13/22 16:03 20:20 07:32 POC Glucose 242 H 212 H 272 H 07/13/22 11:25 POC Glucose 253 H Preliminary micro results at discharge 07/10/22 15:42 Blood Culture - Preliminary Blood - Venous No growth after 48 hours. 07/10/22 15:41 Blood Culture - Preliminary Blood - Venous No growth after 48 hours. Imaging Chest x-ray: Radiologist's impression: ITS Impressions Femur CT 07/10/22 16:55 IMPRESSION: Status post below knee amputation. There is periosteal reaction at the amputation site. Bony irregularity of the amputation margin, appears slightly more prominent as compared to previous, raises concern for erosive changes. Findings raise concern for possible osteomyelitis. Further evaluation with MRI as clinically warranted. There is soft tissue edema in the stump. No loculated fluid collections. Additional findings and details as above. Lower Extremity MRI 07/11/22 13:30 IMPRESSION: Minimal edema signal and enhancement at the distal margin of the tibial diaphysis at the site of amputation is favored to be reactive to normal remodeling as opposed to an indicator of superimposed osteomyelitis. No abscess. Discharge Plan Discharge Anticipated Discharge Date/Time: 07/13/22 07:32 Patient Disposition: Home Health Service Discharge Diagnosis: stamp cellulitis Referrals: [facility] [Outside] - 1 Week (HOME WITH [facility]) Deena Santana PA-C [Physician Road Traffic Controller] - 1 Week (follow up outpatient) Chapincito Sprague MD [Primary Care Provider] - 1 Week Discharge Medications: New doxycycline monohydrate 100 mg Capsule 100 mg PO BID Qty: 20 0RF Continued (DME) Bilateral below the knee socket replacement See Rx Instructions .Route .MEDSUPPLY Qty: 1 6RF Rx Instructions: As directed (DME) Dexcom G6 Sensor Device See Rx Instructions topical Q10D Qty: 3 8RF Rx Instructions: As directed (DME) Dexcom G6 Transmitter Device See Rx Instructions .Route Qty: 1 0RF Rx Instructions: As directed pregabalin 200 mg capsule 200 mg PO TID 30 Days Qty: 90 2RF varenicline [Chantix] 1 mg tablet 1 mg PO BID Qty: 56 3RF propranolol 40 mg tablet 1 tab PO BID latanoprost 0.005 % drops 1 drp ophthalmic (eye) BEDTIME clotrimazole 1 % cream 1 appl TOPICAL BID clindamycin HCl 150 mg capsule 150 mg PO Q8H prazosin 5 mg capsule 5 mg PO BEDTIME cephalexin 500 mg capsule 500 mg PO QID insulin aspart U-100 [Novolog FlexPen U-100 Insulin] 100 unit/mL (3 mL) insulin pen See Protocol subcut TID-QID Protocol: Insulin Correction Scale Less than or equal to 110 ---- Give (units): 0 111 to 150 Give (units): 0 151 to 200 Give (units): 2 201 to 250 Give (units): 4 251 to 300 Give (units): 6 301 to 350 Give (units): 8 Greater than 350 Give (units): 10 Call MD if Blood Glucose > : 350 amitriptyline 50 mg tablet 50 mg PO BEDTIME Qty: 90 3RF zolpidem 12.5 mg tablet,ext release multiphase 12.5 mg PO BEDTIME PRN (Reason: Insomnia) fluoxetine 40 mg capsule 80 mg PO DAILY Discharge Orders: Discharge Order (Routine); Ordered 07/13/22 Ordered By: Lauren Boogie Diet: Advance to usual diet Activity on Discharge: As tolerated Stand Alone Forms: Patient Portal Discharge page Care Plan Goals: Patient was admitted for stamp area cellulitis- started on IV antibiotics , for cultures sent, MRI was done: With supportive care as above- Patient is asymptomatic, cellulitis is seems to be improved significantly, MRI less likley osteomyelitis . Seen by infectious disease and surgery-recommended to start p.o. antibiotic for cellulitis upon discharge and patient is to follow-up with surgery for further revision of the stump to allow positioning of the flap to cover the BKA stump outpatient. Resume wound care orders which patient had prior to the hospitalization. Above management discussed with patient detail and the understand and in agreement with the plan , time spent 50 minutes. Health Concerns: As above. Plan of Treatment: As above. Assessment: As above. Patient Instructions: Cellulitis (DC) Discharge Date/Time: 07/13/22 12:10
== END 2022-07-13 12:10 | disposition home health service (06) | DRG 565 ==
LOC: HO.ED 18:10 → HO.EDOVER 19:42 → HO.S3 20:14
PROVIDERS: Nurse Practitioner Family; Admitting Provider Physician Assistant; Emergency Provider Emergency Medicine; PCP Internal Medicine; Visit Provider Internal Medicine
DX: T87.43 Infection of amputation stump, right lower extremity (principal); L03.115 Cellulitis of right lower limb; M86.9 Osteomyelitis, unspecified; F43.10 Post-traumatic stress disorder, unspecified; E11.65 Type 2 diabetes mellitus with hyperglycemia; F31.9 Bipolar disorder, unspecified; F41.9 Anxiety disorder, unspecified; E11.42 Type 2 diabetes mellitus with diabetic polyneuropathy; K04.7 Periapical abscess without sinus; E11.628 Type 2 diabetes mellitus with other skin complications; F17.210 Nicotine dependence, cigarettes, uncomplicated; E11.69 Type 2 diabetes mellitus with other specified complication; Z71.6 Tobacco abuse counseling; E78.2 Mixed hyperlipidemia; Z89.442 Acquired absence of left ankle; Z88.0 Allergy status to penicillin; Z88.2 Allergy status to sulfonamides; Z88.6 Allergy status to analgesic agent; Z79.4 Long term (current) use of insulin; Z79.899 Other long term (current) drug therapy
CPT/HCPCS: 36415; 73700; 73720; 80048; 80053; 80076; 80202; 82947; 83605; 85025; 85652; 86140; 87040; 94660; 99285; A9585; J1650; J3370

== ENCOUNTER → 2022-07-19 13:20 | Outpatient (BNVA) | payer OTHER, SELFPAY | PROVIDERS: PCP Internal Medicine; Visit Provider Surgery | DX: S62.001D Unspecified fracture of navicular [scaphoid] bone of right wrist, subsequent encounter for fracture with routine healing (principal) | CPT/HCPCS: 29085; 99212 ==

== ENCOUNTER → 2022-07-27 10:01 | Outpatient (BNVA) | payer OTHER, SELFPAY | PROVIDERS: PCP Internal Medicine; Referring Provider Internal Medicine; Visit Provider Internal Medicine | DX: Z01.810 Encounter for preprocedural cardiovascular examination (principal); I10 Essential (primary) hypertension; E11.8 Type 2 diabetes mellitus with unspecified complications; E66.01 Morbid (severe) obesity due to excess calories | CPT/HCPCS: 93005; 99212 ==

== ENCOUNTER 2022-08-08 10:45 | Inpatient (IN) | payer OTHER, SELFPAY ==
[2022-08-02 12:12] VITALS: BP 138/85; PULSE 68; RESP 20; O2SAT 97; BMI 41.4
--- NOTE | 2022-08-02 12:34 | HO.ANESPROP2 ---
Documented by User: Antonella Leong NP 08/02/22 12:47 HPI - Anesthesia Eval Consult details Narrative: 51yo M for Revision Leg Amputation Below Knee Stump Cardiac cleared bilat BKA PMFSH Active Problems Active Problems: All Active Problems (Updated 08/02/22 @ 12:06 by Dalila Rodriguez RN) Infection of amputation stump of left lower extremity (Acute) T2DM (type 2 diabetes mellitus) (Acute) Bipolar disorder with moderate depression (Acute) Anxiety (Acute) Abnormal EKG (Acute) LVH (left ventricular hypertrophy) (Acute) Vitamin B1 deficiency (Acute) Vitamin B12 deficiency (Acute) Abnormal stress test (Acute) Preoperative cardiovascular examination (Acute) Type 2 diabetes mellitus with unspecified complications (Acute) Other and unspecified hyperlipidemia (Acute) Abnormal myocardial perfusion study (Acute) S/P laparoscopic sleeve gastrectomy (Acute) Intra-abdominal adhesions (Acute) Congenital intra-abdominal adhesions (Acute) BMI 31.0-31.9,adult (Acute) Status post cardiac catheterization (Acute) Obesity (BMI 30.0-34.9) (Acute) GEM (acute kidney injury) (Acute) Tremor (Acute) Type 2 diabetes mellitus with morbid obesity (Acute) Excess skin (Acute) Physical exam (Acute) Fracture of scaphoid of right wrist (Acute) Osteomyelitis (Acute) Osteomyelitis of right femur (Acute) Cellulitis (Acute) Osteomyelitis (Acute) Recurrent cellulitis of lower extremity (Acute) Obesity (Acute) Neuropathy (Acute) Sleep apnea (Acute) Morbid obesity (Acute) Vitamin D deficiency (Acute) HLD (hyperlipidemia) (Acute) HTN (hypertension) (Acute) Diabetes mellitus (Acute) Past Medical History Medical History (Updated 08/02/22 @ 12:06 by Dalila Rodriguez RN) Anxiety Bilateral cataracts Cognitive and neurobehavioral dysfunction COVID-19 vaccine series completed Depression Diabetes mellitus History of traumatic brain injury History of trigger finger HLD (hyperlipidemia) HTN (hypertension) Hx of leg amputation Hx of staphylococcal infection Insulin dependent diabetes mellitus Morbid obesity Neuropathy Obesity PTSD (post-traumatic stress disorder) Recurrent cellulitis of lower extremity Sleep apnea Vitamin D deficiency Family History Family History Mother No problems noted. Father Alcohol abuse Family history of problems with anesthesia: No Surgical History Surgical History (Updated 08/02/22 @ 12:06 by Dalila Rodriguez RN) History of gastrectomy History of surgery on arm Hx of cardiac catheterization Hx of carpal tunnel repair Hx of cataract extraction Hx of hernia repair S/P BKA (below knee amputation) bilateral History of Problems with Anesthesia: No Social History Social History (Updated 08/01/22 @ 10:16 by Dalila Rodriguez RN) Household Members: Spouse Housing: Apartment Are you a primary child care supervisor to a significant other at home: No Do you presently have visiting nurse or other home services: No Alcohol intake: current Alcohol intake frequency: holidays/special occasions only Patient Tobacco Use Status: Current someday Tobacco user Tobacco use type: Smokeless Tobacco Years Smoked: 20-30 years e-Cigarette/Vaping Use: Never Used Second Hand Smoke Exposure: No Advance Directives Date on File: 07/14/22 service: No Current occupational status: disabled Cognitive needs: No Hearing needs: No Vision needs: Yes Narrative Narrative: No recent illness No CP/SOB. W/C bound Meds Allergies Allergy/AdvReac Type Severity Reaction Status Date / Time cefazolin [From Ancef] Allergy Severe Anaphylaxis Verified 08/08/22 06:59 Sulfa (Sulfonamide Allergy Severe Anaphylaxis Verified 08/08/22 06:59 Antibiotics) sulfamethoxazole Allergy Severe Mckoy-Kory Verified 08/08/22 07:00 [From Bactrim] syndrome trimethoprim [From Bactrim] Allergy Severe Mckoy-Kory Verified 08/08/22 07:00 syndrome levofloxacin [From Levaquin] Allergy Intermediate Rash Verified 08/08/22 06:59 metronidazole [From Flagyl] Allergy Intermediate Rash Verified 08/08/22 06:59 Penicillins Allergy Intermediate ? Verified 08/08/22 06:59 Hives-childhood reaction NSAIDS (Non-Steroidal AdvReac Unknown cannot Verified 08/08/22 06:59 Anti-Inflamma take due to having gastric sleeve Home Medications Medication Instructions Recorded Confirmed Last Taken Type zolpidem 12.5 mg tablet,extended 12.5 mg PO BEDTIME PRN Insomnia 12/21/20 08/08/22 08/07/22 History release,multiphase fluoxetine 40 mg capsule 80 mg PO QAM 04/11/21 08/08/22 08/07/22 History latanoprost 0.005 % eye drops 1 drp ophthalmic (eye) BEDTIME 05/15/22 08/08/2223 History clotrimazole 1 % topical cream 1 appl topical BID 05/26/22 08/08/22 08/07/22 History cephalexin 500 mg capsule 500 mg PO QID 07/10/22 08/08/22 08/07/22 History insulin aspart U-100 100 unit/mL See Protocol subcut TID-QID 07/10/22 08/08/22 08/07/22 History (3 mL) subcutaneous pen (Novolog FlexPen U-100 Insulin aspart) prazosin 5 mg capsule 5 mg PO BEDTIME 07/10/22 08/08/22 08/07/22 History propranolol 40 mg tablet 40 mg PO BID 07/27/22 08/08/22 08/07/22 History Exam Exam Date and Time: August 02, 2022 1234 Height,Weight and Vital Signs: Height 5 ft Weight 96.162 kg Last Vital Signs Pulse 68 08/02/22 12:12 Resp 20 08/02/22 12:12 BP 138/85 08/02/22 12:12 Pulse Ox 97 08/02/22 12:12 O2 Del Method Room Air 08/02/22 12:12 Pertinent Lab Results Pertinent Lab Results: Laboratory Tests 07/11/22 07/11/22 06:39 06:39 WBC 4.4 L Hgb 13.6 L Hct 39.2 L Plt Count 134 L Sodium 132 L Potassium 4.3 Chloride 98 Carbon Dioxide 27 BUN 15 Creatinine 1.29 Laboratory Tests 04/14/22 05/18/22 10:02 05:40 Hgb A1c (Clinic) Hemoglobin A1c % 7.8 Narrative Narrative: EKG 07/2022 sinus rhythm at 99/Min; moderate voltage criteria for LVH; nonspecific ST-T changes.? Normal MD/corrected QT. Per Cardiac Clearance: Echocardiogram with normal LVEF, 55-60% and no significant valvular pathology.? In the Lexiscan perfusion imaging study, there was a reversible anterior wall defect thought to be possibly from soft tissue attenuation, but could not exclude ischemia.? Cardiac catheterization however with normal coronary arteries; normal LVEDP.? Clinically, he has got absolutely no cardiac symptoms. Hence may proceed with the proposed amputations surgery as planned.? Intermediate cardiac risk considering his numerous comorbidities. Otherwise, with regard to his blood pressure, it is elevated today.? He states that he is extremely anxious about the surgery.? Apparently when visiting nurses check his own blood pressure at home, they are much lower as close the 120s.? Hence no changes made today.? Advised him to follow that up with his own primary care physician. Airway Mallampati Class: II TM Dist: >3cm Neck ROM: Full Denture: Upper and Lower Heart: RRR Lungs: CTAB Assessment and Plan Assessment Anesthesia Assessment: Anesthesia Plan Discussed and PAT Visit Final Anesthetic Review Family History of Problems with Anesthesia: No History of Problems with Anesthesia: No Documented by User: Lety Tay MD 08/08/22 10:09 [facility] Past Medical History Medical History (Updated 08/02/22 @ 12:06 by Dalila Rodriguez, LISA) Anxiety Bilateral cataracts Cognitive and neurobehavioral dysfunction COVID-19 vaccine series completed Depression Diabetes mellitus History of traumatic brain injury History of trigger finger HLD (hyperlipidemia) HTN (hypertension) Hx of leg amputation Hx of staphylococcal infection Insulin dependent diabetes mellitus Morbid obesity Neuropathy Obesity PTSD (post-traumatic stress disorder) Recurrent cellulitis of lower extremity Sleep apnea Vitamin D deficiency Family History Family History Mother No problems noted. Father Alcohol abuse Surgical History Surgical History (Updated 08/02/22 @ 12:06 by Dalila Rodriguez, LISA) History of gastrectomy History of surgery on arm Hx of cardiac catheterization Hx of carpal tunnel repair Hx of cataract extraction Hx of hernia repair S/P BKA (below knee amputation) bilateral Social History Social History (Updated 08/01/22 @ 10:16 by Dalila Rodriguez, LISA) Household Members: Spouse Housing: Apartment Are you a primary child care supervisor to a significant other at home: No Do you presently have visiting nurse or other home services: No Alcohol intake: current Alcohol intake frequency: holidays/special occasions only Patient Tobacco Use Status: Current someday Tobacco user Tobacco use type: Smokeless Tobacco Years Smoked: 20-30 years e-Cigarette/Vaping Use: Never Used Second Hand Smoke Exposure: No Advance Directives Date on File: 07/14/22 service: No Current occupational status: disabled Cognitive needs: No Hearing needs: No Vision needs: Yes Meds Allergies Allergy/AdvReac Type Severity Reaction Status Date / Time cefazolin [From Ancef] Allergy Severe Anaphylaxis Verified 08/08/22 06:59 Sulfa (Sulfonamide Allergy Severe Anaphylaxis Verified 08/08/22 06:59 Antibiotics) sulfamethoxazole Allergy Severe Mckoy-Kroy Verified 08/08/22 07:00 [From Bactrim] syndrome trimethoprim [From Bactrim] Allergy Severe Mckoy-Kory Verified 08/08/22 07:00 syndrome levofloxacin [From Levaquin] Allergy Intermediate Rash Verified 08/08/22 06:59 metronidazole [From Flagyl] Allergy Intermediate Rash Verified 08/08/22 06:59 Penicillins Allergy Intermediate ? Verified 08/08/22 06:59 Hives-childhood reaction NSAIDS (Non-Steroidal AdvReac Unknown cannot Verified 08/08/22 06:59 Anti-Inflamma take due to having gastric sleeve Home Medications Medication Instructions Recorded Confirmed Last Taken Type zolpidem 12.5 mg tablet,extended 12.5 mg PO BEDTIME PRN Insomnia 12/21/20 08/08/22 08/07/22 History release,multiphase fluoxetine 40 mg capsule 80 mg PO QAM 04/11/21 08/08/22 08/07/22 History latanoprost 0.005 % eye drops 1 drp ophthalmic (eye) BEDTIME 05/15/22 08/08/22 08/07/22 History clotrimazole 1 % topical cream 1 appl topical BID 05/26/22 08/08/22 08/07/22 History cephalexin 500 mg capsule 500 mg PO QID 07/10/22 08/08/22 08/07/22 History insulin aspart U-100 100 unit/mL See Protocol subcut TID-QID 07/10/22 08/08/22 08/07/22 History (3 mL) subcutaneous pen (Novolog FlexPen U-100 Insulin aspart) prazosin 5 mg capsule 5 mg PO BEDTIME 07/10/22 08/08/22 08/07/22 History propranolol 40 mg tablet 40 mg PO BID 07/27/22 08/08/22 08/07/22 History Exam Airway Partial: Upper and Lower Loose/Missing/Broken Teeth: No Assessment and Plan Final Anesthetic Review NPO: Yes ASA Class: III Final Preanesthetic Review: No Changes in Pt Med Stat, Consent Obtained/Reviewed and Anes Risks/Benef Reviewed Patient Risk: Intermediate Anesthetic Plan Anesthetic Plan: GA Disposition: Standard PACU
[2022-08-08] VITALS (16 sets, daily range): BP systolic 135–164; BP diastolic 72–95; PULSE 66–78; RESP 16–20; TEMP 36.6–37.2; O2SAT 93–99; BMI 51.7
--- NOTE | 2022-08-08 07:52 | PC.NURSE ---
Patient currently taking Cephalexin PO at home with no adverse reactions. Recorded allergy of Cefazolin with reaction of anaphylaxis. This allergy verified with patient. Dr. Conklin made aware. Preop Cefazolin IV order changed to Clindamycin IV per Dr. Conklin. Sharri from pharmacy made aware.
[2022-08-08] MEDS: Albuterol Sulfate (0.083%) 2.5 MG/3 ML VIAL.NEB INHALE (07:53)
[2022-08-08 08:13] LABS: Glucose, Whole Blood 287 mg/dL (60-115)
--- NOTE | 2022-08-08 08:30 | MHC.SHP ---
Pre-Procedural Eval Section A Date of Service: 08/08/22 The patient is an INPATIENT: No Changes since office visit: Yes Cold of Flu in the past 2 weeks, Yes New Medical Problems, Yes Changes in Medication and Yes Patient answered all questions The History & Physical has been completed within 30 days and I have reviewed it.: Yes Section B Chief Complaint: Cellulitis of unspecified part of limb Allergies: Allergies Allergy/AdvReac Type Severity Reaction Status Date / Time cefazolin [From Ancef] Allergy Severe Anaphylaxis Verified 08/08/22 06:59 Sulfa (Sulfonamide Allergy Severe Anaphylaxis Verified 08/08/22 06:59 Antibiotics) sulfamethoxazole Allergy Severe Mckoy-Kory Verified 08/08/22 07:00 [From Bactrim] syndrome trimethoprim [From Bactrim] Allergy Severe Mckoy-Kory Verified 08/08/22 07:00 syndrome levofloxacin [From Levaquin] Allergy Intermediate Rash Verified 08/08/22 06:59 metronidazole [From Flagyl] Allergy Intermediate Rash Verified 08/08/22 06:59 Penicillins Allergy Intermediate ? Verified 08/08/22 06:59 Hives-childhood reaction NSAIDS (Non-Steroidal AdvReac Unknown cannot Verified 08/08/22 06:59 Anti-Inflamma take due to having gastric sleeve Plan I have reviewed the history and physical and performed a pertinent physical examination on my patient. No changes have occurred unless specified. Time Spent With Patient Time: Total time managing care of this patient today ____ minutes.
--- NOTE | 2022-08-08 08:57 | PC.NURSE ---
Dr. Tay and Dr. Conklin made aware of patients blood sugar of 287. No new orders at this time. May proceed with surgery.
--- NOTE | 2022-08-08 10:36 | P.OP_ITS ---
Operative Note Operative Note Date of Service: 08/08/22 Narrative: preop diagnosis: recurrent wound, BKA stump of the right, with slippage of muscle flap away from the tibia postop diagnosis: The same procedure: Revision of BKA stump on right side with amputation of additional 2.5 cm of the tibial bone, myodesis of the muscle flap to the tibia surgeon: Josemanuel Conklin MD The patient is a 51-year-old male previous BKA on the right, done in [place] about 4 years ago with note of a chronic wound the end of the stump due to pressure of the bone on the skin. It appeared that the muscle flap had slipped off of the tibia and the stump had lost any questioning on the end of the itself. The bone itself appeared to be sharp and was causing pressure likely on the skin overlying skin. I explained to him the technique of excision of this BKA stump with further amputation of the distal tibia along with my D's. He understood the technique of the procedure as well as the risks, benefits, and alternatives He was brought to the operating room. He was placed supine under general anesthesia via laryngeal mask airway. The right BKA stump and thigh were prepped and draped in usual sterile fashion. A surgical time-out was done. The patient received demise in IV preoperatively for prophylaxis I marked my planned line of incision just anterior to the previous incision on the anterior aspect of the distal tibial stump. This area was infiltrated with lidocaine 1%. I made the incision using blade 15 transversely. This carried down through the full-thickness of the skin and subcutaneous fat. I continued to carry down the incision with electrocautery until the tibia was post. Defined the tibial stump. I circumferentially dissected this using the electrocautery used the periosteal air Vater to further expose the tibia proximal to the end of the stump. I then freed up the muscle of the posterior tibia. I was able to then pass a lap pad posterior to the proximal tibia to protect the rest of the muscle flap with lesion of the tibia. I then used the bone saw to divide distal 2.5 cm of the tibial bone, bevelling this yearly. I filed the sharp edges of the bone. I used electrocautery the soft tissues to achieve hemostasis. I then pulled up the posterior flap to cover the end of the bone. I then proceeded to do myodesis of the flapes by creating a hole in the tibia with the drill bit and suturing this muscle flap to the bone using a nyl on 2-0 stitch. I copiously irrigated. I applied a bone wax on the end of the tibia earlier. I then proceeded to secure the rest of the flap in the fascia together with multiple interrupted sub 3-0 sutures. I reapposed the subdermal layer with a 3-0 sutures as well. Skin closure achieved with multiple nylon 3-0 simple interrupted sutures. Thick fluffy dressings were applied to the stump and this was wrapped in Kerlix roll as well as with on Darrius bandage The procedure was completed. The patient tolerated procedure well. There were no immediate complications. Initial and final counts of sponges and instruments were correct. Estimated blood loss about 100 cc. The patient was extubated without difficulty and transferred to the recovery room with stable vital signs.
[2022-08-08] MEDS: fentaNYL citrate/PF 100 MCG/2 ML VIAL 50 MCG IVPUSH ×2 (10:58→11:14)
[2022-08-08] MEDS: oxyCODONE HCl Immed Release 5 MG TABLET 10 MG PO (11:12)
--- NOTE | 2022-08-08 11:55 | HO.PM.IMCN ---
History of Present Illness Data of Consult Service Date: 08/08/22 Requesting physician: Josemanuel Conklin Primary Care Provider: Chapincito Sprague MD HPI Reason for consult: medical management 51-year-old male with pertinent history of type 2 diabetes mellitus, bilateral BKA, essential hypertension, mood disorder, mixed hyperlipidemia, obesity status post sleeve gastrectomy admitted to general surgery for revision of BKA stump with consult placed to hospitalist service for medical management. He is POD0 and is feeling well following surgery, pain reasonably controlled. Has no complaints at this time but feels tired. he is not very talkative. He is an occassional binge alcohol drinker but no recent use, denies illicit drug use, and occassionally chews tobacco. Review of Systems Review of Systems: General: No fevers, malaise, unintentional weight loss HEENT: No blurred vision, diplopia. No sore throat, nasal congestion, rhinorrhea, sinus pain, ear pain Cardiovascular: No chest pain, palpitations, or leg edema Respiratory: No shortness of breath, wheezing, cough GI: No abdominal pain, nausea, vomiting, diarrhea, constipation, melena, hematochezia : No dysuria, hematuria, increased urinary frequency, decreased urinary output MSK: No myalgia, back pain Neuro: No headaches, weakness, paresthesias Skin: No rashes or lesions PMFSH Medical History Anxiety Bilateral cataracts Cognitive and neurobehavioral dysfunction COVID-19 vaccine series completed Depression Diabetes mellitus History of traumatic brain injury History of trigger finger HLD (hyperlipidemia) HTN (hypertension) Hx of leg amputation Hx of staphylococcal infection Insulin dependent diabetes mellitus Morbid obesity Neuropathy Obesity PTSD (post-traumatic stress disorder) Recurrent cellulitis of lower extremity Sleep apnea Vitamin D deficiency Family History Mother No problems noted. Father Alcohol abuse Surgical History (Updated 08/08/22 @ 12:03 by JENY Randolph) History of gastrectomy History of surgery on arm Hx of cardiac catheterization Hx of carpal tunnel repair Hx of cataract extraction Hx of hernia repair S/P BKA (below knee amputation) bilateral Social History Household Members: Spouse Housing: Apartment Are you a primary acute care nurse to a significant other at home: No Do you presently have visiting nurse or other home services: No Alcohol intake: current Alcohol intake frequency: holidays/special occasions only Patient Tobacco Use Status: Current someday Tobacco user Tobacco use type: Smokeless Tobacco Years Smoked: 20-30 years e-Cigarette/Vaping Use: Never Used Second Hand Smoke Exposure: No Use of substances other than those prescribed or required for medical reasons: No Have you been hit, kicked, punched, or otherwise hurt by someone within the past year? If so, by whom?: No Are you DNR?: No Advance Directives: Yes Advance Directives Information Provided: Yes Advance Directives on File: Yes Advance Directives Date on File: 07/14/22 Recently lost weight without trying: No Eating poorly because of decreased appetite: No Nutrition Risks: No Nutritional Risk Poor oral hygiene: No (upper & lower full dentures) service: No Current occupational status: disabled Cognitive needs: No Hearing needs: No Vision needs: Yes Meds Allergies Allergy/AdvReac Type Severity Reaction Status Date / Time cefazolin [From Ancef] Allergy Severe Anaphylaxis Verified 08/08/22 06:59 Sulfa (Sulfonamide Allergy Severe Anaphylaxis Verified 08/08/22 06:59 Antibiotics) sulfamethoxazole Allergy Severe Mckoy-Kory Verified 08/08/22 07:00 [From Bactrim] syndrome trimethoprim [From Bactrim] Allergy Severe Mckoy-Kory Verified 08/08/22 07:00 syndrome levofloxacin [From Levaquin] Allergy Intermediate Rash Verified 08/08/22 06:59 metronidazole [From Flagyl] Allergy Intermediate Rash Verified 08/08/22 06:59 Penicillins Allergy Intermediate ? Verified 08/08/22 06:59 Hives-childhood reaction NSAIDS (Non-Steroidal AdvReac Unknown cannot Verified 08/08/22 06:59 Anti-Inflamma take due to having gastric sleeve Active Medications: Current Medications Amitriptyline HCl (Amitriptyline Hcl 50 Mg Tablet) 50 mg PO BEDTIME [facility] Fentanyl (Fentanyl Citrate/Pf 100 Mcg/2 Ml Vial) 50 mcg IVPUSH Q5M PRN; Protocol PRN Reason: Pain, Severe (Pain Scale 7-10) Last Admin: 08/08/22 11:14 Dose: 50 mcg Fluoxetine HCl (Fluoxetine Hcl 20 Mg Capsule) 80 mg PO DAILY [facility] Glucose (Glucose Gel 15 Gm Gel..Gram.) 15 gm PO Q15M PRN; Protocol PRN Reason: per Hypoglycemia Standing Ord. Heparin Sodium (Porcine) (Heparin Sodium,Porcine 5,000 Unit/Ml Vial) 5,000 unit SUBCUT Q8H [facility] Lactated Ringer's (Lr) 1,000 mls @ 100 mls/hr IVCONT .Q10H [facility] Promethazine HCl 12.5 mg/ (Sodium Chloride) 50.5 mls @ 202 mls/hr IV ONCE PRN PRN Reason: Nausea and Vomiting Dextrose (D10) 250 mls @ 750 mls/hr IV Q15M PRN; Protocol PRN Reason: per Hypoglycemia Standing Ord. Insulin Human Lispro (Insulin Lispro 100 Unit/Ml 3 Ml Vial) 0 unit SUBCUT QIDACHS [facility]; Protocol Latanoprost (Latanoprost 0.005 % Ophth Ingrid 2.5 Ml Drops) 1 drop EYE-BOTH BEDTIME [facility] Morphine Sulfate (Morphine Sulfate 4 Mg/Ml Cartridge) 3 mg IVPUSH Q4H PRN; Protocol PRN Reason: Pain, Severe (Pain Scale 7-10) Non-Formulary Medication (Varenicline [Chantix]) 1 mg PO BID [facility] Oxycodone HCl (Oxycodone Hcl Immed Release 5 Mg Tablet) 5 mg PO Q6H PRN PRN Reason: Pain, Moderate(Pain Scale 4-6) Prazosin HCl (Prazosin Hcl 5 Mg Capsule) 5 mg PO BEDTIME [facility]; Protocol Pregabalin (Pregabalin 200 Mg Capsule) 200 mg PO TID [facility] Propranolol HCl (Propranolol Hcl 40 Mg Tablet) 40 mg PO BID [facility]; Protocol Sodium Chloride (0.9 % Sodium Chloride Flush 3 Ml Syringe) 3 ml IVFLUSH QSHIFT [facility] Zolpidem Tartrate (Zolpidem Tartrate 5 Mg Tablet) 5 mg PO BEDTIME PRN PRN Reason: Insomnia Home Medications Medication Instructions Recorded Confirmed Last Taken Type zolpidem 12.5 mg tablet,extended 12.5 mg PO BEDTIME PRN Insomnia 12/21/20 08/08/22 08/07/22 History release,multiphase fluoxetine 40 mg capsule 80 mg PO QAM 04/11/21 08/08/22 08/07/22 History latanoprost 0.005 % eye drops 1 drp ophthalmic (eye) BEDTIME 05/15/22 08/08/22 08/07/22 History clotrimazole 1 % topical cream 1 appl topical BID 05/26/22 08/08/22 08/07/22 History insulin aspart U-100 100 unit/mL See Protocol subcut TID-QID 07/10/22 08/08/22 08/07/22 History (3 mL) subcutaneous pen (Novolog FlexPen U-100 Insulin aspart) prazosin 5 mg capsule 5 mg PO BEDTIME 07/10/22 08/08/22 08/07/22 History propranolol 40 mg tablet 40 mg PO BID 07/27/22 08/08/22 08/07/22 History Physical Exam Vital Signs and Narrative: Vital Signs: Last Vital Signs Temp 98.4 F 08/08/22 11:17 Pulse 72 08/08/22 11:36 Resp 16 08/08/22 11:36 BP 160/94 H 08/08/22 11:36 Pulse Ox 95 08/08/22 11:36 O2 Del Method Nasal Cannula 08/08/22 11:36 O2 Flow Rate 2 08/08/22 11:36 BMI result Body Mass Index 41.4 Constitutional - Awake and Alert, No apparent distress Eyes - PERRLA, EOMI Cardiovascular - S1S2, RRR, No edema Respiratory - Normal lung expansion, Normal respiratory effort, No respiratory distress, CTA bilaterally Gastrointestinal - NT / ND; +BS; No rebound or guarding - No CVA tenderness Extremities - no calf tenderness bilaterally, no swelling. s/p BKA BLE Musculoskeletal - Normal inspection, normal ROM Skin - Warm/Dry Neurological - Alert & oriented x3, CN II-XII in tact, 5/5 strength BUE and BLE Psychological - Appropriate affect Results Labs Labs: Laboratory Results - last 24 hr 08/08/22 07:05 POC Glucose 287 H Assessment and Plan (1) S/P BKA (below knee amputation) bilateral: Status: Acute Plan 51-year-old male with pertinent history of type 2 diabetes mellitus, bilateral BKA, essential hypertension, mood disorder, mixed hyperlipidemia, obesity status post sleeve gastrectomy admitted to general surgery for revision of BKA stump with consult placed to hospitalist service for medical management. #Revision R BKA stump -plan per general surgery # insulin-dependent type 2 diabetes- with hyperglycemia -last hemoglobin A1c 7.8% on 05/18 -POC glucose -diabetic diet -Humalog on sliding scale # hypertension -continue home antihypertensives # bipolar disorder and anxiety -given 1 time dose lorazepam p.o. in the ED -continue propranolol, zolpidem, fluoxetine, amitriptyline, prazosin # tobacco abuser -continue Chantix from home # diabetic polyneuropathy -continue Lyrica Thank you for this consult. Will continue following for management of diabetes. Time Spent With Patient Time: Total time managing care of this patient today ____ minutes.
[2022-08-08 12:00] LABS: Glucose, Whole Blood 249 mg/dL (60-115)
[2022-08-08] MEDS: Morphine Sulfate 4 MG/ML CARTRIDGE 3 MG IVPUSH ×2 (14:13→18:15)
[2022-08-08] MEDS: Pregabalin 200 MG CAPSULE PO ×2 (14:49→20:20)
[2022-08-08] MEDS: oxyCODONE HCl Immed Release 5 MG TABLET PO ×2 (15:34→21:29)
[2022-08-08] MEDS: 0.9 % Sodium Chloride Flush 3 ML SYRINGE IVFLUSH (15:35)
[2022-08-08] MEDS: Lactated Ringers 1,000 ML 100 ML IVCONT (15:35)
--- NOTE | 2022-08-08 15:52 | PM.EVENT ---
Event Note Date of Service: 08/08/22 Event Note: seen postop says he is oK' had revision of BKA stump, right this morning appears comfortable dressings dry pain mgt at bedside - discussed procedure and care Time Spent With Patient Time: Total time managing care of this patient today ____ minutes.
[2022-08-08 16:11] LABS: Glucose, Whole Blood 249 mg/dL (60-115)
[2022-08-08] MEDS: Insulin Lispro 100 UNIT/ML 3 ML VIAL SUBCUT ×2 (17:10→20:25)
[2022-08-08 20:16] LABS: Glucose, Whole Blood 153 mg/dL (60-115)
[2022-08-08] MEDS: Amitriptyline HCl 50 MG TABLET PO (20:20)
[2022-08-08] MEDS: Propranolol HCL 40 MG TABLET PO (20:20)
[2022-08-08] MEDS: Prazosin HCL 5 MG CAPSULE PO (20:20)
[2022-08-09] MEDS: Morphine Sulfate 4 MG/ML CARTRIDGE 3 MG IVPUSH ×5 (00:01→19:12)
[2022-08-09] MEDS: Lactated Ringers 1,000 ML 100 ML IVCONT ×3 (00:05→19:17)
[2022-08-09 03:14] VITALS: BP 131/71; PULSE 76; RESP 18; TEMP 36.9; O2SAT 97
[2022-08-09 07:08] VITALS: BP 151/80; PULSE 85; RESP 20; TEMP 36.2; O2SAT 96
--- NOTE | 2022-08-09 07:16 | HO.POSTANES ---
Post Anesthesia Evaluation Post Anesthesia Evaluation Date of Service: 08/09/22 Vital Signs: Vital Signs Temp Pulse Resp BP Pulse Ox O2 Del Method 08/09/22 07:08 97.2 F 85 20 151/80 H 96 Room Air 08/09/22 03:14 98.4 F 76 18 131/71 97 Room Air Anesthesia: General Mental Status: Awake Pain Control: Satisfactory Nausea/Vomiting: None Hydration: Adequate Anesthesia-Related Issues: No Anes. Related Issues
[2022-08-09 08:07] LABS: Glucose, Whole Blood 270 mg/dL (60-115)
[2022-08-09] MEDS: FLUoxetine HCl 20 MG CAPSULE 80 MG PO (08:10)
[2022-08-09] MEDS: oxyCODONE HCl Immed Release 5 MG TABLET PO ×3 (08:10→22:49)
[2022-08-09] MEDS: Propranolol HCL 40 MG TABLET PO ×2 (08:10→21:26)
[2022-08-09] MEDS: Pregabalin 200 MG CAPSULE PO ×3 (08:10→21:27)
--- NOTE | 2022-08-09 08:10 | P.PNGS_ITS ---
Subjective Subjective Date of Service: 08/09/22 Interval history: has postop pain no events overnight getting pain meds Physical Exam Vital Signs: Vital Signs: Last Vital Signs Temp 97.2 F 08/09/22 07:08 Pulse 85 08/09/22 07:08 Resp 20 08/09/22 07:08 BP 151/80 H 08/09/22 07:08 Pulse Ox 96 08/09/22 07:08 O2 Del Method Room Air 08/09/22 07:08 O2 Flow Rate 2 08/08/22 12:04 Oxygen Flow Rate 2 08/08/22 10:09 BMI result Body Mass Index 51.7 Const: General: comfortable and no acute distress Resp: Effort & Inspection: normal respiratory effort Cardio: Rate: regular rate GI: Palpation (GI): Soft to palpation, not firm and nontender Extrem: Other: dressings dry Objective Data Active Medications Amitriptyline HCl (Amitriptyline Hcl 50 Mg Tablet) 50 mg PO BEDTIME [facility] Last Admin: 08/08/22 20:20 Dose: 50 mg Documented By: YOLIS Fentanyl (Fentanyl Citrate/Pf 100 Mcg/2 Ml Vial) 50 mcg IVPUSH Q5M PRN; Protocol PRN Reason: Pain, Severe (Pain Scale 7-10) Last Admin: 08/08/22 11:14 Dose: 50 mcg Documented By: EMILIAGELHeaven Fluoxetine HCl (Fluoxetine Hcl 20 Mg Capsule) 80 mg PO DAILY [facility] Last Admin: 08/08/22 12:02 Dose: Not Given Documented By: SHANNA Non-Admin Reason: Off Unit: Surgery Glucose (Glucose Gel 15 Gm Gel..Gram.) 15 gm PO Q15M PRN; Protocol PRN Reason: per Hypoglycemia Standing Ord. Heparin Sodium (Porcine) (Heparin Sodium,Porcine 5,000 Unit/Ml Vial) 5,000 unit SUBCUT Q8H [facility] Lactated Ringer's (Lr) 1,000 mls @ 100 mls/hr IVCONT .Q10H [facility] Last Admin: 08/09/22 00:05 Dose: 100 mls/hr Documented By: YOLIS Promethazine HCl 12.5 mg/ (Sodium Chloride) 50.5 mls @ 202 mls/hr IV ONCE PRN PRN Reason: Nausea and Vomiting Dextrose (D10) 250 mls @ 750 mls/hr IV Q15M PRN; Protocol PRN Reason: per Hypoglycemia Standing Ord. Insulin Human Lispro (Insulin Lispro 100 Unit/Ml 3 Ml Vial) 0 unit SUBCUT QIDACHS [facility]; Protocol Last Admin: 08/08/22 20:25 Dose: 2 unit Documented By: YOLIS Latanoprost (Latanoprost 0.005 % Ophth Ingrid 2.5 Ml Drops) 1 drop EYE-BOTH BEDTIME [facility] Last Admin: 08/08/22 20:27 Dose: Not Given Documented By: YOLIS Non-Admin Reason: Med Not Available Morphine Sulfate (Morphine Sulfate 4 Mg/Ml Cartridge) 3 mg IVPUSH Q4H PRN; Protocol PRN Reason: Pain, Severe (Pain Scale 7-10) Last Admin: 08/09/22 05:00 Dose: 3 mg Documented By: YOLIS Non-Formulary Medication (Varenicline [Chantix]) 1 mg PO BID [facility] Oxycodone HCl (Oxycodone Hcl Immed Release 5 Mg Tablet) 5 mg PO Q6H PRN PRN Reason: Pain, Moderate(Pain Scale 4-6) Last Admin: 08/08/22 21:29 Dose: 5 mg Documented By: YOLIS Prazosin HCl (Prazosin Hcl 5 Mg Capsule) 5 mg PO BEDTIME [facility]; Protocol Last Admin: 08/08/22 20:20 Dose: 5 mg Documented By: YOLIS Pregabalin (Pregabalin 200 Mg Capsule) 200 mg PO TID [facility] Last Admin: 08/08/22 20:20 Dose: 200 mg Documented By: YOLIS Propranolol HCl (Propranolol Hcl 40 Mg Tablet) 40 mg PO BID [facility]; Protocol Last Admin: 08/08/22 20:20 Dose: 40 mg Documented By: YOLIS Sodium Chloride (0.9 % Sodium Chloride Flush 3 Ml Syringe) 3 ml IVFLUSH QSHIFT [facility] Last Admin: 08/09/22 07:15 Dose: Not Given Documented By: EMMETT Non-Admin Reason: IV Running Zolpidem Tartrate (Zolpidem Tartrate 5 Mg Tablet) 5 mg PO BEDTIME PRN PRN Reason: Insomnia Labs Labs: Laboratory Results - last 24 hr 08/08/22 08/08/22 08/08/22 07:05 11:56 16:07 POC Glucose 287 H 249 H 249 H 08/08/22 08/09/22 20:08 08:02 POC Glucose 153 H 270 H Procedures Date of Service Date of Service: 08/09/22 Progress Note: A&P Assessment and plan (1) BKA stump complication: Status: Acute Assessment and Plan: s/p revision of right BKA stump, with further resection of tibia dressings dry looks well plan to change dressings later he says he may be ready to go home with pain med Time Spent With Patient Time: Total time managing care of this patient today ____ minutes. Quality Stroke Does the patient have a stroke diagnosis?: No VTE Prior VTE?: No VTE Risk Level:: Medical - moderate - high VTE Device Contraindication: N/A - Device Ordered VTE Drug Contraindication: N/A - Med Ordered
[2022-08-09] MEDS: Heparin Sodium,Porcine 5,000 UNIT/ML VIAL 5000 UNIT SUBCUT ×2 (08:11→16:40)
[2022-08-09] MEDS: Insulin Lispro 100 UNIT/ML 3 ML VIAL SUBCUT ×2 (08:11→16:39)
[2022-08-09 10:09] VITALS: O2SAT 96
--- NOTE | 2022-08-09 10:22 | MHC.CM.PN ---
Addendum entered by Ella Falcon 08/09/22 10:28: Patient uses a wheel chair. He has prosthetics. Original Note: IMM 08/09/22 Male 51 DX Revision of BKA stump. Patient lives with his . He has [facility] BKAs. Pt requires assist with ADLs. He has [facility] in place. HCP on file. PT vaxxed for covid. Patient will have a ride at discharge. DP resume [facility] patient will arrange for a ride home.
--- NOTE | 2022-08-09 10:34 | PHA.MEDREC ---
Pharmacy Consult ? Medication Reconciliation Pharmacy has completed the medication reconciliation. Reviewed med rec done by nursing
[2022-08-09 11:35] LABS: Glucose, Whole Blood 133 mg/dL (60-115)
[2022-08-09 15:31] LABS: Glucose, Whole Blood 223 mg/dL (60-115)
[2022-08-09 15:48] VITALS: BP 147/65; PULSE 89; RESP 20; TEMP 36.4; O2SAT 94
--- NOTE | 2022-08-09 16:30 | PM.EVENT ---
Event Note Date of Service: 08/09/22 Event Note: seen on after noon rounds he looks well he wants to stay another night for pain control VNA arranged Time Spent With Patient Time: Total time managing care of this patient today ____ minutes.
--- NOTE | 2022-08-09 16:41 | HO.PM.IMPN ---
Subjective Subjective Date of Service: 08/09/22 Interval History: Patient with no acute issues overnight Says is doing okay since surgery Pain reasonably controlled Blood sugar better controlled today. Patient says is always high when he comes to hospital, though much better controlled at home Denies any other symptoms Pt says will go home tomorrow Review of Systems Moderate pain at surgical site Phantom limb pain bilaterally, chronic No numbness or tingling in leg No chest pain/pressure, palpitations Denies SOB Physical Exam Vital Signs: Vital Signs: Last Vital Signs Temp 97.5 F 08/09/22 15:48 Pulse 89 08/09/22 15:48 Resp 20 08/09/22 15:48 BP 147/65 H 08/09/22 15:48 Pulse Ox 94 08/09/22 15:48 O2 Del Method Room Air 08/09/22 15:48 O2 Flow Rate 2 08/08/22 12:04 Oxygen Flow Rate 2 08/08/22 10:09 BMI result Body Mass Index 51.7 General: AOx3, no acute distress Resp: CTA bilaterally CVS: S1, S2, RRR GI: +BS, NT, no distention Skin: No rash Neuro: Cranial nerves II-XII grossly intact bilaterally. Motor grossly intact bilaterally Extremities: s/p BKA BLE, clean dressing in place on right stump Psych: Appropriate affect Objective Data Active Medications Amitriptyline HCl (Amitriptyline Hcl 50 Mg Tablet) 50 mg PO BEDTIME [facility] Last Admin: 08/08/22 20:20 Dose: 50 mg Documented By: YOLIS Fentanyl (Fentanyl Citrate/Pf 100 Mcg/2 Ml Vial) 50 mcg IVPUSH Q5M PRN; Protocol PRN Reason: Pain, Severe (Pain Scale 7-10) Last Admin: 08/08/22 11:14 Dose: 50 mcg Documented By: DANGELL Fluoxetine HCl (Fluoxetine Hcl 20 Mg Capsule) 80 mg PO DAILY [facility] Last Admin: 08/09/22 08:10 Dose: 80 mg Documented By: EMMETT Glucose (Glucose Gel 15 Gm Gel..Gram.) 15 gm PO Q15M PRN; Protocol PRN Reason: per Hypoglycemia Standing Ord. Heparin Sodium (Porcine) (Heparin Sodium,Porcine 5,000 Unit/Ml Vial) 5,000 unit SUBCUT Q8H [facility] Last Admin: 08/09/22 08:11 Dose: 5,000 unit Documented By: EMMETT Lactated Ringer's (Lr) 1,000 mls @ 100 mls/hr IVCONT .Q10H [facility] Last Admin: 08/09/22 09:35 Dose: 100 mls/hr Documented By: EMMETT Promethazine HCl 12.5 mg/ (Sodium Chloride) 50.5 mls @ 202 mls/hr IV ONCE PRN PRN Reason: Nausea and Vomiting Dextrose (D10) 250 mls @ 750 mls/hr IV Q15M PRN; Protocol PRN Reason: per Hypoglycemia Standing Ord. Insulin Human Lispro (Insulin Lispro 100 Unit/Ml 3 Ml Vial) 0 unit SUBCUT QIDACHS [facility]; Protocol Last Admin: 08/09/22 11:38 Dose: Not Given Documented By: EMMETT Non-Admin Reason: No Insulin Coverage Latanoprost (Latanoprost 0.005 % Ophth Ingrid 2.5 Ml Drops) 1 drop EYE-BOTH BEDTIME [facility] Last Admin: 08/08/22 20:27 Dose: Not Given Documented By: YOLIS Non-Admin Reason: Med Not Available Morphine Sulfate (Morphine Sulfate 4 Mg/Ml Cartridge) 3 mg IVPUSH Q4H PRN; Protocol PRN Reason: Pain, Severe (Pain Scale 7-10) Last Admin: 08/09/22 14:34 Dose: 3 mg Documented By: EMMETT Non-Formulary Medication (Varenicline [Chantix]) 1 mg PO BID [facility] Oxycodone HCl (Oxycodone Hcl Immed Release 5 Mg Tablet) 5 mg PO Q6H PRN PRN Reason: Pain, Moderate(Pain Scale 4-6) Last Admin: 08/09/22 08:10 Dose: 5 mg Documented By: EMMETT Prazosin HCl (Prazosin Hcl 5 Mg Capsule) 5 mg PO BEDTIME [facility]; Protocol Last Admin: 08/08/22 20:20 Dose: 5 mg Documented By: YOLIS Pregabalin (Pregabalin 200 Mg Capsule) 200 mg PO TID [facility] Last Admin: 08/09/22 14:34 Dose: 200 mg Documented By: EMMETT Propranolol HCl (Propranolol Hcl 40 Mg Tablet) 40 mg PO BID [facility]; Protocol Last Admin: 08/09/22 08:10 Dose: 40 mg Documented By: EMMETT Sodium Chloride (0.9 % Sodium Chloride Flush 3 Ml Syringe) 3 ml IVFLUSH QSHIFT [facility] Last Admin: 08/09/22 15:06 Dose: Not Given Documented By: EMMETT Non-Admin Reason: IV Running Zolpidem Tartrate (Zolpidem Tartrate 5 Mg Tablet) 5 mg PO BEDTIME PRN PRN Reason: Insomnia Labs Labs: Laboratory Results - last 24 hr 08/08/22 08/09/22 08/09/22 20:08 08:02 11:15 POC Glucose 153 H 270 H 133 H 08/09/22 15:27 POC Glucose 223 H Assessment and Plan (1) BKA stump complication: Status: Acute (2) Hyperglycemia: Status: Acute Plan 51-year-old male with pertinent history of type 2 diabetes mellitus, bilateral BKA, essential hypertension, mood disorder, mixed hyperlipidemia, obesity status post sleeve gastrectomy admitted to general surgery for revision of BKA stump with consult placed to hospitalist service for medical management. #Revision R BKA stump -plan per general surgery # insulin-dependent type 2 diabetes- with hyperglycemia -last hemoglobin A1c 7.8% on 05/18 -blood sugar better controlled today -POC glucose -diabetic diet -Humalog on sliding scale -F/U outpatient with PCP if POC glucose remain elevated on current therapy # hypertension -continue home antihypertensives # bipolar disorder and anxiety -given 1 time dose lorazepam p.o. in the ED -continue propranolol, zolpidem, fluoxetine, amitriptyline, prazosin # tobacco abuser -continue Chantix from home # diabetic polyneuropathy -continue Lyrica Thank you for this consult. Will sign off for now. Time Spent With Patient Time: Total time managing care of this patient today ____ minutes. Quality Stroke Does the patient have a stroke diagnosis?: No VTE Prior VTE?: No VTE Risk Level:: Medical - moderate - high VTE Device Contraindication: N/A - Device Ordered VTE Drug Contraindication: N/A - Med Ordered
[2022-08-09 19:21] VITALS: BP 151/87; PULSE 81; RESP 18; TEMP 37.3; O2SAT 97
[2022-08-09 20:25] LABS: Glucose, Whole Blood 97 mg/dL (60-115)
[2022-08-09] MEDS: Prazosin HCL 5 MG CAPSULE PO (21:26)
[2022-08-09] MEDS: Amitriptyline HCl 50 MG TABLET PO (21:27)
[2022-08-10] MEDS: Morphine Sulfate 4 MG/ML CARTRIDGE 3 MG IVPUSH ×2 (00:47→05:28)
[2022-08-10] MEDS: Heparin Sodium,Porcine 5,000 UNIT/ML VIAL 5000 UNIT SUBCUT ×2 (00:49→07:49)
[2022-08-10 03:20] VITALS: BP 120/67; PULSE 74; RESP 18; TEMP 36.7; O2SAT 91
[2022-08-10 05:24] VITALS: BP 113/70; O2SAT 93
[2022-08-10] MEDS: Lactated Ringers 1,000 ML 100 ML IVCONT (05:30)
[2022-08-10 07:09] VITALS: BP 107/64; PULSE 72; RESP 20; TEMP 37.1; O2SAT 95
[2022-08-10 07:14] LABS: Glucose, Whole Blood 232 mg/dL (60-115)
[2022-08-10] MEDS: Insulin Lispro 100 UNIT/ML 3 ML VIAL SUBCUT ×2 (07:45→11:49)
[2022-08-10] MEDS: FLUoxetine HCl 20 MG CAPSULE 80 MG PO (07:46)
[2022-08-10] MEDS: Propranolol HCL 40 MG TABLET PO (07:46)
[2022-08-10] MEDS: Pregabalin 200 MG CAPSULE PO (07:47)
--- NOTE | 2022-08-10 07:55 | PM.PNGS ---
Subjective Subjective Date of Service: 08/10/22 Interval history: Feels well pain adequately controlled says he is ready to be discharged Physical Exam Vital Signs: Vital Signs: Last Vital Signs Temp 98.8 F 08/10/22 07:09 Pulse 72 08/10/22 07:09 Resp 20 08/10/22 07:09 BP 107/64 08/10/22 07:09 Pulse Ox 95 08/10/22 07:09 O2 Del Method Room Air 08/10/22 07:09 O2 Flow Rate 2 08/08/22 12:04 Oxygen Flow Rate 2 08/08/22 10:09 BMI result Body Mass Index 51.7 Const: General: comfortable and no acute distress Resp: Effort & Inspection: normal respiratory effort Cardio: Rate: regular rate GI: Palpation (GI): Soft to palpation Extrem: Other: BKA stump clean, no discharge, mild redness, sutures intact, no fluctuance Objective Data Active Medications Amitriptyline HCl (Amitriptyline Hcl 50 Mg Tablet) 50 mg PO BEDTIME [facility] Last Admin: 08/09/22 21:27 Dose: 50 mg Documented By: ANAMIKARISFranc Fentanyl (Fentanyl Citrate/Pf 100 Mcg/2 Ml Vial) 50 mcg IVPUSH Q5M PRN; Protocol PRN Reason: Pain, Severe (Pain Scale 7-10) Last Admin: 08/08/22 11:14 Dose: 50 mcg Documented By: DANGELL Fluoxetine HCl (Fluoxetine Hcl 20 Mg Capsule) 80 mg PO DAILY [facility] Last Admin: 08/10/22 07:46 Dose: 80 mg Documented By: TREVOR Glucose (Glucose Gel 15 Gm Gel..Gram.) 15 gm PO Q15M PRN; Protocol PRN Reason: per Hypoglycemia Standing Ord. Heparin Sodium (Porcine) (Heparin Sodium,Porcine 5,000 Unit/Ml Vial) 5,000 unit SUBCUT Q8H [facility] Last Admin: 08/10/22 07:49 Dose: 5,000 unit Documented By: TREVOR Promethazine HCl 12.5 mg/ (Sodium Chloride) 50.5 mls @ 202 mls/hr IV ONCE PRN PRN Reason: Nausea and Vomiting Dextrose (D10) 250 mls @ 750 mls/hr IV Q15M PRN; Protocol PRN Reason: per Hypoglycemia Standing Ord. Insulin Human Lispro (Insulin Lispro 100 Unit/Ml 3 Ml Vial) 0 unit SUBCUT QIDACHS [facility]; Protocol Last Admin: 08/10/22 07:45 Dose: 4 unit Documented By: TREVOR Latanoprost (Latanoprost 0.005 % Ophth Ingrid 2.5 Ml Drops) 1 drop EYE-BOTH BEDTIME [facility] Last Admin: 08/09/22 21:53 Dose: Not Given Documented By: PAULINE Non-Admin Reason: Patient Refused Morphine Sulfate (Morphine Sulfate 4 Mg/Ml Cartridge) 3 mg IVPUSH Q4H PRN; Protocol PRN Reason: Pain, Severe (Pain Scale 7-10) Last Admin: 08/10/22 05:28 Dose: 3 mg Documented By: CHANELL Non-Formulary Medication (Varenicline [Chantix]) 1 mg PO BID [facility] Oxycodone HCl (Oxycodone Hcl Immed Release 5 Mg Tablet) 5 mg PO Q6H PRN PRN Reason: Pain, Moderate(Pain Scale 4-6) Last Admin: 08/09/22 22:49 Dose: 5 mg Documented By: PAULINE Prazosin HCl (Prazosin Hcl 5 Mg Capsule) 5 mg PO BEDTIME [facility]; Protocol Last Admin: 08/09/22 21:26 Dose: 5 mg Documented By: PAULINE Pregabalin (Pregabalin 200 Mg Capsule) 200 mg PO TID [facility] Last Admin: 08/10/22 07:47 Dose: 200 mg Documented By: TREVOR Propranolol HCl (Propranolol Hcl 40 Mg Tablet) 40 mg PO BID [facility]; Protocol Last Admin: 08/10/22 07:46 Dose: 40 mg Documented By: TREVOR Sodium Chloride (0.9 % Sodium Chloride Flush 3 Ml Syringe) 3 ml IVFLUSH QSHIFT [facility] Last Admin: 08/10/22 07:36 Dose: Not Given Documented By: TREVOR Non-Admin Reason: IV Running Zolpidem Tartrate (Zolpidem Tartrate 5 Mg Tablet) 5 mg PO BEDTIME PRN PRN Reason: Insomnia Labs Labs: Laboratory Results - last 24 hr 08/09/22 08/09/22 08/09/22 08:02 11:15 15:27 POC Glucose 270 H 133 H 223 H 08/09/22 08/10/22 20:20 07:05 POC Glucose 97 232 H Procedures Date of Service Date of Service: 08/10/22 Progress Note: A&P Assessment and plan (1) BKA stump complication: Status: Acute Assessment and Plan: I changes dressings I applied thick fluffy gauze and wrapped the leg with Kerlix and Darrius bandage continue daily dressing changes with gauze and Kerlix and Darrius bandage will see in the office in 2-3 weeks for removal sutures has VNA set up okay to shower Time Spent With Patient Time: Total time managing care of this patient today ____ minutes. Quality Stroke Does the patient have a stroke diagnosis?: No VTE Prior VTE?: No VTE Risk Level:: Medical - moderate - high VTE Device Contraindication: N/A - Device Ordered VTE Drug Contraindication: N/A - Med Ordered
--- NOTE | 2022-08-10 08:45 | MHC.CM.PN ---
Patient is discharged today. [facility] will resume home care services. Patient has arranged for a ride home.
[2022-08-10 10:00] VITALS: O2SAT 96
[2022-08-10 11:02] LABS: Glucose, Whole Blood 199 mg/dL (60-115)
--- NOTE | 2022-08-10 14:05 | P.DS_ITS ---
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 He has had a chronic wound on the because of the the absence of occlusion overlying the tibial bone as the gastrocnemius flap appear to have slipped posteriorly. In view of this, been unable to use any prostheses. I had offered him the option of proceeding with revision of the stump. He understood and wanted to proceed. He therefore underwent revision of the BKA stump on the right under anesthesia in the operating room on 08/08/2022. I had shorten the bone 5 cm. I had done myodesis Gastrocnemius flap to the end of the bone as well. He tolerated procedure well. He was kept in house be for pain management. He continued to do well without any events during his hospital stay. I changed his dressing prior to discharge and the incision appeared clean and dry without any signs of necrosis or infection. He had adequate pain control. He was therefore discharged on 08/10/2022. He had a visiting nurse arranged. He is to undergo daily dry dressings with thick fluffy gauze and Kerlix roll. Time Spent with Patient Time attestation: Total time managing care of this patient today ____ minutes. Discharge coordination time: Less than 30 minutes Quality: Safe Use of Opioids Does Pt have an Active Cancer Diagnosis on the Problem List?: No Quality: Stroke Does the patient have a stroke diagnosis?: No Physical Exam Vital Signs: Vital Signs: Last Vital Signs Temp 98.8 F 08/10/22 07:09 Pulse 72 08/10/22 07:09 Resp 20 08/10/22 07:09 BP 107/64 08/10/22 07:09 Pulse Ox 96 08/10/22 10:00 O2 Del Method Room Air 08/10/22 07:09 O2 Flow Rate 2 08/08/22 12:04 Oxygen Flow Rate 2 08/08/22 10:09 BMI result Body Mass Index 51.7 Const: General: comfortable and no acute distress Orientation/consciousness: patient oriented x3 Neck: Neck: Yes no lymphadenopathy Resp: Auscultation: clear to auscultation bilaterally Cardio: Rhythm: regular rhythm GI: Palpation (GI): Soft to palpation, nontender and no guarding Neuro: General: patient oriented x3 Extrem: Other: BKA on the left revision site on the BKA stump on the right clean, sutures intact, not infected, necrosis DS: Data Data Completed and Pending Completed studies during hospitalization [Text1]: Procedures Excision of Stomach, Percutaneous Endoscopic Approach, Vertical (10/28/20) Insertion of Infusion Device into Superior Vena Cava, Percutaneous Approach (05/15/22) Release Peritoneum, Percutaneous Endoscopic Approach (10/28/20) Ultrasonography of Superior Vena Cava, Guidance (05/15/22) Laboratory Results POC Glucose 199 mg/dL (60-115) H 08/10/22 10:58 Pending studies at discharge: Pending at discharge 08/08/22 09:53 Surgical [PTH] Routine Labs on day of discharge: Laboratory Results - last 24 hr 08/09/22 08/09/22 08/10/22 15:27 20:20 07:05 POC Glucose 223 H 97 232 H 08/10/22 10:58 POC Glucose 199 H Discharge Plan Discharge Anticipated Discharge Date/Time: 08/09/22 08:13 Patient Disposition: Home Health Service Discharge Diagnosis: BKA stump complication Referrals: Annamaria ANTONIO [Outside] - 1 Week Josemanuel Conklin MD [Physician] - 3 Weeks Discharge Medications: New oxycodone-acetaminophen [Percocet] 5-325 mg tablet 1 tab PO Q4-6H PRN (Reason: pain) Qty: 30 0RF Rx Instructions: Partial Fill upon patient request. Continued (DME) Bilateral below the knee socket replacement See Rx Instructions .Route .MEDSUPPLY Qty: 1 6RF Rx Instructions: As directed pregabalin 200 mg capsule 200 mg PO TID 30 Days Qty: 90 2RF varenicline [Chantix] 1 mg tablet 1 mg PO BID Qty: 56 3RF (DME) Dexcom G6 Transmitter Device See Rx Instructions .ROUTE .COMPLEX Qty: 1 0RF Dose Instruction: DIRECTED Rx Instructions: test 4 times daily (DME) Dexcom G6 Sensor Device See Rx Instructions topical Q10D Qty: 3 8RF Rx Instructions: As directed latanoprost 0.005 % drops 1 drp ophthalmic (eye) BEDTIME propranolol 40 mg tablet 40 mg PO BID clotrimazole 1 % cream 1 appl TOPICAL BID prazosin 5 mg capsule 5 mg PO BEDTIME insulin aspart U-100 [Novolog FlexPen U-100 Insulin] 100 unit/mL (3 mL) insulin pen See Protocol subcut TID-QID Protocol: Insulin Correction Scale Less than or equal to 110 ---- Give (units): 0 111 to 150 Give (units): 0 151 to 200 Give (units): 2 201 to 250 Give (units): 4 251 to 300 Give (units): 6 301 to 350 Give (units): 8 Greater than 350 Give (units): 10 Call MD if Blood Glucose > : 350 amitriptyline 50 mg tablet 50 mg PO BEDTIME Qty: 90 3RF zolpidem 12.5 mg tablet,ext release multiphase 12.5 mg PO BEDTIME PRN (Reason: Insomnia) fluoxetine 40 mg capsule 80 mg PO QAM Discharge Orders: Discharge Order (Routine); Ordered 08/10/22 Ordered By: Josemanuel Conklin Activity on Discharge: As tolerated Stand Alone Forms: Patient Portal Discharge page Activity Restrictions/Additional Instructions: avoid any pressure on BKA stump If the incision area is tender, you may apply an ice pack for short intervals (No more than 20 minutes on, followed by at least 20 minutes off). Do not apply heat. Do not use creams, lotions, or topical antibiotics unless instructed to do so by your surgeon. These can cause infection or allergic reaction. Change dressings daily with gauze, wrap with Darrius Bandage OK to shower starting August 10 No strenuous activities Call the office for follow-up in 2-3 weeks - with Dr. Conklin Call Your Doctor If: -Your temperature exceeds 101.5? F -You experience excessive pain or swelling -You have an unexpected reaction to medication -You have excessive bleeding -You experience continued vomiting/nausea -Your incision begins to separate -Your incision shows signs of infection such as increased redness, swelling, excessive pain, drainage (light blood or clear fluid is normal) or heat WOUND CARE: Thick fluffy dressings on the incision, wrapped the stump with Kerlix and Darrius bandage; okay to get the incision wet Care Plan Goals: pain management wound care Health Concerns: DM bipolar d/o HTN Plan of Treatment: oral pain meds Assessment: doing well postop Discharge Date/Time: 08/10/22 12:40
== END 2022-08-10 12:40 | disposition home health service (06) | DRG 475 ==
LOC: HO.SSSA 10:55 → HO.S3 11:06
PROVIDERS: Admitting Provider Surgery; PCP Internal Medicine; Visit Provider Surgery
PROC: 0Y6H0Z1 Detachment at Right Lower Leg, High, Open Approach (ICD-10-PCS; CPT 27880; principal; 2022-08-08 08:40)
DX: T87.81 Dehiscence of amputation stump (principal); Z68.41 Body mass index [BMI] 40.0-44.9, adult; E78.2 Mixed hyperlipidemia; Y83.5 Amputation of limb(s) as the cause of abnormal reaction of the patient, or of later complication, without mention of misadventure at the time of the procedure; F43.10 Post-traumatic stress disorder, unspecified; E66.9 Obesity, unspecified; E11.65 Type 2 diabetes mellitus with hyperglycemia; F31.9 Bipolar disorder, unspecified; F41.9 Anxiety disorder, unspecified; E11.42 Type 2 diabetes mellitus with diabetic polyneuropathy; F17.290 Nicotine dependence, other tobacco product, uncomplicated; Z71.6 Tobacco abuse counseling; Z89.512 Acquired absence of left leg below knee; Z98.84 Bariatric surgery status; Z88.0 Allergy status to penicillin; Z88.1 Allergy status to other antibiotic agents; Z88.2 Allergy status to sulfonamides; Z79.4 Long term (current) use of insulin; Z79.899 Other long term (current) drug therapy
CPT/HCPCS: 82947; 88305; 88307; 88311; 94640; J1643; J2250; J2270; J3010

== ENCOUNTER 2022-08-16 08:27 | Outpatient (REF) | payer OTHER, SELFPAY ==
--- NOTE | ~2022-08-16 | XR_ITS ---
EXAMINATION: XR WRIST, RIGHT CLINICAL INFORMATION: Pain. COMPARISON: Radiographs dated 07/05/2022. TECHNIQUE: PA, lateral, and oblique views of the right wrist. FINDINGS: There is continued stable mild displacement of a fracture fragment arising from the distal lateral margin of the scaphoid. No significant new callus formation is seen. The proximal and distal carpal rows are otherwise intact. There is no dislocation. No focal bone erosion is noted. There is no soft tissue swelling, gas or foreign body. There are atherosclerotic calcifications. XR/XR wrist RT w scaphoid IMPRESSION: A mildly displaced distal scaphoid fracture fragment is redemonstrated, in stable alignment. No new callus formation is seen.
== END 2022-08-16 08:28 | disposition home or self-care (01) ==
LOC: HO.HOSX 08:27
PROVIDERS: Visit Provider Physician Assistant
DX: S62.001A Unspecified fracture of navicular [scaphoid] bone of right wrist, initial encounter for closed fracture (principal)
CPT/HCPCS: 73110; 99212

== ENCOUNTER 2022-08-19 16:44 | Emergency (ER) | payer OTHER, SELFPAY ==
--- NOTE | ~2022-08-19 | XR_ITS ---
EXAMINATION: XR KNEE, RIGHT CLINICAL INFORMATION: Below the knee amputation with question of bony erosion COMPARISON: MRI right lower leg 07/11/2022, CT right lower extremity 07/10/2022 TECHNIQUE: Two views of the right knee. FINDINGS: Patient status post below-knee amputation. No bony erosion is seen in the region of the stump. No periosteal reaction is seen. No air is present in the subcutaneous tissues. A ghost track is seen in the tibia from prior screw. XR/XR knee RT 2V IMPRESSION: Status post below-knee amputation. No evidence of osteomyelitis. MRI would be more sensitive for diagnosing this.
[2022-08-19 17:00] VITALS: BP 145/80; PULSE 74; RESP 16; TEMP 36.8; O2SAT 96; BMI 42.0
--- NOTE | 2022-08-19 17:01 | ED.LOWEXIN ---
HPI - Extremity Injury (Lower) General Chief Complaint: Wound/Laceration Stated Complaint: ? right stump infection Time Seen by Provider: 08/19/22 18:33 Source: patient Mode of arrival: ambulatory Limitations: no limitations History of Present Illness HPI Narrative: Patient is status post right BKA in 2018 had revision done on 08/08 since well tender today noticed blood-tinged discharge without any foul smell no fever Related Data Home Medications Medication Instructions Recorded Confirmed zolpidem 12.5 mg tablet,extended 12.5 mg PO BEDTIME PRN Insomnia 12/21/20 08/08/22 release,multiphase fluoxetine 40 mg capsule 80 mg PO QAM 04/11/21 08/08/22 latanoprost 0.005 % eye drops 1 drp ophthalmic (eye) BEDTIME 05/15/22 08/08/22 clotrimazole 1 % topical cream 1 appl topical BID 05/26/22 08/08/22 insulin aspart U-100 100 unit/mL See Protocol subcut TID-QID 07/10/22 08/08/22 (3 mL) subcutaneous pen (Novolog FlexPen U-100 Insulin aspart) prazosin 5 mg capsule 5 mg PO BEDTIME 07/10/22 08/08/22 propranolol 40 mg tablet 40 mg PO BID 07/27/22 08/08/22 Previous Rx's Medication Instructions Recorded Bilateral below the knee socket #1 ea 02/24/22 replacement amitriptyline 50 mg tablet 50 mg PO BEDTIME #90 tabs 04/14/22 pregabalin 200 mg capsule 200 mg PO TID 30 days #90 caps 05/29/22 varenicline 1 mg tablet (Chantix) 1 mg PO BID #56 tabs 07/05/22 blood-glucose sensor (Dexcom G6 #3 ea 08/03/22 Sensor device) blood-glucose transmitter (Dexcom #1 ea 08/03/22 G6 Transmitter device) oxycodone-acetaminophen 5 mg-325 1 tab PO Q4-6H PRN pain #30 tabs 08/09/22 mg tablet (Percocet) Allergies Allergy/AdvReac Type Severity Reaction Status Date / Time cefazolin [From [facility]] Allergy Severe Anaphylaxis Verified 08/19/22 17:00 Sulfa (Sulfonamide Allergy Severe Anaphylaxis Verified 08/19/22 17:00 Antibiotics) sulfamethoxazole Allergy Severe Mckoy-Kory Verified 08/19/22 17:00 [From Bactrim] syndrome trimethoprim [From Bactrim] Allergy Severe Mckoy-Kory Verified 08/19/22 17:00 syndrome levofloxacin [From Levaquin] Allergy Intermediate Rash Verified 08/19/22 17:00 metronidazole [From Flagyl] Allergy Intermediate Rash Verified 08/19/22 17:00 Penicillins Allergy Intermediate ? 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 COVID-19 vaccine series completed Depression Diabetes mellitus History of traumatic brain injury History of trigger finger HLD (hyperlipidemia) HTN (hypertension) Hx of leg amputation Hx of staphylococcal infection Insulin dependent diabetes mellitus Morbid obesity Neuropathy Obesity PTSD (post-traumatic stress disorder) Recurrent cellulitis of lower extremity Sleep apnea Vitamin D deficiency Surgical History History of gastrectomy History of surgery on arm Hx of cardiac catheterization Hx of carpal tunnel repair Hx of cataract extraction Hx of hernia repair S/P BKA (below knee amputation) bilateral Family History Family History Mother No problems noted. Father Alcohol abuse Social History Social History Household Members: Spouse Housing: House Are you a primary home health aide caregiver to a significant other at home: No Do you presently have visiting nurse or other home services: Yes Alcohol intake: current Alcohol intake frequency: holidays/special occasions only Patient Tobacco Use Status: Never used Tobacco Tobacco use type: Smokeless Tobacco Years Smoked: 20-30 years e-Cigarette/Vaping Use: Never Used Second Hand Smoke Exposure: No Advance Directives: Yes Advance Directives on File: Yes Advance Directives Date on File: 07/14/22 service: No Current occupational status: disabled Cognitive needs: No Hearing needs: No Vision needs: Yes Physical Exam Vital Signs: Vital Signs: Last Vital Signs Temp 98.3 F 08/19/22 17:00 Pulse 74 08/19/22 17:00 Resp 16 08/19/22 17:00 BP 145/80 H 08/19/22 17:00 Pulse Ox 96 08/19/22 17:00 O2 Del Method Room Air 08/19/22 17:00 BMI result Body Mass Index 42.0 Appearance: Alert. Oriented X3. No acute distress ENT: Pharynx normal. Oral Mucosa moist Neck: Normal inspection. Neck supple. CVS: Normal heart rate and rhythm. Pulses normal. Respiratory: No respiratory distress. Equal air entry bilateral, no wheezing/rales/rhonchi Abdomen: Soft and nontender. Bowel sounds are present, no mass palpable, no CVA tenderness Skin: Skin warm and dry. Normal skin color. Normal skin turgor. Extremities: Bilateral BKA Neuro: Oriented X 3. Course Course Course Narrative: This is an RME: Additional HPI, ROS, PE not included below will be deferred to primary provider. Patient is a 51-year-old male presents emergency department for evaluation of surgical wound. 2.5 weeks ago had right BKA amputation revision with Dr. Conklin. 2 days ago developed foul smelling drainage from the surgical site. Denies fevers or chills. VNA was in the home today for dressing change, was concerned about the appearance and advised to come to the emergency department. Medical Decision Making Medical Decision Making MDM Narrative: Patient is status post right BKA labs are stable x-ray negative for bony erosion dressing applied patient advised to follow-up with surgeon Lab Data [facility] Lab Attestation statement: I reviewed the patient's lab results. 08/19/22 17:17 08/19/22 17:17 Labs: Lab Results 08/19/22 08/19/22 08/19/22 Range/Units 17:17 17:17 17:32 WBC 6.3 (4.8-10.8) X10*3/uL RBC 4.61 (4.60-5.80) X10*6/uL Hgb 13.7 L (14.0-18.0) g/dl Hct 39.8 L (42.0-52.0) % MCV 86.3 (80.0-98.0) fL MCH 29.7 (27.0-33.0) pg MCHC 34.4 (31.0-36.0) g/dl RDW 13.4 (11.0-16.0) % Plt Count 188 D (160-400) X10*3/uL MPV 9.6 (9.4-12.4) fL Immature Gran % (Auto) 1.0 H (0.0-0.4) % Neut % (Auto) 51.8 (45-73) % Lymph % (Auto) 29.3 (20-40) % [place] % (Auto) 14.4 H (2-11) % Eos % (Auto) 2.9 (0-4) % Baso % (Auto) 0.6 (0-2) % Lymph # (Auto) 1.8 (1.2-4.9) X10*3/uL [place] # (Auto) 0.9 (0.1-1.2) X10*3/uL Eos # (Auto) 0.2 (0.0-0.4) X10*3/uL Baso # (Auto) 0.0 (0.0-0.2) X10*3/uL Abs Immat Gran (auto) 0.06 H (0.00-0.03) X10*3/uL Absolute Neuts (auto) 3.3 (2.0-8.3) x10*3/uL Absolute Nucleated RBC 0.000 (0.0-0.012) X10*3/uL Nucleated RBC % (auto) 0.0 (0.0-0.2) /100WBC Sodium 136 (135-145) mmol/L Potassium 4.6 (3.3-5.1) mmol/L Chloride 101 (96-108) mmol/L Carbon Dioxide 24 (22-29) mmol/L Anion Gap 16 (12-20) BUN 14 (9-16) mg/dL Creatinine 1.06 (0.5-1.4) mg/dL Estim Creat Clear Calc 79.5 Estimated GFR > 60 Random Glucose 156 H (60-115) mg/dL Lactic Acid 1.3 (0.5-2.0) mmol/L Calcium 9.4 D (8.4-10.2) mg/dL Discharge Plan Discharge Clinical Impression: Healing wound Patient Disposition: Home, Self-Care Instructions: Acute Wounds (ED) Additional Instructions: Local care as advised No signs of infection noticed Follow-up with your surgeon Prescriptions: No Action (DME) Bilateral below the knee socket replacement See Rx Instructions .Route .MEDSUPPLY Qty: 1 6RF Rx Instructions: As directed pregabalin 200 mg capsule 200 mg PO TID 30 Days Qty: 90 2RF varenicline [Chantix] 1 mg tablet 1 mg PO BID Qty: 56 3RF (DME) Dexcom G6 Transmitter Device See Rx Instructions .ROUTE .COMPLEX Qty: 1 0RF Dose Instruction: DIRECTED Rx Instructions: test 4 times daily (DME) Dexcom G6 Sensor Device See Rx Instructions topical Q10D Qty: 3 8RF Rx Instructions: As directed latanoprost 0.005 % drops 1 drp ophthalmic (eye) BEDTIME propranolol 40 mg tablet 40 mg PO BID oxycodone-acetaminophen [Percocet] 5-325 mg tablet 1 tab PO Q4-6H PRN (Reason: pain) Qty: 30 0RF Rx Instructions: Partial Fill upon patient request. clotrimazole 1 % cream 1 appl TOPICAL BID prazosin 5 mg capsule 5 mg PO BEDTIME insulin aspart U-100 [Novolog FlexPen U-100 Insulin] 100 unit/mL (3 mL) insulin pen See Protocol subcut TID-QID Protocol: Insulin Correction Scale Less than or equal to 110 ---- Give (units): 0 111 to 150 Give (units): 0 151 to 200 Give (units): 2 201 to 250 Give (units): 4 251 to 300 Give (units): 6 301 to 350 Give (units): 8 Greater than 350 Give (units): 10 Call MD if Blood Glucose > : 350 amitriptyline 50 mg tablet 50 mg PO BEDTIME Qty: 90 3RF zolpidem 12.5 mg tablet,ext release multiphase 12.5 mg PO BEDTIME PRN (Reason: Insomnia) fluoxetine 40 mg capsule 80 mg PO QAM
[2022-08-19 17:23] LABS: MANUAL DIFF FLAG NO
[2022-08-19 17:28] LABS: Basophils Percent Auto 0.6 % (0-2); Eosinophils Absolute Auto 0.2 X10*3/uL (0.0-0.4); Eosinophils Percent Auto 2.9 % (0-4); Hematocrit 39.8 % (42.0-52.0); Hemoglobin 13.7 g/dl (14.0-18.0); Imm Gran Abs Auto 0.06 X10*3/uL (0.00-0.03); Lymphocytes Absolute Auto 1.8 X10*3/uL (1.2-4.9); Lymphocytes Percent Auto 29.3 % (20-40); Mean Corpuscular HGB Conc 34.4 g/dl (31.0-36.0); Mean Corpuscular Hemoglobin 29.7 pg (27.0-33.0); Mean Corpuscular Volume 86.3 fL (80.0-98.0); Mean Platelet Volume 9.6 fL (9.4-12.4); Monocytes Absolute Auto 0.9 X10*3/uL (0.1-1.2); Monocytes Percent Auto 14.4 % (2-11); Neutrophils Absolute Auto 3.3 x10*3/uL (2.0-8.3); Neutrophils Percent Auto 51.8 % (45-73); Platelet Count 188 X10*3/uL (160-400); Red Blood Count 4.61 X10*6/uL (4.60-5.80); Red Cell Distribution Width 13.4 % (11.0-16.0); White Blood Count 6.3 X10*3/uL (4.8-10.8)
[2022-08-19 17:43] LABS: Anion Gap 16 (12-20); Blood Urea Nitrogen 14 mg/dL (9-16); Calcium 9.4 mg/dL (8.4-10.2); Carbon Dioxide 24 mmol/L (22-29); Chloride 101 mmol/L (96-108); Creatinine Clr Calc Pharmacy 79.5; Estimated Glomerular Filt Rate > 60; Glucose Random 156 mg/dL (60-115); Potassium 4.6 mmol/L (3.3-5.1); Sodium 136 mmol/L (135-145)
[2022-08-19 17:50] LABS: Lactic Acid 1.3 mmol/L (0.5-2.0)
[2022-08-19 19:48] VITALS: BP 146/88; PULSE 76; RESP 19; TEMP 36.8; O2SAT 98
== END 2022-08-19 19:58 | disposition home or self-care (01) ==
PROVIDERS: Nurse Practitioner Family; Emergency Provider Internal Medicine; PCP Internal Medicine
DX: Z48.01 Encounter for change or removal of surgical wound dressing (principal); Z89.511 Acquired absence of right leg below knee; E11.9 Type 2 diabetes mellitus without complications; I10 Essential (primary) hypertension; E78.5 Hyperlipidemia, unspecified; Z89.512 Acquired absence of left leg below knee; Z87.820 Personal history of traumatic brain injury; Z79.4 Long term (current) use of insulin; Z79.899 Other long term (current) drug therapy
CPT/HCPCS: 36415; 73560; 80048; 83605; 85025; 87040; 99282; 99283

== ENCOUNTER 2022-08-31 09:29 | Emergency (ER) | payer OTHER, SELFPAY ==
[2022-08-31 09:32] VITALS: BP 147/89; PULSE 91; RESP 20; TEMP 36.7; O2SAT 95; BMI 42.0
--- NOTE | 2022-08-31 09:59 | ED.SKABFB ---
HPI - Skin/Abscess/Foreign Bdy General Chief complaint: Skin/Abscess/Foreign Body Stated complaint: leg draining Time Seen by Provider: 08/31/22 09:44 History of Present Illness HPI narrative: Patient is a 51-year-old male status post below the knee amputation on the right side. No fever no chills. Surgery was done August 08. Patient noted there was drainage from the wound today. ED for help. No systemic complaints. Related Data Home Medications Medication Instructions Recorded Confirmed zolpidem 12.5 mg tablet,extended 12.5 mg PO BEDTIME PRN Insomnia 12/21/20 08/08/22 release,multiphase fluoxetine 40 mg capsule 80 mg PO QAM 04/11/21 08/08/22 latanoprost 0.005 % eye drops 1 drp ophthalmic (eye) BEDTIME 05/15/22 08/08/22 clotrimazole 1 % topical cream 1 appl topical BID 05/26/22 08/08/22 insulin aspart U-100 100 unit/mL See Protocol subcut TID-QID 07/10/22 08/08/22 (3 mL) subcutaneous pen (Novolog FlexPen U-100 Insulin aspart) prazosin 5 mg capsule 5 mg PO BEDTIME 07/10/22 08/08/22 propranolol 40 mg tablet 40 mg PO BID 07/27/22 08/08/22 Previous Rx's Medication Instructions Recorded Bilateral below the knee socket #1 ea 02/24/22 replacement amitriptyline 50 mg tablet 50 mg PO BEDTIME #90 tabs 04/14/22 varenicline 1 mg tablet (Chantix) 1 mg PO BID #56 tabs 07/05/22 blood-glucose sensor (Dexcom G6 #3 ea 08/03/22 Sensor device) blood-glucose transmitter (Dexcom #1 ea 08/03/22 G6 Transmitter device) oxycodone-acetaminophen 5 mg-325 1 tab PO Q4-6H PRN pain #30 tabs 08/09/22 mg tablet (Percocet) pregabalin 200 mg capsule 200 mg PO TID 30 days #90 caps 08/29/22 Allergies Allergy/AdvReac Type Severity Reaction Status Date / Time cefazolin [From [facility]] Allergy Severe Anaphylaxis Verified 08/19/22 17:00 Sulfa (Sulfonamide Allergy Severe Anaphylaxis Verified 08/19/22 17:00 Antibiotics) sulfamethoxazole Allergy Severe Mckoy-Kory Verified 08/19/22 17:00 [From Bactrim] syndrome trimethoprim [From Bactrim] Allergy Severe Mckoy-Kory Verified 08/19/22 17:00 syndrome levofloxacin [From Levaquin] Allergy Intermediate Rash Verified 08/19/22 17:00 metronidazole [From Flagyl] Allergy Intermediate Rash Verified 08/19/22 17:00 Penicillins Allergy Intermediate ? Verified 08/19/22 17:00 Hives-childhood reaction NSAIDS (Non-Steroidal AdvReac Unknown cannot Verified 08/19/22 17:00 Anti-Inflamma take due to having gastric sleeve Review of Systems Review of Systems: Status post below the knee amputation Yes all other systems are reviewed and are negative PMFSH Past Medical History Attestation statement: The following information was validated with the patient. 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 COVID-19 vaccine series completed Depression Diabetes mellitus History of traumatic brain injury History of trigger finger HLD (hyperlipidemia) HTN (hypertension) Hx of leg amputation Hx of staphylococcal infection Insulin dependent diabetes mellitus Morbid obesity Neuropathy Obesity PTSD (post-traumatic stress disorder) Recurrent cellulitis of lower extremity Sleep apnea Vitamin D deficiency Surgical History History of gastrectomy History of surgery on arm Hx of cardiac catheterization Hx of carpal tunnel repair Hx of cataract extraction Hx of hernia repair S/P BKA (below knee amputation) bilateral Family History Family History Mother No problems noted. Father Alcohol abuse Social History Social History Household Members: Spouse Housing: House Are you a primary care director rn to a significant other at home: No Do you presently have visiting nurse or other home services: Yes Alcohol intake: current Alcohol intake frequency: a few times a month Patient Tobacco Use Status: Never used Tobacco Tobacco use type: Smokeless Tobacco Years Smoked: 20-30 years Smoked in Last 30 Days: No e-Cigarette/Vaping Use: Never Used Second Hand Smoke Exposure: No Use of substances other than those prescribed or required for medical reasons: No Advance Directives: Yes Advance Directives on File: Yes Advance Directives Date on File: 07/14/22 service: No Current occupational status: disabled Cognitive needs: No Hearing needs: No Vision needs: Yes Physical Exam Vital Signs: Vital Signs: Last Vital Signs Temp 98.2 F 08/31/22 10:14 Pulse 77 08/31/22 12:33 Resp 18 08/31/22 12:33 BP 174/95 H 08/31/22 12:33 Pulse Ox 95 08/31/22 12:33 O2 Del Method Room Air 08/31/22 12:33 BMI result Body Mass Index 42.0 Appearance: Alert. Oriented X3. No acute distress. Eyes: Pupils equal, round and reactive to light. ENT: Pharynx normal. Neck: Normal inspection. Neck supple. No lymph nodes noted. No crepitus CVS: Normal heart rate and rhythm. Pulses normal. Normal S1 and S2 Respiratory: No respiratory distress. Breath sounds normal. No Wheezing. No rales Abdomen: Soft and nontender. No rigidity. No distention. good BS x4 Skin: Skin warm and dry. Normal skin color. Normal skin turgor. Extremities: Examination of the right leg. Patient wound grossly intact. There is granulation tissue noted over the below the knee amputation. No gross discharge noted. Sensation intact. Positive pulses at the popliteal. Neuro: Oriented X 3. No motor deficit. No sensory deficit. Moving all extermities. No slurred speech Medications Administered Generic Name Dose Route Start Last Admin Trade Name Freq PRN Reason Stop Dose Admin Sodium Chloride 1,000 mls @ 999 mls/hr 08/31/22 12:15 08/31/22 12:32 Ns IV 08/31/22 13:15 999 mls/hr .Q1H1M WHITNEY Administration Discontinued Medications Generic Name Dose Route Start Last Admin Trade Name Freq PRN Reason Stop Dose Admin Sodium Chloride 1,000 mls @ 999 mls/hr 08/31/22 10:45 08/31/22 12:31 Ns IV 08/31/22 11:45 Infused .Q1H1M WHITNEY Infusion Medical Decision Making Medical Decision Making [facility] Narrative: Patient's wound appears intact. Clinically did not appear septic. Patient's lactate initially was 2.7. After IV fluids they came down nicely. Wound was evaluated by surgery Dr. Conklin. Enderlin comfortable with discharge close follow-up on an outpatient basis. Patient's white count is normal. Well-appearing x-ray showed no fracture. Glucose slightly elevated but no evidence for DKA. Discussed with patient the need for close follow-up. Patient states understanding. Differential Diagnosis Differential Diagnoses: The differential diagnosis associated with the presentation includes Infection, seroma, bone infection Admission/Observation Consideration of admission/observation: Escalation of care including admission/observation considered After discussion with surgery will discharge patient home Consult Healthcare Provider Management of the patient was discussed with: Hospitality Director Surgery Lab Data MDM Lab Attestation statement: I reviewed the patient's lab results. 08/31/22 10:07 08/31/22 10:07 Labs: Lab Results 08/31/22 08/31/22 08/31/22 Range/Units 10:07 10:07 10:07 WBC 5.2 (4.8-10.8) X10*3/uL RBC 4.36 L (4.60-5.80) X10*6/uL Hgb 12.9 L (14.0-18.0) g/dl Hct 37.7 L (42.0-52.0) % MCV 86.5 (80.0-98.0) fL MCH 29.6 (27.0-33.0) pg MCHC 34.2 (31.0-36.0) g/dl RDW 13.2 (11.0-16.0) % Plt Count 130 L D (160-400) X10*3/uL MPV 9.8 (9.4-12.4) fL Immature Gran % (Auto) 0.6 H (0.0-0.4) % Neut % (Auto) 65.0 (45-73) % Lymph % (Auto) 23.0 (20-40) % [place] % (Auto) 8.9 (2-11) % Eos % (Auto) 2.1 (0-4) % Baso % (Auto) 0.4 (0-2) % Lymph # (Auto) 1.2 (1.2-4.9) X10*3/uL [place] # (Auto) 0.5 (0.1-1.2) X10*3/uL Eos # (Auto) 0.1 (0.0-0.4) X10*3/uL Baso # (Auto) 0.0 (0.0-0.2) X10*3/uL Abs Immat Gran (auto) 0.03 (0.00-0.03) X10*3/uL Absolute Neuts (auto) 3.4 (2.0-8.3) x10*3/uL Absolute Nucleated RBC 0.000 (0.0-0.012) X10*3/uL Nucleated RBC % (auto) 0.0 (0.0-0.2) /100WBC ESR 34 H (0-15) MM/HR Sodium 133 L (135-145) mmol/L Potassium 5.1 (3.3-5.1) mmol/L Chloride 97 (96-108) mmol/L Carbon Dioxide 27 (22-29) mmol/L Anion Gap 14 (12-20) BUN 13 (9-16) mg/dL Creatinine 1.34 (0.5-1.4) mg/dL Estim Creat Clear Calc 62.9 Estimated GFR 56 Random Glucose 329 H (60-115) mg/dL Lactic Acid (0.5-2.0) mmol/L Lactic Acid F/U @ 2Hr (0.5-2.0) mmol/L Calcium 9.2 (8.4-10.2) mg/dL C-Reactive Protein 2.77 H (< or = 0.50) mg/dL 08/31/22 08/31/22 Range/Units 10:07 12:25 WBC (4.8-10.8) X10*3/uL RBC (4.60-5.80) X10*6/uL Hgb (14.0-18.0) g/dl Hct (42.0-52.0) % MCV (80.0-98.0) fL MCH (27.0-33.0) pg MCHC (31.0-36.0) g/dl RDW (11.0-16.0) % Plt Count (160-400) X10*3/uL MPV (9.4-12.4) fL Immature Gran % (Auto) (0.0-0.4) % Neut % (Auto) (45-73) % Lymph % (Auto) (20-40) % [place] % (Auto) (2-11) % Eos % (Auto) (0-4) % Baso % (Auto) (0-2) % Lymph # (Auto) (1.2-4.9) X10*3/uL [place] # (Auto) (0.1-1.2) X10*3/uL Eos # (Auto) (0.0-0.4) X10*3/uL Baso # (Auto) (0.0-0.2) X10*3/uL Abs Immat Gran (auto) (0.00-0.03) X10*3/uL Absolute Neuts (auto) (2.0-8.3) x10*3/uL Absolute Nucleated RBC (0.0-0.012) X10*3/uL Nucleated RBC % (auto) (0.0-0.2) /100WBC ESR (0-15) MM/HR Sodium (135-145) mmol/L Potassium (3.3-5.1) mmol/L Chloride (96-108) mmol/L Carbon Dioxide (22-29) mmol/L Anion Gap (12-20) BUN (9-16) mg/dL Creatinine (0.5-1.4) mg/dL Estim Creat Clear Calc Estimated GFR Random Glucose (60-115) mg/dL Lactic Acid 2.7 H* (0.5-2.0) mmol/L Lactic Acid F/U @ 2Hr 1.7 (0.5-2.0) mmol/L Calcium (8.4-10.2) mg/dL C-Reactive Protein (< or = 0.50) mg/dL Independent Historian Clinical information obtained from an independent historian. History obtained from or confirmed by: Spouse External Record Review External record reviewed: Inpatient record Chronic Conditions Patient?s care impacted by: Diabetes and Hypertension Discharge Plan Discharge Clinical Impression: Visit for wound check Patient Disposition: Home, Self-Care Instructions: Chronic Wounds (ED) Prescriptions: No Action (DME) Bilateral below the knee socket replacement See Rx Instructions .Route .MEDSUPPLY Qty: 1 6RF Rx Instructions: As directed varenicline [Chantix] 1 mg tablet 1 mg PO BID Qty: 56 3RF (DME) Dexcom G6 Transmitter Device See Rx Instructions .ROUTE .COMPLEX Qty: 1 0RF Dose Instruction: DIRECTED Rx Instructions: test 4 times daily (DME) Dexcom G6 Sensor Device See Rx Instructions topical Q10D Qty: 3 8RF Rx Instructions: As directed pregabalin 200 mg capsule 200 mg PO TID 30 Days Qty: 90 2RF latanoprost 0.005 % drops 1 drp ophthalmic (eye) BEDTIME propranolol 40 mg tablet 40 mg PO BID oxycodone-acetaminophen [Percocet] 5-325 mg tablet 1 tab PO Q4-6H PRN (Reason: pain) Qty: 30 0RF Rx Instructions: Partial Fill upon patient request. clotrimazole 1 % cream 1 appl TOPICAL BID prazosin 5 mg capsule 5 mg PO BEDTIME insulin aspart U-100 [Novolog FlexPen U-100 Insulin] 100 unit/mL (3 mL) insulin pen See Protocol subcut TID-QID Protocol: Insulin Correction Scale Less than or equal to 110 ---- Give (units): 0 111 to 150 Give (units): 0 151 to 200 Give (units): 2 201 to 250 Give (units): 4 251 to 300 Give (units): 6 301 to 350 Give (units): 8 Greater than 350 Give (units): 10 Call if Blood Glucose > : 350 amitriptyline 50 mg tablet 50 mg PO BEDTIME Qty: 90 3RF zolpidem 12.5 mg tablet,ext release multiphase 12.5 mg PO BEDTIME PRN (Reason: Insomnia) fluoxetine 40 mg capsule 80 mg PO QAM Referrals: Josemanuel Conklin MD [Physician] - 09/04/22
[2022-08-31 10:14] VITALS: BP 140/81; PULSE 74; RESP 16; TEMP 36.8; O2SAT 94
--- NOTE | 2022-08-31 10:19 | PC.NURSE ---
pt a&ox3, respirations equal and unlabored, skin pink warm and dry. Lower right leg is warm to touch, with slight yellow drainage, wound not approximated with dehiscence in the center.
--- NOTE | 2022-08-31 11:27 | PM.CNGS ---
History of Present Illness Consult details Consult date: 08/31/22 Narrative: 51-year-old male who is known to me, brought to the ER by his because of concerns about his heavy alcohol intake, as well as his from his BKA stump. He had undergone excision of a BKA stump last 08/10/2022. He tolerated procedure well. He denies any significant complaints with this at this time. He denies any pain or tenderness. He has however I wanted this checked in view of some scanty drainage and concerns that part of incision is opening up. He was scheduled to see me today in the office but his was worried about his heavy alcohol use every day. Review of Systems Constitutional: Constitutional: Denies chills and Denies fever(s) Cardiovascular: Cardiovascular: Denies chest pain Respiratory: Respiratory: Denies no additional respiratory complaints Gastrointestinal: Gastrointestinal: Denies abdominal pain Genitourinary: Genitourinary: Denies hematuria PMFSH Past Medical History 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 COVID-19 vaccine series completed Depression Diabetes mellitus History of traumatic brain injury History of trigger finger HLD (hyperlipidemia) HTN (hypertension) Hx of leg amputation Hx of staphylococcal infection Insulin dependent diabetes mellitus Morbid obesity Neuropathy Obesity PTSD (post-traumatic stress disorder) Recurrent cellulitis of lower extremity Sleep apnea Vitamin D deficiency Family History Family History Mother No problems noted. Father Alcohol abuse Surgical History Surgical History History of gastrectomy History of surgery on arm Hx of cardiac catheterization Hx of carpal tunnel repair Hx of cataract extraction Hx of hernia repair S/P BKA (below knee amputation) bilateral Social History Social History Household Members: Spouse Housing: House Are you a primary child care center assistant director to a significant other at home: No Do you presently have visiting nurse or other home services: Yes Alcohol intake: current Alcohol intake frequency: a few times a month Patient Tobacco Use Status: Never used Tobacco Tobacco use type: Smokeless Tobacco Years Smoked: 20-30 years Smoked in Last 30 Days: No e-Cigarette/Vaping Use: Never Used Second Hand Smoke Exposure: No Use of substances other than those prescribed or required for medical reasons: No Advance Directives: Yes Advance Directives on File: Yes Advance Directives Date on File: 07/14/22 service: No Current occupational status: disabled Cognitive needs: No Hearing needs: No Vision needs: Yes Meds Allergies Allergy/AdvReac Type Severity Reaction Status Date / Time cefazolin [From Ancef] Allergy Severe Anaphylaxis Verified 08/19/22 17:00 Sulfa (Sulfonamide Allergy Severe Anaphylaxis Verified 08/19/22 17:00 Antibiotics) sulfamethoxazole Allergy Severe Mckoy-Kory Verified 08/19/22 17:00 [From Bactrim] syndrome trimethoprim [From Bactrim] Allergy Severe Mckoy-Kory Verified 08/19/22 17:00 syndrome levofloxacin [From Levaquin] Allergy Intermediate Rash Verified 08/19/22 17:00 metronidazole [From Flagyl] Allergy Intermediate Rash Verified 08/19/22 17:00 Penicillins Allergy Intermediate ? Verified 08/19/22 17:00 Hives-childhood reaction NSAIDS (Non-Steroidal AdvReac Unknown cannot Verified 08/19/22 17:00 Anti-Inflamma take due to having gastric sleeve Active Medications: Current Medications Sodium Chloride (Ns) 1,000 mls @ 999 mls/hr IV .Q1H1M WHITNEY Stop: 08/31/22 11:45 Last Admin: 08/31/22 11:07 Dose: 999 mls/hr Home Medications Medication Instructions Recorded Confirmed Last Taken Type zolpidem 12.5 mg tablet,extended 12.5 mg PO BEDTIME PRN Insomnia 12/21/20 08/08/22 08/07/22 History release,multiphase fluoxetine 40 mg capsule 80 mg PO QAM 04/11/21 08/08/22 08/07/22 History latanoprost 0.005 % eye drops 1 drp ophthalmic (eye) BEDTIME 05/15/22 08/08/22 08/07/22 History clotrimazole 1 % topical cream 1 appl topical BID 05/26/22 08/08/22 08/07/22 History insulin aspart U-100 100 unit/mL See Protocol subcut TID-QID 07/10/22 08/08/22 08/07/22 History (3 mL) subcutaneous pen (Novolog FlexPen U-100 Insulin aspart) prazosin 5 mg capsule 5 mg PO BEDTIME 07/10/22 08/08/22 08/07/22 History propranolol 40 mg tablet 40 mg PO BID 07/27/22 08/08/22 08/07/22 History Physical Exam Vital Signs: Vital Signs: Last Vital Signs Temp 98.2 F 08/31/22 10:14 Pulse 74 08/31/22 10:14 Resp 16 08/31/22 10:14 BP 140/81 H 08/31/22 10:14 Pulse Ox 94 08/31/22 10:14 O2 Del Method Room Air 08/31/22 10:14 BMI result Body Mass Index 42.0 Const: General: comfortable and no acute distress Resp: Effort & Inspection: normal respiratory effort Cardio: Rate: regular rate GI: Palpation (GI): Soft to palpation and not firm Extrem: Other: BKA revision site without cellulitis, was intact, some skin separation in the mid part with scanty drainage, seromatous and non purulent Results Labs 08/31/22 10:07 08/31/22 10:07 Labs: Abnormal lab results 08/31/22 08/31/22 08/31/22 Range/Units 10:07 10:07 10:07 RBC 4.36 L (4.60-5.80) X10*6/uL Hgb 12.9 L (14.0-18.0) g/dl Hct 37.7 L (42.0-52.0) % Plt Count 130 L D (160-400) X10*3/uL Immature Gran % (Auto) 0.6 H (0.0-0.4) % ESR 34 H (0-15) MM/HR Sodium 133 L (135-145) mmol/L Random Glucose 329 H (60-115) mg/dL Lactic Acid (0.5-2.0) mmol/L C-Reactive Protein 2.77 H (< or = 0.50) mg/dL 08/31/22 Range/Units 10:07 RBC (4.60-5.80) X10*6/uL Hgb (14.0-18.0) g/dl Hct (42.0-52.0) % Plt Count (160-400) X10*3/uL Immature Gran % (Auto) (0.0-0.4) % ESR (0-15) MM/HR Sodium (135-145) mmol/L Random Glucose (60-115) mg/dL Lactic Acid 2.7 H* (0.5-2.0) mmol/L C-Reactive Protein (< or = 0.50) mg/dL Short CBC 08/31/22 Range/Units 10:07 WBC 5.2 (4.8-10.8) X10*3/uL Hgb 12.9 L (14.0-18.0) g/dl Hct 37.7 L (42.0-52.0) % Plt Count 130 L D (160-400) X10*3/uL BMP 08/31/22 10:07 Sodium 133 L Potassium 5.1 Chloride 97 Carbon Dioxide 27 BUN 13 Creatinine 1.34 Calcium 9.2 All other labs normal. Assessment and Plan (1) BKA stump complication: Status: Acute His was concerned about some scanty drainage from the mid part of the a stump. This does not appear to be infected. The drainage is serous. I removed all his skin sutures. The wound edges remained well apposed except for the mid part. The deeper tissues are intact however There is no evidence of any infection. I rewrapped the area with Kerlix and thick gauze and Darrius bandage. I will see him again in the office in about 2 weeks for a wound check. I advised his to discuss his problem of the alcohol intake with his primary care physician to see if there are any resources available to assist them with regards to this. He is to continue daily wound care with dry dressings and Darrius bandage. Time Spent With Patient Time: Total time managing care of this patient today ____ minutes. Procedures Date of Service Date of Service: 08/31/22
[2022-08-31 12:33] VITALS: BP 174/95; PULSE 77; RESP 18; O2SAT 95
== END 2022-08-31 13:18 | disposition home or self-care (01) ==
PROVIDERS: Emergency Provider Emergency Medicine Emergency Medical Services; PCP Internal Medicine
DX: Z48.01 Encounter for change or removal of surgical wound dressing (principal); Z89.511 Acquired absence of right leg below knee; E11.9 Type 2 diabetes mellitus without complications; I10 Essential (primary) hypertension; E78.5 Hyperlipidemia, unspecified; E66.9 Obesity, unspecified; Z68.41 Body mass index [BMI] 40.0-44.9, adult; Z87.820 Personal history of traumatic brain injury; Z79.4 Long term (current) use of insulin; Z79.899 Other long term (current) drug therapy
CPT/HCPCS: 36415; 73560; 80048; 83605; 85025; 85652; 86140; 96360; 99284

== ENCOUNTER 2022-09-14 11:01 | Outpatient (AMB) | payer OTHER, SELFPAY ==
--- NOTE | 2022-09-14 11:02 | MHC.OFFVIS ---
Intake Vital Signs 09/14/22 11:06 BMI Reason not done Patient refused/unable Intake Visit Reasons: S/P revision - Rt BKA Intake Note: This patient presents for a post-op assessment status post revision of right BKA. Patient denies complaints at this time. 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 Accompanied by: Other Relationship Allergies cefazolin [From Ancef] Allergy (Severe, Verified 09/14/22 11:03) Anaphylaxis Sulfa (Sulfonamide Antibiotics) Allergy (Severe, Verified 09/14/22 11:03) Anaphylaxis sulfamethoxazole [From Bactrim] Allergy (Severe, Verified 09/14/22 11:03) Mckoy-Kory syndrome trimethoprim [From Bactrim] Allergy (Severe, Verified 09/14/22 11:03) Mckoy-Kory syndrome levofloxacin [From Levaquin] Allergy (Intermediate, Verified 09/14/22 11:03) Rash metronidazole [From Flagyl] Allergy (Intermediate, Verified 09/14/22 11:03) Rash Penicillins Allergy (Intermediate, Verified 09/14/22 11:03) ? Hives-childhood reaction NSAIDS (Non-Steroidal Anti-Inflamma Adverse Reaction (Unknown, Verified 09/14/22 11:03) cannot take due to having gastric sleeve HPI S/P revision - Rt BKA HPI Details He had undergone revision of his right BKA stump in the OR last month. He is here for postop visit. He says he is doing well. He has had no issues with his right BKA stump. His does state that he still has a problem with heavy alcohol drinking. [facility] 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 COVID-19 vaccine series completed Depression Diabetes mellitus History of traumatic brain injury History of trigger finger HLD (hyperlipidemia) HTN (hypertension) Hx of leg amputation Hx of staphylococcal infection Insulin dependent diabetes mellitus Morbid obesity Neuropathy Obesity PTSD (post-traumatic stress disorder) Recurrent cellulitis of lower extremity Sleep apnea Vitamin D deficiency Surgical History History of gastrectomy History of surgery on arm Hx of cardiac catheterization Hx of carpal tunnel repair Hx of cataract extraction Hx of hernia repair S/P BKA (below knee amputation) bilateral Family History Mother No problems noted. Father Alcohol abuse Social History Household Members: Spouse Housing: House Are you a primary acute care nursing assistant to a significant other at home: No Do you presently have visiting nurse or other home services: Yes Alcohol intake: current Alcohol intake frequency: a few times a month Patient Tobacco Use Status: Never used Tobacco Tobacco use type: Smokeless Tobacco Years Smoked: 20-30 years e-Cigarette/Vaping Use: Never Used Second Hand Smoke Exposure: No Advance Directives Date on File: 07/14/22 service: No Current occupational status: disabled Cognitive needs: No Hearing needs: No Vision needs: Yes Physical Exam Const Other: On wheelchair General: comfortable and no acute distress Resp Effort & Inspection: normal respiratory effort Extrem Other: BKA stump revision site is well healing, with an area of skin separation the middle, some serosanguineous drainage, not infected, patrice intact Assessment & Plan Assessment & Plan (1) BKA stump complication: Code(s): T87.9 - Unspecified complications of amputation stump Plan: Status post right BKA stump revision. The incision is healing well although there is an area of skin separation in the middle. I have applied fresh dressings. I instructed him on good wound care with daily dressing changes using dry gauze, and Darrius bandage. I will see him again for another postop wound check in about a month. His was with him during the visit. All the questions were answered. Coding Level of Care Code Global (90445) Diagnoses BKA stump complication T87.9
== END 2022-09-14 11:20 | disposition home or self-care (01) ==
PROVIDERS: PCP Internal Medicine; Visit Provider Surgery
DX: T87.9 Unspecified complications of amputation stump (principal)
CPT/HCPCS: 99024

== ENCOUNTER → 2022-09-14 11:01 | Outpatient (BNVA) | payer OTHER, SELFPAY | PROVIDERS: PCP Internal Medicine; Visit Provider Surgery ==

== ENCOUNTER 2022-09-19 17:53 | Emergency (ER) | payer OTHER, SELFPAY ==
[2022-09-19 18:00] VITALS: BP 183/95; PULSE 81; RESP 18; TEMP 36; O2SAT 97; BMI 42.0
--- NOTE | 2022-09-19 18:00 | ED_ITS ---
HPI - General Adult General Chief complaint: Psychiatric Symptoms Stated complaint: Evaluation for mental health Time Seen by Provider: 09/19/22 22:12 Source: patient Mode of arrival: wheelchair Limitations: no limitations History of Present Illness HPI narrative: Patient with history of bipolar disorder diabetic bilateral BKA recently overdosed on Ambien and was seen at [facility] ago discharge co mes here as looking for some help denies any SI/HI things need to have changed medication currently denied any SI the patient getting worse for last 3 months Related Data Home Medications Medication Instructions Recorded Confirmed zolpidem 12.5 mg tablet,extended 12.5 mg PO BEDTIME PRN Insomnia 12/21/20 09/20/22 release,multiphase fluoxetine 40 mg capsule 80 mg PO QAM 04/11/21 09/20/22 latanoprost 0.005 % eye drops 1 drp ophthalmic (eye) BEDTIME 05/15/22 09/20/22 clotrimazole 1 % topical cream 1 appl topical BID 05/26/22 09/20/22 insulin aspart U-100 100 unit/mL See Protocol subcut TID-QID 07/10/22 09/20/22 (3 mL) subcutaneous pen (Novolog FlexPen U-100 Insulin aspart) prazosin 5 mg capsule 5 mg PO BEDTIME 07/10/22 09/20/22 propranolol 40 mg tablet 40 mg PO BID 07/27/22 09/20/22 pregabalin 200 mg capsule 200 mg PO TID 09/20/22 09/20/22 Previous Rx's Medication Instructions Recorded Bilateral below the knee socket #1 ea 02/24/22 replacement amitriptyline 50 mg tablet 50 mg PO BEDTIME #90 tabs 04/14/22 varenicline 1 mg tablet (Chantix) 1 mg PO BID #56 tabs 07/05/22 blood-glucose sensor (Dexcom G6 #3 ea 08/03/22 Sensor device) blood-glucose transmitter (Dexcom #1 ea 08/03/22 G6 Transmitter device) oxycodone-acetaminophen 5 mg-325 1 tab PO Q4-6H PRN pain #30 tabs 08/09/22 mg tablet (Percocet) pregabalin 200 mg capsule 200 mg PO TID 30 days #90 caps 08/29/22 doxycycline hyclate 100 mg capsule 100 mg PO BID #30 caps 09/19/22 Allergies Allergy/AdvReac Type Severity Reaction Status Date / Time cefazolin [From Ancef] Allergy Severe Anaphylaxis Verified 09/19/22 17:59 Sulfa (Sulfonamide Allergy Severe Anaphylaxis Verified 09/19/22 17:59 Antibiotics) sulfamethoxazole Allergy Severe Mckoy-Kory Verified 09/19/22 17:59 [From Bactrim] syndrome trimethoprim [From Bactrim] Allergy Severe Mckoy-Kory Verified 09/19/22 17:59 syndrome levofloxacin [From Levaquin] Allergy Intermediate Rash Verified 09/19/22 17:59 metronidazole [From Flagyl] Allergy Intermediate Rash Verified 09/19/22 17:59 Penicillins Allergy Intermediate ? 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 COVID-19 vaccine series completed Depression Diabetes mellitus History of traumatic brain injury History of trigger finger HLD (hyperlipidemia) HTN (hypertension) Hx of leg amputation Hx of staphylococcal infection Insulin dependent diabetes mellitus Morbid obesity Neuropathy Obesity PTSD (post-traumatic stress disorder) Recurrent cellulitis of lower extremity Sleep apnea Vitamin D deficiency Surgical History History of gastrectomy History of surgery on arm Hx of cardiac catheterization Hx of carpal tunnel repair Hx of cataract extraction Hx of hernia repair S/P BKA (below knee amputation) bilateral Family History Family History Mother No problems noted. Father Alcohol abuse Social History Social History Household Members: Spouse Housing: House Are you a primary pediatric acute care unit nurse to a significant other at home: No Do you presently have visiting nurse or other home services: Yes Alcohol intake: current Alcohol intake frequency: 3 or more drinks per day Patient Tobacco Use Status: Never used Tobacco Tobacco use type: Smokeless Tobacco Years Smoked: 20-30 years Smoked in Last 30 Days: Yes e-Cigarette/Vaping Use: Never Used Second Hand Smoke Exposure: No Use of substances other than those prescribed or required for medical reasons: No Advance Directives: Yes Advance Directives on File: Yes Advance Directives Date on File: 07/14/22 Healthcare Proxy: No Guardian: No service: No Current occupational status: disabled Cognitive needs: No Hearing needs: No Vision needs: Yes Physical Exam ED Vital Signs: Vital Signs - 24 hr 09/19/22 18:00 09/19/22 23:06 09/20/22 02:07 Temperature 96.8 F 98.7 F 98.2 F Pulse Rate 81 80 79 Respiratory Rate 18 16 18 Blood Pressure 183/95 H 151/92 H 155/83 H Pulse Oximetry 97 98 94 Oxygen Delivery Method Room Air Room Air Room Air 09/20/22 05:27 Temperature 98.5 F Pulse Rate 81 Respiratory Rate 16 Blood Pressure 187/103 H Pulse Oximetry 94 Oxygen Delivery Method Room Air BMI result Body Mass Index 42.0 Appearance: Alert. Oriented X3. No acute distress. Eyes: PERRLA, No Nystagmus ENT: Pharynx normal. Oral Mucosa moist Neck: Normal inspection. Neck supple. CVS: Normal heart rate and rhythm. Pulses normal. Respiratory: No respiratory distress. Equal air entry bilateral, no wheezing/rales/rhonchi Abdomen: Soft and nontender. Bowel sounds are present, no mass palpable, no CVA tenderness Skin: Skin warm and dry. Normal skin color. Normal skin turgor. Extremities: Bilateral BKA Neuro: Oriented X 3. No motor deficit. Course Course Course Narrative: RME- 51 year old male presents for evaluation of mental health. He denies suicidal ideation but reports, I am not on the right meds. He endorses depression related to his disability. (Bilateral BKA) Reevaluation(s) Reevaluation #1: Physician observation continued. No overnight events reported by nursing. Patient hypertensive, has BP meds ordered. Refusing to eat this am per nursing so one time order for 5units insulin placed (in lieu of 10units per SS). Patien t awaiting inpatient psych bed placement. Time: 07:35 Medications Administered Discontinued Medications Generic Name Dose Route Start Last Admin Trade Name Freq PRN Reason Stop Dose Admin Insulin Human Lispro 5 unit 09/20/22 07:13 09/20/22 07:18 Insulin Lispro 100 Unit/Ml 3 Ml Vial SUBCUT 09/20/22 07:14 5 unit ONCE ONE Administration Medical Decision Making Medical Decision Making MDM Narrative: Patient's depression with SI feel with recent overdose seen by care team plan for inpatient placement Lab Data MDM Lab Attestation statement: I reviewed the patient's lab results. 09/19/22 20:25 09/19/22 20:25 Labs: Lab Results 09/19/22 09/19/22 09/19/22 Range/Units 20:25 20:25 20:25 WBC 6.2 (4.8-10.8) X10*3/uL RBC 4.90 (4.60-5.80) X10*6/uL Hgb 14.4 (14.0-18.0) g/dl Hct 42.3 (42.0-52.0) % MCV 86.3 (80.0-98.0) fL MCH 29.4 (27.0-33.0) pg MCHC 34.0 (31.0-36.0) g/dl RDW 12.7 (11.0-16.0) % Plt Count 150 L (160-400) X10*3/uL MPV 10.2 (9.4-12.4) fL Immature Gran % (Auto) 0.5 H (0.0-0.4) % Neut % (Auto) 54.0 (45-73) % Lymph % (Auto) 30.3 (20-40) % [place] % (Auto) 11.2 H (2-11) % Eos % (Auto) 3.2 (0-4) % Baso % (Auto) 0.8 (0-2) % Lymph # (Auto) 1.9 (1.2-4.9) X10*3/uL [place] # (Auto) 0.7 (0.1-1.2) X10*3/uL Eos # (Auto) 0.2 (0.0-0.4) X10*3/uL Baso # (Auto) 0.1 (0.0-0.2) X10*3/uL Abs Immat Gran (auto) 0.03 (0.00-0.03) X10*3/uL Absolute Neuts (auto) 3.3 (2.0-8.3) x10*3/uL Absolute Nucleated RBC 0.000 (0.0-0.012) X10*3/uL Nucleated RBC % (auto) 0.0 (0.0-0.2) /100WBC Sodium 136 (135-145) mmol/L Potassium 4.9 (3.3-5.1) mmol/L Chloride 99 (96-108) mmol/L Carbon Dioxide 27 (22-29) mmol/L Anion Gap 15 (12-20) BUN 22 H (9-16) mg/dL Creatinine 1.29 (0.5-1.4) mg/dL Estim Creat Clear Calc 65.3 Estimated GFR 58 POC Glucose (60-115) mg/dL Random Glucose 332 H (60-115) mg/dL Calcium 9.7 (8.4-10.2) mg/dL Total Bilirubin 0.3 (0.0-1.0) mg/dL AST 106 H (5-37) U/L ALT 97 H (0-40) U/L Alkaline Phosphatase 130 H (39-117) U/L Total Protein 7.9 (6.5-8.0) g/dL Albumin 3.9 (3.5-5.0) g/dL Lipase 33 (8-78) U/L Urine Color Urine Appearance Urine pH (5.0-9.0) Ur Specific Velva (1.005-1.025) Urine Protein (Neg-Trace) mg/dL Urine Glucose (UA) (Negative) mg/dL Urine Ketones (Negative) mg/dL Urine Blood (Negative) Urine Nitrite (Negative) Ur Leukocyte Esterase (Negative) Urine RBC (0-2) /HPF Urine WBC (0-5) /HPF Ur Squamous Epith Cells (0-2) /HPF Urine Bacteria (None Seen) Hyaline Casts (0-2) /LPF Salicylates < 5.0 L (15-30) mg/dL Urine Opiates Screen (Not Detect) Urine Fentanyl Screen (Not Detect) Acetaminophen < 17 (<30) mcg/mL Ur Barbiturates Screen (Not Detect) Ur Phencyclidine Scrn (Not Detect) Ur Amphetamines Screen (Not Detect) U Benzodiazepines Scrn (Not Detect) Urine Cocaine Screen (Not Detect) U Marijuana (THC) Screen (Not Detect) Ethyl Alcohol < 10 mg/dL 09/20/22 09/20/22 09/20/22 Range/Units 00:52 00:52 05:58 WBC (4.8-10.8) X10*3/uL RBC (4.60-5.80) X10*6/uL Hgb (14.0-18.0) g/dl Hct (42.0-52.0) % MCV (80.0-98.0) fL MCH (27.0-33.0) pg MCHC (31.0-36.0) g/dl RDW (11.0-16.0) % Plt Count (160-400) X10*3/uL MPV (9.4-12.4) fL Immature Gran % (Auto) (0.0-0.4) % Neut % (Auto) (45-73) % Lymph % (Auto) (20-40) % [place] % (Auto) (2-11) % Eos % (Auto) (0-4) % Baso % (Auto) (0-2) % Lymph # (Auto) (1.2-4.9) X10*3/uL [place] # (Auto) (0.1-1.2) X10*3/uL Eos # (Auto) (0.0-0.4) X10*3/uL Baso # (Auto) (0.0-0.2) X10*3/uL Abs Immat Gran (auto) (0.00-0.03) X10*3/uL Absolute Neuts (auto) (2.0-8.3) x10*3/uL Absolute Nucleated RBC (0.0-0.012) X10*3/uL Nucleated RBC % (auto) (0.0-0.2) /100WBC Sodium (135-145) mmol/L Potassium (3.3-5.1) mmol/L Chloride (96-108) mmol/L Carbon Dioxide (22-29) mmol/L Anion Gap (12-20) BUN (9-16) mg/dL Creatinine (0.5-1.4) mg/dL Estim Creat Clear Calc Estimated GFR POC Glucose 288 H (60-115) mg/dL Random Glucose (60-115) mg/dL Calcium (8.4-10.2) mg/dL Total Bilirubin (0.0-1.0) mg/dL AST (5-37) U/L ALT (0-40) U/L Alkaline Phosphatase (39-117) U/L Total Protein (6.5-8.0) g/dL Albumin (3.5-5.0) g/dL Lipase (8-78) U/L Urine Color Yellow Urine Appearance Clear Urine pH 5.5 (5.0-9.0) Ur Specific Velva 1.025 (1.005-1.025) Urine Protein 300 (3+) H (Neg-Trace) mg/dL Urine Glucose (UA) 500 H (Negative) mg/dL Urine Ketones Negative (Negative) mg/dL Urine Blood Trace H (Negative) Urine Nitrite Negative (Negative) Ur Leukocyte Esterase Small (1+) H (Negative) Urine RBC 3-5 H (0-2) /HPF Urine WBC >50 H (0-5) /HPF Ur Squamous Epith Cells 0-2 (0-2) /HPF Urine Bacteria None Seen (None Seen) Hyaline Casts 0-2 (0-2) /LPF Salicylates (15-30) mg/dL Urine Opiates Screen Not Detected (Not Detect) Urine Fentanyl Screen Not Detected (Not Detect) Acetaminophen (<30) mcg/mL Ur Barbiturates Screen Not Detected (Not Detect) Ur Phencyclidine Scrn Not Detected (Not Detect) Ur Amphetamines Screen Not Detected (Not Detect) U Benzodiazepines Scrn Not Detected (Not Detect) Urine Cocaine Screen Not Detected (Not Detect) U Marijuana (THC) Screen Not Detected (Not Detect) Ethyl Alcohol mg/dL 09/20/22 Range/Units 07:06 WBC (4.8-10.8) X10*3/uL RBC (4.60-5.80) X10*6/uL Hgb (14.0-18.0) g/dl Hct (42.0-52.0) % MCV (80.0-98.0) fL MCH (27.0-33.0) pg MCHC (31.0-36.0) g/dl RDW (11.0-16.0) % Plt Count (160-400) X10*3/uL MPV (9.4-12.4) fL Immature Gran % (Auto) (0.0-0.4) % Neut % (Auto) (45-73) % Lymph % (Auto) (20-40) % [place] % (Auto) (2-11) % Eos % (Auto) (0-4) % Baso % (Auto) (0-2) % Lymph # (Auto) (1.2-4.9) X10*3/uL [place] # (Auto) (0.1-1.2) X10*3/uL Eos # (Auto) (0.0-0.4) X10*3/uL Baso # (Auto) (0.0-0.2) X10*3/uL Abs Immat Gran (auto) (0.00-0.03) X10*3/uL Absolute Neuts (auto) (2.0-8.3) x10*3/uL Absolute Nucleated RBC (0.0-0.012) X10*3/uL Nucleated RBC % (auto) (0.0-0.2) /100WBC Sodium (135-145) mmol/L Potassium (3.3-5.1) mmol/L Chloride (96-108) mmol/L Carbon Dioxide (22-29) mmol/L Anion Gap (12-20) BUN (9-16) mg/dL Creatinine (0.5-1.4) mg/dL Estim Creat Clear Calc Estimated GFR POC Glucose 331 H (60-115) mg/dL Random Glucose (60-115) mg/dL Calcium (8.4-10.2) mg/dL Total Bilirubin (0.0-1.0) mg/dL AST (5-37) U/L ALT (0-40) U/L Alkaline Phosphatase (39-117) U/L Total Protein (6.5-8.0) g/dL Albumin (3.5-5.0) g/dL Lipase (8-78) U/L Urine Color Urine Appearance Urine pH (5.0-9.0) Ur Specific Velva (1.005-1.025) Urine Protein (Neg-Trace) mg/dL Urine Glucose (UA) (Negative) mg/dL Urine Ketones (Negative) mg/dL Urine Blood (Negative) Urine Nitrite (Negative) Ur Leukocyte Esterase (Negative) Urine RBC (0-2) /HPF Urine WBC (0-5) /HPF Ur Squamous Epith Cells (0-2) /HPF Urine Bacteria (None Seen) Hyaline Casts (0-2) /LPF Salicylates (15-30) mg/dL Urine Opiates Screen (Not Detect) Urine Fentanyl Screen (Not Detect) Acetaminophen (<30) mcg/mL Ur Barbiturates Screen (Not Detect) Ur Phencyclidine Scrn (Not Detect) Ur Amphetamines Screen (Not Detect) U Benzodiazepines Scrn (Not Detect) Urine Cocaine Screen (Not Detect) U Marijuana (THC) Screen (Not Detect) Ethyl Alcohol mg/dL Discharge Plan Discharge Clinical Impression: Depression, Suicidal ideation Prescriptions: No Action (DME) Bilateral below the knee socket replacement See Rx Instructions .Route .MEDSUPPLY Qty: 1 6RF Rx Instructions: As directed varenicline [Chantix] 1 mg tablet 1 mg PO BID Qty: 56 3RF (DME) Dexcom G6 Transmitter Device See Rx Instructions .ROUTE .COMPLEX Qty: 1 0RF Dose Instruction: DIRECTED Rx Instructions: test 4 times daily (DME) Dexcom G6 Sensor Device See Rx Instructions topical Q10D Qty: 3 8RF Rx Instructions: As directed pregabalin 200 mg capsule 200 mg PO TID 30 Days Qty: 90 2RF doxycycline hyclate 100 mg capsule 100 mg PO BID Qty: 30 0RF latanoprost 0.005 % drops 1 drp ophthalmic (eye) BEDTIME propranolol 40 mg tablet 40 mg PO BID oxycodone-acetaminophen [Percocet] 5-325 mg tablet 1 tab PO Q4-6H PRN (Reason: pain) Qty: 30 0RF Rx Instructions: Partial Fill upon patient request. clotrimazole 1 % cream 1 appl TOPICAL BID prazosin 5 mg capsule 5 mg PO BEDTIME insulin aspart U-100 [Novolog FlexPen U-100 Insulin] 100 unit/mL (3 mL) insulin pen See Protocol subcut TID-QID Protocol: Insulin Correction Scale Less than or equal to 110 ---- Give (units): 0 111 to 150 Give (units): 0 151 to 200 Give (units): 2 201 to 250 Give (units): 4 251 to 300 Give (units): 6 301 to 350 Give (units): 8 Greater than 350 Give (units): 10 Call MD if Blood Glucose > : 350 pregabalin 200 mg capsule 200 mg PO TID amitriptyline 50 mg tablet 50 mg PO BEDTIME Qty: 90 3RF zolpidem 12.5 mg tablet,ext release multiphase 12.5 mg PO BEDTIME PRN (Reason: Insomnia) fluoxetine 40 mg capsule 80 mg PO QAM Interventions: [place]-Suicide Risk Severity Scale Last Done: 09/19/22 22:00
[2022-09-19 20:32] LABS: MANUAL DIFF FLAG NO
[2022-09-19 20:35] LABS: Basophils Absolute Auto 0.1 X10*3/uL (0.0-0.2); Basophils Percent Auto 0.8 % (0-2); Eosinophils Absolute Auto 0.2 X10*3/uL (0.0-0.4); Eosinophils Percent Auto 3.2 % (0-4); Hematocrit 42.3 % (42.0-52.0); Hemoglobin 14.4 g/dl (14.0-18.0); Imm Gran Abs Auto 0.03 X10*3/uL (0.00-0.03); Imm Gran Pct Auto 0.5 % (0.0-0.4); Lymphocytes Absolute Auto 1.9 X10*3/uL (1.2-4.9); Lymphocytes Percent Auto 30.3 % (20-40); Mean Corpuscular Hemoglobin 29.4 pg (27.0-33.0); Mean Corpuscular Volume 86.3 fL (80.0-98.0); Mean Platelet Volume 10.2 fL (9.4-12.4); Monocytes Absolute Auto 0.7 X10*3/uL (0.1-1.2); Monocytes Percent Auto 11.2 % (2-11); Neutrophils Absolute Auto 3.3 x10*3/uL (2.0-8.3); Platelet Count 150 X10*3/uL (160-400); Red Cell Distribution Width 12.7 % (11.0-16.0); White Blood Count 6.2 X10*3/uL (4.8-10.8)
[2022-09-19 21:07] LABS: Alanine Aminotransferase 97 U/L (0-40); Albumin Level 3.9 g/dL (3.5-5.0); Alkaline Phosphatase 130 U/L (39-117); Anion Gap 15 (12-20); Aspartate Amino Transferase 106 U/L (5-37); Bilirubin Total 0.3 mg/dL (0.0-1.0); Blood Urea Nitrogen 22 mg/dL (9-16); Calcium 9.7 mg/dL (8.4-10.2); Carbon Dioxide 27 mmol/L (22-29); Chloride 99 mmol/L (96-108); Creatinine Clr Calc Pharmacy 65.3; Estimated Glomerular Filt Rate 58; Ethanol < 10 mg/dL; Glucose Random 332 mg/dL (60-115); Lipase 33 U/L (8-78); Potassium 4.9 mmol/L (3.3-5.1); Sodium 136 mmol/L (135-145); Total Protein 7.9 g/dL (6.5-8.0)
[2022-09-19 21:09] LABS: Acetaminophen LAB < 17 mcg/mL (<30); Salicylate < 5.0 mg/dL (15-30)
--- NOTE | 2022-09-19 22:06 | PC.NURSE ---
this rn assumed care of pt from waiting room @ 2129. pt calm and cooperative. per charge entry clerk pt does not need to be changed over. pt declines SI/HI to charge entry clerk and this rn
[2022-09-19 23:06] VITALS: BP 151/92; PULSE 80; RESP 16; TEMP 37.1; O2SAT 98
--- NOTE | 2022-09-19 23:07 | MHC.EDTECH ---
THIS PCT ASSUMED CARE OF PATIENT AT 2230 ,VITALS SIGN TAKEN ,MANAGER IMAGE BERNA SAID PATIENT DOES NOT NEED TO BE CHANGE INTO HOSPITAL ATTIRE.
--- NOTE | 2022-09-19 23:15 | PC.NURSE ---
this rn assumed care of pt from waiting room. per pt denies SI/ HI. per charge aide pt does not need to be changed into hospital attire or belongings secured. pt at bedside.
--- NOTE | 2022-09-20 00:30 | PC.NURSE ---
pt pending care team consult. per conyteam pt cannot be sen until urine tox screen is received. pt made aware of this pt drinking fluids to be able to produce urine sample
[2022-09-20 01:00] LABS: Appearance Urine Clear; Color Urine Yellow; Glucose Urine UA 500 mg/dL (Negative); Leukocyte Esterase Urine Small (1+) (Negative); Nitrite Urine Negative (Negative); PH 5.5 (5.0-9.0); Specific Gravity - Urine 1.025 (1.005-1.025); UMIC TRIGGER UACC YES; Urine Blood Trace (Negative); Urine Ketones Negative (Negative); Urine Protein 300 (3+) mg/dL (Neg-Trace)
[2022-09-20 01:05] LABS: Bacteria Urine None Seen (None Seen); Hyaline Casts Urine 0-2 /LPF (0-2); Squamous Epithelial Cell Urine 0-2 /HPF (0-2); UACC Culture Trigger YES; WBC Urine >50 /HPF (0-5)
[2022-09-20 01:18] LABS: Amphetamine Screen Urine Not Detected (Not Detect); Barbiturates, Urine Not Detected (Not Detect); Benzodiazepines Screen Urine Not Detected (Not Detect); Cannabinoid Screen Urine Not Detected (Not Detect); Cocaine Screen Urine Not Detected (Not Detect); Fentanyl, urine Not Detected (Not Detect); Opiate Screen Urine Not Detected (Not Detect); Phencyclidine Screen Urine Not Detected (Not Detect)
[2022-09-20 02:07] VITALS: BP 155/83; PULSE 79; RESP 18; TEMP 36.8; O2SAT 94
[2022-09-20 05:27] VITALS: BP 187/103; PULSE 81; RESP 16; TEMP 36.9; O2SAT 94
--- NOTE | 2022-09-20 05:33 | MHC.EDTECH ---
Patient changed over into [facility] gown and belongings secured in pod (laundry closet, top shelf on the right). Patient moved to room 12 due to TV not working in 11.
--- NOTE | 2022-09-20 05:50 | PC.NURSE ---
florinda made this rn veras that pt has section 12, bedsearch initiated. pt changed into hospital attire. belongings secured and placed in pod. 1:[address] pt calm and cooperative. per pt no SI/HI at this time
[2022-09-20 06:03] LABS: Glucose, Whole Blood 288 mg/dL (60-115)
--- NOTE | 2022-09-20 06:22 | PC.NURSE ---
med rec completed by medical record. await for dr goldberg to continue home medication
[2022-09-20 07:10] LABS: Glucose, Whole Blood 331 mg/dL (60-115)
[2022-09-20] MEDS: Insulin Lispro 100 UNIT/ML 3 ML VIAL SUBCUT ×2 (07:18→13:36)
--- NOTE | 2022-09-20 07:25 | PC.NURSE ---
offered breakfast and declined,poc 331. insulin given as ordered, ( 1/2 scale dose as he's not eating). sitter at bedside, appears annxious but states he doesn't need anything, no eye contact, quick and short responses, watching tv
--- NOTE | 2022-09-20 08:16 | PHA.MEDREC ---
Pharmacy Consult ? Medication Reconciliation Pharmacy has completed the medication reconciliation. Spoke to patient to confirm meds, said he takes 20 units of novolog and then a sliding scale on top of that every time he eats.
[2022-09-20 08:26] LABS: COVID-19 Test Negative (Negative); IDNOW Serial# BCCEAD1C
[2022-09-20] MEDS: FLUoxetine HCl 20 MG CAPSULE 80 MG PO (08:29)
[2022-09-20 08:40] LABS: Glucose, Whole Blood 323 mg/dL (60-115)
[2022-09-20] MEDS: Pregabalin 100 MG CAPSULE 200 MG PO ×2 (09:56→16:00)
--- NOTE | 2022-09-20 11:43 | ECG_ITS ---
Test Reason : MED CLEARANCE Blood Pressure : / mmHG Vent. Rate : 073 BPM Atrial Rate : 073 BPM P-R Int : 172 ms QRS Dur : 090 ms QT Int : 406 ms P-R-T Axes : 006 -23 -02 degrees QTc Int : 447 ms Normal sinus rhythm Minimal voltage criteria for LVH, may be normal variant ( R in aVL ) Cannot rule out Anterior infarct , age undetermined Abnormal ECG When compared with ECG of 27-JUL-2020 13:22, Premature atrial complexes are no longer Present Minimal criteria for Anterior infarct are now Present Referred By: Srinivas Samano Electronically Signed By:GOOD CATALAN MD
[2022-09-20 11:54] VITALS: BP 155/95; PULSE 73; RESP 12; O2SAT 95
[2022-09-20 13:27] LABS: Glucose, Whole Blood 316 mg/dL (60-115)
--- NOTE | 2022-09-20 13:59 | MHC.RECOVRN ---
Met with pt in ED12 after pt expressed interest in [facility]ELLA. Pt presented to [facility] ED after being dc from [facility] and looking for psych consult regarding medications. Pt sitting in bed, awake, alert, easily engages in conversation, does not appear to be experiencing withdrawal. Pt reports drinking alcohol, 4-8 25 ounce beers daily x 3 months due to current medications not being effective. Pt states It's the only thing I know will work to stop the racing thoughts. Pt denies hx withdrawal, including seizures. Pt states Before I met my I was drinking a case of 40s and only ever get a hangover. Pt has met with CARE Team and plan is being formed for behavioral health. In regards to alcohol use, pt reports hx campral with some effectiveness, unable to identify when this was. Educated pt on ISABELLA options, pt interested in naltrexone and initiating care at the [facility]. Appt made for 09/29/22 at 2:15PM. Pt and CARE Team aware. Pt denies other questions or concerns.
[2022-09-20 15:51] VITALS: BP 178/102; PULSE 82; RESP 18; TEMP 36.9; O2SAT 94
[2022-09-20 15:57] LABS: Glucose, Whole Blood 321 mg/dL (60-115)
--- NOTE | 2022-09-21 08:47 | MHC.CARE ---
RAD Team completed a [facility] PHP referral. Referral faxed to Lety Bergeron
== END 2022-09-20 17:37 | disposition home or self-care (01) ==
PROVIDERS: Physician Assistant; Emergency Provider Internal Medicine; PCP Internal Medicine
DX: F31.9 Bipolar disorder, unspecified (principal); R45.851 Suicidal ideations; F43.10 Post-traumatic stress disorder, unspecified; I10 Essential (primary) hypertension; Z20.822 Contact with and (suspected) exposure to COVID-19; E11.9 Type 2 diabetes mellitus without complications; E78.5 Hyperlipidemia, unspecified; Z89.512 Acquired absence of left leg below knee; Z89.511 Acquired absence of right leg below knee; F17.210 Nicotine dependence, cigarettes, uncomplicated; Z98.84 Bariatric surgery status; Z79.899 Other long term (current) drug therapy
CPT/HCPCS: 36415; 80053; 80143; 80179; 80307; 81001; 82947; 83690; 85025; 87086; 87635; 93005; 99285; S9485

== ENCOUNTER → 2022-09-20 11:43 | Outpatient (BNV) | payer OTHER, SELFPAY | PROVIDERS: Emergency Provider Internal Medicine; PCP Internal Medicine; Visit Provider Internal Medicine Cardiovascular Disease | DX: Z01.810 Encounter for preprocedural cardiovascular examination (principal) | CPT/HCPCS: 93010 ==

== ENCOUNTER 2022-09-29 13:56 | Outpatient (AMB) | payer OTHER, SELFPAY ==
[2022-09-29 14:20] VITALS: BP 150/80; PULSE 96; O2SAT 95
--- NOTE | 2022-09-29 14:20 | MHC.OFFVIS ---
Intake Vital Signs 09/29/22 14:20 BP 150/80 H Blood Pressure Location Lt brachial Position Sitting Pulse 96 Pulse Oximetry (%) 95 Intake Visit Reasons: MAT Intake Allergies cefazolin [From Ancef] Allergy (Severe, Verified 09/19/22 17:59) Anaphylaxis Sulfa (Sulfonamide Antibiotics) Allergy (Severe, Verified 09/19/22 17:59) Anaphylaxis sulfamethoxazole [From Bactrim] Allergy (Severe, Verified 09/19/22 17:59) Mckoy-Kory syndrome trimethoprim [From Bactrim] Allergy (Severe, Verified 09/19/22 17:59) Mckoy-Kory syndrome levofloxacin [From Levaquin] Allergy (Intermediate, Verified 09/19/22 17:59) Rash metronidazole [From Flagyl] Allergy (Intermediate, Verified 09/19/22 17:59) Rash Penicillins Allergy (Intermediate, Verified 09/19/22 17:59) ? Hives-childhood reaction NSAIDS (Non-Steroidal Anti-Inflamma Adverse Reaction (Unknown, Verified 09/19/22 17:59) cannot take due to having gastric sleeve HPI MAT Intake HPI Details Patient presents for intake and evaluation of alcohol Currently drinking 12 beers daily for the last 3 months 4 years in recovery [id number] taking campral for some time No history of treatment for AUD PCP started Campral no history of withdrawal sx Family history -parents and many other relatives PCP: Dr. Rojo--[facility] Psych provider Chacho EDWARDS No therapist at this time Lyrica, prazosin and amitryptilline PHP admission on 10/13 [facility] therapy referral for 12 years BLE amputations Last surgery July 2022 TBI 2006 present during interview, reporting baseline irritability from patient, however when drinking patient reportedly becomes very angry, verbally abusive. Has thrown many objects around the home. Discussed goals of treatment, patient reporting he wants to stop drinking all together . Reviewed strategies, including possible admission to ATS facility--patient declined this. Reviewed possible risk of withdrawal sx, including seizure with abrupt discontinuation of alcohol. Patient reporting he is not concerned about this as he has done it before . Discussed Naltrexone as way to decrease intake and decrease cravings--patient agreeable. Reviewed side effects, goals of medications and dosing. Reviewed contraindication with ongoing opioids, patient not currently prescribed. [facility] 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 COVID-19 vaccine series completed Depression Diabetes mellitus History of traumatic brain injury History of trigger finger HLD (hyperlipidemia) HTN (hypertension) Hx of leg amputation Hx of staphylococcal infection Insulin dependent diabetes mellitus Morbid obesity Neuropathy Obesity PTSD (post-traumatic stress disorder) Recurrent cellulitis of lower extremity Sleep apnea Vitamin D deficiency Surgical History History of gastrectomy History of surgery on arm Hx of cardiac catheterization Hx of carpal tunnel repair Hx of cataract extraction Hx of hernia repair S/P BKA (below knee amputation) bilateral Family History Mother No problems noted. Father Alcohol abuse Social History Household Members: Spouse Housing: House Are you a primary child care associate teacher to a significant other at home: No Do you presently have visiting nurse or other home services: Yes Alcohol intake: current Alcohol intake frequency: 3 or more drinks per day Patient Tobacco Use Status: Never used Tobacco Tobacco use type: Smokeless Tobacco Years Smoked: 20-30 years e-Cigarette/Vaping Use: Never Used Second Hand Smoke Exposure: No Advance Directives: Yes Advance Directives on File: Yes Advance Directives Date on File: 07/14/22 service: No Current occupational status: disabled Cognitive needs: No Hearing needs: No Vision needs: Yes Review of Systems Const Reports as per HPI and Reports no additional complaints Physical Exam Vital Signs: Last Vital Signs Pulse 96 09/29/22 14:20 BP 150/80 H 09/29/22 14:20 Pulse Ox 95 09/29/22 14:20 Const General: cooperative and anxious Limitations: wheelchair Assessment & Plan Assessment & Plan (1) Alcohol use disorder, moderate, dependence: Code(s): F10.20 - Alcohol dependence, uncomplicated Plan: risk reduction discussion naltrexone 50mg QD follow up 3 weeks Medications: New naltrexone take half tab daily for 3 days then increase to one tab daily 50 mg PO DAILY 30 tabs 0RF Coding Level of Care Code New Pt Level 4 (15413) Diagnoses Alcohol use disorder, moderate, dependence F10.20
== END 2022-09-29 15:02 | disposition home or self-care (01) ==
LOC: HO.HCC 13:56
PROVIDERS: PCP Internal Medicine; Visit Provider Nurse Practitioner Psychiatric/Mental Health
DX: F10.20 Alcohol dependence, uncomplicated (principal)
CPT/HCPCS: 99204

== ENCOUNTER → 2022-09-29 13:56 | Outpatient (BNVA) | payer OTHER, SELFPAY | PROVIDERS: PCP Internal Medicine; Visit Provider Nurse Practitioner Psychiatric/Mental Health | DX: F10.20 Alcohol dependence, uncomplicated (principal) | CPT/HCPCS: 99202 ==

== ENCOUNTER 2022-10-07 15:11 | Emergency (ER) | payer OTHER, SELFPAY ==
--- NOTE | ~2022-10-07 | XR_ITS ---
EXAMINATION: XR HAND, LEFT CLINICAL INFORMATION: Pain COMPARISON: None available. TECHNIQUE: PA, lateral, and oblique views of the left hand. FINDINGS: Bone alignment is normal. No fracture or dislocation. Mild arthritis at the IP joint of the fifth finger with small osteophytes. Well-corticated periarticular soft tissue ossifications adjacent to the PIP joint of the fifth finger probably related to old trauma. Soft tissue arterial calcification. XR/XR hand LT min 3V IMPRESSION: No acute fracture or dislocation.
[2022-10-07 16:24] VITALS: BP 148/90; PULSE 77; RESP 18; TEMP 37; O2SAT 98; BMI 6045.8
--- NOTE | 2022-10-07 16:25 | ED_ITS ---
HPI - General Adult General Chief complaint: Extremity Injury, Upper Stated complaint: L hand injury Time Seen by Provider: 10/07/22 16:44 Source: patient Mode of arrival: ambulatory Limitations: no limitations History of Present Illness HPI narrative: 51 y/o male with history of DM2, s/p bilateral BKAs who presents to [facility] ER for evaluation of left 4th finger pain and swelling after he accidentally had his hand banged on the cement when his dog's leash pulled his hand down 3 days ago. he was waiting for it go get better but the pain has persisted. he is able to flex and extend the finger and reports some mild swelling of the proximal digit. no hand pain. he has had some tingling of the 4th and 5th digits. no open wounds. MD complaint: left 4th finger pain s/p injury Onset (ago): day(s) (3) Location: left and upper extremity Radiation: non-radiation Severity: moderate Quality: aching Pain Consistency: intermittent Relieving factors: immobilization Exacerbating factors: movement Associated symptoms: denies other symptoms Treatments prior to arrival: none Related Data Home Medications Medication Instructions Recorded Confirmed zolpidem 12.5 mg tablet,extended 12.5 mg PO BEDTIME PRN Insomnia 12/21/20 09/20/22 release,multiphase fluoxetine 40 mg capsule 80 mg PO QAM 04/11/21 09/20/22 latanoprost 0.005 % eye drops 1 drp ophthalmic (eye) BEDTIME 05/15/22 09/20/22 clotrimazole 1 % topical cream 1 appl topical BID 05/26/22 09/20/22 prazosin 5 mg capsule 5 mg PO BEDTIME 07/10/22 09/20/22 propranolol 40 mg tablet 40 mg PO BID 07/27/22 09/20/22 insulin aspart U-100 100 unit/mL 20 unit subcut TIDAC 09/20/22 09/20/22 (3 mL) subcutaneous pen (Novolog FlexPen U-100 Insulin aspart) pregabalin 200 mg capsule 200 mg PO TID 09/20/22 09/20/22 Previous Rx's Medication Instructions Recorded Bilateral below the knee socket #1 ea 02/24/22 replacement amitriptyline 50 mg tablet 50 mg PO BEDTIME #90 tabs 04/14/22 blood-glucose sensor (Dexcom G6 #3 ea 08/03/22 Sensor device) blood-glucose transmitter (Dexcom #1 ea 08/03/22 G6 Transmitter device) doxycycline hyclate 100 mg capsule 100 mg PO BID #30 caps 09/19/22 varenicline 1 mg tablet (Chantix) 1 mg PO BID #56 tabs 09/20/22 insulin aspart U-100 100 unit/mL See Protocol subcut TID-QID #15 mL 09/23/22 (3 mL) subcutaneous pen (Novolog FlexPen U-100 Insulin aspart) naltrexone 50 mg tablet 50 mg PO DAILY #30 tabs 09/29/22 Allergies Allergy/AdvReac Type Severity Reaction Status Date / Time cefazolin [From Ancef] Allergy Severe Anaphylaxis Verified 09/19/22 17:59 Sulfa (Sulfonamide Allergy Severe Anaphylaxis Verified 09/19/22 17:59 Antibiotics) sulfamethoxazole Allergy Severe Mckoy-Kory Verified 09/19/22 17:59 [From Bactrim] syndrome trimethoprim [From Bactrim] Allergy Severe Mckoy-Kory Verified 09/19/22 17:59 syndrome levofloxacin [From Levaquin] Allergy Intermediate Rash Verified 09/19/22 17:59 metronidazole [From Flagyl] Allergy Intermediate Rash Verified 09/19/22 17:59 Penicillins Allergy Intermediate ? 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 COVID-19 vaccine series completed Depression Diabetes mellitus History of traumatic brain injury History of trigger finger HLD (hyperlipidemia) HTN (hypertension) Hx of leg amputation Hx of staphylococcal infection Insulin dependent diabetes mellitus Morbid obesity Neuropathy Obesity PTSD (post-traumatic stress disorder) Recurrent cellulitis of lower extremity Sleep apnea Vitamin D deficiency Surgical History History of gastrectomy History of surgery on arm Hx of cardiac catheterization Hx of carpal tunnel repair Hx of cataract extraction Hx of hernia repair S/P BKA (below knee amputation) bilateral Family History Family History Mother No problems noted. Father Alcohol abuse Social History Social History Household Members: Spouse Housing: House Are you a primary morning caregiver to a significant other at home: No Do you presently have visiting nurse or other home services: Yes Alcohol intake: current Alcohol intake frequency: 3 or more drinks per day Patient Tobacco Use Status: Never used Tobacco Tobacco use type: Smokeless Tobacco Years Smoked: 20-30 years e-Cigarette/Vaping Use: Never Used Second Hand Smoke Exposure: No Advance Directives: Yes Advance Directives on File: Yes Advance Directives Date on File: 07/14/22 service: No Current occupational status: disabled Cognitive needs: No Hearing needs: No Vision needs: Yes Physical Exam ED Vital Signs: Vital Signs - 24 hr 10/07/22 16:24 Temperature 98.6 F Pulse Rate 77 Respiratory Rate 18 Blood Pressure 148/90 H Pulse Oximetry 98 Oxygen Delivery Method Room Air BMI result Body Mass Index 6045.8 Appearance: Alert. Oriented X3. No acute distress. HEENT: normal inspection CVS: Normal heart rate and rhythm. Pulses normal. Respiratory: No respiratory distress. Skin: Skin warm and dry. Normal skin color. Normal skin turgor. No rashes. Extremities: s/p bilateral BKAs. left hand normal to inspection, the 4th digit with mild tenderness between the PIP and MCP, no open wounds. no MCP tenderness or metacarpal tenderness. NV intact distally. Neuro: Oriented X 3. No motor deficit. No sensory deficit. Course Course Course Narrative: RME- 51-year-old male presents for evaluation of left hand injury. He reports that the dog leash was caught in his power chair and caused him to accidentally punched concrete. Left hand pain. X-ray ordered Medical Decision Making Medical Decision Making [facility] Narrative: 51 y/o male presenting with left 4th digit pain s/p injury 3 days ago. Exam is unremarkable w/ FROM of the digit. normal hand grasp. XR showed no broken bones. pain most likely due to contusion. supportive care and RICE discussed. stable for d/c home Differential Diagnosis Differential Diagnoses: The differential diagnosis associated with the presentation includes finger contusion, finger fracture, hand fracture, abrasion Independent Interpretation I performed an independent interpretation of an: Plain X-Ray Interpretation: no finger fx apprecaited, agree w/ radiology read Radiology Impression Discussion of test interpretation with radiology: I have reviewed the radiologist's reading. Radiologist Impression: XR/XR hand LT min 3V IMPRESSION: No acute fracture or dislocation. Independent Historian Clinical information obtained from an independent historian. History obtained from or confirmed by: Spouse External Record Review External record reviewed: Prior outpatient labs Prescription Management I considered prescription management with: Pain Medication Chronic Conditions Patient?s care impacted by: Diabetes Critical Care Time Critical Care Time Critical Care Time: No Discharge Plan Discharge Clinical Impression: Contusion of left ring finger Patient Disposition: Home, Self-Care Instructions: Contusion in Adults (ED) Additional Instructions: Your x-ray today was normal. Use ice several times per day for the next 48 hours. Take Motrin and/or Tylenol as needed for pain. Follow up with your doctor as needed. Prescriptions: No Action (DME) Bilateral below the knee socket replacement See Rx Instructions .Route .MEDSUPPLY Qty: 1 6RF Rx Instructions: As directed (DME) Dexcom G6 Transmitter Device See Rx Instructions .ROUTE .COMPLEX Qty: 1 0RF Dose Instruction: DIRECTED Rx Instructions: test 4 times daily (DME) Dexcom G6 Sensor Device See Rx Instructions topical Q10D Qty: 3 8RF Rx Instructions: As directed doxycycline hyclate 100 mg capsule 100 mg PO BID Qty: 30 0RF Rx Instructions: started 09/19/22 varenicline [Chantix] 1 mg tablet 1 mg PO BID Qty: 56 3RF insulin aspart U-100 [Novolog FlexPen U-100 Insulin] 100 unit/mL (3 mL) insulin pen See Protocol subcut TID-QID Qty: 15 8RF Protocol: Insulin Correction Scale Less than or equal to 110 ---- Give (units): 0 111 to 150 Give (units): 0 151 to 200 Give (units): 2 201 to 250 Give (units): 4 251 to 300 Give (units): 6 301 to 350 Give (units): 8 Greater than 350 Give (units): 10 Call MD if Blood Glucose > : 350 latanoprost 0.005 % drops 1 drp ophthalmic (eye) BEDTIME propranolol 40 mg tablet 40 mg PO BID clotrimazole 1 % cream 1 appl TOPICAL BID prazosin 5 mg capsule 5 mg PO BEDTIME pregabalin 200 mg capsule 200 mg PO TID insulin aspart U-100 [Novolog FlexPen U-100 Insulin] 100 unit/mL (3 mL) Insulin Pen 20 unit SUBCUT TIDAC amitriptyline 50 mg tablet 50 mg PO BEDTIME Qty: 90 3RF zolpidem 12.5 mg tablet,ext release multiphase 12.5 mg PO BEDTIME PRN (Reason: Insomnia) fluoxetine 40 mg capsule 80 mg PO QAM naltrexone 50 mg tablet 50 mg PO DAILY Qty: 30 0RF Rx Instructions: take half tab daily for 3 days then increase to one tab daily Interventions: ED Discharge Assessment Last Done: 10/07/22 17:26 Discharge Date/Time: 10/07/22 17:27
== END 2022-10-07 17:27 | disposition home or self-care (01) ==
PROVIDERS: Emergency Provider Emergency Medicine Emergency Medical Services
DX: S60.042A Contusion of left ring finger without damage to nail, initial encounter (principal); X58.XXXA Exposure to other specified factors, initial encounter; Y93.89 Activity, other specified; Y92.9 Unspecified place or not applicable; Y99.9 Unspecified external cause status; M79.645 Pain in left finger(s); E11.9 Type 2 diabetes mellitus without complications; I10 Essential (primary) hypertension; E78.5 Hyperlipidemia, unspecified
CPT/HCPCS: 73130; 99282; 99283

== ENCOUNTER 2022-10-11 12:08 | Emergency (ER) | payer OTHER, SELFPAY ==
--- NOTE | ~2022-10-11 | CT_ITS ---
EXAMINATION CT HEAD WITHOUT CONTRAST CT CERVICAL SPINE WITHOUT CONTRAST CLINICAL INFORMATION: Altered mental status, questionable traumatic injury COMPARISON: None TECHNIQUE: CT of the head was performed without intravenous contrast. Reformatted axial, coronal, and sagittal images were reviewed. Then, multidetector CT of the cervical spine was performed without intravenous contrast. Reformatted axial, coronal and sagittal images were reviewed. This CT examination was performed using dose optimization techniques as appropriate, variously including the following: *Automated exposure control *Adjustment of mA and/or kV according to patient size (this includes techniques or standardized protocols for targeted exams where dose is matched to indication/reason for exam; i.e. extremities or head) *Use of iterative reconstruction technique DLP: 1294 mGy-cm FINDINGS: HEAD: No intracranial hemorrhage, extra-axial fluid collection, or midline shift is identified. Petersen-white matter differentiation is preserved. Mild prominence of the CSF spaces, particularly in the frontal lobes. Basal cisterns are within normal limits. Paranasal sinuses are clear. Mastoid air cells and middle ear cavities are clear. Cerumen within the right external auditory canal. No acute calvarial fractures. CERVICAL SPINE: There is no fracture, malalignment or prevertebral soft tissue abnormality seen in the cervical spine. There is no abnormal widening of the predental space, separation of the lateral masses of C1 or facet joint distraction. Vertebral body heights are preserved. There is degenerative disc disease at C5-C6 with central disc herniation and uncovertebral hypertrophy resulting in mild central canal and moderate right neural foraminal stenosis. The visualized portions of the lung parenchyma is unremarkable. CT/CT cervical spine wo IV con IMPRESSION: CT HEAD: 1. No acute intracranial abnormality. 2. Age advanced cerebral volume loss. CT CERVICAL SPINE: 1. No acute fracture or malalignment of the cervical spine. 2. Degenerative disc disease at C5-C6 resulting in mild central canal stenosis and moderate right neural foraminal stenosis.
--- NOTE | ~2022-10-11 | XR_ITS ---
EXAMINATION: XR RIBS, RIGHT, PA CHEST CLINICAL INFORMATION: Rib pain. COMPARISON: 07/27/2020 chest radiographs. TECHNIQUE: 3 views of the right ribs were obtained along with a PA view of the chest. A skin marker overlies the inferior left ribs. FINDINGS: Lungs are clear. No consolidation, pneumothorax, or pleural effusion. The cardiomediastinal silhouette and pulmonary vasculature are normal. Osseous structures are unremarkable. Ribs are intact. No fractures are identified. XR/XR ribs LT min 3V w CXR1V IMPRESSION: Unremarkable examination.
--- NOTE | 2022-10-11 12:10 | ED.GENADULT ---
HPI - General Adult General Chief complaint: Fall Stated complaint: Pain S/P Fall Out Of Wheelchair Time Seen by Provider: 10/11/22 13:49 Source: patient and family Mode of arrival: EMS Limitations: other (Chronic cognitive impairment) History of Present Illness HPI narrative: Patient comes to the emergency room complaining of left-sided rib pain. Patient states that he does not remember exactly what happened, patient believes that yesterday night he fell off his wheelchair, landed on the left side and somehow got himself back to bed. Patient's is at bedside, states that she did not notice or here when he fell. Patient states that he does know if he hit his head or lost consciousness. Patient is not on blood thinners. Patient denies headache or neck pain. Patient is known to previously drank alcohol. According to the , she would know if he would have had any alcohol but he has not been drinking alcohol. Patient's states that at baseline, patient can with normal conversations, he is a bit slow to respond to cognitive delay. However, over the last few days, he has been much slower to answer and seems to be acting weird. Specifically, the states that the patient has been rolling around his wheelchair in the house, open the refrigerator, staring at it , seems confused Related Data Home Medications Medication Instructions Recorded Confirmed zolpidem 12.5 mg tablet,extended 12.5 mg PO BEDTIME PRN Insomnia 12/21/20 09/20/22 release,multiphase fluoxetine 40 mg capsule 80 mg PO QAM 04/11/21 09/20/22 latanoprost 0.005 % eye drops 1 drp ophthalmic (eye) BEDTIME 05/15/22 09/20/22 clotrimazole 1 % topical cream 1 appl topical BID 05/26/22 09/20/22 prazosin 5 mg capsule 5 mg PO BEDTIME 07/10/22 09/20/22 propranolol 40 mg tablet 40 mg PO BID 07/27/22 09/20/22 insulin aspart U-100 100 unit/mL 20 unit subcut TIDAC 09/20/22 09/20/22 (3 mL) subcutaneous pen (Novolog FlexPen U-100 Insulin aspart) pregabalin 200 mg capsule 200 mg PO TID 09/20/22 09/20/22 Previous Rx's Medication Instructions Recorded Bilateral below the knee socket #1 ea 02/24/22 replacement amitriptyline 50 mg tablet 50 mg PO BEDTIME #90 tabs 04/14/22 blood-glucose sensor (Dexcom G6 #3 ea 08/03/22 Sensor device) blood-glucose transmitter (Dexcom #1 ea 08/03/22 G6 Transmitter device) doxycycline hyclate 100 mg capsule 100 mg PO BID #30 caps 09/19/22 varenicline 1 mg tablet (Chantix) 1 mg PO BID #56 tabs 09/20/22 insulin aspart U-100 100 unit/mL See Protocol subcut TID-QID #15 mL 09/23/22 (3 mL) subcutaneous pen (Novolog FlexPen U-100 Insulin aspart) naltrexone 50 mg tablet 50 mg PO DAILY #30 tabs 09/29/22 acetaminophen 650 mg 650 mg PO Q8H PRN fever or pain 10/11/22 tablet,extended release #30 tabs Allergies Allergy/AdvReac Type Severity Reaction Status Date / Time cefazolin [From Ancef] Allergy Severe Anaphylaxis Verified 09/19/22 17:59 Sulfa (Sulfonamide Allergy Severe Anaphylaxis Verified 09/19/22 17:59 Antibiotics) sulfamethoxazole Allergy Severe Mckoy-Kory Verified 09/19/22 17:59 [From Bactrim] syndrome trimethoprim [From Bactrim] Allergy Severe Mckoy-Kory Verified 09/19/22 17:59 syndrome levofloxacin [From Levaquin] Allergy Intermediate Rash Verified 09/19/22 17:59 metronidazole [From Flagyl] Allergy Intermediate Rash Verified 09/19/22 17:59 Penicillins Allergy Intermediate ? Verified 09/19/22 17:59 Hives-childhood reaction NSAIDS (Non-Steroidal AdvReac Unknown cannot Verified 09/19/22 17:59 Anti-Inflamma take due to having gastric sleeve Review of Systems Review of Systems: Constitutional : No Weight loss, No Fever, No Chills, No Night Sweats, No Fatigue, No Malaise ENT/Mouth : No Hearing loss, No Ear Pain, No Nasal Congestion, No Sinus Pain, No Hoarseness, No sore throat, No Rhinorrhea, No Swallowing Difficulty Eyes: No Eye Pain, No Swelling, No Redness, No Foreign Body, No Discharge, No Vision Changes Cardiovascular : No Chest Pain, No SOB, No Dyspnea on Exertion, No Orthopnea, No Edema, No Palpitations Respiratory : No Cough, No Sputum, No Wheezing, No Smoke Exposure, No Dyspnea Gastrointestinal : No Nausea, No Vomiting, No Diarrhea, No Constipation, No abdominal Pain, No Hematochezia, No Melena Genitourinary : no irregular bleeding, No Dysuria, No Urinary Frequency, No Hematuria, No Urinary Incontinence, No Urgency, No Flank Pain, No Urinary Flow Changes, No Hesitancy Musculoskeletal : Complaining of left rib pain No Myalgias, No Joint Swelling Skin : No Skin Lesions, No rash Neuro : No Weakness, No Numbness, No Paresthesias, No Loss of Consciousness, No Dizziness, No Headache Psych : No Anxiety/Panic, No Depression, No SI/HI/AH/VH, No Social Issues, Heme/Lymph: No Bruising, No Bleeding,No Lymphadenopathy Endocrine : No Polyuria, No Polydipsia, No Temperature Intolerance PMFSH Past Medical History 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 COVID-19 vaccine series completed Depression Diabetes mellitus History of traumatic brain injury History of trigger finger HLD (hyperlipidemia) HTN (hypertension) Hx of leg amputation Hx of staphylococcal infection Insulin dependent diabetes mellitus Morbid obesity Neuropathy Obesity PTSD (post-traumatic stress disorder) Recurrent cellulitis of lower extremity Sleep apnea Vitamin D deficiency Surgical History History of gastrectomy History of surgery on arm Hx of cardiac catheterization Hx of carpal tunnel repair Hx of cataract extraction Hx of hernia repair S/P BKA (below knee amputation) bilateral Family History Family History Mother No problems noted. Father Alcohol abuse Social History Social History Household Members: Spouse Housing: House Are you a primary acute care nurse to a significant other at home: No Do you presently have visiting nurse or other home services: Yes Alcohol intake: current Alcohol intake frequency: former alcohol drinker Patient Tobacco Use Status: Never used Tobacco Tobacco use type: Smokeless Tobacco Years Smoked: 20-30 years Smoked in Last 30 Days: No e-Cigarette/Vaping Use: Never Used Second Hand Smoke Exposure: No Use of substances other than those prescribed or required for medical reasons: No Advance Directives: Yes Advance Directives on File: Yes Advance Directives Date on File: 07/14/22 service: No Current occupational status: disabled Cognitive needs: No Hearing needs: No Vision needs: Yes Physical Exam ED Vital Signs: Vital Signs - 24 hr 10/11/22 12:11 10/11/22 15:06 10/11/22 17:32 Temperature 98.1 F Pulse Rate 72 70 67 Respiratory Rate 16 18 14 Blood Pressure 134/79 151/87 H 148/85 H Pulse Oximetry 96 94 94 Oxygen Delivery Method Room Air Room Air 10/11/22 19:41 Temperature Pulse Rate 65 Respiratory Rate 18 Blood Pressure 179/92 H Pulse Oximetry 95 Oxygen Delivery Method Room Air BMI result Body Mass Index 42.0 Const Other: Appearance: Alert. Oriented X3. No acute distress. Eyes: Pupils equal, round and reactive to light. ENT: Pharynx normal. Neck: Normal inspection. Neck supple. No lymph nodes noted. No crepitus CVS: Normal heart rate and rhythm. Pulses normal. Normal S1 and S2 Respiratory: No respiratory distress. Breath sounds normal. No Wheezing. No rales Abdomen: Soft and nontender. No rigidity. No distention. Musculoskeletal: Pain to palpation on the left ribs in the lateral and frontal aspect. Skin: Skin warm and dry. Normal skin color. Normal skin turgor. No ecchymosis Extremities: Bilateral BKA, no signs of infection Neuro: Oriented X 3. No motor deficit. No sensory deficit. Moving all extremities. No slurred speech. CN 2 through 12 grossly intact Psych: calm, cooperative Course Course Course Narrative: RME: 52yo M w/PMHx bilateral BKA wheelchair-bound, HTN, HLD, PTSD, sleep apnea, ETOH abuse c/o L sided rib pain s/p fall out of bed last night or ?out of wheelchair in bathroom. Patient doesn't remember incident, history obtained from family who states she noted patient was not in bed, called his knee without answer however woke up and patient was back in bed. States patient has been acting bizarre over the past few days, wondering in wheelchair, found sitting in front of the Fridge sleeping with Fridge open. Unknown head trauma or LOC. Patient denies ETOH or illicit drug use EKG, labs, tox screen, CXR, head/C-spine CT ordered Full HPI, ROS and PE to be performed by primary ED provider. Medications Administered Discontinued Medications Generic Name Dose Route Start Last Admin Trade Name Charisse PRN Reason Stop Dose Admin Sodium Chloride 1,000 mls @ 999 mls/hr 10/11/22 14:11 10/11/22 17:07 Ns IVCONT 10/11/22 15:11 Infused .Q1H1M ONE Infusion Insulin Human Regular 10 unit 10/11/22 14:11 10/11/22 14:46 Insulin Regular, Human 100 Unit/Ml 3 Ml Vial IVPUSH 10/11/22 14:12 10 unit ONCE ONE Administration Medical Decision Making Medical Decision Making [facility] Narrative: -My interpretation of labs patient's white blood cell count within normal limits, coagulation times normal, electrolytes within normal limits, glucose 394, received insulin, improved to 255 mild chronic elevation of LFTs, ammonia within normal limits -lipase is slightly elevated, patient does not have any abdominal pain -urinalysis negative -patient's urine toxicology was positive for marijuana -my interpretation head CT, no intracranial bleed -I discussed the patient with his who is healthcare proxy. Patient's states that she needs more help at home with the patient. Requesting case management help from her services at home -patient's states that her sister is currently at the hospital in [facility] with a brain bleed, she also takes care of her sister at home. Patient's feels very overwhelmed taking care of both -case management consult pending -physician observation started at 20:30 -21:35 patient's came to the emergency room, spoke with her , both feel that the will be okay going home. Per patient's request and his , we will send the patient home. Differential Diagnosis Differential Diagnoses: The differential diagnosis associated with the presentation includes (UTI, hepatic encephalopathy, CVA) Admission/Observation Consideration of admission/observation: Escalation of care including admission/observation considered (Only reported the patient had acute onset of altered mental status, admission was considered) Lab Data [facility] Lab Attestation statement: I reviewed the patient's lab results. 10/11/22 12:34 10/11/22 12:34 Labs: Lab Results 08/16/23 08/16/23 08/16/23 Range/Units 12:34 12:34 12:34 WBC 7.1 (4.8-10.8) X10*3/uL RBC 5.06 (4.60-5.80) X10*6/uL Hgb 14.7 (14.0-18.0) g/dl Hct 43.3 (42.0-52.0) % MCV 85.6 (80.0-98.0) fL MCH 29.1 (27.0-33.0) pg MCHC 33.9 (31.0-36.0) g/dl RDW 12.4 (11.0-16.0) % Plt Count 129 L (160-400) X10*3/uL MPV 11.3 (9.4-12.4) fL Immature Gran % (Auto) 0.4 (0.0-0.4) % Neut % (Auto) 64.9 (45-73) % Lymph % (Auto) 22.6 (20-40) % [place] % (Auto) 8.7 (2-11) % Eos % (Auto) 2.7 (0-4) % Baso % (Auto) 0.7 (0-2) % Lymph # (Auto) 1.6 (1.2-4.9) X10*3/uL [place] # (Auto) 0.6 (0.1-1.2) X10*3/uL Eos # (Auto) 0.2 (0.0-0.4) X10*3/uL Baso # (Auto) 0.1 (0.0-0.2) X10*3/uL Abs Immat Gran (auto) 0.03 (0.00-0.03) X10*3/uL Absolute Neuts (auto) 4.6 (2.0-8.3) x10*3/uL Absolute Nucleated RBC 0.000 (0.0-0.012) X10*3/uL Nucleated RBC % (auto) 0.0 (0.0-0.2) /100WBC PT (11.1-13.3) SEC INR (0.9-1.1) Sodium 135 (135-145) mmol/L Potassium 4.7 (3.3-5.1) mmol/L Chloride 102 (96-108) mmol/L Carbon Dioxide 26 (22-29) mmol/L Anion Gap 12 (12-20) BUN 20 H (9-16) mg/dL Creatinine 1.25 (0.5-1.4) mg/dL Estim Creat Clear Calc 66.7 Estimated GFR > 60 POC Glucose (60-115) mg/dL Random Glucose 394 H* (60-115) mg/dL Calcium 9.8 (8.4-10.2) mg/dL Magnesium 1.8 (1.6-2.6) mg/dL Total Bilirubin 0.4 (0.0-1.0) mg/dL Direct Bilirubin 0.1 (0.0-0.5) mg/dL AST 98 H (5-37) U/L ALT 100 H (0-40) U/L Alkaline Phosphatase 118 H (39-117) U/L Ammonia (13-55) umol/L Total Creatine Kinase 80 (38-174) U/L Troponin I High Sens (<3.5-35.0) ng/L Total Protein 7.6 (6.5-8.0) g/dL Albumin 3.9 (3.5-5.0) g/dL Lipase 143 H (8-78) U/L Urine Color Urine Appearance Urine pH (5.0-9.0) Ur Specific [place] (1.005-1.025) Urine Protein (Neg-Trace) mg/dL Urine Glucose (UA) (Negative) mg/dL Urine Ketones (Negative) mg/dL Urine Blood (Negative) Urine Nitrite (Negative) Ur Leukocyte Esterase (Negative) Urine RBC (0-2) /HPF Urine WBC (0-5) /HPF Ur Squamous Epith Cells (0-2) /HPF Urine Bacteria (None Seen) Hyaline Casts (0-2) /LPF Salicylates < 5.0 L (15-30) mg/dL Urine Opiates Screen (Not Detect) Urine Fentanyl Screen (Not Detect) Acetaminophen < 17 (<30) mcg/mL Ur Barbiturates Screen (Not Detect) Ur Phencyclidine Scrn (Not Detect) Ur Amphetamines Screen (Not Detect) U Benzodiazepines Scrn (Not Detect) Urine Cocaine Screen (Not Detect) U Marijuana (THC) Screen (Not Detect) Ethyl Alcohol < 10 mg/dL 10/11/22 10/11/22 10/11/22 Range/Units 12:34 12:34 14:34 WBC (4.8-10.8) X10*3/uL RBC (4.60-5.80) X10*6/uL Hgb (14.0-18.0) g/dl Hct (42.0-52.0) % MCV (80.0-98.0) fL MCH (27.0-33.0) pg MCHC (31.0-36.0) g/dl RDW (11.0-16.0) % Plt Count (160-400) X10*3/uL MPV (9.4-12.4) fL Immature Gran % (Auto) (0.0-0.4) % Neut % (Auto) (45-73) % Lymph % (Auto) (20-40) % [place] % (Auto) (2-11) % Eos % (Auto) (0-4) % Baso % (Auto) (0-2) % Lymph # (Auto) (1.2-4.9) X10*3/uL [place] # (Auto) (0.1-1.2) X10*3/uL Eos # (Auto) (0.0-0.4) X10*3/uL Baso # (Auto) (0.0-0.2) X10*3/uL Abs Immat Gran (auto) (0.00-0.03) X10*3/uL Absolute Neuts (auto) (2.0-8.3) x10*3/uL Absolute Nucleated RBC (0.0-0.012) X10*3/uL Nucleated RBC % (auto) (0.0-0.2) /100WBC PT 11.6 (11.1-13.3) SEC INR 1.0 (0.9-1.1) Sodium (135-145) mmol/L Potassium (3.3-5.1) mmol/L Chloride (96-108) mmol/L Carbon Dioxide (22-29) mmol/L Anion Gap (12-20) BUN (9-16) mg/dL Creatinine (0.5-1.4) mg/dL Estim Creat Clear Calc Estimated GFR POC Glucose (60-115) mg/dL Random Glucose (60-115) mg/dL Calcium (8.4-10.2) mg/dL Magnesium (1.6-2.6) mg/dL Total Bilirubin (0.0-1.0) mg/dL Direct Bilirubin (0.0-0.5) mg/dL AST (5-37) U/L ALT (0-40) U/L Alkaline Phosphatase (39-117) U/L Ammonia 35 (13-55) umol/L Total Creatine Kinase (38-174) U/L Troponin I High Sens 3.8 (<3.5-35.0) ng/L Total Protein (6.5-8.0) g/dL Albumin (3.5-5.0) g/dL Lipase (8-78) U/L Urine Color Urine Appearance Urine pH (5.0-9.0) Ur Specific [employer] [place] (1.005-1.025) Urine Protein (Neg-Trace) mg/dL Urine Glucose (UA) (Negative) mg/dL Urine Ketones (Negative) mg/dL Urine Blood (Negative) Urine Nitrite (Negative) Ur Leukocyte Esterase (Negative) Urine RBC (0-2) /HPF Urine WBC (0-5) /HPF Ur Squamous Epith Cells (0-2) /HPF Urine Bacteria (None Seen) Hyaline Casts (0-2) /LPF Salicylates (15-30) mg/dL Urine Opiates Screen (Not Detect) Urine Fentanyl Screen (Not Detect) Acetaminophen (<30) mcg/mL Ur Barbiturates Screen (Not Detect) Ur Phencyclidine Scrn (Not Detect) Ur Amphetamines Screen (Not Detect) U Benzodiazepines Scrn (Not Detect) Urine Cocaine Screen (Not Detect) U Marijuana (THC) Screen (Not Detect) Ethyl Alcohol mg/dL 10/11/22 10/11/22 10/11/22 Range/Units 17:32 17:32 19:05 WBC (4.8-10.8) X10*3/uL RBC (4.60-5.80) X10*6/uL Hgb (14.0-18.0) g/dl Hct (42.0-52.0) % MCV (80.0-98.0) fL MCH (27.0-33.0) pg MCHC (31.0-36.0) g/dl RDW (11.0-16.0) % Plt Count (160-400) X10*3/uL MPV (9.4-12.4) fL Immature Gran % (Auto) (0.0-0.4) % Neut % (Auto) (45-73) % Lymph % (Auto) (20-40) % [place] % (Auto) (2-11) % Eos % (Auto) (0-4) % Baso % (Auto) (0-2) % Lymph # (Auto) (1.2-4.9) X10*3/uL [place] # (Auto) (0.1-1.2) X10*3/uL Eos # (Auto) (0.0-0.4) X10*3/uL Baso # (Auto) (0.0-0.2) X10*3/uL Abs Immat Gran (auto) (0.00-0.03) X10*3/uL Absolute Neuts (auto) (2.0-8.3) x10*3/uL Absolute Nucleated RBC (0.0-0.012) X10*3/uL Nucleated RBC % (auto) (0.0-0.2) /100WBC PT (11.1-13.3) SEC INR (0.9-1.1) Sodium (135-145) mmol/L Potassium (3.3-5.1) mmol/L Chloride (96-108) mmol/L Carbon Dioxide (22-29) mmol/L Anion Gap (12-20) BUN (9-16) mg/dL Creatinine (0.5-1.4) mg/dL Estim Creat Clear Calc Estimated GFR POC Glucose 255 H (60-115) mg/dL Random Glucose (60-115) mg/dL Calcium (8.4-10.2) mg/dL Magnesium (1.6-2.6) mg/dL Total Bilirubin (0.0-1.0) mg/dL Direct Bilirubin (0.0-0.5) mg/dL AST (5-37) U/L ALT (0-40) U/L Alkaline Phosphatase (39-117) U/L Ammonia (13-55) umol/L Total Creatine Kinase (38-174) U/L Troponin I High Sens (<3.5-35.0) ng/L Total Protein (6.5-8.0) g/dL Albumin (3.5-5.0) g/dL Lipase (8-78) U/L Urine Color Yellow Urine Appearance Clear Urine pH 5.5 (5.0-9.0) Ur Specific [employer] [place] >= 1.030 H (1.005-1.025) Urine Protein 300 (3+) H (Neg-Trace) mg/dL Urine Glucose (UA) >=1000 H (Negative) mg/dL Urine Ketones Negative (Negative) mg/dL Urine Blood Negative (Negative) Urine Nitrite Negative (Negative) Ur Leukocyte Esterase Negative (Negative) Urine RBC 0-2 (0-2) /HPF Urine WBC 0-5 (0-5) /HPF Ur Squamous Epith Cells 0-2 (0-2) /HPF Urine Bacteria None Seen (None Seen) Hyaline Casts 0-2 (0-2) /LPF Salicylates (15-30) mg/dL Urine Opiates Screen Not Detected (Not Detect) Urine Fentanyl Screen Not Detected (Not Detect) Acetaminophen (<30) mcg/mL Ur Barbiturates Screen Not Detected (Not Detect) Ur Phencyclidine Scrn Not Detected (Not Detect) Ur Amphetamines Screen Not Detected (Not Detect) U Benzodiazepines Scrn Not Detected (Not Detect) Urine Cocaine Screen Not Detected (Not Detect) U Marijuana (THC) Screen POSITIVE H (Not Detect) Ethyl Alcohol mg/dL Independent Interpretation I performed an independent interpretation of an: CT Scan Radiology Impression Discussion of test interpretation with radiology: I have reviewed the radiologist's reading. Radiologist Impression: FINDINGS: HEAD: No intracranial hemorrhage, extra-axial fluid collection, or midline shift is identified. Petersen-white matter differentiation is preserved. Mild prominence of the CSF spaces, particularly in the frontal lobes. Basal cisterns are within normal limits. Paranasal sinuses are clear. Mastoid air cells and middle ear cavities are clear. Cerumen within the right external auditory canal. No acute calvarial fractures. CERVICAL SPINE: There is no fracture, malalignment or prevertebral soft tissue abnormality seen in the cervical spine. There is no abnormal widening of the predental space, separation of the lateral masses of C1 or facet joint distraction. Vertebral body heights are preserved. There is degenerative disc disease at C5-C6 with central disc herniation and uncovertebral hypertrophy resulting in mild central canal and moderate right neural foraminal stenosis. The visualized portions of the lung parenchyma is unremarkable. CT/CT head/brain wo IV con IMPRESSION: CT HEAD: 1. No acute intracranial abnormality. 2. Age advanced cerebral volume loss. ? CT CERVICAL SPINE: 1. No acute fracture or malalignment of the cervical spine. 2. Degenerative disc disease at C5-C6 resulting in mild central canal stenosis and moderate right neural foraminal stenosis. Independent Historian Clinical information obtained from an independent historian. History obtained from or confirmed by: Spouse Critical Care Time Critical Care Time Critical Care Time: Yes Total Critical Care Time: 60 Attestation: I have personally provided critical care time. Time includes review of lab data, radiology results, discussion with consultants, and monitoring for potential decompensation. Intervention performed as documented. Discharge Plan Discharge Clinical Impression: Altered mental status, Acute hyperglycemia, Rib contusion Patient Disposition: Home, Self-Care Instructions: Diabetic Hyperglycemia (ED), Rib Contusion (ED) Additional Instructions: Please follow-up with your primary care physician tomorrow. If you have any worsening or new symptoms, please return to the emergency room or call 911 Prescriptions: New acetaminophen 650 mg tablet extended release 650 mg PO Q8H PRN (Reason: fever or pain) Qty: 30 0RF No Action (DME) Bilateral below the knee socket replacement See Rx Instructions .Route .MEDSUPPLY Qty: 1 6RF Rx Instructions: As directed (DME) Dexcom G6 Transmitter Device See Rx Instructions .ROUTE .COMPLEX Qty: 1 0RF Dose Instruction: DIRECTED Rx Instructions: test 4 times daily (DME) Dexcom G6 Sensor Device See Rx Instructions topical Q10D Qty: 3 8RF Rx Instructions: As directed doxycycline hyclate 100 mg capsule 100 mg PO BID Qty: 30 0RF Rx Instructions: started 09/19/22 varenicline [Chantix] 1 mg tablet 1 mg PO BID Qty: 56 3RF insulin aspart U-100 [Novolog FlexPen U-100 Insulin] 100 unit/mL (3 mL) insulin pen See Protocol subcut TID-QID Qty: 15 8RF Protocol: Insulin Correction Scale Less than or equal to 110 ---- Give (units): 0 111 to 150 Give (units): 0 151 to 200 Give (units): 2 201 to 250 Give (units): 4 251 to 300 Give (units): 6 301 to 350 Give (units): 8 Greater than 350 Give (units): 10 Call MD if Blood Glucose > : 350 latanoprost 0.005 % drops 1 drp ophthalmic (eye) BEDTIME propranolol 40 mg tablet 40 mg PO BID clotrimazole 1 % cream 1 appl TOPICAL BID prazosin 5 mg capsule 5 mg PO BEDTIME pregabalin 200 mg capsule 200 mg PO TID insulin aspart U-100 [Novolog FlexPen U-100 Insulin] 100 unit/mL (3 mL) Insulin Pen 20 unit SUBCUT TIDAC amitriptyline 50 mg tablet 50 mg PO BEDTIME Qty: 90 3RF zolpidem 12.5 mg tablet,ext release multiphase 12.5 mg PO BEDTIME PRN (Reason: Insomnia) fluoxetine 40 mg capsule 80 mg PO QAM naltrexone 50 mg tablet 50 mg PO DAILY Qty: 30 0RF Rx Instructions: take half tab daily for 3 days then increase to one tab daily
[2022-10-11 12:11] VITALS: BP 134/79; PULSE 72; RESP 16; TEMP 36.7; O2SAT 96; BMI 42.0
--- NOTE | 2022-10-11 12:12 | ECG_ITS ---
Test Reason : ams Blood Pressure : / mmHG Vent. Rate : 073 BPM Atrial Rate : 073 BPM P-R Int : 178 ms QRS Dur : 096 ms QT Int : 384 ms P-R-T Axes : 019 -20 -04 degrees QTc Int : 423 ms Normal sinus rhythm Moderate voltage criteria for LVH, may be normal variant ( R in aVL , Chestnut product ) Inferior infarct , age undetermined Cannot rule out Anterior infarct (cited on or before 20-SEP-2022) Abnormal ECG When compared with ECG of 20-SEP-2022 11:58, No significant change was found Referred By: Katina Alva Electronically Signed By:LEONEL AZEVEDO
[2022-10-11 12:44] LABS: MANUAL DIFF FLAG NO
[2022-10-11 12:51] LABS: Basophils Absolute Auto 0.1 X10*3/uL (0.0-0.2); Basophils Percent Auto 0.7 % (0-2); Eosinophils Absolute Auto 0.2 X10*3/uL (0.0-0.4); Eosinophils Percent Auto 2.7 % (0-4); Hematocrit 43.3 % (42.0-52.0); Hemoglobin 14.7 g/dl (14.0-18.0); Imm Gran Abs Auto 0.03 X10*3/uL (0.00-0.03); Imm Gran Pct Auto 0.4 % (0.0-0.4); Lymphocytes Absolute Auto 1.6 X10*3/uL (1.2-4.9); Lymphocytes Percent Auto 22.6 % (20-40); Mean Corpuscular HGB Conc 33.9 g/dl (31.0-36.0); Mean Corpuscular Hemoglobin 29.1 pg (27.0-33.0); Mean Corpuscular Volume 85.6 fL (80.0-98.0); Mean Platelet Volume 11.3 fL (9.4-12.4); Monocytes Absolute Auto 0.6 X10*3/uL (0.1-1.2); Monocytes Percent Auto 8.7 % (2-11); Neutrophils Absolute Auto 4.6 x10*3/uL (2.0-8.3); Neutrophils Percent Auto 64.9 % (45-73); Platelet Count 129 X10*3/uL (160-400); Prothrombin Time 11.6 SEC (11.1-13.3); Red Blood Count 5.06 X10*6/uL (4.60-5.80); Red Cell Distribution Width 12.4 % (11.0-16.0); White Blood Count 7.1 X10*3/uL (4.8-10.8)
[2022-10-11 13:04] LABS: Acetaminophen LAB < 17 mcg/mL (<30); Alanine Aminotransferase 100 U/L (0-40); Albumin Level 3.9 g/dL (3.5-5.0); Alkaline Phosphatase 118 U/L (39-117); Anion Gap 12 (12-20); Aspartate Amino Transferase 98 U/L (5-37); Bilirubin Direct 0.1 mg/dL (0.0-0.5); Bilirubin Total 0.4 mg/dL (0.0-1.0); Blood Urea Nitrogen 20 mg/dL (9-16); Calcium 9.8 mg/dL (8.4-10.2); Carbon Dioxide 26 mmol/L (22-29); Chloride 102 mmol/L (96-108); Creatinine Clr Calc Pharmacy 66.7; Estimated Glomerular Filt Rate > 60; Ethanol < 10 mg/dL; Lipase 143 U/L (8-78); Magnesium 1.8 mg/dL (1.6-2.6); Potassium 4.7 mmol/L (3.3-5.1); Salicylate < 5.0 mg/dL (15-30); Sodium 135 mmol/L (135-145); Total Protein 7.6 g/dL (6.5-8.0)
[2022-10-11 13:06] LABS: Glucose Random 394 mg/dL (60-115)
[2022-10-11 13:07] LABS: Troponin-I High Sensitivity 3.8 ng/L (<3.5-35.0)
[2022-10-11] MEDS: Insulin Regular, Human 100 UNIT/ML 3 ML VIAL 10 UNIT IVPUSH (14:46)
[2022-10-11] MEDS: 0.9 % Sodium Chloride 1,000 ML 999 ML IVCONT (14:48)
[2022-10-11 14:49] LABS: Ammonia 35 umol/L (13-55)
[2022-10-11 15:06] VITALS: BP 151/87; PULSE 70; RESP 18; O2SAT 94
[2022-10-11 17:32] VITALS: BP 148/85; PULSE 67; RESP 14; O2SAT 94
[2022-10-11 17:47] LABS: Appearance Urine Clear; Color Urine Yellow; Glucose Urine UA >=1000 mg/dL (Negative); Leukocyte Esterase Urine Negative (Negative); Nitrite Urine Negative (Negative); PH 5.5 (5.0-9.0); Specific Gravity - Urine >= 1.030 (1.005-1.025); UMIC TRIGGER UACC YES; Urine Blood Negative (Negative); Urine Ketones Negative (Negative); Urine Protein 300 (3+) mg/dL (Neg-Trace)
[2022-10-11 17:51] LABS: Bacteria Urine None Seen (None Seen); Hyaline Casts Urine 0-2 /LPF (0-2); RBC Urine 0-2 /HPF (0-2); Squamous Epithelial Cell Urine 0-2 /HPF (0-2); WBC Urine 0-5 /HPF (0-5)
[2022-10-11 17:58] LABS: Amphetamine Screen Urine Not Detected (Not Detect); Barbiturates, Urine Not Detected (Not Detect); Benzodiazepines Screen Urine Not Detected (Not Detect); Cannabinoid Screen Urine POSITIVE (Not Detect); Cocaine Screen Urine Not Detected (Not Detect); Fentanyl, urine Not Detected (Not Detect); Opiate Screen Urine Not Detected (Not Detect); Phencyclidine Screen Urine Not Detected (Not Detect)
[2022-10-11 19:08] LABS: Glucose, Whole Blood 255 mg/dL (60-115)
--- NOTE | 2022-10-11 19:08 | PC.NURSE ---
recheck poc, 255. Dr. Chen aware
[2022-10-11 19:41] VITALS: BP 179/92; PULSE 65; RESP 18; O2SAT 95
--- NOTE | 2022-10-11 21:02 | PC.NURSE ---
report given to Jayleen hilton in [facility], pt is ready for transport.
--- NOTE | 2022-10-12 08:44 | MHC.CM.PN ---
CM RECEIVED CONSULT FOR PT HOWEVER CM UNABLE TO COMPLETE ASSESSMENT D/T PT DISCHARGED 10/11/22
== END 2022-10-11 22:00 | disposition home or self-care (01) ==
PROVIDERS: Physician Assistant; Emergency Provider Emergency Medicine; PCP Internal Medicine
DX: R41.82 Altered mental status, unspecified (principal); E11.65 Type 2 diabetes mellitus with hyperglycemia; R51.9 Headache, unspecified; R07.81 Pleurodynia; M54.2 Cervicalgia; R94.31 Abnormal electrocardiogram [ECG] [EKG]; Z79.4 Long term (current) use of insulin; Z79.899 Other long term (current) drug therapy
CPT/HCPCS: 36415; 70450; 71101; 72125; 80048; 80076; 80143; 80179; 80307; 81001; 82140; 82550; 82947; 83690; 83735; 84484; 85025; 85610; 93005; 96361; 96374; 99284; 99285

== ENCOUNTER → 2022-10-16 08:15 | Outpatient (BNV) | payer OTHER, SELFPAY | PROVIDERS: Visit Provider Psychiatry & Neurology Psychiatry | DX: F31.4 Bipolar disorder, current episode depressed, severe, without psychotic features (principal); F10.21 Alcohol dependence, in remission; E11.9 Type 2 diabetes mellitus without complications; F33.41 Major depressive disorder, recurrent, in partial remission; S06.9XAA Unspecified intracranial injury with loss of consciousness status unknown, initial encounter; G54.7 Phantom limb syndrome without pain | CPT/HCPCS: 90792; 99214; 99499 ==

== ENCOUNTER 2022-10-19 10:54 | Outpatient (AMB) | payer OTHER, SELFPAY ==
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
== END 2022-10-19 11:15 | disposition home or self-care (01) ==
PROVIDERS: PCP Internal Medicine; Visit Provider Surgery
DX: T87.9 Unspecified complications of amputation stump (principal)
CPT/HCPCS: 99024

== ENCOUNTER → 2022-10-19 10:54 | Outpatient (BNVA) | payer OTHER, SELFPAY | PROVIDERS: PCP Internal Medicine; Visit Provider Surgery ==

== ENCOUNTER 2022-10-19 11:21 | Outpatient (REF) | payer OTHER, SELFPAY ==
--- NOTE | 2022-10-19 11:28 | ECG_ITS ---
Test Reason : QTC Prolongation Blood Pressure : / mmHG Vent. Rate : 062 BPM Atrial Rate : 062 BPM P-R Int : 194 ms QRS Dur : 092 ms QT Int : 414 ms P-R-T Axes : 000 -20 -12 degrees QTc Int : 420 ms Normal sinus rhythm Moderate voltage criteria for LVH, may be normal variant ( R in aVL , [place] product ) Inferior infarct (cited on or before 20-SEP-2022) Cannot rule out Anterior infarct (cited on or before 20-SEP-2022) Abnormal ECG When compared with ECG of 11-OCT-2022 12:22, No significant change was found Referred By: Luly Saucedo Electronically Signed By:LEONEL AZEVEDO
[2022-10-19 11:37] LABS: MANUAL DIFF FLAG NO
[2022-10-19 12:10] LABS: Basophils Absolute Auto 0.1 X10*3/uL (0.0-0.2); Basophils Percent Auto 0.7 % (0-2); Eosinophils Absolute Auto 0.2 X10*3/uL (0.0-0.4); Eosinophils Percent Auto 2.8 % (0-4); Hematocrit 43.1 % (42.0-52.0); Hemoglobin 14.5 g/dl (14.0-18.0); Imm Gran Abs Auto 0.05 X10*3/uL (0.00-0.03); Imm Gran Pct Auto 0.6 % (0.0-0.4); Lymphocytes Absolute Auto 2.1 X10*3/uL (1.2-4.9); Lymphocytes Percent Auto 25.9 % (20-40); Mean Corpuscular HGB Conc 33.6 g/dl (31.0-36.0); Mean Corpuscular Volume 86.2 fL (80.0-98.0); Mean Platelet Volume 10.5 fL (9.4-12.4); Monocytes Absolute Auto 0.7 X10*3/uL (0.1-1.2); Monocytes Percent Auto 8.6 % (2-11); Neutrophils Absolute Auto 5.1 x10*3/uL (2.0-8.3); Neutrophils Percent Auto 61.4 % (45-73); Platelet Count 175 X10*3/uL (160-400); Red Cell Distribution Width 12.6 % (11.0-16.0); White Blood Count 8.3 X10*3/uL (4.8-10.8)
[2022-10-19 13:02] LABS: Alanine Aminotransferase 58 U/L (0-40); Albumin Level 3.8 g/dL (3.5-5.0); Alkaline Phosphatase 105 U/L (39-117); Anion Gap 11 (12-20); Aspartate Amino Transferase 71 U/L (5-37); Bilirubin Total 0.4 mg/dL (0.0-1.0); Blood Urea Nitrogen 10 mg/dL (9-16); Calcium 9.4 mg/dL (8.4-10.2); Carbon Dioxide 28 mmol/L (22-29); Chloride 99 mmol/L (96-108); Estimated Glomerular Filt Rate > 60; Glucose Fasting 153 mg/dL (60-99); Iron 73 mcg/dL (45-160); Magnesium 1.7 mg/dL (1.6-2.6); Percent Iron Saturation 26 % (15-50); Potassium 4.3 mmol/L (3.3-5.1); Sodium 134 mmol/L (135-145); Total Iron Binding Capacity 285 mcg/dL (228-428); Total Protein 7.5 g/dL (6.5-8.0); Unsaturated Iron Binding 212 ug/dL
[2022-10-19 13:20] LABS: Free T4 (Free Thyroxine) 0.89 ng/dL (0.71-1.85); Thyroid Stimulating Hormone 1.21 uIU/mL (0.32-4.0); Vitamin D 25-OH Total 27.8 ng/mL (>30)
[2022-10-19 13:25] LABS: Folate 8.3 ng/mL (> or = 4.0); Vitamin B12 583 pg/mL (200-900)
== END 2022-10-19 11:22 | disposition home or self-care (01) ==
LOC: HO.LAB 11:21
PROVIDERS: Visit Provider Nurse Practitioner Family
DX: I45.81 Long QT syndrome (principal); E11.9 Type 2 diabetes mellitus without complications; F31.4 Bipolar disorder, current episode depressed, severe, without psychotic features; F10.21 Alcohol dependence, in remission
CPT/HCPCS: 36415; 80053; 82306; 82607; 82746; 83540; 83735; 84439; 84443; 85025; 93005

== ENCOUNTER 2022-11-01 14:34 | Outpatient (REF) | payer OTHER, SELFPAY ==
[2022-11-01 16:55] LABS: Alanine Aminotransferase 78 U/L (0-40); Albumin Level 3.7 g/dL (3.5-5.0); Alkaline Phosphatase 106 U/L (39-117); Aspartate Amino Transferase 96 U/L (5-37); Bilirubin Direct < 0.1 mg/dL (0.0-0.5); Bilirubin Total 0.3 mg/dL (0.0-1.0); Total Protein 7.8 g/dL (6.5-8.0)
== END 2022-11-01 14:35 | disposition home or self-care (01) ==
LOC: HO.LAB 14:34
PROVIDERS: PCP Internal Medicine; Visit Provider Clinical Nurse Specialist Psychiatric/Mental Health
DX: F31.9 Bipolar disorder, unspecified (principal); F10.21 Alcohol dependence, in remission
CPT/HCPCS: 36415; 80076

== ENCOUNTER 2022-11-02 08:15 | Outpatient (RCR) | payer OTHER, SELFPAY ==
--- NOTE | 2022-10-16 11:14 | P.HPPSP_ITS ---
[facility] Date of Service: 10/16/22 Chief Complaint: depression Additional Sources of Information: Pt refused to meet with provider for med eval and review. Communicated with staff- knows fiction and nonfiction prose writer from [facility] ([facility]) and declined to meet. If patient changes their mind can meet with this provider during the week or another Provider. From a background perspective, Ty has a diagnosis of PTSD and Depression and ALcohol Use Disorder. Last visit with this fiction and nonfiction prose writer were 03/24/22, 05/01/22 and 08/01/22 and missed appointments since. At those visits reported alcohol intake (1-2 times per week) that overall mood was pretty good in context of stressor regarding right leg surgery. Meds were prozac 80mg, prazosin 5mg, ambien CR 12.5mg and propranolol 40mg twice daily (April 2022)- reported helped when in unfamiliar settings or feels anxious and irritable. January 2021: come off buspar (no benefit) and wellbutrin (more irritable and anxious). Since February 2022: Prozac, prazosin and ambien largely unchanged as mood ok and reported main issues were psychosocial since- medical/prosthestic/wheelchair, adult foster care situation was not good before current placement, advised marriage counseling and harm reduction around alcohol. Also discussed future medication options could include Lamictal, Abilif y, Latuda, Celexa or Effexor. 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 COVID-19 vaccine series completed Depression Diabetes mellitus History of traumatic brain injury History of trigger finger HLD (hyperlipidemia) HTN (hypertension) Hx of leg amputation Hx of staphylococcal infection Insulin dependent diabetes mellitus Morbid obesity Neuropathy Obesity PTSD (post-traumatic stress disorder) Recurrent cellulitis of lower extremity Sleep apnea Vitamin D deficiency Surgical History History of gastrectomy History of surgery on arm Hx of cardiac catheterization Hx of carpal tunnel repair Hx of cataract extraction Hx of hernia repair S/P BKA (below knee amputation) bilateral Meds/Allergies Meds Home Medications Medication Instructions Recorded Confirmed Type zolpidem 12.5 mg tablet,extended 12.5 mg PO BEDTIME PRN Insomnia 12/21/20 09/20/22 History release,multiphase fluoxetine 40 mg capsule 80 mg PO QAM 04/11/21 09/20/22 History latanoprost 0.005 % eye drops 1 drp ophthalmic (eye) BEDTIME 05/15/22 09/20/22 History clotrimazole 1 % topical cream 1 appl topical BID 05/26/22 09/20/22 History prazosin 5 mg capsule 5 mg PO BEDTIME 07/10/22 09/20/22 History propranolol 40 mg tablet 40 mg PO BID 07/27/22 09/20/22 History insulin aspart U-100 100 unit/mL 20 unit subcut TIDAC 09/20/22 09/20/22 History (3 mL) subcutaneous pen (Novolog FlexPen U-100 Insulin aspart) pregabalin 200 mg capsule 200 mg PO TID 09/20/22 09/20/22 History Allergies Allergies Allergy/AdvReac Type Severity Reaction Status Date / Time cefazolin [From Ancef] Allergy Severe Anaphylaxis Verified 09/19/22 17:59 Sulfa (Sulfonamide Allergy Severe Anaphylaxis Verified 09/19/22 17:59 Antibiotics) sulfamethoxazole Allergy Severe Mckoy-Kory Verified 09/19/22 17:59 [From Bactrim] syndrome trimethoprim [From Bactrim] Allergy Severe Mckoy-Kory Verified 09/19/22 17:59 syndrome levofloxacin [From Levaquin] Allergy Intermediate Rash Verified 09/19/22 17:59 metronidazole [From Flagyl] Allergy Intermediate Rash Verified 09/19/22 17:59 Penicillins Allergy Intermediate ? Verified 09/19/22 17:59 Hives-childhood reaction NSAIDS (Non-Steroidal AdvReac Unknown cannot Verified 09/19/22 17:59 Anti-Inflamma take due to having gastric sleeve Assessment & Plan Certification I certify that partial hospital treatment is medically necessary due to the symptoms and problems resulting from the patient's mental illness and the failure to treat the patient at the partial hospital level of care would likely result in the patient requiring inpatient psychiatric care which could not be prevented at a less intensive level of care. Time Spent With Patient Time: Total time managing care of this patient today ____ minutes.
[2022-10-16 14:33] VITALS: BP 150/82; PULSE 76; RESP 14; TEMP 36.2
[2022-10-16 14:40] VITALS: BMI 42.0
--- NOTE | 2022-10-16 16:13 | PC.NURSE ---
Luther requested help in getting Dexcom G 6 sensor refilled so he is able to take his blood sugars. He stated he has not been able to get this filled for the past week. He spoke to his while in my office who stated she called Dr Edwards his PCP to get a refill however it could take up to 48 hours to get it filled. I called [facility] to request a refill as instructed per Dr Sprague's office message and spoke to Colby at [facility]. Colby stated he will be able to refill Dexcom G6 sensor and it should be ready for cloth picker this evening. I called and left a message with Luther with the above information.
--- NOTE | 2022-10-17 10:08 | PC.NURSE ---
I spoke to Luther this morning. He stated the pharmacy called him yesterday regarding Dexcom G 6 sensor being ready for pick up operator. He is planning on getting it today.
--- NOTE | 2022-10-17 10:11 | PC.NURSE ---
Patient attending [facility] and sees Alda KIM for MAT with Naltrexone. Patient stated he wants to eventually be on Vivitrol injections.
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
--- NOTE | 2022-10-19 17:10 | HO.PHP ---
Clients case was reviewed and opened today in treatment team.
--- NOTE | 2022-10-23 14:28 | HO.PHP ---
[facility] staff received a phone call with Luther's appointment for Psychiatry through [facility]. Luther's next scheduled appointment with the med provider is on November 13, 2022 at 11 AM with Isabell Moss at [address] [place] [address].
--- NOTE | 2022-10-26 10:49 | P.PNPSP_ITS ---
Subjective Subjective Date of Service: 10/26/22 Reason For Visit: depression Interim History: pt request s to be seen today as he wants to discuss meds and needs refills for meds; Pt has appt with new psychiatrist at [facility] on 10/31/22. Pt feels frustrated because he feel she needs help with mood sympoms and mind racing; he reports he feels easily angered and anxious; he loses his temper especially at home; he feels his head is always busy; he feels anxious and tense every day; he feels hp erand edgy. He states his mind is never quiet. he has intrusive memories from past traumas and disappointments, losses. Hi LFTs are moderately elevated; he says he has been alcohol free times 3 weeks; we discusssed options for meds and agree to trial of Depakote;I discussed risk vs benefits or depakote and expected results. I consulted with surgeon Dr Conklin regarding any increase risk of bleeding. He aw no reason pt could not be on depakote; discussed with patient that he could not drink any alcohol with his meds including depakote and he will ge t LFTS recheck next week. Past med trial incluside propranolol up o 40 mg bid - ineffective latuda ineffective abilify - aniety lamictal - ineffective wellbutrin- anxiety seroqule - weight gain effexor- ineffective celexa- ineffective buspar (no benefit) wellbutrin (more irritable and anxious). Medication Compliance: Yes Side effects from medications: No Attending Groups: Yes Review of Systems elevated LFTs most likley due to alcohol Medical Review of Systems: unchanged Mental Status Exam Mental Status Exam Patient Appearance: Disheveled, Appropriate and Unkempt Patient Orientation: Person, Place, Time and Situation Level of Consciousness: Awake Patient Behavior: Appropriate, Talkative, Cooperative, Anxious and Good Eye Contact Mood Description: Anxious, Angry (irritable) and Sad Affect Description: Anxious Ability to Follow Directions: Good Speech Pattern: Clear and Rambling Memory Description: Intact Hallucinations: None Delusions: Not Present Thought Process: Intact, Distracted and Rumination Thought Content: positive for Intact, positive for Goal Oriented, positive for Perseveration and positive for Preoccupation Judgement: Fair Diagnostics Vital Signs (24Hr): BMI result Body Mass Index 42.0 Assessment & Plan Assessment & Plan (1) T2DM (type 2 diabetes mellitus): Status: Acute Code(s): E11.9 - Type 2 diabetes mellitus without complications (2) Alcohol use disorder, severe, in early remission: Status: Acute Code(s): F10.21 - Alcohol dependence, in remission (3) Traumatic brain injury: Status: Acute Code(s): S06.9XAA - Unspecified intracranial injury with loss of consciousness status unknown, initial encounter (4) Phantom limb (syndrome): Status: Acute Code(s): G54.7 - Phantom limb syndrome without pain (5) Bipolar disorder, unspecified: Status: Acute Code(s): F31.9 - Bipolar disorder, unspecified (6) Major depressive disorder, recurrent severe without psychotic features: Status: Acute Code(s): F33.2 - Major depressive disorder, recurrent severe without psychotic features Plan Assessment: 52 yo male who is double amputee with hx of Bipolar Disorder, alcohol use, diabetes, recent UTI, s/p ambien overdose referred by [facility] care team through ED. Pt presented to ED due to increasing depression over past 3 months and feeling that his outpatient provider doesn't have him on correct medication; He has been struggling with depression, ruminating, episodic anger and rage feelings, passive SI with recnet intentional overdose of ambien; pt says he took 3-4 ambien by mistake. he denies it was an intentional overdose; he reports his last drink was 1.5 weeks ago. Pt states he struggles with neuropathis pain and phamtom limb pain every day. He sleeps poorly; He feels depressed and intermittenly rageful; describes feeling like the hulk all of a sudden if something doesn't go his way. Plan: start depakote 250 mg qam admit to [facility] group treatment per protocol repeat LFTS substance abuse education consider adding vraylar 1.5 mg daily for bipolar mood disorderif depakote not tolerated continue home meds: naltrexone 50mg daily , prozac 80 mg daily, lyrica 200mg tid, propranolol, amitriptyline 50 mg at bedtime prazosin 5 mg at bedtime Patient educated on: diagnosis, medication risk/benefits, substance abuse and therapeutic strategies Informed Consent: understands and further education needed Reason for contiued partial hosp. stay Substantial Risk for: harm to self, inability to function and rapid decompensation Certification I certify that partial hospital treatment is medically necessary due to the symptoms and problems resulting from the patient's mental illness and the failure to treat the patient at the partial hospital level of care would likely result in the patient requiring inpatient psychiatric care which could not be prevented at a less intensive level of care. Total time managing care of this patient today ___45_ minutes. Discharge Plan Discharge Attending provider: Gregorio Martin Medications: New divalproex [Depakote] 250 mg tablet,delayed release (DR/EC) 250 mg PO QAM Qty: 7 0RF prazosin 5 mg capsule 5 mg PO BEDTIME Qty: 7 0RF propranolol 40 mg tablet 40 mg PO BID Qty: 14 0RF fluoxetine [Prozac] 40 mg capsule 80 mg PO DAILY Qty: 14 0RF zolpidem [Ambien CR] 6.25 mg tablet,ext release multiphase 6.25 mg PO BEDTIME Qty: 7 0RF naltrexone 50 mg tablet 50 mg PO DAILY Qty: 30 0RF No Action (DME) Bilateral below the knee socket replacement See Rx Instructions .Route .MEDSUPPLY Qty: 1 6RF Rx Instructions: As directed (DME) Dexcom G6 Sensor Device See Rx Instructions topical Q10D Qty: 3 8RF Rx Instructions: As directed doxycycline hyclate 100 mg capsule 100 mg PO BID Qty: 30 0RF Rx Instructions: started 09/19/22 varenicline [Chantix] 1 mg tablet 1 mg PO BID Qty: 56 3RF insulin aspart U-100 [Novolog FlexPen U-100 Insulin] 100 unit/mL (3 mL) insulin pen See Protocol subcut TID-QID Qty: 15 8RF Protocol: Insulin Correction Scale Less than or equal to 110 ---- Give (units): 0 111 to 150 Give (units): 0 151 to 200 Give (units): 2 201 to 250 Give (units): 4 251 to 300 Give (units): 6 301 to 350 Give (units): 8 Greater than 350 Give (units): 10 Call MD if Blood Glucose > : 350 (DME) Dexcom G6 Transmitter Device See Rx Instructions .ROUTE .COMPLEX Qty: 1 0RF Dose Instruction: DIRECTED Rx Instructions: test 4 times daily latanoprost 0.005 % drops 1 drp ophthalmic (eye) BEDTIME propranolol 40 mg tablet 40 mg PO BID clotrimazole 1 % cream 1 appl TOPICAL BID prazosin 5 mg capsule 5 mg PO BEDTIME pregabalin 200 mg capsule 200 mg PO TID acetaminophen 650 mg tablet extended release 650 mg PO Q8H PRN (Reason: fever or pain) Qty: 30 0RF amitriptyline 50 mg tablet 50 mg PO BEDTIME Qty: 90 3RF zolpidem 12.5 mg tablet,ext release multiphase 12.5 mg PO BEDTIME PRN (Reason: Insomnia) fluoxetine 40 mg capsule 80 mg PO QAM naltrexone 50 mg tablet 50 mg PO DAILY Qty: 30 0RF Rx Instructions: take half tab daily for 3 days then increase to one tab daily Stand Alone Forms: Patient Portal Discharge page
--- NOTE | 2022-10-26 15:07 | P.PNPSP_ITS ---
Subjective Subjective Date of Service: 11/02/22 Reason For Visit: depression Interim History: pt ending program today; his first appt with [facility] prescriber is on 11/13. He is taking the depakote but say he needs a higher dose; we reviewed his liver enzyme tests which are elevated since admission; he says he has drank alcohol a few times since being in program but nothing like before. Discussed need to change depakote to another agent due to elevated liver enzymes; discussed tril eptal and efficacy, side effects, risks vs benefits and he agrees to trial of trileptal 300mg in am daily; he would like to taper off prozac and we discussed risk vs benefits and he will follow up with new provider. Medication Compliance: Yes Side effects from medications: Yes (possible elevated liver enzymes vs etoh) Attending Groups: Yes Review of Systems Acute medical concerns: No Medical Review of Systems: unchanged Review of Systems Review of Systems no changes Mental Status Exam Mental Status Exam Patient Appearance: Disheveled, Appropriate and Unkempt Patient Orientation: Person, Place, Time and Situation Level of Consciousness: Awake Patient Behavior: Appropriate, Talkative, Cooperative, Anxious and Good Eye Contact Mood Description: Anxious, Angry (irritable) and Sad Affect Description: Anxious Ability to Follow Directions: Good Speech Pattern: Clear and Rambling Memory Description: Intact Delusions: Not Present Thought Process: Intact and Goal Oriented Thought Content: positive for Intact and positive for Goal Oriented Judgement: Fair Diagnostics Vital Signs (24Hr): BMI result Body Mass Index 42.0 Labs Labs: elevated liver enzymes Assessment & Plan Assessment & Plan (1) T2DM (type 2 diabetes mellitus): Status: Acute Code(s): E11.9 - Type 2 diabetes mellitus without complications (2) Alcohol use disorder, severe, in early remission: Status: Acute Code(s): F10.21 - Alcohol dependence, in remission (3) Traumatic brain injury: Status: Acute Code(s): S06.9XAA - Unspecified intracranial injury with loss of consciousness status unknown, initial encounter (4) Phantom limb (syndrome): Status: Acute Code(s): G54.7 - Phantom limb syndrome without pain (5) Bipolar disorder, unspecified: Status: Acute Code(s): F31.9 - Bipolar disorder, unspecified (6) Major depressive disorder, recurrent severe without psychotic features: Status: Acute Code(s): F33.2 - Major depressive disorder, recurrent severe without psychotic features Plan Assessment: 52 yo male who is double amputee with hx of Bipolar Disorder, alcohol use, diabetes, recent UTI, s/p ambien overdose referred by [facility] care team through ED. Pt presented to ED due to increasing depression over past 3 months and feeling that his outpatient provider doesn't have him on correct medication; He has been struggling with depression, ruminating, episodic anger and rage feelings, passive SI with recnet intentional overdose of ambien; pt says he took 3-4 ambien by mistake. he denies it was an intentional overdose; he reports his last drink was 1.5 weeks ago. Pt states he struggles with neuropathis pain and phamtom limb pain every day. He sleeps poorly; He feels depressed and intermittenly rageful; describes feeling like the hulk all of a sudden if something doesn't go his way. Plan: stop depakote 250 mg qam discharge today [facility] abstain [facility] alcohol consider adding vraylar 1.5 mg daily for bipolar mood disorder if trileptal ineffective continue home meds Patient educated on: diagnosis, medication risk/benefits, substance abuse and therapeutic strategies Informed Consent: understands and further education needed Reason for contiued partial hosp. stay Substantial Risk for: stable for discharge Certification I certify that partial hospital treatment is medically necessary due to the symptoms and problems resulting from the patient's mental illness and the failure to treat the patient at the partial hospital level of care would likely result in the patient requiring inpatient psychiatric care which could not be prevented at a less intensive level of care. Total time managing care of this patient today _40___ minutes. Discharge Plan Discharge Attending provider: Gregorio Martin Additional Instructions: Psychiatry appointment through [facility] on November 13, 2022 at 11 AM with Isabell Moss at [address] [place] [address]. OP therapy appointment through [facility] on October 31, 2022 at 11 AM with Kalee Tolentino at [address] [place] [id number]. Medications: New prazosin 5 mg capsule 5 mg PO BEDTIME Qty: 7 0RF propranolol 40 mg tablet 40 mg PO BID Qty: 14 0RF fluoxetine [Prozac] 40 mg capsule 80 mg PO DAILY Qty: 14 0RF zolpidem [Ambien CR] 6.25 mg tablet,ext release multiphase 6.25 mg PO BEDTIME Qty: 7 0RF naltrexone 50 mg tablet 50 mg PO DAILY Qty: 30 0RF oxcarbazepine [Trileptal] 300 mg tablet 300 mg PO DAILY Qty: 30 0RF prazosin 5 mg capsule 5 mg PO BEDTIME Qty: 30 0RF propranolol 40 mg tablet 40 mg PO BID Qty: 30 1RF fluoxetine [Prozac] 40 mg capsule 80 mg PO DAILY Qty: 60 0RF zolpidem [Ambien CR] 6.25 mg tablet,ext release multiphase 6.25 mg PO BEDTIME Qty: 14 1RF No Action (DME) Bilateral below the knee socket replacement See Rx Instructions .Route .MEDSUPPLY Qty: 1 6RF Rx Instructions: As directed (DME) Dexcom G6 Sensor Device See Rx Instructions topical Q10D Qty: 3 8RF Rx Instructions: As directed doxycycline hyclate 100 mg capsule 100 mg PO BID Qty: 30 0RF Rx Instructions: started 09/19/22 varenicline [Chantix] 1 mg tablet 1 mg PO BID Qty: 56 3RF insulin aspart U-100 [Novolog FlexPen U-100 Insulin] 100 unit/mL (3 mL) insulin pen See Protocol subcut TID-QID Qty: 15 8RF Protocol: Insulin Correction Scale Less than or equal to 110 ---- Give (units): 0 111 to 150 Give (units): 0 151 to 200 Give (units): 2 201 to 250 Give (units): 4 251 to 300 Give (units): 6 301 to 350 Give (units): 8 Greater than 350 Give (units): 10 Call MD if Blood Glucose > : 350 (DME) Dexcom G6 Transmitter Device See Rx Instructions .ROUTE .COMPLEX Qty: 1 0RF Dose Instruction: DIRECTED Rx Instructions: test 4 times daily naltrexone 50 mg tablet 50 mg PO DAILY Qty: 30 0RF latanoprost 0.005 % drops 1 drp ophthalmic (eye) BEDTIME propranolol 40 mg tablet 40 mg PO BID clotrimazole 1 % cream 1 appl TOPICAL BID prazosin 5 mg capsule 5 mg PO BEDTIME pregabalin 200 mg capsule 200 mg PO TID acetaminophen 650 mg tablet extended release 650 mg PO Q8H PRN (Reason: fever or pain) Qty: 30 0RF amitriptyline 50 mg tablet 50 mg PO BEDTIME Qty: 90 3RF zolpidem 12.5 mg tablet,ext release multiphase 12.5 mg PO BEDTIME PRN (Reason: Insomnia) fluoxetine 40 mg capsule 80 mg PO QAM Stand Alone Forms: Patient Portal Discharge page Patient Education: Depression (DC)
== END 2022-11-02 23:59 | disposition home or self-care (01) ==
LOC: HO.PHPA 08:15
PROVIDERS: Visit Provider Psychiatry & Neurology Psychiatry
DX: F33.2 Major depressive disorder, recurrent severe without psychotic features (principal); F31.9 Bipolar disorder, unspecified; E11.9 Type 2 diabetes mellitus without complications; F10.21 Alcohol dependence, in remission; G54.7 Phantom limb syndrome without pain; Z87.820 Personal history of traumatic brain injury
CPT/HCPCS: 90791; 90853

== ENCOUNTER 2022-11-08 14:09 | Outpatient (AMB) | payer OTHER, SELFPAY ==
--- NOTE | 2022-11-08 14:12 | A.OFFVIS_ITS ---
Intake Vital Signs 11/08/22 14:19 BP 118/76 Blood Pressure Location Lt radial Position Sitting Pulse 77 Pulse Source Pulse Oximeter Pulse Oximetry (%) 95 Oxygen Delivery Method Room Air Intake Visit Reasons: MAT Visit Intake Note: The patient presents for a mat visit Allergies cefazolin [From Ancef] Allergy (Severe, Verified 11/08/22 14:22) Anaphylaxis Sulfa (Sulfonamide Antibiotics) Allergy (Severe, Verified 11/08/22 14:22) Anaphylaxis sulfamethoxazole [From Bactrim] Allergy (Severe, Verified 11/08/22 14:22) Mckoy-Kory syndrome trimethoprim [From Bactrim] Allergy (Severe, Verified 11/08/22 14:22) Mckoy-Kory syndrome levofloxacin [From Levaquin] Allergy (Intermediate, Verified 11/08/22 14:22) Rash metronidazole [From Flagyl] Allergy (Intermediate, Verified 11/08/22 14:22) Rash Penicillins Allergy (Intermediate, Verified 11/08/22 14:22) ? Hives-childhood reaction NSAIDS (Non-Steroidal Anti-Inflamma Adverse Reaction (Unknown, Verified 11/08/22 14:22) cannot take due to having gastric sleeve Do you need a note to return to daycare/school/sports/work: No HPI MAT Visit HPI Details Patient presents for follow up Recently completed partial hospitalization program. Started on mood stabilizer during that admission. Patient appearing brighter and less irritable. Reports feeling mood has improved significantly. States he has not had any alcohol in several weeks. Will be meeting with new psych provider on November 13. 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 COVID-19 vaccine series completed Depression Diabetes mellitus History of traumatic brain injury History of trigger finger HLD (hyperlipidemia) HTN (hypertension) Hx of leg amputation Hx of staphylococcal infection Insulin dependent diabetes mellitus Morbid obesity Neuropathy Obesity PTSD (post-traumatic stress disorder) Recurrent cellulitis of lower extremity Sleep apnea Vitamin D deficiency Surgical History History of gastrectomy History of surgery on arm Hx of cardiac catheterization Hx of carpal tunnel repair Hx of cataract extraction Hx of hernia repair S/P BKA (below knee amputation) bilateral Family History Mother No problems noted. Father Alcohol abuse Social History Household Members: Spouse Housing: House Are you a primary rn patient care to a significant other at home: No Do you presently have visiting nurse or other home services: Yes Alcohol intake: current Alcohol intake frequency: former alcohol drinker Patient Tobacco Use Status: Never used Tobacco Tobacco use type: Smokeless Tobacco Years Smoked: 20-30 years e-Cigarette/Vaping Use: Never Used Second Hand Smoke Exposure: No Advance Directives Date on File: 07/14/22 service: No Current occupational status: disabled Cognitive needs: No Hearing needs: No Vision needs: Yes Review of Systems Const Reports as per HPI and Reports no additional complaints Physical Exam Vital Signs: Last Vital Signs Pulse 77 11/08/22 14:19 BP 118/76 11/08/22 14:19 Pulse Ox 95 11/08/22 14:19 Oxygen Delivery Method Room Air 11/08/22 14:19 Const General: cooperative, healthy appearing and well groomed Assessment & Plan Assessment & Plan (1) Alcohol use disorder, moderate, dependence: Code(s): F10.20 - Alcohol dependence, uncomplicated Plan: * Continue naltrexone at current dose * Vivitrol ordered * Labs to be completed prior to injection 3weeks * Follow-up 4 weeks Medications: New naltrexone microspheres ER (Vivitrol) 380 mg IM Q4W 1 ea 5RF Coding Level of Care Code Est Pt Level 3 (28947) Diagnoses Alcohol use disorder, moderate, dependence F10.20
[2022-11-08 14:19] VITALS: BP 118/76; PULSE 77; O2SAT 95
== END 2022-11-08 15:03 | disposition home or self-care (01) ==
LOC: HO.HCC 14:09
PROVIDERS: PCP Internal Medicine; Visit Provider Nurse Practitioner Psychiatric/Mental Health
DX: F10.20 Alcohol dependence, uncomplicated (principal)
CPT/HCPCS: 99213

== ENCOUNTER → 2022-11-08 14:09 | Outpatient (BNVA) | payer OTHER, SELFPAY | PROVIDERS: PCP Internal Medicine; Visit Provider Nurse Practitioner Psychiatric/Mental Health | DX: F10.20 Alcohol dependence, uncomplicated (principal) | CPT/HCPCS: 99212 ==

== ENCOUNTER 2022-12-05 10:12 | Outpatient (REF) | payer OTHER, SELFPAY ==
[2022-12-05 11:01] LABS: Estimated Average Glucose 243 mg/dL; Hemoglobin A1c % 10.1 % (<6.0)
== END 2022-12-05 10:13 | disposition home or self-care (01) ==
LOC: HO.LAB 10:12
PROVIDERS: PCP Internal Medicine; Visit Provider Nurse Practitioner Psychiatric/Mental Health
DX: E03.9 Hypothyroidism, unspecified (principal); E78.5 Hyperlipidemia, unspecified; N28.9 Disorder of kidney and ureter, unspecified; R73.9 Hyperglycemia, unspecified; D64.9 Anemia, unspecified; Z79.899 Other long term (current) drug therapy
CPT/HCPCS: 36415; 80053; 80061; 80076; 82248; 83036; 84443; 85025

== ENCOUNTER 2022-12-07 13:43 | Outpatient (AMB) | payer OTHER, SELFPAY ==
[2022-12-07 14:23] VITALS: BP 132/78; PULSE 66; O2SAT 94
--- NOTE | 2022-12-07 14:23 | AM.OFFVISNUR ---
Intake Vital Signs 12/07/22 14:23 BP 132/78 Blood Pressure Location Rt brachial Position Sitting Pulse 66 Pulse Source Pulse Oximeter Pulse Oximetry (%) 94 Oxygen Delivery Method Room Air Intake Visit Reasons: Ashlee Inj Allergies cefazolin [From Ancef] Allergy (Severe, Verified 11/08/22 14:22) Anaphylaxis Sulfa (Sulfonamide Antibiotics) Allergy (Severe, Verified 11/08/22 14:22) Anaphylaxis sulfamethoxazole [From Bactrim] Allergy (Severe, Verified 11/08/22 14:22) Mckoy-Kory syndrome trimethoprim [From Bactrim] Allergy (Severe, Verified 11/08/22 14:22) Mckoy-Kory syndrome levofloxacin [From Levaquin] Allergy (Intermediate, Verified 11/08/22 14:22) Rash metronidazole [From Flagyl] Allergy (Intermediate, Verified 11/08/22 14:22) Rash Penicillins Allergy (Intermediate, Verified 11/08/22 14:22) ? Hives-childhood reaction NSAIDS (Non-Steroidal Anti-Inflamma Adverse Reaction (Unknown, Verified 11/08/22 14:22) cannot take due to having gastric sleeve Coding
--- NOTE | 2022-12-07 14:59 | MHC.AM.SUB ---
Intake Vital Signs 12/07/22 14:23 BP 132/78 Blood Pressure Location Rt brachial Position Sitting Pulse 66 Pulse Source Pulse Oximeter Pulse Oximetry (%) 94 Oxygen Delivery Method Room Air Intake Visit Reasons: Ashlee Inj Allergies cefazolin [From Ancef] Allergy (Severe, Verified 11/08/22 14:22) Anaphylaxis Sulfa (Sulfonamide Antibiotics) Allergy (Severe, Verified 11/08/22 14:22) Anaphylaxis sulfamethoxazole [From Bactrim] Allergy (Severe, Verified 11/08/22 14:22) Mckoy-Kory syndrome trimethoprim [From Bactrim] Allergy (Severe, Verified 11/08/22 14:22) Mckoy-Kory syndrome levofloxacin [From Levaquin] Allergy (Intermediate, Verified 11/08/22 14:22) Rash metronidazole [From Flagyl] Allergy (Intermediate, Verified 11/08/22 14:22) Rash Penicillins Allergy (Intermediate, Verified 11/08/22 14:22) ? Hives-childhood reaction NSAIDS (Non-Steroidal Anti-Inflamma Adverse Reaction (Unknown, Verified 11/08/22 14:22) cannot take due to having gastric sleeve HPI Ashlee Inj HPI Details Pt presents to clinic for first vivitrol injection. This program writer educated pt on medication, pt denied questions or concerns, reports he is well versed with the med because a family member takes it. Reports doing well with recovery, sober for 1.5 months. 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 COVID-19 vaccine series completed Depression Diabetes mellitus History of traumatic brain injury History of trigger finger HLD (hyperlipidemia) HTN (hypertension) Hx of leg amputation Hx of staphylococcal infection Insulin dependent diabetes mellitus Morbid obesity Neuropathy Obesity PTSD (post-traumatic stress disorder) Recurrent cellulitis of lower extremity Sleep apnea Vitamin D deficiency Surgical History History of gastrectomy History of surgery on arm Hx of cardiac catheterization Hx of carpal tunnel repair Hx of cataract extraction Hx of hernia repair S/P BKA (below knee amputation) bilateral Family History Mother No problems noted. Father Alcohol abuse Social History Household Members: Spouse Housing: House Are you a primary director of critical care to a significant other at home: No Do you presently have visiting nurse or other home services: Yes Alcohol intake: current Alcohol intake frequency: former alcohol drinker Patient Tobacco Use Status: Never used Tobacco Tobacco use type: Smokeless Tobacco Years Smoked: 20-30 years e-Cigarette/Vaping Use: Never Used Second Hand Smoke Exposure: No Advance Directives Date on File: 07/14/22 service: No Current occupational status: disabled Cognitive needs: No Hearing needs: No Vision needs: Yes Review of Systems Const Reports as per HPI and Reports no additional complaints Neuro Reports as per HPI Physical Exam Vital Signs: Last Vital Signs Pulse 66 12/07/22 14:23 BP 132/78 12/07/22 14:23 Pulse Ox 94 12/07/22 14:23 Oxygen Delivery Method Room Air 12/07/22 14:23 Const General: cooperative, healthy appearing and no acute distress Nutritional Appearance: well nourished Orientation/consciousness: patient oriented x3 Neuro General: patient oriented x3 Psych Appearance: disheveled Mental Status: mental status grossly normal Speech and movement: Normal speech and movement present Affect: Irritable affect present Attitude: cooperative Office Meds Vivitrol 380 mg intramuscular suspension,extended release Performing Provider: Alda Pimentel CNP Performing Location: [facility] Administered by: Ellen Metzger RN on 12/07/22 14:55 Dose Route Admin Location Dispensed Lot Number Expiration Date NDC [employer] 380 mg IM LG 380 mg [id number] 02/25/25 [id number] Crisp Comments: Reviewed education to monitor for s/s of infection. Pt has significant knowledge of infection protocol. Reminded that heat, ice, massage and OTC pain relievers may be utilized. Pt verbalized understanding. Pt remained for 10 to monitor for post injection reaction. Results AMB 14 Panel Urine Drug Screen Urine Marijuana (THC) Positive Last Edit by Ellen Metzger RN on 12/07/22 15:29 Urine Cocaine Negative Last Edit by Ellen Metzger RN on 12/07/22 15:29 Urine Morphine Negative Last Edit by Ellen Metzger RN on 12/07/22 15:29 Urine Methamphetamine Negative Last Edit by Ellen Metzger RN on 12/07/22 15:29 Urine Amphetamine Negative Last Edit by Ellen Metzger RN on 12/07/22 15:29 Urine Benzodiazepine Negative Last Edit by Ellen Metzger RN on 12/07/22 15:29 Urine Barbiturates Negative Last Edit by Ellen Metzger RN on 12/07/22 15:29 Urine Methadone Negative Last Edit by Ellen Metzger RN on 12/07/22 15:29 Urine Buprenorphine Negative Last Edit by Ellen Metzger RN on 12/07/22 15:29 Urine Tricyclic Antidepressant Positive Last Edit by Ellen Metzger RN on 12/07/22 15:29 Urine MDMA Negative Last Edit by Ellen Metzger RN on 12/07/22 15:29 Urine Oxycodone Negative Last Edit by Ellen Metzger RN on 12/07/22 15:29 Urine Phencyclidine Negative Last Edit by Ellen Metzger RN on 12/07/22 15:29 Urine Propoxyphene Negative Last Edit by Ellen Metzger RN on 12/07/22 15:29 Results Reviewed Results Reviewed: Laboratory Last Values POC Urine Buprenorphine Negative 12/07/22 15:27 POC Urine Morphine Negative 12/07/22 15:27 POC Urine Oxycodone Negative 12/07/22 15:27 POC Urine Methadone Negative 12/07/22 15:27 POC Urine Propoxyphene Negative 12/07/22 15:27 POC Urine Barbiturates Negative 12/07/22 15:27 POC U Tricyclic Antidpr Positive 12/07/22 15:27 POC Urine PCP Negative 12/07/22 15:27 POC Ur Amphetamines Negative 12/07/22 15:27 POC Ur Methamphetamine Negative 12/07/22 15:27 POC Urine MDMA Negative 12/07/22 15:27 POC Ur Benzodiazepine Negative 12/07/22 15:27 POC Urine Cocaine Negative 12/07/22 15:27 POC Ur Marijuana (THC) Positive 12/07/22 15:27 Assessment & Plan Assessment & Plan (1) Alcohol use disorder, moderate, dependence: Code(s): F10.20 - Alcohol dependence, uncomplicated Plan: Patient tolerated injection well. Follow up in four weeks Instructed to call [facility] with any questions or concerns. Orders: Orders AMB Naltrexone Injection Patient Supplied 12/07/22 F10.21 - Alcohol dependence, in remission AMB 14 Panel Urine Drug Screen 12/07/22 Z51.81 - Encounter for therapeutic drug level monitoring Coding Level of Care Code Est Pt Level 3 (57772) Diagnoses Alcohol use disorder, moderate, dependence F10.20
== END 2022-12-07 15:11 | disposition home or self-care (01) ==
PROVIDERS: PCP Internal Medicine; Visit Provider Nurse Practitioner Psychiatric/Mental Health
DX: F10.20 Alcohol dependence, uncomplicated (principal)
CPT/HCPCS: 99213; J2315

== ENCOUNTER → 2022-12-07 13:43 | Outpatient (BNVA) | payer OTHER, SELFPAY | PROVIDERS: PCP Internal Medicine; Visit Provider Nurse Practitioner Psychiatric/Mental Health | DX: F10.20 Alcohol dependence, uncomplicated (principal) | CPT/HCPCS: 80305; 96372; 99212 ==

== ENCOUNTER 2022-12-12 16:23 | Emergency (ER) | payer OTHER, SELFPAY ==
[2022-12-12 16:34] VITALS: BP 165/79; PULSE 76; RESP 20; TEMP 36.8; O2SAT 95
[2022-12-12 17:38] LABS: IDNOW Serial# 08D9AD1C; Influenza A Negative (Negative); Influenza B2 Negative (Negative)
[2022-12-12 17:46] VITALS: BP 165/93; PULSE 75; RESP 15; TEMP 36.6; O2SAT 94
[2022-12-12 17:48] LABS: COVID-19 Test Negative (Negative); IDNOW Serial# 55D5AD1C
--- NOTE | 2022-12-12 17:49 | ED_ITS ---
HPI - General Adult General Chief complaint: General Medical Stated complaint: Flu like symptoms Time Seen by Provider: 12/12/22 17:33 Source: patient Mode of arrival: ambulatory Limitations: no limitations History of Present Illness HPI narrative: 52 yo male with history of TBI, bipolar 1 diosrder, depression, TM2 s/p bilateral BKAs, LVH, HTN, HLD who presents to the ER for evaluation of acute onset of sore throat, body aches and burning sensation in both eyes that started today. He states he also started to develop headaches, nasal congestion and sinus pressure this afternoon. No known sick contacts. No fevers, chest pain, SOB, N/V/D or abdominal pain MD complaint: URI symptoms Onset (ago): hour(s) Location: face, mouth and eyes Radiation: non-radiation Severity: moderate Quality: aching Pain Consistency: intermittent Relieving factors: none Exacerbating factors: none Associated symptoms: denies other symptoms Treatments prior to arrival: none Related Data Home Medications Medication Instructions Recorded Confirmed latanoprost 0.005 % eye drops 1 drp ophthalmic (eye) BEDTIME 05/15/22 10/17/22 clotrimazole 1 % topical cream 1 appl topical BID 05/26/22 10/17/22 Previous Rx's Medication Instructions Recorded Bilateral below the knee socket #1 ea 02/24/22 replacement amitriptyline 50 mg tablet 50 mg PO BEDTIME #90 tabs 04/14/22 doxycycline hyclate 100 mg capsule 100 mg PO BID #30 caps 09/19/22 insulin aspart U-100 100 unit/mL See Protocol subcut TID-QID #15 mL 09/23/22 (3 mL) subcutaneous pen (Novolog FlexPen U-100 Insulin aspart) acetaminophen 650 mg 650 mg PO Q8H PRN fever or pain 10/11/22 tablet,extended release #30 tabs naltrexone 50 mg tablet 50 mg PO DAILY #30 tabs 10/31/22 fluoxetine 40 mg capsule (Prozac) 80 mg (2 x 40 mg) PO DAILY #60 caps 11/02/22 oxcarbazepine 300 mg tablet 300 mg PO DAILY #30 tabs 11/02/22 (Trileptal) prazosin 5 mg capsule 5 mg PO BEDTIME #30 caps 11/02/22 propranolol 40 mg tablet 40 mg PO BID #30 tabs 11/02/22 zolpidem 6.25 mg tablet,extended 6.25 mg PO BEDTIME #14 tabs 11/02/22 release,multiphase (Ambien CR) naltrexone microspheres 380 mg 380 mg IM Q4W #1 ea 11/08/22 intramuscular suspension,extended release (Vivitrol) blood sugar diagnostic (FreeStyle #100 ea 11/21/22 Lite Strips) blood-glucose meter (FreeStyle #1 ea 11/21/22 Lite Meter kit) blood-glucose sensor (Dexcom G6 #3 ea 11/21/22 Sensor device) lancets 28 gauge (FreeStyle #100 ea 11/21/22 Lancets) blood-glucose transmitter (Dexcom #1 ea 11/24/22 G6 Transmitter device) varenicline 1 mg tablet (Chantix) 1 mg PO BID #56 tabs 11/29/22 pregabalin 200 mg capsule 200 mg PO TID 30 days #90 caps 12/07/22 Allergies Allergy/AdvReac Type Severity Reaction Status Date / Time cefazolin [From Ancef] Allergy Severe Anaphylaxis Verified 11/08/22 14:22 Sulfa (Sulfonamide Allergy Severe Anaphylaxis Verified 11/08/22 14:22 Antibiotics) sulfamethoxazole Allergy Severe Mckoy-Kory Verified 11/08/22 14:22 [From Bactrim] syndrome trimethoprim [From Bactrim] Allergy Severe Mckoy-Kory Verified 11/08/22 14:22 syndrome levofloxacin [From Levaquin] Allergy Intermediate Rash Verified 11/08/22 14:22 metronidazole [From Flagyl] Allergy Intermediate Rash Verified 11/08/22 14:22 Penicillins Allergy Intermediate ? Verified 11/08/22 14:22 Hives-childhood reaction NSAIDS (Non-Steroidal AdvReac Unknown cannot Verified 11/08/22 14:22 Anti-Inflamma take due to having gastric sleeve PMFSH Past Medical History 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 COVID-19 vaccine series completed Depression Diabetes mellitus History of traumatic brain injury History of trigger finger HLD (hyperlipidemia) HTN (hypertension) Hx of leg amputation Hx of staphylococcal infection Insulin dependent diabetes mellitus Morbid obesity Neuropathy Obesity PTSD (post-traumatic stress disorder) Recurrent cellulitis of lower extremity Sleep apnea Vitamin D deficiency Surgical History History of gastrectomy History of surgery on arm Hx of cardiac catheterization Hx of carpal tunnel repair Hx of cataract extraction Hx of hernia repair S/P BKA (below knee amputation) bilateral Family History Family History Mother No problems noted. Father Alcohol abuse Social History Social History Household Members: Spouse Housing: House Are you a primary career development coordinator/teacher to a significant other at home: No Do you presently have visiting nurse or other home services: Yes Alcohol intake: current Alcohol intake frequency: former alcohol drinker Patient Tobacco Use Status: Never used Tobacco Tobacco use type: Smokeless Tobacco Years Smoked: 20-30 years e-Cigarette/Vaping Use: Never Used Second Hand Smoke Exposure: No Advance Directives: Yes Advance Directives on File: Yes Advance Directives Date on File: 07/14/22 service: No Current occupational status: disabled Cognitive needs: No Hearing needs: No Vision needs: Yes Physical Exam ED Vital Signs: Vital Signs - 24 hr 12/12/22 16:34 12/12/22 17:46 Temperature 98.2 F 98 F Pulse Rate 76 75 Respiratory Rate 20 15 Blood Pressure 165/79 H 165/93 H Pulse Oximetry 95 94 Oxygen Delivery Method Room Air Room Air BMI result Body Mass Index 0.0 Appearance: Alert. Oriented X3. No acute distress. Head: normocephalic, atraumatic. Eyes: Pupils equal, round and reactive to light. Mild scleral injection bilaterally. no drainge. ENT: Pharynx normal. No tonsillar swelling or exudate. Clear nasal discharge Neck: Normal inspection. Neck supple. No LAD CVS: Normal heart rate and rhythm. Pulses normal. Respiratory: No respiratory distress. Breath sounds normal. Skin: Skin warm and dry. Normal skin color. Normal skin turgor. No rashes. Extremities: s/p bilateral BKAs, no upper thigh swelling Neuro/psych: Oriented X 3. grossly normal, nonfocal Medical Decision Making Medical Decision Making MDM Narrative: 52 yo male with history of TBI, bipolar 1 diosrder, depression, TM2 s/p bilateral BKAs, LVH, HTN, HLD who presents to the ER for evaluation of acute onset of sore throat, body aches, nasal congestion, headaches and burning sensation in both eyes that started today. VSS on arrival, BP elevated which is chronic. No chest pain. Exam is largely unremarkable, lungs CTAB. COVID and Flu are negative. Strep is negative. Most likely other viral URI. discussed results and management along w/ return precautions. stable for discharge home w/ supportive care. Differential Diagnosis Differential Diagnoses: The differential diagnosis associated with the presentation includes strep, covid, flu, rsv, other viral syndrome, bronchitis, pneumonia, no evidence of peritonsillar abcsess or retropharyngeal abscess Lab Data [facility] Lab Attestation statement: I reviewed the patient's lab results. Labs: Lab Results 12/12/22 12/12/22 Range/Units 17:10 17:59 COVID-19 (RICH) Negative (Negative) COVID-19 Clin Com See Note Influenza Type A (ADRIANA) Negative (Negative) Influenza Type B (ADRIANA) Negative (Negative) Influenza A & B Note See Note S. pyogenes GrpA ADRIANA Negative (Negative) External Record Review External record reviewed: Outpatient record, Prior outpatient labs and Prior outpatient radiology Prescription Management I considered prescription management with: Pain Medication and Antibiotic Chronic Conditions Patient?s care impacted by: Diabetes and Hypertension Critical Care Time Critical Care Time Critical Care Time: No Discharge Plan Discharge Clinical Impression: Acute viral syndrome Patient Disposition: Home, Self-Care Instructions: Viral Syndrome (ED) Additional Instructions: You tested negative for COVID, Flu, and Strep throat today Your symptoms are most likely due to another viral illness. Treatment is rest and supportive care. Rest and drink plenty of fluids. Take over the counter cold/flu medication as needed for your symptoms Recommend warm salt water gargles 3x per day for sore throat. You can also use over the counter Chloraseptic spray or Cepacol lozenges for sore throat Follow up with your doctor as needed If you develop new or worsening symptoms call 911 or come back to the ER for further evaluation. Prescriptions: No Action (DME) Bilateral below the knee socket replacement See Rx Instructions .Route .MEDSUPPLY Qty: 1 6RF Rx Instructions: As directed doxycycline hyclate 100 mg capsule 100 mg PO BID Qty: 30 0RF Rx Instructions: started 09/19/22 insulin aspart U-100 [Novolog FlexPen U-100 Insulin] 100 unit/mL (3 mL) insulin pen See Protocol subcut TID-QID Qty: 15 8RF Protocol: Insulin Correction Scale Less than or equal to 110 ---- Give (units): 0 111 to 150 Give (units): 0 151 to 200 Give (units): 2 201 to 250 Give (units): 4 251 to 300 Give (units): 6 301 to 350 Give (units): 8 Greater than 350 Give (units): 10 Call MD if Blood Glucose > : 350 naltrexone 50 mg tablet 50 mg PO DAILY Qty: 30 0RF (DME) Dexcom G6 Sensor Device See Rx Instructions topical Q10D Qty: 3 8RF Rx Instructions: As directed (DME) blood-glucose meter [FreeStyle Lite Meter] Kit See Rx Instructions .Route Qty: 1 0RF Rx Instructions: As directed to check blood sugar 4-5 times per day (DME) FreeStyle Lite Strips Strip See Rx Instructions .Route Qty: 100 0RF Rx Instructions: As directed to check blood sugar 4-5 times per day (DME) lancets [FreeStyle Lancets] 28 gauge misc See Rx Instructions .Route Qty: 100 0RF Rx Instructions: As directed to check blood sugar 4-5 times per day (DME) Dexcom G6 Transmitter Device See Rx Instructions .ROUTE .COMPLEX Qty: 1 0RF Dose Instruction: DIRECTED Rx Instructions: as directed varenicline [Chantix] 1 mg tablet 1 mg PO BID Qty: 56 3RF pregabalin 200 mg capsule 200 mg PO TID 30 Days Qty: 90 0RF latanoprost 0.005 % drops 1 drp ophthalmic (eye) BEDTIME oxcarbazepine [Trileptal] 300 mg tablet 300 mg PO DAILY Qty: 30 0RF prazosin 5 mg capsule 5 mg PO BEDTIME Qty: 30 0RF propranolol 40 mg tablet 40 mg PO BID Qty: 30 1RF fluoxetine [Prozac] 40 mg capsule 80 mg PO DAILY Qty: 60 0RF zolpidem [Ambien CR] 6.25 mg tablet,ext release multiphase 6.25 mg PO BEDTIME Qty: 14 1RF clotrimazole 1 % cream 1 appl TOPICAL BID acetaminophen 650 mg tablet extended release 650 mg PO Q8H PRN (Reason: fever or pain) Qty: 30 0RF amitriptyline 50 mg tablet 50 mg PO BEDTIME Qty: 90 3RF Vivitrol 380 mg suspension,extended rel recon 380 mg IM Q4W Qty: 1 5RF Referrals: Chapincito Sprague MD [Primary Care Provider] -
[2022-12-12 18:17] LABS: IDNOW Serial# 08D9AD1C; Strep A Nucleic Acid Negative (Negative)
== END 2022-12-12 18:54 | disposition home or self-care (01) ==
PROVIDERS: Physician Assistant; Emergency Provider Student in an Organized Health Care Education/Training Program; PCP Internal Medicine
DX: B34.9 Viral infection, unspecified (principal); J02.9 Acute pharyngitis, unspecified; Z11.52 Encounter for screening for COVID-19; E11.9 Type 2 diabetes mellitus without complications; I10 Essential (primary) hypertension; E78.5 Hyperlipidemia, unspecified; Z87.820 Personal history of traumatic brain injury
CPT/HCPCS: 87502; 87635; 87651; 99283

== ENCOUNTER 2022-12-14 14:06 | Outpatient (AMB) | payer OTHER, SELFPAY ==
--- NOTE | 2022-12-14 14:26 | A.OFFVIS_ITS ---
Intake Vital Signs 12/14/22 14:29 Pulse 72 Pulse Source Pulse Oximeter Pulse Oximetry (%) 98 Oxygen Delivery Method Room Air Intake Visit Reasons: f/u appt for Pregabalin refills-Confirmed Intake Note: Patient presents for follow up. Patient states no issues or concerns today. Allergies cefazolin [From Ancef] Allergy (Severe, Verified 12/14/22 14:28) Anaphylaxis Sulfa (Sulfonamide Antibiotics) Allergy (Severe, Verified 12/14/22 14:28) Anaphylaxis sulfamethoxazole [From Bactrim] Allergy (Severe, Verified 12/14/22 14:28) Mckoy-Kory syndrome trimethoprim [From Bactrim] Allergy (Severe, Verified 12/14/22 14:28) Mckoy-Kory syndrome levofloxacin [From Levaquin] Allergy (Intermediate, Verified 12/14/22 14:28) Rash metronidazole [From Flagyl] Allergy (Intermediate, Verified 12/14/22 14:28) Rash Penicillins Allergy (Intermediate, Verified 12/14/22 14:28) ? Hives-childhood reaction NSAIDS (Non-Steroidal Anti-Inflamma Adverse Reaction (Unknown, Verified 12/14/22 14:28) cannot take due to having gastric sleeve Medication List - Last Reconciled 12/14/22 by LISET Rowland acetaminophen ER 650 mg PO Q8H PRN amitriptyline 50 mg PO BEDTIME [Bilateral below the knee socket replacement As directed] blood sugar diagnostic (FreeStyle Lite Strips) As directed to check blood sugar 4-5 times per day blood-glucose meter (FreeStyle Lite Meter kit) As directed to check blood sugar 4-5 times per day blood-glucose sensor (Dexcom G6 Sensor device) As directed blood-glucose transmitter (Dexcom G6 Transmitter device) as directed clotrimazole 1% 1 appl topical BID doxycycline hyclate 100 mg PO BID fluoxetine (Prozac) 80 mg (2 x 40 mg) PO DAILY insulin aspart U-100 (Novolog FlexPen U-100 Insulin aspart) See Protocol sliding scale doses subcut TID-QID lancets (FreeStyle Lancets) As directed to check blood sugar 4-5 times per day latanoprost 0.005% 1 drp ophthalmic (eye) BEDTIME naltrexone 50 mg PO DAILY naltrexone microspheres ER (Vivitrol) 380 mg IM Q4W oxcarbazepine (Trileptal) 300 mg PO DAILY prazosin 5 mg PO BEDTIME pregabalin 200 mg PO TID 30 days propranolol 40 mg PO BID varenicline (Chantix) 1 mg PO BID zolpidem ER (Ambien CR) 6.25 mg PO BEDTIME HPI HPI Comments History of Present Illness Details 52-yr-old male presents for f/u visit. Pt states since the last visit he has underwent a RLE amputation revision w/ good effect. He is awaiting refitting of his prosthetics. He had a partial day program in the early summer- had some medication at that time. He has been started on Trileptal for mood. Then he started on Vivitrol for alcohol cessation support- started about 2 months ago. He states this is helpful. He is f/b Dr Pimentel at [facility]. He states the Lyrica is helpful, but does not entirely take the BLE amputation site nerve pain away. If he misses a dose of Pregabalin his stumps will feel like jackhammers. Pt notes today that his manual w/c is in disrepair. the side support is broken, the wheels are worn down to the point that even with the brakes engaged the w/c can be propelled, the w/c seat is sagging, the w/c back is stretched out and so rests further back than it should. He states he has had falls d/t these w/c issues. [facility] Medical History BKA stump complication Recurrent cellulitis of lower extremity History of trigger finger Obesity Neuropathy Insulin dependent diabetes mellitus History of traumatic brain injury Hx of staphylococcal infection COVID-19 vaccine series completed Cognitive and neurobehavioral dysfunction PTSD (post-traumatic stress disorder) Anxiety Depression Sleep apnea Morbid obesity Vitamin D deficiency HLD (hyperlipidemia) HTN (hypertension) Diabetes mellitus Bilateral cataracts Hx of leg amputation Surgical History Hx of cardiac catheterization History of gastrectomy Hx of cataract extraction Hx of hernia repair History of surgery on arm Hx of carpal tunnel repair S/P BKA (below knee amputation) bilateral Family History Mother No problems noted. Father Alcohol abuse Social History Household Members: Spouse Housing: House Are you a primary personal care service provider to a significant other at home: No Do you presently have visiting nurse or other home services: Yes Alcohol intake: current Alcohol intake frequency: former alcohol drinker Patient Tobacco Use Status: Never used Tobacco Tobacco use type: Smokeless Tobacco Years Smoked: 20-30 years e-Cigarette/Vaping Use: Never Used Second Hand Smoke Exposure: No Advance Directives Date on File: 07/14/22 service: No Current occupational status: disabled Cognitive needs: No Hearing needs: No Vision needs: Yes Review of Systems Const All systems reviewed & are unremarkable except as noted in HPI and below Physical Exam Vital Signs: Last Vital Signs Pulse 72 12/14/22 14:29 Pulse Ox 98 12/14/22 14:29 Oxygen Delivery Method Room Air 12/14/22 14:29 Const General: cooperative and no acute distress Orientation/consciousness: patient oriented x3 HEENT Head: Yes normocephalic Resp Effort & Inspection: normal respiratory effort and able to speak in complete sentences Neuro Other: Sitting upright in w/c. Mild oral movements. General: patient oriented x3 Cognition (Neuro): normal cognition Psych Appearance: grossly normal Mental Status: mental status grossly normal Affect: normal affect Attitude: cooperative Thought process: Normal thought process present Assessment & Plan Assessment & Plan (1) Phantom limb (syndrome): Code(s): G54.7 - Phantom limb syndrome without pain (2) Tremor: Code(s): R25.1 - Tremor, unspecified Plan Continue Pregabalin 200mg tid. Will request w/c eval by [facility]- pt demonstrated ability to propel w/c even w/ breaks engaged. Monitor oral movements and tremor. f/u in 6 months or sooner prn. Medications: Refilled pregabalin 200 mg PO TID 90 caps 3RF 30 days Coding Level of Care Code Est Pt Level 4 (41621) Diagnoses Phantom limb (syndrome) G54.7 Tremor R25.1
[2022-12-14 14:29] VITALS: PULSE 72; O2SAT 98
== END 2022-12-14 15:26 | disposition home or self-care (01) ==
PROVIDERS: PCP Internal Medicine; Visit Provider Nurse Practitioner Family
DX: G54.7 Phantom limb syndrome without pain (principal); R25.1 Tremor, unspecified
CPT/HCPCS: 99214

== ENCOUNTER → 2022-12-14 14:06 | Outpatient (BNVA) | payer OTHER, SELFPAY | PROVIDERS: PCP Internal Medicine; Visit Provider Nurse Practitioner Family | DX: G54.7 Phantom limb syndrome without pain (principal); R25.1 Tremor, unspecified | CPT/HCPCS: 99212 ==

== ENCOUNTER 2022-12-31 12:52 | Emergency (ER) | payer OTHER, SELFPAY ==
--- NOTE | ~2022-12-31 | XR_ITS ---
EXAMINATION: XR KNEE, RIGHT CLINICAL INFORMATION: Trauma. Fall on stomach. COMPARISON: 4 views of the right knee obtained same date. 08/31/2022. TECHNIQUE: AP and lateral views of the right tibia and fibula. FINDINGS: Status post [id number] amputation. A new 10 mm area of osteolysis involving the anterior cortex of the distal right tibia is suspicious for osteomyelitis. Increased soft tissue swelling versus August. Diffuse osteopenia. Hypertrophic bone formation around the distal tibia. Progressive atherosclerotic peripheral vascular disease. XR/XR knee RT 2V IMPRESSION: Localized osteolysis of the anterior distal tibial cortex suspicious for osteomyelitis.
--- NOTE | ~2022-12-31 | XR_ITS ---
EXAMINATION: XR KNEE, RIGHT CLINICAL INFORMATION: Trauma. BKA. Fell on stump. COMPARISON: 08/31/2022 TECHNIQUE: Four views of the right knee. FINDINGS: This examination is technically limited; the distal aspect of the right lower extremity stump is not imaged. Advise repeat imaging with inclusion of the right tibial stump and distal tibia. There is new diffuse osteopenia. 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 There is increased soft tissue swelling compared with prior. No definite soft tissue gas. No radiopaque foreign body. No joint effusion. Moderate degenerative disease in the knee without change. No acute fracture or dislocation. Progressive atherosclerotic peripheral vascular disease. XR/XR knee RT 2V IMPRESSION: 1. Technically limited examination. Incomplete visualization of the stump/distal tibia. Recommend repeat imaging. 2. Progressive demineralization compared with prior. 3. Progressive soft tissue swelling diffusely compared to prior. 4. Progressive atherosclerotic peripheral vascular disease. 5. No acute fracture or dislocation identified.
--- NOTE | 2022-12-31 13:02 | ED_ITS ---
HPI - Fall General Chief Complaint: Fall Stated Complaint: Fall out of wheelchair R leg pain Time Seen by Provider: 12/31/22 14:10 History of Present Illness HPI Narrative: patient with bilateral below-knee amputations secondary to diabetes and infection complains today that he was transferring from the car to chair and fell onto his right stump which is now pain for He denies any laceration or other injury no head injury no neck injury no back injury Related Data Home Medications Medication Instructions Recorded Confirmed latanoprost 0.005 % eye drops 1 drp ophthalmic (eye) BEDTIME 05/15/22 12/14/22 clotrimazole 1 % topical cream 1 appl topical BID 05/26/22 12/14/22 Previous Rx's Medication Instructions Recorded Bilateral below the knee socket #1 ea 02/24/22 replacement amitriptyline 50 mg tablet 50 mg PO BEDTIME #90 tabs 04/14/22 doxycycline hyclate 100 mg capsule 100 mg PO BID #30 caps 09/19/22 insulin aspart U-100 100 unit/mL See Protocol subcut TID-QID #15 mL 09/23/22 (3 mL) subcutaneous pen (Novolog FlexPen U-100 Insulin aspart) acetaminophen 650 mg 650 mg PO Q8H PRN fever or pain 10/11/22 tablet,extended release #30 tabs naltrexone 50 mg tablet 50 mg PO DAILY #30 tabs 10/31/22 fluoxetine 40 mg capsule (Prozac) 80 mg (2 x 40 mg) PO DAILY #60 caps 11/02/22 oxcarbazepine 300 mg tablet 300 mg PO DAILY #30 tabs 11/02/22 (Trileptal) prazosin 5 mg capsule 5 mg PO BEDTIME #30 caps 11/02/22 propranolol 40 mg tablet 40 mg PO BID #30 tabs 11/02/22 zolpidem 6.25 mg tablet,extended 6.25 mg PO BEDTIME #14 tabs 11/02/22 release,multiphase (Ambien CR) naltrexone microspheres 380 mg 380 mg IM Q4W #1 ea 11/08/22 intramuscular suspension,extended release (Vivitrol) blood sugar diagnostic (FreeStyle #100 ea 11/21/22 Lite Strips) blood-glucose meter (FreeStyle #1 ea 11/21/22 Lite Meter kit) blood-glucose sensor (Dexcom G6 #3 ea 11/21/22 Sensor device) lancets 28 gauge (FreeStyle #100 ea 11/21/22 Lancets) blood-glucose transmitter (Dexcom #1 ea 11/24/22 G6 Transmitter device) varenicline 1 mg tablet (Chantix) 1 mg PO BID #56 tabs 11/29/22 pregabalin 200 mg capsule 200 mg PO TID 30 days #90 caps 12/14/22 acetaminophen 500 mg tablet 1,000 mg (2 x 500 mg) PO QID PRN 12/31/22 pain #30 tabs Allergies Allergy/AdvReac Type Severity Reaction Status Date / Time cefazolin [From Ancef] Allergy Severe Anaphylaxis Verified 12/31/22 13:03 Sulfa (Sulfonamide Allergy Severe Anaphylaxis Verified 12/31/22 13:03 Antibiotics) sulfamethoxazole Allergy Severe Mckoy-Kory Verified 12/31/22 13:03 [From Bactrim] syndrome trimethoprim [From Bactrim] Allergy Severe Mckoy-Kory Verified 12/31/22 13:03 syndrome levofloxacin [From Levaquin] Allergy Intermediate Rash Verified 12/31/22 13:03 metronidazole [From Flagyl] Allergy Intermediate Rash Verified 12/31/22 13:03 Penicillins Allergy Intermediate ? Verified 12/31/22 13:03 Hives-childhood reaction NSAIDS (Non-Steroidal AdvReac Unknown cannot Verified 12/31/22 13:03 Anti-Inflamma take due to having gastric sleeve PMFSH Past Medical History Source: nursing notes reviewed Medical History BKA stump complication Recurrent cellulitis of lower extremity History of trigger finger Obesity Neuropathy Insulin dependent diabetes mellitus History of traumatic brain injury Hx of staphylococcal infection COVID-19 vaccine series completed Cognitive and neurobehavioral dysfunction PTSD (post-traumatic stress disorder) Anxiety Depression Sleep apnea Morbid obesity Vitamin D deficiency HLD (hyperlipidemia) HTN (hypertension) Diabetes mellitus Bilateral cataracts Hx of leg amputation Surgical History Hx of cardiac catheterization History of gastrectomy Hx of cataract extraction Hx of hernia repair History of surgery on arm Hx of carpal tunnel repair S/P BKA (below knee amputation) bilateral Family History Family History Mother No problems noted. Father Alcohol abuse Social History Social History Household Members: Spouse Housing: House Are you a primary child care to a significant other at home: No Do you presently have visiting nurse or other home services: Yes Alcohol intake: current Alcohol intake frequency: former alcohol drinker Patient Tobacco Use Status: Never used Tobacco Tobacco use type: Smokeless Tobacco Years Smoked: 20-30 years e-Cigarette/Vaping Use: Never Used Second Hand Smoke Exposure: No Advance Directives: Yes Advance Directives on File: Yes Advance Directives Date on File: 07/14/22 service: No Current occupational status: disabled Cognitive needs: No Hearing needs: No Vision needs: Yes Physical Exam 2 Vital Signs: Vital Signs: Last Vital Signs Temp 98.3 F 12/31/22 13:03 Pulse 75 12/31/22 13:03 Resp 18 12/31/22 13:03 BP 130/70 12/31/22 13:03 Pulse Ox 95 12/31/22 13:03 O2 Del Method Room Air 12/31/22 13:03 BMI result Body Mass Index 30.0 General appearance comfortable in his wheelchair no acute distress Head is normocephalic atraumatic Neck is supple nontender Respiratory no distress Upper extremities full range of motion Lower extremities both have below-knee amputations The right leg is examined and has good range of motion at the knee there is no obvious swelling there are no over a shins no obvious contusions, there is no signs of infection in the stump there is no significant redness there is no swelling no discharge from the area Course Course Course Narrative: RME: 52yo M w/PMHx anxiety, depression, HLD, HTN, DM, bilateral BKA, alcohol use d/o c/o right stump pain s/p fall while trying to transfer from [facility] to wheelchair a few hrs [employer]. denies head trauma, LOC. Denies takin AC Area not evaluated in triage XRs ordered Full HPI, ROS and PE to be performed by primary ED provider. Patient with pain in the right thumb which began today after a fall X-ray showed possible osteomyelitis in the lateral aspect of the tibia My exam of his legs showed no significant erythema no wounds no drainage the stump looked good Labs no white count, lactate was normal, sugar was elevated over 300 which is common for him as his sugars poorly controlled I texted x-ray images to Dr. Ohara who texted back it is likely bone deterioration and not osteomyelitis patient does not report any recent illnesses or fever and has been in his normal state of health He will follow as an outpatient and is discharged today with x-ray showing no traumatic injury to the bones of his right leg Medical Decision Making Lab Data 12/31/22 15:04 12/31/22 15:04 Labs: Lab Results 12/31/22 Range/Units 15:04 WBC 7.4 (4.8-10.8) X10*3/uL RBC 4.96 (4.60-5.80) X10*6/uL Hgb 14.1 (14.0-18.0) g/dl Hct 41.5 L (42.0-52.0) % MCV 83.7 (80.0-98.0) fL MCH 28.4 (27.0-33.0) pg MCHC 34.0 (31.0-36.0) g/dl RDW 13.0 (11.0-16.0) % Plt Count 141 L (160-400) X10*3/uL MPV 9.9 (9.4-12.4) fL Immature Gran % (Auto) 0.3 (0.0-0.4) % Neut % (Auto) 59.1 (45-73) % Lymph % (Auto) 27.7 (20-40) % Winn % (Auto) 8.4 (2-11) % Eos % (Auto) 3.8 (0-4) % Baso % (Auto) 0.7 (0-2) % Lymph # (Auto) 2.0 (1.2-4.9) X10*3/uL Winn # (Auto) 0.6 (0.1-1.2) X10*3/uL Eos # (Auto) 0.3 (0.0-0.4) X10*3/uL Baso # (Auto) 0.1 (0.0-0.2) X10*3/uL Abs Immat Gran (auto) 0.02 (0.00-0.03) X10*3/uL Absolute Neuts (auto) 4.4 (2.0-8.3) x10*3/uL Absolute Nucleated RBC 0.000 (0.0-0.012) X10*3/uL Nucleated RBC % (auto) 0.0 (0.0-0.2) /100WBC Sodium 131 L (135-145) mmol/L Potassium 4.8 (3.3-5.1) mmol/L Chloride 96 (96-108) mmol/L Carbon Dioxide 26 (22-29) mmol/L Anion Gap 14 (12-20) BUN 10 (9-16) mg/dL Creatinine 1.12 (0.5-1.4) mg/dL Estim Creat Clear Calc 90.8 Estimated GFR > 60 Random Glucose 344 H (60-115) mg/dL Lactic Acid 1.9 (0.5-2.0) mmol/L Calcium 9.3 (8.4-10.2) mg/dL Discharge Plan Discharge Clinical Impression: Contusion of leg, right Patient Disposition: Home, Self-Care Additional Instructions: x-ray did not show any traumatic injury to your stump on the right side X-ray had a question of osteomyelitis so we contacted Dr. ohara who reviewed x-ray images and said it is likely bone deteriorations If you develop any signs of infection redness warmth increasing pain swelling discharge from the area fever any concerns of developing infection return to the ER any time, otherwise follow with Dr Ohara routinely as an outpatient Your sugars are chronically elevated on her visits to the ER so it might be tai to ask your primary care doctor for referral to an front desk representative to see if there is any way to maximize control of her sugars as chronically elevated sugars increase the risk of infection Return any time any worse condition or any concerns Prescriptions: New acetaminophen 500 mg tablet 1,000 mg PO QID PRN (Reason: pain) Qty: 30 0RF No Action (DME) Bilateral below the knee socket replacement See Rx Instructions .Route .MEDSUPPLY Qty: 1 6RF Rx Instructions: As directed doxycycline hyclate 100 mg capsule 100 mg PO BID Qty: 30 0RF Rx Instructions: started 09/19/22 insulin aspart U-100 [Novolog FlexPen U-100 Insulin] 100 unit/mL (3 mL) insulin pen See Protocol subcut TID-QID Qty: 15 8RF Protocol: Insulin Correction Scale Less than or equal to 110 ---- Give (units): 0 111 to 150 Give (units): 0 151 to 200 Give (units): 2 201 to 250 Give (units): 4 251 to 300 Give (units): 6 301 to 350 Give (units): 8 Greater than 350 Give (units): 10 Call MD if Blood Glucose > : 350 naltrexone 50 mg tablet 50 mg PO DAILY Qty: 30 0RF (DME) Dexcom G6 Sensor Device See Rx Instructions topical Q10D Qty: 3 8RF Rx Instructions: As directed (DME) blood-glucose meter [FreeStyle Lite Meter] Kit See Rx Instructions .Route Qty: 1 0RF Rx Instructions: As directed to check blood sugar 4-5 times per day (DME) FreeStyle Lite Strips Strip See Rx Instructions .Route Qty: 100 0RF Rx Instructions: As directed to check blood sugar 4-5 times per day (DME) lancets [FreeStyle Lancets] 28 gauge misc See Rx Instructions .Route Qty: 100 0RF Rx Instructions: As directed to check blood sugar 4-5 times per day (DME) Dexcom G6 Transmitter Device See Rx Instructions .ROUTE .COMPLEX Qty: 1 0RF Dose Instruction: DIRECTED Rx Instructions: as directed varenicline [Chantix] 1 mg tablet 1 mg PO BID Qty: 56 3RF latanoprost 0.005 % drops 1 drp ophthalmic (eye) BEDTIME oxcarbazepine [Trileptal] 300 mg tablet 300 mg PO DAILY Qty: 30 0RF prazosin 5 mg capsule 5 mg PO BEDTIME Qty: 30 0RF propranolol 40 mg tablet 40 mg PO BID Qty: 30 1RF fluoxetine [Prozac] 40 mg capsule 80 mg PO DAILY Qty: 60 0RF zolpidem [Ambien CR] 6.25 mg tablet,ext release multiphase 6.25 mg PO BEDTIME Qty: 14 1RF clotrimazole 1 % cream 1 appl TOPICAL BID acetaminophen 650 mg tablet extended release 650 mg PO Q8H PRN (Reason: fever or pain) Qty: 30 0RF amitriptyline 50 mg tablet 50 mg PO BEDTIME Qty: 90 3RF Vivitrol 380 mg suspension,extended rel recon 380 mg IM Q4W Qty: 1 5RF pregabalin 200 mg capsule 200 mg PO TID 30 Days Qty: 90 3RF Interventions: ED Discharge Assessment Last Done: 12/31/22 16:04 Discharge Date/Time: 12/31/22 16:04
[2022-12-31 13:03] VITALS: BP 130/70; PULSE 75; RESP 18; TEMP 36.8; O2SAT 95
[2022-12-31 15:10] LABS: MANUAL DIFF FLAG NO
[2022-12-31 15:12] LABS: Basophils Absolute Auto 0.1 X10*3/uL (0.0-0.2); Basophils Percent Auto 0.7 % (0-2); Eosinophils Absolute Auto 0.3 X10*3/uL (0.0-0.4); Eosinophils Percent Auto 3.8 % (0-4); Hematocrit 41.5 % (42.0-52.0); Hemoglobin 14.1 g/dl (14.0-18.0); Imm Gran Abs Auto 0.02 X10*3/uL (0.00-0.03); Imm Gran Pct Auto 0.3 % (0.0-0.4); Lymphocytes Percent Auto 27.7 % (20-40); Mean Corpuscular Hemoglobin 28.4 pg (27.0-33.0); Mean Corpuscular Volume 83.7 fL (80.0-98.0); Mean Platelet Volume 9.9 fL (9.4-12.4); Monocytes Absolute Auto 0.6 X10*3/uL (0.1-1.2); Monocytes Percent Auto 8.4 % (2-11); Neutrophils Absolute Auto 4.4 x10*3/uL (2.0-8.3); Neutrophils Percent Auto 59.1 % (45-73); Platelet Count 141 X10*3/uL (160-400); Red Blood Count 4.96 X10*6/uL (4.60-5.80); White Blood Count 7.4 X10*3/uL (4.8-10.8)
[2022-12-31 15:23] LABS: Lactic Acid 1.9 mmol/L (0.5-2.0)
[2022-12-31 15:27] LABS: Anion Gap 14 (12-20); Blood Urea Nitrogen 10 mg/dL (9-16); Calcium 9.3 mg/dL (8.4-10.2); Carbon Dioxide 26 mmol/L (22-29); Chloride 96 mmol/L (96-108); Creatinine Clr Calc Pharmacy 90.8; Estimated Glomerular Filt Rate > 60; Glucose Random 344 mg/dL (60-115); Potassium 4.8 mmol/L (3.3-5.1); Sodium 131 mmol/L (135-145)
== END 2022-12-31 16:04 | disposition home or self-care (01) ==
PROVIDERS: Physician Assistant Medical; Emergency Provider Emergency Medicine; PCP Internal Medicine
DX: S70.11XA Contusion of right thigh, initial encounter (principal); W19.XXXA Unspecified fall, initial encounter; Y93.89 Activity, other specified; Y92.9 Unspecified place or not applicable; Y99.9 Unspecified external cause status; M79.604 Pain in right leg; E11.9 Type 2 diabetes mellitus without complications; Z89.512 Acquired absence of left leg below knee; Z89.511 Acquired absence of right leg below knee; I10 Essential (primary) hypertension; E78.5 Hyperlipidemia, unspecified; Z99.3 Dependence on wheelchair; Z79.4 Long term (current) use of insulin; Z79.899 Other long term (current) drug therapy
CPT/HCPCS: 36415; 73560; 80048; 83605; 85025; 87040; 99282; 99284

== ENCOUNTER 2023-01-04 14:11 | Outpatient (AMB) | payer OTHER, SELFPAY ==
--- NOTE | 2023-01-04 15:50 | A.OFFVIS_ITS ---
Intake Intake Visit Reasons: Ashlee Inj Allergies cefazolin [From Ancef] Allergy (Severe, Verified 02/01/23 14:06) Anaphylaxis Sulfa (Sulfonamide Antibiotics) Allergy (Severe, Verified 02/01/23 14:06) Anaphylaxis sulfamethoxazole [From Bactrim] Allergy (Severe, Verified 02/01/23 14:06) Mckoy-Kory syndrome trimethoprim [From Bactrim] Allergy (Severe, Verified 02/01/23 14:06) Mckoy-Kory syndrome levofloxacin [From Levaquin] Allergy (Intermediate, Verified 02/01/23 14:06) Rash metronidazole [From Flagyl] Allergy (Intermediate, Verified 02/01/23 14:06) Rash Penicillins Allergy (Intermediate, Verified 02/01/23 14:06) ? Hives-childhood reaction NSAIDS (Non-Steroidal Anti-Inflamma Adverse Reaction (Unknown, Verified 02/01/23 14:06) cannot take due to having gastric sleeve HPI Ashlee Inj HPI Details Patient presents for vivitro injection and AUD follow up Doing well with recovery--very pleased to have decided to move forward with injection concerned about finances. [facility] Medical History BKA stump complication Recurrent cellulitis of lower extremity History of trigger finger Obesity Neuropathy Insulin dependent diabetes mellitus History of traumatic brain injury Hx of staphylococcal infection COVID-19 vaccine series completed Cognitive and neurobehavioral dysfunction PTSD (post-traumatic stress disorder) Anxiety Depression Sleep apnea Morbid obesity Vitamin D deficiency HLD (hyperlipidemia) HTN (hypertension) Diabetes mellitus Bilateral cataracts Hx of leg amputation Surgical History Hx of cardiac catheterization History of gastrectomy Hx of cataract extraction Hx of hernia repair History of surgery on arm Hx of carpal tunnel repair S/P BKA (below knee amputation) bilateral Family History Mother No problems noted. Father Alcohol abuse Social History Household Members: Spouse Housing: House Are you a primary adult caregiver to a significant other at home: No Do you presently have visiting nurse or other home services: Yes Alcohol intake: never Comment: pt refuses bed alarm Patient Tobacco Use Status: Never used Tobacco Tobacco use type: Smokeless Tobacco Years Smoked: 20-30 years e-Cigarette/Vaping Use: Never Used Second Hand Smoke Exposure: No Advance Directives Date on File: 07/14/22 service: No Current occupational status: disabled Cognitive needs: No Hearing needs: No Vision needs: Yes Review of Systems Const Reports as per HPI and Reports no additional complaints Physical Exam Const General: cooperative, healthy appearing and no acute distress Nutritional Appearance: well nourished Orientation/consciousness: patient oriented x3 Neuro General: patient oriented x3 Psych Appearance: disheveled Mental Status: mental status grossly normal Speech and movement: Normal speech and movement present Affect: normal affect Attitude: cooperative Office Meds Vivitrol 380 mg intramuscular suspension,extended release Performing Provider: Kelli Phillips NP [facility] Administered by: Kelli Phillips NP on 01/04/23 15:52 Dose Route Admin Location Dispensed Lot Number Expiration Date [facility] [place] Color [employer] 380 mg IM RG 380 mg [id number] 03/28/25 05949-839-23 [employer] Comments: Pt tolerated injection well. Reports no complications with previous injection. Instructed to call the [facility] with any questions or concerns. Assessment & Plan Assessment & Plan (1) Alcohol use disorder, moderate, dependence: Code(s): F10.20 - Alcohol dependence, uncomplicated Plan: * tolerated injection * follow up 4 weeks Orders: Orders AMB Naltrexone Injection Patient Supplied 01/04/23 F10.21 - Alcohol dependence, in remission Medications: Discontinued blood-glucose sensor Discontinued Reason: Insurance Denied As directed 3 ea 8RF E11.69 - Type 2 diabetes mellitus with other specified complication, E66.01 - Morbid (severe) obesity due to excess calories blood-glucose meter Discontinued Reason: Insurance Denied As directed to check blood sugar 4-5 times per day 1 ea 0RF E11.8 - Type 2 diabetes mellitus with unspecified complications blood sugar diagnostic Discontinued Reason: Insurance Denied As directed to check blood sugar 4-5 times per day 100 ea 0RF E11.9 - Type 2 diabetes mellitus without complications lancets Discontinued Reason: Insurance Denied As directed to check blood sugar 4-5 times per day 100 ea 0RF E11.9 - Type 2 diabetes mellitus without complications blood-glucose transmitter Discontinued Reason: Insurance Denied as directed 1 ea 0RF E11.8 - Type 2 diabetes mellitus with unspecified complications Coding Level of Care Code Est Pt Level 3 (33127) Diagnoses Alcohol use disorder, moderate, dependence F10.20
== END 2023-01-04 15:00 | disposition home or self-care (01) ==
PROVIDERS: PCP Internal Medicine; Visit Provider Nurse Practitioner Family
DX: F10.20 Alcohol dependence, uncomplicated (principal)
CPT/HCPCS: 99213; J2315

== ENCOUNTER → 2023-01-04 14:11 | Outpatient (BNVA) | payer OTHER, SELFPAY | PROVIDERS: PCP Internal Medicine; Visit Provider Nurse Practitioner Family | DX: F10.20 Alcohol dependence, uncomplicated (principal) | CPT/HCPCS: 96372; 99212 ==

== ENCOUNTER 2023-01-07 10:45 | Emergency (ER) | payer OTHER, SELFPAY ==
[2023-01-07 11:10] VITALS: BP 175/99; PULSE 59; RESP 18; TEMP 36.6; O2SAT 97; BMI 42.0
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
[2023-01-07] MEDS: Bacitracin Oint 0.9 GM PACKET 1 APPL TOPICAL (11:22)
[2023-01-07] MEDS: Diphth,Pertus(ACell),Tet Adult 0.5 ML SYRINGE IM (11:22)
[2023-01-07] MEDS: Ketorolac Tromethamine 15 MG/ML VIAL IM (11:26)
--- NOTE | 2023-01-07 11:28 | PC.NURSE ---
pt medicated per provider order. PA bedside debriding wound at this time. pt tolerating procedure well. PA provided w/ bacitracin/non-adhesive pads/gauze to wrap wound post debridement.
== END 2023-01-07 12:09 | disposition home or self-care (01) ==
PROVIDERS: Emergency Provider Emergency Medicine Emergency Medical Services
DX: T24.011A Burn of unspecified degree of right thigh, initial encounter (principal); X12.XXXA Contact with other hot fluids, initial encounter; E11.9 Type 2 diabetes mellitus without complications; I10 Essential (primary) hypertension; E78.5 Hyperlipidemia, unspecified; Z89.512 Acquired absence of left leg below knee; Z89.511 Acquired absence of right leg below knee; Z79.4 Long term (current) use of insulin; Z87.820 Personal history of traumatic brain injury; F17.290 Nicotine dependence, other tobacco product, uncomplicated; Y93.G3 Activity, cooking and baking; Y92.009 Unspecified place in unspecified non-institutional (private) residence as the place of occurrence of the external cause; Y99.9 Unspecified external cause status
CPT/HCPCS: 16025; 90471; 90715; 96372; 99283; 99284; J1885

== ENCOUNTER 2023-01-08 23:38 | Emergency (ER) | payer OTHER, SELFPAY ==
[2023-01-08 23:51] VITALS: BP 133/79; PULSE 79; RESP 16; TEMP 36.9; O2SAT 95; BMI 42.0
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
[2023-01-09] MEDS: Ketorolac Tromethamine 60 MG/2 ML VIAL IM (00:55)
[2023-01-09] MEDS: Bacitracin Oint 0.9 GM PACKET 1 APPL TOPICAL (00:56)
[2023-01-09 01:23] VITALS: BP 131/72; PULSE 83; RESP 16; TEMP 36.9; O2SAT 97
== END 2023-01-09 01:24 | disposition home or self-care (01) ==
PROVIDERS: Emergency Provider Internal Medicine; PCP Internal Medicine
DX: M79.651 Pain in right thigh (principal); T24.211D Burn of second degree of right thigh, subsequent encounter; X12.XXXD Contact with other hot fluids, subsequent encounter; Z89.512 Acquired absence of left leg below knee; Z89.511 Acquired absence of right leg below knee
CPT/HCPCS: 96372; 99284; J1885

== ENCOUNTER 2023-01-16 09:52 | Outpatient (RCR) | payer OTHER, SELFPAY | END 2023-01-16 15:00 | disposition home or self-care (01) | LOC: HO.WCC 09:52 | PROVIDERS: PCP Internal Medicine; Visit Provider Physician Assistant | DX: E11.628 Type 2 diabetes mellitus with other skin complications (principal); T24.211A Burn of second degree of right thigh, initial encounter; T31.0 Burns involving less than 10% of body surface; X11.8XXA Contact with other hot tap-water, initial encounter; E11.40 Type 2 diabetes mellitus with diabetic neuropathy, unspecified; I10 Essential (primary) hypertension; Z99.3 Dependence on wheelchair; Z89.512 Acquired absence of left leg below knee; Z89.511 Acquired absence of right leg below knee | CPT/HCPCS: 99212 ==

== ENCOUNTER 2023-02-01 13:55 | Outpatient (AMB) | payer OTHER, SELFPAY ==
--- NOTE | 2023-02-01 13:58 | A.OFFVIS_ITS ---
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 Hives-childhood reaction NSAIDS (Non-Steroidal Anti-Inflamma Adverse Reaction (Unknown, Verified 02/01/23 14:06) cannot take due to having gastric sleeve Do you need a note to return to daycare/school/sports/work: No HPI Ashlee Inj HPI Details Pt presents for monthly ashlee injection Reports he burned himself on soup on his upper right leg approx 3 weeks ago that he was treated for Burn appears to be healing at this time, no signs or symptoms of infection noted to open skin. He has no concerns related to his recovery at this time [facility] Medical History BKA stump complication Recurrent cellulitis of lower extremity History of trigger finger Obesity Neuropathy Insulin dependent diabetes mellitus History of traumatic brain injury Hx of staphylococcal infection COVID-19 vaccine series completed Cognitive and neurobehavioral dysfunction PTSD (post-traumatic stress disorder) Anxiety Depression Sleep apnea Morbid obesity Vitamin D deficiency HLD (hyperlipidemia) HTN (hypertension) Diabetes mellitus Bilateral cataracts Hx of leg amputation Surgical History Hx of cardiac catheterization History of gastrectomy Hx of cataract extraction Hx of hernia repair History of surgery on arm Hx of carpal tunnel repair S/P BKA (below knee amputation) bilateral Family History Mother No problems noted. Father Alcohol abuse Social History Household Members: Spouse Housing: House Are you a primary college and career counselor to a significant other at home: No Do you presently have visiting nurse or other home services: Yes Alcohol intake: never Comment: pt refuses bed alarm Patient Tobacco Use Status: Never used Tobacco Tobacco use type: Smokeless Tobacco Years Smoked: 20-30 years e-Cigarette/Vaping Use: Never Used Second Hand Smoke Exposure: No Advance Directives Date on File: 07/14/22 service: No Current occupational status: disabled Cognitive needs: No Hearing needs: No Vision needs: Yes Review of Systems Const Reports as per HPI Skin/Breast Reports as per HPI Physical Exam Const General: cooperative and no acute distress Resp Effort & Inspection: normal respiratory effort Skin Other: Discolored, purplish patch to top of right leg, scabs noted- no erythema or warmth noted Psych Appearance: grossly normal Mental Status: mental status grossly normal Speech and movement: Normal speech and movement present Affect: Blunted affect present Attitude: Guarded attititude/behavior present Office Meds Vivitrol 380 mg intramuscular suspension,extended release Performing Provider: Kelli Phillips NP Performing Location: [facility] Administered by: Ellen Metzger RN on 02/01/23 14:56 Dose Route Admin Location Dispensed Lot Number Expiration Date [facility] Personal Banking Officer 380 mg IM LG 380 mg 2023-3007T 02/25/25 16896-849-35 Sp[employer] Comments: Pt tolerated injection well, denies concerns about previous injection. Educated on signs and symptoms of infection, encouraged to call [facility] with any questions or concerns, Pt verbalized understanding. Assessment & Plan Assessment & Plan (1) Alcohol use disorder, severe, in early remission: Code(s): F10.21 - Alcohol dependence, in remission Plan: Tolerating injection Follow up 4 weeks Encouraged to call [facility] with questions or concerns Orders: Orders AMB Naltrexone Injection Today F10.20 - Alcohol dependence, uncomplicated Coding Level of Care Code Est Pt Level 3 (68504) Diagnoses Alcohol use disorder, severe, in early remission F10.21
== END 2023-02-01 14:57 | disposition home or self-care (01) ==
PROVIDERS: PCP Internal Medicine; Visit Provider Nurse Practitioner Family
DX: F10.20 Alcohol dependence, uncomplicated (principal); F10.21 Alcohol dependence, in remission
CPT/HCPCS: 99213

== ENCOUNTER → 2023-02-01 13:55 | Outpatient (BNVA) | payer OTHER, SELFPAY | PROVIDERS: PCP Internal Medicine; Visit Provider Nurse Practitioner Family | DX: F10.21 Alcohol dependence, in remission (principal); Z79.899 Other long term (current) drug therapy | CPT/HCPCS: 96372; 99212; J2315 ==

== ENCOUNTER 2023-02-22 09:42 | Outpatient (REF) | payer OTHER, SELFPAY ==
[2023-02-22 10:17] LABS: Appearance Urine Cloudy; Color Urine Yellow; Glucose Urine UA >=1000 mg/dL (Negative); Leukocyte Esterase Urine Moderate (2+) (Negative); Nitrite Urine Positive (Negative); PH 6.5 (5.0-9.0); Specific Gravity - Urine 1.025 (1.005-1.025); UMIC TRIGGER UACC YES; Urine Blood Trace (Negative); Urine Ketones 15 mg/dL (Negative); Urine Protein 300 (3+) mg/dL (Neg-Trace)
[2023-02-22 10:20] LABS: Bacteria Urine 4+ (None Seen); Hyaline Casts Urine 0-2 /LPF (0-2); RBC Urine 0-2 /HPF (0-2); Squamous Epithelial Cell Urine 0-2 /HPF (0-2); UACC Culture Trigger YES; WBC Urine >50 /HPF (0-5)
== END 2023-02-22 09:43 | disposition home or self-care (01) ==
LOC: HO.LAB 09:42
PROVIDERS: PCP Internal Medicine; Visit Provider Internal Medicine
DX: R39.9 Unspecified symptoms and signs involving the genitourinary system (principal)
CPT/HCPCS: 81001; 87086; 87088; 87186

== ENCOUNTER 2023-03-01 10:51 | Outpatient (AMB) | payer OTHER, SELFPAY ==
--- NOTE | 2023-03-01 11:16 | AM.OFFVISNUR ---
Intake Vital Signs 03/01/23 11:25 BP 138/96 H Blood Pressure Location Rt brachial Position Sitting Respiration 20 Pulse 87 Pulse Source Pulse Oximeter Pulse Oximetry (%) 96 Oxygen Delivery Method Room Air Intake Visit Reasons: Ashlee Inj Allergies cefazolin [From Ancef] Allergy (Severe, Verified 02/01/23 14:06) Anaphylaxis Sulfa (Sulfonamide Antibiotics) Allergy (Severe, Verified 02/01/23 14:06) Anaphylaxis sulfamethoxazole [From Bactrim] Allergy (Severe, Verified 02/01/23 14:06) Mckoy-Kory syndrome trimethoprim [From Bactrim] Allergy (Severe, Verified 02/01/23 14:06) Mckoy-Kory syndrome levofloxacin [From Levaquin] Allergy (Intermediate, Verified 02/01/23 14:06) Rash metronidazole [From Flagyl] Allergy (Intermediate, Verified 02/01/23 14:06) Rash Penicillins Allergy (Intermediate, Verified 02/01/23 14:06) ? Hives-childhood reaction NSAIDS (Non-Steroidal Anti-Inflamma Adverse Reaction (Unknown, Verified 02/01/23 14:06) cannot take due to having gastric sleeve Nursing Note Pt is here for 4 week AUD visit and Vivitrol injection. Pt reports no issues surrounding previous injections. Pt reports doing okay accept having issues with providers through [facility] [place] anxiety medications. Pt reports that he has a therapist and Psychiatrist through [facility] [place] and was just started about 4 weeks ago on a mood stabilizer. Pt was frustrated with [facility]. T/W explained that medications take time to reach a therapeutic level and suggested keeping a journal of feelings and/or behaviors (picking) throughout the month to share with with his [facility] provider. Office Meds Vivitrol 380 mg intramuscular suspension,extended release Performing Provider: Kelli Phillips NP Performing Location: [facility] Administered by: Bryanna Cates RN on 03/01/23 11:41 Dose Route Admin Location Dispensed Lot Number Expiration Date [facility] Lead Tank Mechanic 380 mg IM RG 380 mg 2023-1019T 05/26/25 03098-776-51 ADOR Comments: Patient tolerated injection with no stated or noted side effects. Patient verbally understands to call for any comments or concerns. Coding Assessment & Plan Assessment & Plan Orders: Orders AMB Naltrexone Injection Patient Supplied Today F10.21 - Alcohol dependence, in remission
[2023-03-01 11:25] VITALS: BP 138/96; PULSE 87; RESP 20; O2SAT 96
== END 2023-03-01 14:02 | disposition home or self-care (01) ==
PROVIDERS: PCP Internal Medicine
DX: F10.21 Alcohol dependence, in remission (principal)

== ENCOUNTER → 2023-03-01 10:51 | Outpatient (BNVA) | payer OTHER, SELFPAY | PROVIDERS: PCP Internal Medicine | DX: F10.21 Alcohol dependence, in remission (principal); Z79.899 Other long term (current) drug therapy | CPT/HCPCS: 96372; J2315 ==

== ENCOUNTER 2023-03-29 14:18 | Outpatient (AMB) | payer OTHER, SELFPAY ==
[2023-03-29 15:19] VITALS: BP 118/68
--- NOTE | 2023-03-29 15:19 | AM.OFFVISNUR ---
Intake Vital Signs 03/29/23 15:19 BP 118/68 Blood Pressure Location Rt brachial Position Sitting Intake Visit Reasons: MAT Visit/ Ashlee Inj Allergies cefazolin [From Ancef] Allergy (Severe, Verified 02/01/23 14:06) Anaphylaxis Sulfa (Sulfonamide Antibiotics) Allergy (Severe, Verified 02/01/23 14:06) Anaphylaxis sulfamethoxazole [From Bactrim] Allergy (Severe, Verified 02/01/23 14:06) Mckoy-Kory syndrome trimethoprim [From Bactrim] Allergy (Severe, Verified 02/01/23 14:06) Mckoy-Kory syndrome levofloxacin [From Levaquin] Allergy (Intermediate, Verified 02/01/23 14:06) Rash metronidazole [From Flagyl] Allergy (Intermediate, Verified 02/01/23 14:06) Rash Penicillins Allergy (Intermediate, Verified 02/01/23 14:06) ? Hives-childhood reaction NSAIDS (Non-Steroidal Anti-Inflamma Adverse Reaction (Unknown, Verified 02/01/23 14:06) cannot take due to having gastric sleeve Nursing Note Patient present for 4 week AUD follow up and Vivitrol injection. Patient is alert and oriented and cooperative with treatment. Patient reports starting 0.5mg Ativan BID prn this past week for anxiety which was a concern of his during his previous visit, medication was prescribed by [facility] psychiatrist. Pt also reports an increase in Trileptal, however is unsure of dose. Pt reports zero alcohol use and no cravings. Nurse appointment scheduled in 4 weeks. Office Meds Vivitrol 380 mg intramuscular suspension,extended release Performing Provider: Kelli Phillips NP Performing Location: [facility] Administered by: Ellen Metzger RN on 03/29/23 14:50 Dose Route Admin Location Dispensed Lot Number Expiration Date [facility] Mill And Coal Transport Operator 380 mg IM LG 380 mg 2023-1027T 06/25/25 26265-405-67 [place] Axon Comments: Pt tolerated injection well, denies concerns about previous injection. Educated on signs and symptoms of infection, encouraged to call [facility] with any questions or concerns, pt verbalized understanding. Coding Assessment & Plan Assessment & Plan Orders: Orders AMB Naltrexone Injection Patient Supplied Today F10.20 - Alcohol dependence, uncomplicated
== END 2023-03-29 15:16 | disposition home or self-care (01) ==
PROVIDERS: PCP Internal Medicine
DX: F10.20 Alcohol dependence, uncomplicated (principal)

== ENCOUNTER → 2023-03-29 14:18 | Outpatient (BNVA) | payer OTHER, SELFPAY | PROVIDERS: PCP Internal Medicine | DX: F10.20 Alcohol dependence, uncomplicated (principal) | CPT/HCPCS: 96372; J2315 ==

== ENCOUNTER 2023-04-26 14:42 | Outpatient (AMB) | payer OTHER, SELFPAY ==
--- NOTE | 2023-04-26 14:44 | A.OFFVISCC_ITS ---
Intake Vital Signs 04/26/23 14:48 BP 132/74 Blood Pressure Location Lt radial Position Sitting Pulse 70 Pulse Source Pulse Oximeter Pulse Oximetry (%) 94 Oxygen Delivery Method Room Air Intake Visit Reasons: MAT Visit/ Ashlee Inj Intake Note: the patient presents for a ashlee inj Mate Fourth Required: No Allergies cefazolin [From Ancef] Allergy (Severe, Verified 04/26/23 14:50) Anaphylaxis Sulfa (Sulfonamide Antibiotics) Allergy (Severe, Verified 04/26/23 14:50) Anaphylaxis sulfamethoxazole [From Bactrim] Allergy (Severe, Verified 04/26/23 14:50) Mckoy-Kory syndrome trimethoprim [From Bactrim] Allergy (Severe, Verified 04/26/23 14:50) Mckoy-Kory syndrome levofloxacin [From Levaquin] Allergy (Intermediate, Verified 04/26/23 14:50) Rash metronidazole [From Flagyl] Allergy (Intermediate, Verified 04/26/23 14:50) Rash Penicillins Allergy (Intermediate, Verified 04/26/23 14:50) ? Hives-childhood reaction NSAIDS (Non-Steroidal Anti-Inflamma Adverse Reaction (Unknown, Verified 04/26/23 14:50) cannot take due to having gastric sleeve Do you need a note to return to daycare/school/sports/work: No PFSH Medical History BKA stump complication Recurrent cellulitis of lower extremity History of trigger finger Obesity Neuropathy Insulin dependent diabetes mellitus History of traumatic brain injury Hx of staphylococcal infection COVID-19 vaccine series completed Cognitive and neurobehavioral dysfunction PTSD (post-traumatic stress disorder) Anxiety Depression Sleep apnea Morbid obesity Vitamin D deficiency HLD (hyperlipidemia) HTN (hypertension) Diabetes mellitus Bilateral cataracts Hx of leg amputation Surgical History Hx of cardiac catheterization History of gastrectomy Hx of cataract extraction Hx of hernia repair History of surgery on arm Hx of carpal tunnel repair S/P BKA (below knee amputation) bilateral Family History Mother No problems noted. Father Alcohol abuse Social History Household Members: Spouse Housing: House Are you a primary caregiver services home to a significant other at home: No Do you presently have visiting nurse or other home services: Yes Alcohol intake: never Comment: pt refuses bed alarm Patient Tobacco Use Status: Never used Tobacco Tobacco use type: Smokeless Tobacco Years Smoked: 20-30 years e-Cigarette/Vaping Use: Never Used Second Hand Smoke Exposure: No Advance Directives Date on File: 07/14/22 service: No Current occupational status: disabled Cognitive needs: No Hearing needs: No Vision needs: Yes Physical Exam Vital Signs: Last Vital Signs Pulse 70 04/26/23 14:48 BP 132/74 04/26/23 14:48 Pulse Ox 94 04/26/23 14:48 Oxygen Delivery Method Room Air 04/26/23 14:48 Office Meds Vivitrol 380 mg intramuscular suspension,extended release Performing Provider: Kelli Phillips NP Performing Location: [facility] Administered by: Ellen Metzger RN on 04/26/23 15:06 Dose Route Admin Location Dispensed Lot Number Expiration Date [facility] Product Director 380 mg IM RG 380 mg T 06/25/25 07363-973-91 PhoneTell Comments: Pt tolerated injection well, denies concerns about previous injection. Educated on signs and symptoms of infection, encouraged to call [facility] with any questions or concerns, pt verbalized understanding. Assessment & Plan Assessment & Plan (1) Alcohol use disorder, moderate, dependence: Code(s): F10.20 - Alcohol dependence, uncomplicated Orders: Orders AMB Naltrexone Injection Patient Supplied (NC) Today F10.20 - Alcohol dependence, uncomplicated Coding Diagnoses Alcohol use disorder, moderate, dependence F10.20
[2023-04-26 14:48] VITALS: BP 132/74; PULSE 70; O2SAT 94
--- NOTE | 2023-04-26 15:08 | AM.OFFVISNUR ---
Intake Vital Signs 04/26/23 14:48 BP 132/74 Blood Pressure Location Lt radial Position Sitting Pulse 70 Pulse Source Pulse Oximeter Pulse Oximetry (%) 94 Oxygen Delivery Method Room Air Intake Visit Reasons: MAT Visit/ Ashlee Inj Allergies cefazolin [From Ancef] Allergy (Severe, Verified 04/26/23 14:50) Anaphylaxis Sulfa (Sulfonamide Antibiotics) Allergy (Severe, Verified 04/26/23 14:50) Anaphylaxis sulfamethoxazole [From Bactrim] Allergy (Severe, Verified 04/26/23 14:50) Mckoy-Kory syndrome trimethoprim [From Bactrim] Allergy (Severe, Verified 04/26/23 14:50) Mckoy-Kory syndrome levofloxacin [From Levaquin] Allergy (Intermediate, Verified 04/26/23 14:50) Rash metronidazole [From Flagyl] Allergy (Intermediate, Verified 04/26/23 14:50) Rash Penicillins Allergy (Intermediate, Verified 04/26/23 14:50) ? Hives-childhood reaction NSAIDS (Non-Steroidal Anti-Inflamma Adverse Reaction (Unknown, Verified 04/26/23 14:50) cannot take due to having gastric sleeve Nursing Note Patient present for 4 week AUD follow-up visit and Vivitrol injection. Patient is alert and oriented x4. Patient states that there have been no significant changes since his last visit; sleep is okay and he feels that his anxiety is under better control with the dosage of Ativan that he is prescribed, but will talk to his psychiatrist about possibly increasing the dose. Pt tolerated injection well and will make a four week follow-up appointment for a check-in and next injection. Office Meds Vivitrol 380 mg intramuscular suspension,extended release Performing Provider: Kelli Phillips NP Performing Location: [facility] Administered by: Ellen Metzger RN on 04/26/23 15:06 Dose Route Admin Location Dispensed Lot Number Expiration Date [place] Stogy Maker 380 mg IM RG 380 mg T 06/25/25 [id number] [employer] Comments: Pt tolerated injection well, denies concerns about previous injection. Educated on signs and symptoms of infection, encouraged to call [facility] with any questions or concerns, pt verbalized understanding. Coding Diagnoses Alcohol use disorder, moderate, dependence F10.20 Assessment & Plan Assessment & Plan (1) Alcohol use disorder, moderate, dependence: Code(s): F10.20 - Alcohol dependence, uncomplicated Category: Medical Orders: Orders AMB Naltrexone Injection Patient Supplied (NC) Today F10.20 - Alcohol dependence, uncomplicated
--- NOTE | 2023-04-27 10:04 | AM.OFFVISNUR ---
Intake Vital Signs 04/26/23 14:48 BP 132/74 Blood Pressure Location Lt radial Position Sitting Pulse 70 Pulse Source Pulse Oximeter Pulse Oximetry (%) 94 Oxygen Delivery Method Room Air Intake Visit Reasons: MAT Visit/ Ashlee Inj Allergies cefazolin [From Ancef] Allergy (Severe, Verified 04/26/23 14:50) Anaphylaxis Sulfa (Sulfonamide Antibiotics) Allergy (Severe, Verified 04/26/23 14:50) Anaphylaxis sulfamethoxazole [From Bactrim] Allergy (Severe, Verified 04/26/23 14:50) Mckoy-Kory syndrome trimethoprim [From Bactrim] Allergy (Severe, Verified 04/26/23 14:50) Mckoy-Kory syndrome levofloxacin [From Levaquin] Allergy (Intermediate, Verified 04/26/23 14:50) Rash metronidazole [From Flagyl] Allergy (Intermediate, Verified 04/26/23 14:50) Rash Penicillins Allergy (Intermediate, Verified 04/26/23 14:50) ? Hives-childhood reaction NSAIDS (Non-Steroidal Anti-Inflamma Adverse Reaction (Unknown, Verified 04/26/23 14:50) cannot take due to having gastric sleeve Office Meds Vivitrol 380 mg intramuscular suspension,extended release Performing Provider: Kelli Phillips NP Performing Location: [facility] Administered by: Ellen Metzger RN on 04/26/23 15:06 Dose Route Admin Location Dispensed Lot Number Expiration Date [facility] Contract Driver 380 mg IM RG 380 mg 2022-2026T 06/25/25 11020-210-88 Race Yourself Comments: Pt tolerated injection well, denies concerns about previous injection. Educated on signs and symptoms of infection, encouraged to call [facility] with any questions or concerns, pt verbalized understanding. Coding Diagnoses Alcohol use disorder, moderate, dependence F10.20 Assessment & Plan Assessment & Plan (1) Alcohol use disorder, moderate, dependence: Code(s): F10.20 - Alcohol dependence, uncomplicated Category: Medical Orders: Orders AMB Naltrexone Injection Patient Supplied (NC) 04/26/23 F10.20 - Alcohol dependence, uncomplicated
== END 2023-04-26 15:57 | disposition home or self-care (01) ==
PROVIDERS: PCP Internal Medicine
DX: F10.20 Alcohol dependence, uncomplicated (principal)

== ENCOUNTER → 2023-04-26 14:42 | Outpatient (BNVA) | payer OTHER, SELFPAY | PROVIDERS: PCP Internal Medicine | DX: F10.21 Alcohol dependence, in remission (principal); Z79.899 Other long term (current) drug therapy | CPT/HCPCS: 96372; J2315 ==

== ENCOUNTER 2023-05-14 11:19 | Outpatient (AMB) | payer OTHER, SELFPAY ==
[2023-05-14 11:23] VITALS: BP 144/72; PULSE 85; O2SAT 98; BMI 50.4
--- NOTE | 2023-05-14 11:23 | A.OFFPC_ITS ---
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 Required: No Value Analyst: Not Required per policy Accompanied by: Self / Same As Patient Allergies cefazolin [From Ancef] Allergy (Severe, Verified 05/14/23 11:23) Anaphylaxis Sulfa (Sulfonamide Antibiotics) Allergy (Severe, Verified 05/14/23 11:23) Anaphylaxis sulfamethoxazole [From Bactrim] Allergy (Severe, Verified 05/14/23 11:23) Mckoy-Kory syndrome trimethoprim [From Bactrim] Allergy (Severe, Verified 05/14/23 11:23) Mckoy-Kory syndrome levofloxacin [From Levaquin] Allergy (Intermediate, Verified 05/14/23 11:23) Rash metronidazole [From Flagyl] Allergy (Intermediate, Verified 05/14/23 11:23) Rash Penicillins Allergy (Intermediate, Verified 05/14/23 11:23) ? Hives-childhood reaction NSAIDS (Non-Steroidal Anti-Inflamma Adverse Reaction (Unknown, Verified 05/14/23 11:23) cannot take due to having gastric sleeve Medication List - Last Reconciled 05/15/23 by Chapincito Sprague MD amitriptyline 50 mg PO BEDTIME aspirin 81 mg PO DAILY atorvastatin 80 mg PO DAILY [Bilateral below the knee socket replacement As directed] [bilateral feet As directed] blood-glucose meter,continuous (Dexcom G7 [place]) As directed blood-glucose sensor (Dexcom G7 Sensor device) As directed clopidogrel 75 mg PO DAILY clotrimazole 1% 1 appl topical BID fluoxetine (Prozac) 80 mg (2 x 40 mg) PO DAILY insulin aspart U-100 (Novolog FlexPen U-100 Insulin aspart) See Protocol sliding scale doses subcut TID-QID insulin glargine (Lantus Solostar U-100 Insulin) units subcut latanoprost 0.005% 1 drp ophthalmic (eye) BEDTIME lorazepam mg PO DAILY naltrexone microspheres ER (Vivitrol) 380 mg IM Q4W cfjgp-zmksf-jhjzxsf-pramoxine 3.5-500-10,000 um-zrql-hbua/g (Antibiotic-Pain Relief(bacit)) 1 appl topical BID oxcarbazepine (Trileptal) 300 mg PO DAILY oxcarbazepine mg PO [power wheelchair As directed] prazosin 5 mg PO BEDTIME pregabalin 200 mg PO TID 30 days propranolol 40 mg PO BID rivaroxaban (Xarelto) 20 mg PO DAILY varenicline (Chantix) 1 mg PO BID zolpidem ER (Ambien CR) 6.25 mg PO BEDTIME Tobacco use date assessed: 05/14/23 Dental Screening Dental Screen Date: 05/14/23 Did you have a dental visit in the last 12 months?: Yes Did you have a dental problem in the last 6 months where you did not have access to dental care?: No Was dental information given to patient?: Patient has dentist HPI , stroke HPI 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; has afib and started on xarelto and atorvastatin; due to see cardiology [facility] Medical History BKA stump complication Recurrent cellulitis of lower extremity History of trigger finger Obesity Neuropathy Insulin dependent diabetes mellitus History of traumatic brain injury Hx of staphylococcal infection COVID-19 vaccine series completed Cognitive and neurobehavioral dysfunction PTSD (post-traumatic stress disorder) Anxiety Depression Sleep apnea Morbid obesity Vitamin D deficiency HLD (hyperlipidemia) HTN (hypertension) Diabetes mellitus Bilateral cataracts Hx of leg amputation Surgical History Hx of leg amputation Hx of cardiac catheterization History of gastrectomy Hx of cataract extraction Hx of hernia repair History of surgery on arm Hx of carpal tunnel repair S/P BKA (below knee amputation) bilateral Family History Mother No problems noted. Father Alcohol abuse Social History Household Members: Spouse Housing: House Are you a primary insurance healthcare consultant to a significant other at home: No Do you presently have visiting nurse or other home services: Yes Alcohol intake: never Comment: pt refuses bed alarm Patient Tobacco Use Status: Never used Tobacco Tobacco use type: Smokeless Tobacco Years Smoked: 20-30 years e-Cigarette/Vaping Use: Never Used Second Hand Smoke Exposure: No Advance Directives Date on File: 07/14/22 service: No Current occupational status: disabled Cognitive needs: No Hearing needs: No Vision needs: Yes Questionnaire PHQ-9 Over the last 2 weeks, how often have you been bothered by any of the following problems? 1. Little interest or pleasure in doing things: not at all 2. Feeling down, depressed, or hopeless: not at all 3. Trouble falling or staying asleep, or sleeping too much: not at all 4. Feeling tired or having little energy: not at all 5. Poor appetite or overeating: not at all 6. Feeling bad about yourself - or that you are a failure or have let yourself or your family down: not at all 7. Trouble concentrating on things, such as reading the newspaper or watching television: not at all 8. Moving or speaking so slowly that other people could have noticed. Or the opposite - being so fidgety or restless that you have been moving around a lot more than usual: not at all 9. Thoughts that you would be better off or of hurting yourself in some way: not at all Total score: 0 Depression Screening Interpretation: Negative Depression Screening Done: Yes 81699 - PHQ-9 Billing: Yes Source: Developed by Drs. Derrell Man, Millicent Jones, King March and colleagues, with an educational magui from [employer]. Thrive Questionnaire Date Thrive assessed: 05/14/23 I am a: Patient What is your living situation today?: I have a steady place to live Within the past 12 months, did the food you bought not last and you didn't have the money to get more?: Never true Within the past 12 months, did you worry whether your food would run out before you got money to buy more?: Never true Do you have trouble paying for medicines?: No Do you have trouble getting transportation to medical appointments?: No Do you have trouble paying your heating and electricity bill?: No Do you have trouble taking care of your child, family member or friend?: No Do you have trouble with day-to-day activities such as bathing, preparing meals, shopping, managing finances, etc.?: No Are you currently unemployed and looking for a job?: No Are you interested in more education?: No Please select the resources that you would like help with: None THRIVE Score: 0 AUDIT C Alcohol Use Questionnaire (AUDIT-C) 1. How often do you have a drink containing alcohol?: 2-3 times a week 2. How many drinks containing alcohol do you have on a typical day when you are drinking?: 7 to 9 3. How often do you have six or more drinks on one occasion?: Weekly Total Score: 9 Score Reviewed/Action Taken: Yes GALILEA-7 AMB Questionnaire GALILEA-7 Date GALILEA - 7 assessed: 05/14/23 Feeling nervous, anxious, or on edge: 0 = Not at all Not being able to stop or control worryin = Not at all Worrying too much about different things: 0 = Not at all Trouble relaxin = Not at all Being so restless that it is hard to sit still: 0 = Not at all Becoming easily annoyed or irritable: 0 = Not at all Feeling afraid as if something awful might happen: 0 = Not at all Total GALILEA-7 score (0-4 normal; 5-9 mild; 10-14 moderate; 15-21 severe): 0 Source: Developed by Drs. Derrell Man, Millicent Jones, King March and colleagues, with an educational magui from [employer]. GALILEA-7 Assessment Billing GALILEA-7 Assessment Tool: GALILEA-7 Assessment 04802 Review of Systems Const Denies chills, Denies headache(s) and Denies weight loss ENT Denies headache(s) Card Denies chest pain, Denies syncope, Denies irregular heart rhythm and Denies dyspnea Resp Denies chest congestion, Denies cough and Denies dyspnea GI Denies abdominal pain, Denies change in stool character, Denies nausea and Denies vomiting Musc Denies deformity and Denies joint swelling Neuro Denies syncope and Denies headache(s) Physical exam (Primary Care) Vital Signs: Last Vital Signs Pulse 85 05/14/23 11:23 BP 144/72 H 05/14/23 11:23 Pulse Ox 98 05/14/23 11:23 Oxygen Delivery Method Room Air 05/14/23 11:23 BMI result Body Mass Index 50.4 Tobacco/Smoking Status: Tobacco use Status Tobacco use date assessed 05/14/23 05/14/23 11:25 Patient Tobacco Use Status Never used Tobacco 05/14/23 11:25 Tobacco use type Smokeless Tobacco 05/14/23 11:25 e-Cigarette/Vaping Use Never Used 05/14/23 11:25 PHQ-9: PHQ-9 Score PHQ-9: Total score 0 05/14/23 16:53 Depression Screening Interpretation: Negative Thrive Assessment: Date of Thrive Assessment Date Thrive assessed 05/14/23 05/14/23 11:25 Const General: cooperative, comfortable, no acute distress and alert Neck Neck: Yes no lymphadenopathy Thyroid: Thyroid normal Resp Effort & Inspection: normal respiratory effort Auscultation: clear to auscultation bilaterally Percussion: percussion normal Cardio Jugular venous distension: no JVD Palpation: normal PMI Rate: regular rate Rhythm: regular rhythm Heart sounds: S1 normal heart sound present and S2 normal heart sound present GI Inspection: Yes normal to inspection Palpation (GI): No hepatosplenomegaly present Skin General skin exam: no rashes or lesions noted Extrem General: Yes no clubbing, cyanosis or edema Assessment and Plan Assessment & Plan (1) CVA (cerebral vascular accident): Code(s): I63.9 - Cerebral infarction, unspecified Plan: cont current rx (2) Atrial fibrillation: Code(s): I48.91 - Unspecified atrial fibrillation Plan: to see cardiology Orders: Orders Basic Metabolic Panel 05/14/23 E87.1 - Hypo-osmolality and hyponatremia Coding Level of Care Code Est Pt Level 3 (13106) Diagnoses CVA (cerebral vascular accident) I63.9 Atrial fibrillation I48.91 Additional Codes GALILEA-7 Assessment Billing - GALILEA-7 Assessment Tool: GALILEA-7 Assessment 15603 ([id number])
== END 2023-05-14 12:45 | disposition home or self-care (01) ==
PROVIDERS: PCP Internal Medicine; Visit Provider Internal Medicine
DX: I63.9 Cerebral infarction, unspecified (principal); I48.91 Unspecified atrial fibrillation
CPT/HCPCS: 99214

== ENCOUNTER 2023-05-25 11:25 | Outpatient (AMB) | payer OTHER, SELFPAY ==
--- NOTE | 2023-05-25 12:57 | AM.OFFVISNUR ---
Intake Vital Signs 05/25/23 12:58 BP 160/80 H Blood Pressure Location Lt brachial Position Sitting Respiration 20 Pulse 80 Pulse Source Pulse Oximeter Pulse Oximetry (%) 96 Oxygen Delivery Method Room Air Intake Visit Reasons: Ashlee Inj Allergies cefazolin [From Ancef] Allergy (Severe, Verified 05/14/23 11:23) Anaphylaxis Sulfa (Sulfonamide Antibiotics) Allergy (Severe, Verified 05/14/23 11:23) Anaphylaxis sulfamethoxazole [From Bactrim] Allergy (Severe, Verified 05/14/23 11:23) Mckoy-Kory syndrome trimethoprim [From Bactrim] Allergy (Severe, Verified 05/14/23 11:23) Mckoy-Kory syndrome levofloxacin [From Levaquin] Allergy (Intermediate, Verified 05/14/23 11:23) Rash metronidazole [From Flagyl] Allergy (Intermediate, Verified 05/14/23 11:23) Rash Penicillins Allergy (Intermediate, Verified 05/14/23 11:23) ? Hives-childhood reaction NSAIDS (Non-Steroidal Anti-Inflamma Adverse Reaction (Unknown, Verified 05/14/23 11:23) cannot take due to having gastric sleeve Nursing Note Patient to [facility] today for vivitrol injection, is alert and oriented x4, speaking in clear/full sentences, patient let me know that he was admitted for a stroke and started on medications earlier this month. He expressed frustration, and stated they cant figure it out and I had two more TIAs . Pt acknowledged he has a nuerology appt today at 2, I encouraged him to ask questions and speak to the provider about these concerns. He verbally agreed to this. Office Meds Vivitrol 380 mg intramuscular suspension,extended release Performing Provider: Alda Pimentel CNP Performing Location: [facility] Administered by: Bryanna Cates RN on 05/25/23 13:56 Dose Route Admin Location Dispensed Lot Number Expiration Date 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
[2023-05-25 12:58] VITALS: BP 160/80; PULSE 80; RESP 20; O2SAT 96
== END 2023-05-25 12:56 | disposition home or self-care (01) ==
PROVIDERS: PCP Internal Medicine
DX: F10.21 Alcohol dependence, in remission (principal)

== ENCOUNTER → 2023-05-25 11:25 | Outpatient (BNVA) | payer OTHER, SELFPAY | PROVIDERS: PCP Internal Medicine | DX: F10.21 Alcohol dependence, in remission (principal) | CPT/HCPCS: 96372; J2315 ==

== ENCOUNTER 2023-06-14 10:39 | Outpatient (AMB) | payer OTHER, SELFPAY ==
[2023-06-14 11:07] VITALS: BP 148/90; PULSE 71; O2SAT 96; BMI 51.0
--- NOTE | 2023-06-14 11:07 | A.OFFVIS_ITS ---
Vital Signs 06/14/23 11:07 Height 5 ft Weight 261 lb 2 oz BMI 51.0 BP 148/90 H Blood Pressure Location Rt brachial Position Sitting Pulse 71 Pulse Source Pulse Oximeter Pulse Oximetry (%) 96 Intake Visit Reasons: 6 mnts f/u appt - Confirmed Intake Note: Patient presents for 6 month follow up. patient has no concerns Allergies cefazolin [From Ancef] Allergy (Severe, Verified 06/26/23 11:12) Anaphylaxis Sulfa (Sulfonamide Antibiotics) Allergy (Severe, Verified 06/26/23 11:12) Anaphylaxis sulfamethoxazole [From Bactrim] Allergy (Severe, Verified 06/26/23 11:12) Mckoy-Kory syndrome trimethoprim [From Bactrim] Allergy (Severe, Verified 06/26/23 11:12) Mckoy-Kory syndrome levofloxacin [From Levaquin] Allergy (Intermediate, Verified 06/26/23 11:12) Rash metronidazole [From Flagyl] Allergy (Intermediate, Verified 06/26/23 11:12) Rash Penicillins Allergy (Intermediate, Verified 06/26/23 11:12) ? Hives-childhood reaction NSAIDS (Non-Steroidal Anti-Inflamma Adverse Reaction (Unknown, Verified 06/26/23 11:12) cannot take due to having gastric sleeve Medication List - Last Reconciled 06/14/23 by LISET Rowland amitriptyline 50 mg PO BEDTIME aspirin 81 mg PO DAILY atorvastatin 80 mg PO DAILY [Bilateral below the knee socket replacement As directed] [bilateral feet As directed] blood-glucose meter,continuous (Dexcom G7 [place]) As directed blood-glucose sensor (Dexcom G6 Sensor device) As directed blood-glucose sensor (Dexcom G7 Sensor device) As directed clopidogrel 75 mg PO DAILY clotrimazole 1% 1 appl topical BID fluoxetine (Prozac) 80 mg (2 x 40 mg) PO DAILY insulin aspart U-100 (Novolog FlexPen U-100 Insulin aspart) See Protocol sliding scale doses subcut TID-QID insulin glargine (Lantus Solostar U-100 Insulin) units subcut latanoprost 0.005% 1 drp ophthalmic (eye) BEDTIME lorazepam mg PO DAILY naltrexone microspheres ER (Vivitrol) 380 mg IM Q4W rfkqg-srpdx-dxyswam-pramoxine 3.5-500-10,000 ba-nskb-izbl/g (Antibiotic-Pain Relief(bacit)) 1 appl topical BID oxcarbazepine (Trileptal) 300 mg PO DAILY oxcarbazepine mg PO pen needle, diabetic (BD Ultra-Fine [place]ryst[place] Pen Needle) As directed 4 to 5x per day [power wheelchair As directed] prazosin 5 mg PO BEDTIME pregabalin 200 mg PO TID 30 days propranolol 40 mg PO BID rivaroxaban (Xarelto) 20 mg PO DAILY varenicline (Chantix) 1 mg PO BID zolpidem ER (Ambien CR) 6.25 mg PO BEDTIME HPI Comments Details: 52-yr-old male presents for f/u visit. Pt endorses the following interval medical history changes: Pt reports he had a stroke on April 29 2023- per pt was d/t hyponatremia and a blot clot. He states he was at [employer]ism when he started to not feel right, so went to [place] [facility] where work-up showed thalamic stroke. He denies any residual symptoms from this, other than intermittent vertical diplopia and headaches. He was started on ASA, high-dose statin, and Xarelto for h/o paroxysmal a-fib. His oxcarbazepine was decreased from 450mg tid to 150mg bid d/t hyponeutremia- Na level 120. After discharge, he had similar episodes in the 2nd and 3rd week of April. Left facial droop, slurred speech. He went back to [place] [facility], but the f/u head CT and MRI were unremarkable. He has since seen neurology at [facility]. Pt was advised to undergo EEG to assess for etiologies of diplopia. He is compliant w/ Pregabalin for BLE amputation site nerve pain. [facility] Medical History BKA stump complication Recurrent cellulitis of lower extremity History of trigger finger Obesity Neuropathy Insulin dependent diabetes mellitus History of traumatic brain injury Hx of staphylococcal infection COVID-19 vaccine series completed Cognitive and neurobehavioral dysfunction PTSD (post-traumatic stress disorder) Anxiety Depression Sleep apnea Morbid obesity Vitamin D deficiency HLD (hyperlipidemia) HTN (hypertension) Diabetes mellitus Bilateral cataracts Hx of leg amputation Surgical History Hx of leg amputation Hx of cardiac catheterization History of gastrectomy Hx of cataract extraction Hx of hernia repair History of surgery on arm Hx of carpal tunnel repair S/P BKA (below knee amputation) bilateral Family History Mother No problems noted. Father Alcohol abuse Social History Household Members: Spouse Housing: House Are you a primary residential child care counselor to a significant other at home: No Do you presently have visiting nurse or other home services: Yes Alcohol intake: never Comment: pt refuses bed alarm Patient Tobacco Use Status: Never used Tobacco Tobacco use type: Smokeless Tobacco Years Smoked: 20-30 years e-Cigarette/Vaping Use: Never Used Second Hand Smoke Exposure: No Advance Directives Date on File: 07/14/22 service: No Current occupational status: disabled Cognitive needs: No Hearing needs: No Vision needs: Yes Review of Systems Const All systems reviewed & are unremarkable except as noted in HPI and below Physical Exam Vital Signs: Last Vital Signs Pulse 71 06/14/23 11:07 BP 148/90 H 06/14/23 11:07 Pulse Ox 96 06/14/23 11:07 BMI result Body Mass Index 51.0 Const General: cooperative and no acute distress Orientation/consciousness: patient oriented x3 HEENT Head: Yes normocephalic Resp Effort & Inspection: normal respiratory effort and able to speak in complete sen tences Neuro Other: Wide based, steady gait w/ BLE prosthetics. General: patient oriented x3 and CN's II-XI intact bilaterally (w/ exception of mild left lower facial droop) Cognition (Neuro): normal cognition Motor exam (neuro): 5/5 motor strength present throughout Psych Appearance: grossly normal Mental Status: mental status grossly normal Speech and movement: Normal speech and movement present Affect: normal affect Attitude: cooperative Thought process: Normal thought process present Thought content: Normal thought content present Insight: Good insight present (Psych) Judgement: Good judgement present (Psych) Results Reviewed Results Reviewed: 04-30-2023, MR Brain (C-) INDICATION: Aphagia Brain Stem Infarct Aphagia Brain Stem Infarct TECHNIQUE: MRI of the brain was performed without contrast utilizing sagittal T1, axial T2, axial FLAIR, axial GRE, 3-D axial FIESTA, and axial DWI sequences. COMPARISON: Brain MRI 12/20/2018. Head CT and CTA 04/29/2023. FINDINGS: BRAIN and EXTRA-AXIAL SPACES: There is focal restricted diffusion and T2 hyperintensity in the right lateral thalamus compatible with acute infarction. No diffusion abnormality elsewhere to indicate acute or subacute infarct. Ventricles and sulci are mildly prominent reflecting volume loss. There are a few scattered nonspecific FLAIR hyperintensities in the white matter most likely reflecting chronic small vessel disease. There is no hemorrhage, extra- axial collection, mass effect, shift of the midline structures, or basal cistern effacement. The major intracranial vascular flow voids are preserved. EXTRACRANIAL SOFT TISSUES: There have been lens replacements bilaterally. Paranasal sinuses and mastoids are unremarkable. BONES: Marrow signal is preserved. IMPRESSION: Acute infarct in the right thalamus. Minimal nonspecific white matter signal changes which most likely reflect chronic small vessel disease. 05/10/23, CTA Head and Neck IMPRESSION: 1. No proximal occlusion or high grade stenosis in the major arteries of the head and neck. 2. Mild narrowing of the left intracranial ICA. 05/01/23, Echocardiogram - Complete ? Summary Normal left ventricular size and function with ejection fraction of 60-65%.?No focal wall motion abnormalities.?Severe asymmetric basal septal hypertrophy with septal thickness 2.1 cm. The?remainder of the left ventricle has normal wall thickness.?There is no evidence of a left ventricular outflow tract obstruction. Normal right ventricular size and function. No significant valvular disease. Assessment & Plan Assessment & Plan (1) Phantom limb (syndrome): Code(s): G54.7 - Phantom limb syndrome without pain Category: Medical (2) Traumatic brain injury: Code(s): S06.9XAA - Unspecified intracranial injury with loss of consciousness status unknown, initial encounter Category: Medical (3) Headache: Code(s): R51.9 - Headache, unspecified Category: Medical Plan For phantom limb pain: Continue Pregabalin 200mg tid. For post-stroke headache: ? if diplopia is a component of post-stroke headache. Trial Riboflavin 400mg qam and Mag Ox 400mg qhs. May use tylenol prn. Pt is not a candidate to try triptans or gepants/CGRP antagonists at this time d/t recent stroke. Avoid NSAIDs d/t Xarelto use and h/o gastric sleeve sx. For recent right thalamic stroke: Continue ASA, Xarelto, Statin. Continue to try to optimize BP and diabetic control. F/u w/ [facility] neurology. F/u w/ cardiology. F/u w/ his sleep provider r/t CPAP. Eye exam as scheduled. Concur w/ EEG. If diplopa persists and EEG WNL- consider VEP, as diplopia can at times be seen following thalamic stroke. Monitor oral movements and tremor. f/u in 6 months or sooner prn. Medications: New riboflavin (vitamin B2) 400 mg PO DAILY 30 tabs 6RF 30 days magnesium oxide may hold for loose stools 400 mg PO BEDTIME 30 tabs 6RF 30 days Scribe Plan - Not visible on output: Reviewed possible medication side effects, including but not limited to drowsiness, dizziness. Coding Level of Care Code Est Pt Level 4 (52711) Diagnoses Phantom limb (syndrome) G54.7 Traumatic brain injury S06.9XAA Headache R51.9
== END 2023-06-14 12:06 | disposition home or self-care (01) ==
PROVIDERS: PCP Internal Medicine; Visit Provider Nurse Practitioner Family
DX: G54.7 Phantom limb syndrome without pain (principal); S06.9XAA Unspecified intracranial injury with loss of consciousness status unknown, initial encounter; R51.9 Headache, unspecified
CPT/HCPCS: 99214

== ENCOUNTER → 2023-06-14 10:39 | Outpatient (BNVA) | payer OTHER, SELFPAY | PROVIDERS: PCP Internal Medicine; Visit Provider Nurse Practitioner Family | DX: G54.7 Phantom limb syndrome without pain (principal); S06.9XAA Unspecified intracranial injury with loss of consciousness status unknown, initial encounter; X58.XXXA Exposure to other specified factors, initial encounter; Y93.9 Activity, unspecified; Y92.9 Unspecified place or not applicable; Y99.9 Unspecified external cause status; R51.9 Headache, unspecified | CPT/HCPCS: 99212 ==

== ENCOUNTER 2023-06-26 11:14 | Outpatient (AMB) | payer OTHER, SELFPAY ==
--- NOTE | 2023-06-26 11:12 | AM.OFFVISNUR ---
Intake Intake Visit Reasons: anil inj Allergies cefazolin [From Ancef] Allergy (Severe, Verified 06/26/23 11:12) Anaphylaxis Sulfa (Sulfonamide Antibiotics) Allergy (Severe, Verified 06/26/23 11:12) Anaphylaxis sulfamethoxazole [From Bactrim] Allergy (Severe, Verified 06/26/23 11:12) Mckoy-Kory syndrome trimethoprim [From Bactrim] Allergy (Severe, Verified 06/26/23 11:12) Mckoy-Kory syndrome levofloxacin [From Levaquin] Allergy (Intermediate, Verified 06/26/23 11:12) Rash metronidazole [From Flagyl] Allergy (Intermediate, Verified 06/26/23 11:12) Rash Penicillins Allergy (Intermediate, Verified 06/26/23 11:12) ? Hives-childhood reaction NSAIDS (Non-Steroidal Anti-Inflamma Adverse Reaction (Unknown, Verified 06/26/23 11:12) cannot take due to having gastric sleeve Coding
[2023-06-26 11:16] VITALS: BP 150/92; PULSE 65; O2SAT 96
== END 2023-06-26 13:26 | disposition home or self-care (01) ==
PROVIDERS: PCP Internal Medicine
DX: F10.21 Alcohol dependence, in remission (principal)

== ENCOUNTER → 2023-06-26 11:14 | Outpatient (BNVA) | payer OTHER, SELFPAY | PROVIDERS: PCP Internal Medicine | DX: F10.20 Alcohol dependence, uncomplicated (principal); Z79.899 Other long term (current) drug therapy | CPT/HCPCS: 96372; J2315 ==

== ENCOUNTER 2023-07-25 14:39 | Outpatient (AMB) | payer OTHER, SELFPAY ==
--- NOTE | 2023-07-25 14:36 | AM.OFFVISNUR ---
Intake Vital Signs 07/25/23 14:41 BP 130/90 H Blood Pressure Location Lt brachial Position Sitting Pulse 72 Pulse Source Pulse Oximeter Pulse Oximetry (%) 97 Oxygen Delivery Method Room Air Intake Visit Reasons: anil inj Allergies cefazolin [From Ancef] Allergy (Severe, Verified 06/26/23 11:12) Anaphylaxis Sulfa (Sulfonamide Antibiotics) Allergy (Severe, Verified 06/26/23 11:12) Anaphylaxis sulfamethoxazole [From Bactrim] Allergy (Severe, Verified 06/26/23 11:12) Mckoy-Kory syndrome trimethoprim [From Bactrim] Allergy (Severe, Verified 06/26/23 11:12) Mckoy-Kory syndrome levofloxacin [From Levaquin] Allergy (Intermediate, Verified 06/26/23 11:12) Rash metronidazole [From Flagyl] Allergy (Intermediate, Verified 06/26/23 11:12) Rash Penicillins Allergy (Intermediate, Verified 06/26/23 11:12) ? Hives-childhood reaction NSAIDS (Non-Steroidal Anti-Inflamma Adverse Reaction (Unknown, Verified 06/26/23 11:12) cannot take due to having gastric sleeve Coding
[2023-07-25 14:41] VITALS: BP 130/90; PULSE 72; O2SAT 97
== END 2023-07-25 15:25 | disposition home or self-care (01) ==
PROVIDERS: PCP Internal Medicine
DX: F10.21 Alcohol dependence, in remission (principal)

== ENCOUNTER → 2023-07-25 14:39 | Outpatient (BNVA) | payer OTHER, SELFPAY | PROVIDERS: PCP Internal Medicine | DX: Z79.899 Other long term (current) drug therapy (principal) | CPT/HCPCS: 96372; J2315 ==

== ENCOUNTER 2023-10-24 15:20 | Outpatient (AMB) | payer OTHER, SELFPAY ==
--- NOTE | 2023-10-24 15:36 | A.OFFVISCC_ITS ---
Intake Visit Reasons: Mat/Ashlee Injection Allergies cefazolin [From Ancef] Allergy (Severe, Verified 06/26/23 11:12) Anaphylaxis Sulfa (Sulfonamide Antibiotics) Allergy (Severe, Verified 06/26/23 11:12) Anaphylaxis sulfamethoxazole [From Bactrim] Allergy (Severe, Verified 06/26/23 11:12) Mckoy-Kory syndrome trimethoprim [From Bactrim] Allergy (Severe, Verified 06/26/23 11:12) Mckoy-Kory syndrome levofloxacin [From Levaquin] Allergy (Intermediate, Verified 06/26/23 11:12) Rash metronidazole [From Flagyl] Allergy (Intermediate, Verified 06/26/23 11:12) Rash Penicillins Allergy (Intermediate, Verified 06/26/23 11:12) ? Hives-childhood reaction NSAIDS (Non-Steroidal Anti-Inflamma Adverse Reaction (Unknown, Verified 06/26/23 11:12) cannot take due to having gastric sleeve HPI HPI Mat/Ashlee Injection: Details: Patient presents for follow up and vivitrol injection reporting he was recently hospitalized due to infection on his stumps back home flat affect denies any alcohol use PFSH Medical History BKA stump complication Recurrent cellulitis of lower extremity History of trigger finger Obesity Neuropathy Insulin dependent diabetes mellitus History of traumatic brain injury Hx of staphylococcal infection COVID-19 vaccine series completed Cognitive and neurobehavioral dysfunction PTSD (post-traumatic stress disorder) Anxiety Depression Sleep apnea Morbid obesity Vitamin D deficiency HLD (hyperlipidemia) HTN (hypertension) Diabetes mellitus Bilateral cataracts Hx of leg amputation Surgical History Hx of leg amputation Hx of cardiac catheterization History of gastrectomy Hx of cataract extraction Hx of hernia repair History of surgery on arm Hx of carpal tunnel repair S/P BKA (below knee amputation) bilateral Family History Mother No problems noted. Father Alcohol abuse Social History Household Members: Spouse Housing: House Are you a primary patient care nursing assistant to a significant other at home: No Do you presently have visiting nurse or other home services: Yes Alcohol intake: never Comment: pt refuses bed alarm Patient Tobacco Use Status: Never used Tobacco Tobacco use type: Smokeless Tobacco Years Smoked: 20-30 years e-Cigarette/Vaping Use: Never Used Second Hand Smoke Exposure: No Advance Directives Date on File: 07/14/22 service: No Current occupational status: disabled Cognitive needs: No Hearing needs: No Vision needs: Yes Review of Systems Const Reports as per HPI and Reports no additional complaints Physical Exam Const General: cooperative and no acute distress Nutritional Appearance: average body habitus Orientation/consciousness: patient oriented x3 Limitations: wheelchair Neuro General: patient oriented x3 Office Meds Vivitrol 380 mg intramuscular suspension,extended release Performing Provider: Alda Pimentel CNP Performing Location: [facility] Administered by: Bryanna Cates RN on 10/24/23 15:38 Dose Route Admin Location Dispensed Lot Number Expiration Date [facility] Team Cdl Driver 380 mg IM LG 380 mg [id number] 09/25/25 76974-813-05 [place] Assessment & Plan Assessment & Plan (1) Alcohol use disorder, severe, in early remission: Code(s): F10.21 - Alcohol dependence, in remission Category: Medical Plan: * tolerated injection * follow up 4 weeks Orders: Orders AMB Naltrexone Injection Patient Supplied (NC) 10/24/23 F10.20 - Alcohol dependence, uncomplicated
== END 2023-10-24 15:59 | disposition home or self-care (01) ==
PROVIDERS: PCP Internal Medicine; Visit Provider Nurse Practitioner Psychiatric/Mental Health
DX: F10.21 Alcohol dependence, in remission (principal)
CPT/HCPCS: 99213

== ENCOUNTER → 2023-10-24 15:20 | Outpatient (BNVA) | payer OTHER, SELFPAY | PROVIDERS: PCP Internal Medicine; Visit Provider Nurse Practitioner Psychiatric/Mental Health | DX: F10.21 Alcohol dependence, in remission (principal); Z51.81 Encounter for therapeutic drug level monitoring; Z79.899 Other long term (current) drug therapy | CPT/HCPCS: 96372; 99212; J2315 ==

== ENCOUNTER 2024-03-25 15:10 | Outpatient (AMB) | payer MEDICARE, MEDICAID, SELFPAY ==
--- NOTE | 2024-03-25 15:12 | MHC.PC.OV ---
Vital Signs 03/25/24 15:13 BMI Reason not done Patient refused/unable BP 130/78 Blood Pressure Location Lt brachial Position Sitting Intake Visit Reasons: sherly Dr Sprague/ annual exam Web Database Developer Required: No Accompanied by: Significant Other Allergies cefazolin [From Ancef] Allergy (Severe, Verified 03/25/24 15:26) Anaphylaxis Sulfa (Sulfonamide Antibiotics) Allergy (Severe, Verified 03/25/24 15:26) Anaphylaxis sulfamethoxazole [From Bactrim] Allergy (Severe, Verified 03/25/24 15:26) Mckoy-Kory syndrome trimethoprim [From Bactrim] Allergy (Severe, Verified 03/25/24 15:26) Mckoy-Kory syndrome levofloxacin [From Levaquin] Allergy (Intermediate, Verified 03/25/24 15:26) Rash metronidazole [From Flagyl] Allergy (Intermediate, Verified 03/25/24 15:26) Rash Penicillins Allergy (Intermediate, Verified 03/25/24 15:26) ? Hives-childhood reaction NSAIDS (Non-Steroidal Anti-Inflamma Adverse Reaction (Unknown, Verified 03/25/24 15:26) cannot take due to having gastric sleeve Medication List - Last Reconciled 03/25/24 by Harriet Curtis MD amitriptyline 50 mg PO BEDTIME aspirin 81 mg PO DAILY atorvastatin 80 mg PO DAILY [Bilateral below the knee socket replacement As directed] [bilateral feet As directed] blood-glucose sensor ([employer] G6 Sensor device) As directed blood-glucose transmitter (Dexcom G6 Transmitter device) As directed clopidogrel 75 mg PO DAILY clotrimazole 1% 1 appl topical BID fluoxetine (Prozac) 80 mg (2 x 40 mg) PO DAILY insulin aspart U-100 (Novolog FlexPen U-100 Insulin aspart) See Protocol sliding scale doses subcut TID-QID insulin glargine (Lantus Solostar U-100 Insulin) units subcut lamotrigine mg PO DAILY latanoprost 0.005% 1 drp ophthalmic (eye) BEDTIME lorazepam mg PO DAILY magnesium oxide 400 mg PO BEDTIME 30 days mirtazapine mg PO naltrexone microspheres ER (Vivitrol) 380 mg IM Q4W uoozo-uvymg-tpyrbfy-pramoxine 3.5-500-10,000 yt-visr-iwmf/g (Antibiotic-Pain Relief(bacit)) 1 appl topical BID oxcarbazepine (Trileptal) 300 mg PO DAILY oxcarbazepine mg PO pen needle, diabetic (BD Ultra-Fine Krysta Pen Needle) As directed 4 to 5x per day [power wheelchair As directed] prazosin 5 mg PO BEDTIME pregabalin 200 mg PO TID 30 days propranolol 40 mg PO BID riboflavin (vitamin B2) 400 mg PO DAILY 30 days rivaroxaban (Xarelto) 20 mg PO DAILY varenicline (Chantix) 1 mg PO BID zolpidem ER (Ambien CR) 6.25 mg PO BEDTIME Tobacco use date assessed: 03/25/24 Dental Screening Dental Screen Date: 03/25/24 Did you have a dental visit in the last 12 months?: No Did you have a dental problem in the last 6 months where you did not have access to dental care?: No Was dental information given to patient?: Patient has dentist HPI HPI Comments History of Present Illness Details This is a 53-year-old male with uncontrolled diabetes mellitus type 2 with hyperglycemia on long-term current use of insulin, hypertension, hyperlipidemia, history of stroke in April 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 He has A1c today was 10.3% and I will refer him to Endocrinology and increase his insulin. Diabetic eye exam was last year. I will order labs and his LDL should be less than 70. Blood pressure stable. He complains of cognitive impairment which has been more pronounced after his stroke and so [facility] and also [facility]. He will also be sent to speech therapy. Has bipolar disorder and used to have a psychiatrist but not anymore. Will be referred to counseling. Will also be referred to Cardiology for his atrial fibrillation. He denies any chest pain, shortness on breath or palpitations. He does have alcohol use disorder with severe dependence in remission and used to follow [facility]. Accompanied by today. REPLACED BY [facility] Medical History (Updated 03/25/24 @ 19:20 by Harriet Curtis MD) Major depressive disorder, recurrent severe without psychotic features Phantom limb (syndrome) Traumatic brain injury Bipolar disorder, unspecified Osteomyelitis of right femur Osteomyelitis Osteomyelitis Type 2 diabetes mellitus with morbid obesity GEM (acute kidney injury) Type 2 diabetes mellitus with unspecified complications Infection of amputation stump of left lower extremity T2DM (type 2 diabetes mellitus) Bipolar disorder with moderate depression BKA stump complication Recurrent cellulitis of lower extremity History of trigger finger Obesity Neuropathy Insulin dependent diabetes mellitus History of traumatic brain injury Hx of staphylococcal infection COVID-19 vaccine series completed Cognitive and neurobehavioral dysfunction PTSD (post-traumatic stress disorder) Anxiety Depression Sleep apnea Morbid obesity Vitamin D deficiency HLD (hyperlipidemia) HTN (hypertension) Diabetes mellitus Bilateral cataracts Surgical History (Updated 03/25/24 @ 19:18 by Harriet Curtis MD) Hx of leg amputation Hx of cardiac catheterization History of gastrectomy Hx of cataract extraction Hx of hernia repair History of surgery on arm Hx of carpal tunnel repair S/P BKA (below knee amputation) bilateral Family History (Updated 03/25/24 @ 15:43 by Harriet Curtis MD) Mother Stroke Depression Father Alcohol abuse Social History (Updated 03/25/24 @ 15:45 by Harriet Curtis MD) Household Members: Spouse Housing: House Are you a primary medical care evaluation specialist to a significant other at home: No Do you presently have visiting nurse or other home services: Yes Alcohol intake: former Comment: pt refuses bed alarm Patient Tobacco Use Status: Never used Tobacco Tobacco use type: Smokeless Tobacco Years Smoked: 20-30 years e-Cigarette/Vaping Use: Never Used Second Hand Smoke Exposure: No Advance Directives Date on File: 07/14/22 service: No Current occupational status: disabled Cognitive needs: No Hearing needs: No Vision needs: Yes Questionnaire PHQ-9 Over the last 2 weeks, how often have you been bothered by any of the following problems? 1. Little interest or pleasure in doing things: more than half the days 2. Feeling down, depressed, or hopeless: nearly every day 3. Trouble falling or staying asleep, or sleeping too much: nearly every day 4. Feeling tired or having little energy: nearly every day 5. Poor appetite or overeating: nearly every day 6. Feeling bad about yourself - or that you are a failure or have let yourself or your family down: nearly every day 7. Trouble concentrating on things, such as reading the newspaper or watching television: nearly every day 8. Moving or speaking so slowly that other people could have noticed. Or the opposite - being so fidgety or restless that you have been moving around a lot more than usual: nearly every day 9. Thoughts that you would be better off or of hurting yourself in some way: not at all Total score: 23 Depression Screening Interpretation: Positive Depression Screening Follow-up: Existing condition and Follow-up Visit Requested Depression Screening Done: Yes 41171 - PHQ-9 Billing: Yes Source: Developed by Drs. Derrell Man, Millicent Jones, King March and colleagues, with an educational magui from [email or web address]. Thrive Questionnaire Date Thrive assessed: 03/25/24 I am a: Patient What is your living situation today?: I have a steady place to live Within the past 12 months, did the food you bought not last and you didn't have the money to get more?: Often true Within the past 12 months, did you worry whether your food would run out before you got money to buy more?: Often true Do you have trouble paying for medicines?: Yes Do you have trouble getting transportation to medical appointments?: Yes Do you have trouble paying your heating and electricity bill?: Yes Do you have trouble taking care of your child, family member or friend?: Yes Do you have trouble with day-to-day activities such as bathing, preparing meals, shopping, managing finances, etc.?: Yes Are you currently unemployed and looking for a job?: No Are you interested in more education?: No Please select the resources that you would like help with: Housing/Fdc, Food, Paying for medicine, Transportation, Utilities, Care for elder or disabled and Daily support Currently or been in a relationship where the following occur: I choose not to answer THRIVE Score: 4 AUDIT C Alcohol Use Questionnaire (AUDIT-C) 1. How often do you have a drink containing alcohol?: Never Total Score: 0 GALILEA-7 AMB Questionnaire GALILEA-7 Date GALILEA - 7 assessed: 03/25/24 Feeling nervous, anxious, or on edge: 3 = Nearly every day Not being able to stop or control worryin = Nearly every day Worrying too much about different things: 3 = Nearly every day Trouble relaxin = Nearly every day Being so restless that it is hard to sit still: 3 = Nearly every day Becoming easily annoyed or irritable: 3 = Nearly every day Feeling afraid as if something awful might happen: 3 = Nearly every day Total GALILEA-7 score (0-4 normal; 5-9 mild; 10-14 moderate; 15-21 severe): 21 Source: Developed by Drs. Drerell Man, Millicent Jones, King March and colleagues, with an educational magui from [email or web address]. GALILEA-7 Assessment Billing GALILEA-7 Assessment Tool: GALILEA-7 Assessment 81834 Review of Systems Const All systems reviewed & are unremarkable except as noted in HPI and below Card Denies chest pain at rest, Denies chest pain with activity, Denies edema, Denies irregular heart rhythm, Denies claudication, Denies dyspnea, Denies dyspnea on exertion, Denies orthopnea, Denies paroxysmal nocturnal dyspnea and Denies slow heart rate Resp Denies cough, Denies dyspnea and Denies dyspnea on exertion GI Denies abdominal pain, Denies change in bowel habits, Denies excessive flatus, Denies nausea and Denies vomiting Physical exam (Primary Care) Vital Signs: Last Vital Signs BP 130/78 03/25/24 15:13 Tobacco/Smoking Status: Tobacco use Status Tobacco use date assessed 03/25/24 03/25/24 15:26 Patient Tobacco Use Status Never used Tobacco 03/25/24 15:45 Tobacco use type Smokeless Tobacco 03/25/24 15:45 e-Cigarette/Vaping Use Never Used 03/25/24 15:45 PHQ-9: PHQ-9 Score PHQ-9: Total score 23 03/25/24 16:09 Depression Screening Interpretation: Positive Depression Screening Follow-up: Existing condition and Follow-up Visit Requested Thrive Assessment: Date of Thrive Assessment Date Thrive assessed 03/25/24 03/25/24 15:17 Currently or been in a relationship where the following occur: I choose not to answer Const Limitations: wheelchair Resp Effort & Inspection: normal respiratory effort Auscultation: clear to auscultation bilaterally Cardio Jugular venous distension: no JVD Rate: regular rate Rhythm: regular rhythm Heart sounds: S1 normal heart sound present and S2 normal heart sound present Extrem Other: Bilateral above-knee amputation Office Procedures Flu Questionnaire Does the patient have a severe egg allergy?: No Results AMB Hemoglobin A1c AMB Hemoglobin A1c 10.3 % Last Edit by MICHAEL Meyer on 03/25/24 15:32 Immunizations Fluarix Triv [id number] (PF) 45 mcg (15 mcg x 3)/0.5 mL IM syringe Performing Provider: Harriet Curtis MD [facility] Documented (not given) by: MICHAEL Meyer on 03/25/24 15:58 Reason Not Given: Received Previously Results Reviewed Results Reviewed: Laboratory Last Values Hgb A1c (Clinic) 10.3 % (4.0-6.0) H 03/25/24 15:30 Coding Level of Care Code Est Pt Level 4 (35292) Complex EM visit Add On G2211 Diagnoses CVA (cerebral vascular accident) I63.9 Uncontrolled diabetes mellitus with hyperglycemia, with long-term current use of insulin E11.65; Z79.4 Atrial fibrillation I48.91 History of above knee amputation, unspecified laterality Z89.619 Laterality: unspecified laterality Alcohol use disorder, severe, in early remission F10.21 Bipolar I disorder with depression, severe F31.4 HTN (hypertension) I10 HLD (hyperlipidemia) E78.5 Cognitive impairment R41.89 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) I69.328 Additional Codes GALILEA-7 Assessment Billing - GALILEA-7 Assessment Tool: GALILEA-7 Assessment 45043 ([id number]) PHQ-9 - 53133 - PHQ-9 Billing: Yes ([id number]) Time Spent (min) 27 Assessment & Plan Assessment & Plan (1) CVA (cerebral vascular accident): Comment: April 2023 with speech deficit Code(s): I63.9 - Cerebral infarction, unspecified Category: Medical (2) Uncontrolled diabetes mellitus with hyperglycemia, with long-term current use of insulin: Code(s): E11.65 - Type 2 diabetes mellitus with hyperglycemia; Z79.4 - superintendent container terminal (current) use of insulin Category: Medical (3) Atrial fibrillation: Code(s): I48.91 - Unspecified atrial fibrillation Category: Medical (4) Hx of AKA (above knee amputation): Code(s): Z89.619 - Acquired absence of unspecified leg above knee Category: Surgical Qualifiers: Laterality: unspecified laterality Qualified Code(s): Z89.619 - Acquired absence of unspecified leg above knee (5) Alcohol use disorder, severe, in early remission: Code(s): F10.21 - Alcohol dependence, in remission Category: Medical (6) Bipolar I disorder with depression, severe: Code(s): F31.4 - Bipolar disorder, current episode depressed, severe, without psychotic features Category: Medical (7) HTN (hypertension): Code(s): I10 - Essential (primary) hypertension Category: Medical (8) HLD (hyperlipidemia): Code(s): E78.5 - Hyperlipidemia, unspecified Category: Medical (9) Cognitive impairment: Code(s): R41.89 - Other symptoms and signs involving cognitive functions and awareness Category: Medical (10) 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 Increase insulin. Referred to Neurology for cognitive impairment. Referred to speech therapy for speech deficit. Referred to cardiology for atrial fibrillation. Referred to Endocrinology for uncontrolled diabetes mellitus. Labs ordered. Orders: Orders Comprehensive [place]. Panel Fast Today E11.65 - Type 2 diabetes mellitus with hyperglycemia, Z79.4 - superintendent container terminal (current) use of insulin AMB Hemoglobin A1c Today E11.9 - Type 2 diabetes mellitus without complications Lipid Panel Today E78.5 - Hyperlipidemia, unspecified Microalbumin, Random (w Creat) Today R80.9 - Proteinuria, unspecified Influenza [id number] Immunization Today Z23 - Encounter for immunization Referrals Neurology Referral R41.89 - Other symptoms and signs involving cognitive functions and awareness Cardiology Referral I48.91 - Unspecified atrial fibrillation Counseling Referral F31.4 - Bipolar disorder, current episode depressed, severe, without psychotic features Speech and Hearing Referral I69.328 - Other speech and language deficits following cerebral infarction Endocrinology Referral E11.65 - Type 2 diabetes mellitus with hyperglycemia, Z79.4 - superintendent container terminal (current) use of insulin Medications: Changed From insulin glargine (Lantus Solostar U-100 Insulin) subcut To insulin glargine (Lantus Solostar U-100 Insulin) 70 units (0.7 mL) subcut QPM 63 mL 1RF 90 days Refilled blood-glucose sensor ([employer] G6 Sensor device) As directed 3 ea 8RF riboflavin (vitamin B2) 400 mg PO DAILY 30 tabs 6RF 30 days blood-glucose transmitter ([employer] G6 Transmitter device) As directed 1 ea 0RF E11.9 - Type 2 diabetes mellitus without complications Discontinued oxcarbazepine (Trileptal) Discontinued Reason: Patient Completed Course 300 mg PO DAILY 30 tabs 0RF zolpidem ER (Ambien CR) Discontinued Reason: Patient Completed Course 6.25 mg PO BEDTIME 14 tabs 1RF amitriptyline Discontinued Reason: Patient Completed Course 50 mg PO BEDTIME 90 tabs 3RF
[2024-03-25 15:13] VITALS: BP 130/78
== END 2024-03-25 15:53 | disposition home or self-care (01) ==
PROVIDERS: PCP Internal Medicine; Visit Provider Internal Medicine
DX: E11.65 Type 2 diabetes mellitus with hyperglycemia (principal); Z79.4 Long term (current) use of insulin; I48.91 Unspecified atrial fibrillation; Z89.619 Acquired absence of unspecified leg above knee; F10.21 Alcohol dependence, in remission; F31.4 Bipolar disorder, current episode depressed, severe, without psychotic features; E11.69 Type 2 diabetes mellitus with other specified complication; I10 Essential (primary) hypertension; E78.5 Hyperlipidemia, unspecified; R41.89 Other symptoms and signs involving cognitive functions and awareness; I69.328 Other speech and language deficits following cerebral infarction

== ENCOUNTER → 2024-03-25 15:10 | Outpatient (BNVA) | payer MEDICARE, SELFPAY | PROVIDERS: PCP Internal Medicine; Visit Provider Internal Medicine | DX: Z00.00 Encounter for general adult medical examination without abnormal findings (principal); E11.9 Type 2 diabetes mellitus without complications; I10 Essential (primary) hypertension; E78.5 Hyperlipidemia, unspecified; E11.65 Type 2 diabetes mellitus with hyperglycemia; I48.91 Unspecified atrial fibrillation; F10.21 Alcohol dependence, in remission; F31.4 Bipolar disorder, current episode depressed, severe, without psychotic features; R41.89 Other symptoms and signs involving cognitive functions and awareness; Z79.4 Long term (current) use of insulin; Z86.73 Personal history of transient ischemic attack (TIA), and cerebral infarction without residual deficits; Z89.619 Acquired absence of unspecified leg above knee | CPT/HCPCS: 83036; 96127; 99212 ==

== ENCOUNTER → 2024-04-02 13:32 | Outpatient (BNVA) | payer MEDICARE, SELFPAY | PROVIDERS: PCP Internal Medicine; Visit Provider Nurse Practitioner Psychiatric/Mental Health | DX: F10.21 Alcohol dependence, in remission (principal) | CPT/HCPCS: 96372; 99212; J2315 ==

== ENCOUNTER 2024-04-30 13:37 | Outpatient (AMB) | payer OTHER, SELFPAY ==
--- NOTE | 2024-04-30 13:39 | AM.OFFVISNUR ---
Vital Signs 05/02/24 15:12 BP 140/85 H Blood Pressure Location Rt brachial Position Sitting Respiration 19 Pulse 90 Pulse Source Pulse Oximeter Intake Visit Reasons: Vivitrol Injection Allergies cefazolin [From Ancef] Allergy (Severe, Verified 03/25/24 15:26) Anaphylaxis Sulfa (Sulfonamide Antibiotics) Allergy (Severe, Verified 03/25/24 15:26) Anaphylaxis sulfamethoxazole [From Bactrim] Allergy (Severe, Verified 03/25/24 15:26) Mckoy-Kory syndrome trimethoprim [From Bactrim] Allergy (Severe, Verified 03/25/24 15:26) Mckoy-Kory syndrome levofloxacin [From Levaquin] Allergy (Intermediate, Verified 03/25/24 15:26) Rash metronidazole [From Flagyl] Allergy (Intermediate, Verified 03/25/24 15:26) Rash Penicillins Allergy (Intermediate, Verified 03/25/24 15:26) ? Hives-childhood reaction NSAIDS (Non-Steroidal Anti-Inflamma Adverse Reaction (Unknown, Verified 03/25/24 15:26) cannot take due to having gastric sleeve Nursing Note Patient Presents for vivitrol Injection. Current Dose 380mg . Given in the LG with no noted or stated complication. Denies any issues with previous injection. Denies symptoms, and denies any break through cravings. Office Meds Vivitrol 380 mg intramuscular suspension,extended release Performing Provider: Alda Pimentel CNP Performing Location: [facility] Administered by: Bryanna Cates RN on 04/30/24 15:10 Dose Route Admin Location Dispensed Lot Number Expiration Date [facility] Risk Assessor 380 mg IM LG 380 mg 2024-1016T 02/25/26 04444-523-72 [id number] Assessment & Plan Assessment & Plan Orders: Orders AMB Naltrexone Injection Patient Supplied (NC) 04/30/24 F10.21 - Alcohol dependence, in remission Medications: New Vivitrol ER (naltrexone microspheres) 380 mg IM ONCE 1 ea 0RF NS F10.21 - Alcohol dependence, in remission Coding
[2024-05-02 15:12] VITALS: BP 140/85; PULSE 90; RESP 19
== END 2024-04-30 15:04 | disposition home or self-care (01) ==
PROVIDERS: PCP Internal Medicine
DX: F10.21 Alcohol dependence, in remission (principal)

== ENCOUNTER → 2024-04-30 13:37 | Outpatient (BNVA) | payer OTHER, SELFPAY | PROVIDERS: PCP Internal Medicine | DX: F10.21 Alcohol dependence, in remission (principal) | CPT/HCPCS: 96372; J2315 ==

== ENCOUNTER 2024-06-02 10:35 | Outpatient (AMB) | payer OTHER, SELFPAY ==
[2024-06-02 10:52] VITALS: PULSE 66; O2SAT 98
--- NOTE | 2024-06-02 10:52 | AM.OFFVISNUR ---
Vital Signs 06/02/24 10:52 Pulse 66 Pulse Source Pulse Oximeter Pulse Oximetry (%) 98 Oxygen Delivery Method Room Air Intake Visit Reasons: VIVITROL INJECTION Allergies cefazolin [From Ancef] Allergy (Severe, Verified 06/02/24 10:52) Anaphylaxis Sulfa (Sulfonamide Antibiotics) Allergy (Severe, Verified 06/02/24 10:52) Anaphylaxis sulfamethoxazole [From Bactrim] Allergy (Severe, Verified 06/02/24 10:52) Mckoy-Kory syndrome trimethoprim [From Bactrim] Allergy (Severe, Verified 06/02/24 10:52) Mckoy-Kory syndrome levofloxacin [From Levaquin] Allergy (Intermediate, Verified 06/02/24 10:52) Rash metronidazole [From Flagyl] Allergy (Intermediate, Verified 06/02/24 10:52) Rash Penicillins Allergy (Intermediate, Verified 06/02/24 10:52) ? Hives-childhood reaction NSAIDS (Non-Steroidal Anti-Inflamma Adverse Reaction (Unknown, Verified 06/02/24 10:52) cannot take due to having gastric sleeve Coding
== END 2024-06-02 11:02 | disposition home or self-care (01) ==
LOC: HO.HCC 10:35
PROVIDERS: PCP Internal Medicine
DX: F10.20 Alcohol dependence, uncomplicated (principal)

== ENCOUNTER → 2024-06-02 10:35 | Outpatient (BNVA) | payer OTHER, SELFPAY | PROVIDERS: PCP Internal Medicine | DX: F10.20 Alcohol dependence, uncomplicated (principal) | CPT/HCPCS: 96372; J2315 ==

== ENCOUNTER 2024-06-10 13:03 | Outpatient (REF) | payer OTHER, SELFPAY ==
--- NOTE | ~2024-06-10 | XR_ITS ---
EXAMINATION: XR WRIST 3 OR MORE VIEWS RIGHT HISTORY: M25.531 - Pain in right wrist COMPARISON: Comparison is made with the prior examination dated 08/16/2022. FINDINGS: Three views of the right wrist are submitted. Osseous mineralization is normal. Again seen is an old ununited fracture of the distal scaphoid. No acute fracture is seen. There is no dislocation. The joint spaces are preserved. There are vascular calcifications. 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 Acute abnormality is identified. Electronically signed by: Derrell Carreon MD 06/11/2024 03:00 PM EDT
== END 2024-06-10 13:04 | disposition home or self-care (01) ==
LOC: HO.HOSX 13:03
DX: S62.014K Nondisplaced fracture of distal pole of navicular [scaphoid] bone of right wrist, subsequent encounter for fracture with nonunion (principal); M25.531 Pain in right wrist; M25.631 Stiffness of right wrist, not elsewhere classified
CPT/HCPCS: 73110; 99202

== ENCOUNTER 2024-06-10 13:25 | Outpatient (AMB) | payer OTHER, SELFPAY ==
--- NOTE | 2024-06-10 13:27 | MHC.OFFVIS ---
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 Patient reports that he has been having intermittent pain for many years now. He explains that he is unable to lift somehting with his palm facing up, for example he is unable to hold a pot and tilt it to drain. the pain is felt on the dorsal aspect of the wrist. He has occasional numbness and tingling in the small and ring fingers of the right hand. He has not used any bracing or tried any other therapies. He is wheel chair bound so he is consistently using the hand and wrist for propulsion Allergies cefazolin [From Ancef] Allergy (Severe, Verified 06/10/24 13:28) Anaphylaxis Sulfa (Sulfonamide Antibiotics) Allergy (Severe, Verified 06/10/24 13:28) Anaphylaxis sulfamethoxazole [From Bactrim] Allergy (Severe, Verified 06/10/24 13:28) Mckoy-Kory syndrome trimethoprim [From Bactrim] Allergy (Severe, Verified 06/10/24 13:28) Mckoy-Kory syndrome levofloxacin [From Levaquin] Allergy (Intermediate, Verified 06/10/24 13:28) Rash metronidazole [From Flagyl] Allergy (Intermediate, Verified 06/10/24 13:28) Rash Penicillins Allergy (Intermediate, Verified 06/10/24 13:28) ? 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 Patient reports that he has been having intermittent pain for many years now. He explains that he is unable to lift somehting with his palm facing up, for example he is unable to hold a pot and tilt it to drain. the pain is felt on the dorsal aspect of the wrist. He has occasional numbness and tingling in the small and ring fingers of the right hand. He has not used any bracing or tried any other therapies. He is wheel chair bound so he is consistently using the hand and wrist for propulsion [facility] Medical History (Updated 06/10/24 @ 16:43 by JENY Hopkins) Phantom limb (syndrome) Major depressive disorder, recurrent severe without psychotic features Traumatic brain injury Bipolar disorder, unspecified Osteomyelitis of right femur Osteomyelitis Osteomyelitis Type 2 diabetes mellitus with morbid obesity GEM (acute kidney injury) Type 2 diabetes mellitus with unspecified complications Infection of amputation stump of left lower extremity T2DM (type 2 diabetes mellitus) Bipolar disorder with moderate depression BKA stump complication Recurrent cellulitis of lower extremity History of trigger finger Obesity Neuropathy Insulin dependent diabetes mellitus History of traumatic brain injury Hx of staphylococcal infection COVID-19 vaccine series completed Cognitive and neurobehavioral dysfunction PTSD (post-traumatic stress disorder) Anxiety Depression Sleep apnea Morbid obesity Vitamin D deficiency HLD (hyperlipidemia) HTN (hypertension) Diabetes mellitus Bilateral cataracts Surgical History (Updated 03/25/24 @ 19:18 by Harriet Curtis MD) Hx of leg amputation Hx of cardiac catheterization History of gastrectomy Hx of cataract extraction Hx of hernia repair History of surgery on arm Hx of carpal tunnel repair S/P BKA (below knee amputation) bilateral Family History (Updated 03/25/24 @ 15:43 by Harriet Curtis MD) Mother Stroke Depression Father Alcohol abuse Social History (Updated 03/25/24 @ 15:45 by Harriet Curtis MD) Household Members: Spouse Housing: House Are you a primary animal caretaker to a significant other at home: No Do you presently have visiting nurse or other home services: Yes Alcohol intake: former Comment: pt refuses bed alarm Patient Tobacco Use Status: Never used Tobacco Tobacco use type: Smokeless Tobacco Years Smoked: 20-30 years e-Cigarette/Vaping Use: Never Used Second Hand Smoke Exposure: No Advance Directives Date on File: 07/14/22 service: No Current occupational status: disabled Cognitive needs: No Hearing needs: No Vision needs: Yes Review of Systems Const All systems reviewed & are unremarkable except as noted in HPI and below Physical Exam Extrem Other: Patient is alert, oriented, and in no acute distress. Neuro: Diminished sensation of the tips of all digits of the right hand in the office today Vascular: Cap refill brisk Pain: No tenderness to palpation about the dorsal right wrist Patient reports pain with all range of motion of the right wrist, primarily in the dorsal and ulnar aspect ROM: Patient is able to make a closed fist and extend all digits of the right hand fully Range of motion of the wrist limited by pain Skin: No lacerations or abrasions. General: No ecchymosis, erythema, or evidence of infection. Psych: Appears grossly normal Affect normal Attitude cooperative Results Reviewed Results Reviewed: X-rays obtained in the office today and independently reviewed by me, Israel Benz PA-C, demonstrate no fracture or acute bony abnormality of the right hand or wrist. Assessment & Plan Assessment & Plan (1) Tendinitis of right wrist: Code(s): M77.8 - Other enthesopathies, not elsewhere classified Category: Medical (2) Numbness and tingling of right hand: Code(s): R20.0 - Anesthesia of skin; R20.2 - Paresthesia of skin Category: Medical Plan 1. Numbness and tingling of right hand Constant, daily, worse at night Status post both carpal and cubital tunnel releases ?many years ago? Patient is educated about these conditions Patient is educated about the typical treatment course At this time, patient was referred for EMG and nerve conduction study to assess the health of the nerves of the right upper extremity Follow-up after EMG and nerve conduction study Patient was amenable to this plan 2. Dorsal tendinitis of right wrist Patient is educated about this condition Patient is educated about the typical treatment course At this time, patient was provided with a Velcro wrist splint to wear when his wrist is particularly bothering him Patient also referred to OT for range of motion and strengthening of the right wrist and treatment of tendinitis Patient was amenable to this plan Orders: Orders XR wrist RT min 3V Today M25.531 - Pain in right wrist NE electromyogram (EMG) Today R20.0 - Anesthesia of skin, R20.2 - Paresthesia of skin NE nerve conduction velocity Today R20.0 - Anesthesia of skin, R20.2 - Paresthesia of skin OT Evaluation and Treatment Today M77.8 - Other enthesopathies, not elsewhere classified Coding Level of Care Code New Pt Level 3 (01180) Complex EM visit Add On G2211 Diagnoses Tendinitis of right wrist M77.8 Numbness and tingling of right hand R20.0; R20.2
== END 2024-06-10 13:55 | disposition home or self-care (01) ==
LOC: HO.HOS 13:25
PROVIDERS: PCP Internal Medicine
DX: M77.8 Other enthesopathies, not elsewhere classified (principal); R20.0 Anesthesia of skin; R20.2 Paresthesia of skin
CPT/HCPCS: 99203; G2211

== ENCOUNTER → 2024-06-10 13:25 | Outpatient (BNV) | payer OTHER, SELFPAY | PROVIDERS: Visit Provider Radiology Diagnostic Radiology | DX: M25.531 Pain in right wrist (principal); S62.001S Unspecified fracture of navicular [scaphoid] bone of right wrist, sequela | CPT/HCPCS: 73110 ==

== ENCOUNTER 2024-07-02 13:21 | Outpatient (AMB) | payer OTHER, SELFPAY ==
--- NOTE | 2024-07-02 13:25 | A.OFFVIS_ITS ---
Vital Signs 07/02/24 13:31 Pulse 76 Pulse Source Pulse Oximeter Pulse Oximetry (%) 97 Intake Visit Reasons: MAT visit/vivitrol injection Allergies cefazolin [From Ancef] Allergy (Severe, Verified 07/02/24 13:32) Anaphylaxis Sulfa (Sulfonamide Antibiotics) Allergy (Severe, Verified 07/02/24 13:32) Anaphylaxis sulfamethoxazole [From Bactrim] Allergy (Severe, Verified 07/02/24 13:32) Mckoy-Kory syndrome trimethoprim [From Bactrim] Allergy (Severe, Verified 07/02/24 13:32) Mckoy-Kory syndrome levofloxacin [From Levaquin] Allergy (Intermediate, Verified 07/02/24 13:32) Rash metronidazole [From Flagyl] Allergy (Intermediate, Verified 07/02/24 13:32) Rash Penicillins Allergy (Intermediate, Verified 07/02/24 13:32) ? Hives-childhood reaction NSAIDS (Non-Steroidal Anti-Inflamma Adverse Reaction (Unknown, Verified 07/02/24 13:32) cannot take due to having gastric sleeve HPI HPI MAT visit/vivitrol injection: Details: He is getting monthly Vivitrol injections He has no concerns [facility] Medical History Phantom limb (syndrome) Major depressive disorder, recurrent severe without psychotic features Traumatic brain injury Bipolar disorder, unspecified Osteomyelitis of right femur Osteomyelitis Osteomyelitis Type 2 diabetes mellitus with morbid obesity GEM (acute kidney injury) Type 2 diabetes mellitus with unspecified complications Infection of amputation stump of left lower extremity T2DM (type 2 diabetes mellitus) Bipolar disorder with moderate depression BKA stump complication Recurrent cellulitis of lower extremity History of trigger finger Obesity Neuropathy Insulin dependent diabetes mellitus History of traumatic brain injury Hx of staphylococcal infection COVID-19 vaccine series completed Cognitive and neurobehavioral dysfunction PTSD (post-traumatic stress disorder) Anxiety Depression Sleep apnea Morbid obesity Vitamin D deficiency HLD (hyperlipidemia) HTN (hypertension) Diabetes mellitus Bilateral cataracts Surgical History Hx of leg amputation Hx of cardiac catheterization History of gastrectomy Hx of cataract extraction Hx of hernia repair History of surgery on arm Hx of carpal tunnel repair S/P BKA (below knee amputation) bilateral Family History Mother Stroke Depression Father Alcohol abuse Social History Household Members: Spouse Housing: House Are you a primary live in caregiver to a significant other at home: No Do you presently have visiting nurse or other home services: Yes Alcohol intake: former Comment: pt refuses bed alarm Patient Tobacco Use Status: Never used Tobacco Tobacco use type: Smokeless Tobacco Years Smoked: 20-30 years e-Cigarette/Vaping Use: Never Used Second Hand Smoke Exposure: No Advance Directives Date on File: 07/14/22 service: No Current occupational status: disabled Cognitive needs: No Hearing needs: No Vision needs: Yes Review of Systems Const All systems reviewed & are unremarkable except as noted in HPI and below Physical Exam Vital Signs: Last Vital Signs Pulse 76 07/02/24 13:31 Pulse Ox 97 07/02/24 13:31 Const General: cooperative Office Meds Vivitrol 380 mg intramuscular suspension,extended release Performing Provider: Ana Navarro MD Performing Location: [facility] [place] Administered by: Ana Navarro MD on 07/02/24 14:02 Dose Route Admin Location Dispensed Lot Number Expiration Date [facility] [employer] 380 mg IM right gluteal 380 mg [id number] [employer] Assessment & Plan Assessment & Plan (1) Alcohol use disorder, severe, in early remission: Comment: He has been doing well Code(s): F10.21 - Alcohol dependence, in remission Category: Medical Plan: Continue monthly Vivitrol Orders: Orders AMB Naltrexone Injection - Practice Supplied Today F10.21 - Alcohol dependence, in remission Coding Level of Care Code Est Pt Level 3 (78111) Diagnoses Alcohol use disorder, severe, in early remission F10.21
[2024-07-02 13:31] VITALS: PULSE 76; O2SAT 97
== END 2024-07-02 14:16 | disposition home or self-care (01) ==
LOC: HO.HCC 13:21
PROVIDERS: PCP Internal Medicine; Visit Provider Internal Medicine
DX: F10.21 Alcohol dependence, in remission (principal)
CPT/HCPCS: 99213

== ENCOUNTER → 2024-07-02 13:21 | Outpatient (BNVA) | payer OTHER, SELFPAY | PROVIDERS: PCP Internal Medicine; Visit Provider Internal Medicine | DX: F10.21 Alcohol dependence, in remission (principal); Z79.899 Other long term (current) drug therapy | CPT/HCPCS: 96372; 99212; J2315 ==